=== PATIENT | male | born 1935 | race Caucasian/White ===

== ENCOUNTER 2017-01-18 11:20 | Day surgery (SDC) | payer MEDICARE ==
--- NOTE | 2017-01-02 08:39 | HP ---
DATE OF ADMISSION: 01/18/2017 CHIEF COMPLAINT: Bilateral inguinal hernia. HISTORY OF PRESENT ILLNESS: The patient is an 81-year-old male who comes to the office complaining of a painful bulge in the left groin. He says his urologist told him several years ago he may have a small hernia. Recently, he was getting out of a chair and felt a popping sensation in the left groin and has had an ache at that location since then. The patient normally walks 3 to 5 miles daily and he has been unable to do so because of the discomfort associated with this. He was unaware of a right inguinal hernia. No change in bowel habits. No prior repair. Past medical history is hypertension. Past surgical history is shoulder. MEDICATIONS: 1. Diovan. 2. Hytrin. 3. Prilosec. 4. Aspirin. ALLERGIES: None. PHYSICAL EXAM: GENERAL: Well-developed, well-nourished male in no distress. HEENT is normocephalic. Sclerae is nonicteric. CHEST: No deformities. Abdomen is soft, nontender, nondistended. Small right reducible inguinal hernia, moderate-sized left inguinal hernia. Both testes normal. IMPRESSION: An 81-year-old male with bilateral inguinal hernia. PLAN: Will proceed with operative repair on 01/18. The option of open versus laparoscopic repair was discussed. He and I have chose a da Dl-assisted laparoscopic bilateral inguinal hernia repair with mesh. The risks of bleeding, infection, bladder or bowel injury, chronic pain, recurrence and anesthesia and insufflation associated complications. The patient understands and wishes to proceed.
[2017-01-14 14:42] VITALS: BMI 26.0
[~2017-01-18 11:20] MED LIST: DEXAMETHASONE SOD PHOSPHATE 10 MG/ML 1 ML VIAL IV ONE; HEPARIN SODIUM,PORCINE 5,000 UNIT/ML 1 ML VIAL SQ ONE; LIDOCAINE 1% 20 ML VIAL (10MG/ML) FOR IV START INTRADERMA PRN; ONDANSETRON 4 MG/2 ML VIAL IVP ONE; ceFAZolin 2 GM in SODIUM CHLORIDE 0.9% 100 ML IVPB ONE
[2017-01-18] MEDS: LACTATED RINGERS 1,000 ML IV SCH ×2 (12:31→18:31)
[2017-01-18 12:44] LABS: Basophils % (A) 1 %; CH 36.2; CHCM 34.6; Eosinophils # (A) 0.1 k/uL (0-0.7); Eosinophils % (A) 2 %; HCT 42.5 % (39.0-53.0); HDW 2.24; HGB 14.4 gm/dL (13.0-17.5); Luc # (Auto) 0.16; Luc % (Auto) 3; Lymphocytes # (A) 1.2 k/uL (1.0-4.8); Lymphocytes % (A) 23 %; MCH 35.6 pg (25.0-35.0); MCHC 33.8 g/dL (31.0-37.0); MCV 105.3 fL (80.0-100.0); Macrocytosis Slight; Mean Platelet Volume 7.3; Monocytes # (A) 0.4 k/uL (0-1.0); Monocytes % (A) 8 %; Neutrophils # (A) 3.4 k/uL (1.3-7.7); Neutrophils % (A) 64 %; RBC 4.04 m/uL (4.30-5.90); RDW 12.8 % (11.5-15.5); WBC 5.3 k/uL (3.8-10.6); WBC (Perox) 5.17
[2017-01-18 12:58] LABS: Calcium 9.4 mg/dL (8.4-10.2); Potassium 3.7 mmol/L (3.5-5.1)
[2017-01-18] MEDS ORDERED: PROPOFOL 10 MG/ML 20 ML VIAL IV ONE (12:59)
[2017-01-18] MEDS ORDERED: MIDAZOLAM 2 MG/2 ML VIAL ONE (12:59)
[2017-01-18] MEDS ORDERED: LIDOCAINE 1% INJ 10MG/ML (20 ML MDV) ONE (12:59)
[2017-01-18] MEDS ORDERED: fentaNYL (PF) 50 MCG/ML 2 ML AMP ONE (12:59)
[2017-01-18] MEDS ORDERED: HYDROmorphone (PF) 1 MG/ML ONE (12:59)
[2017-01-18] MEDS ORDERED: NEOSTIGMINE 1 MG/ML 10 ML VIAL ONE (12:59)
[2017-01-18] MEDS ORDERED: SUCCINYLCHOLINE CHLORIDE 100 MG/5 ML SYR IV ONE (12:59)
[2017-01-18] MEDS ORDERED: GLYCOPYRROLATE 0.2 MG/ML 2 ML VIAL ONE (12:59)
[2017-01-18] MEDS ORDERED: ROCURONIUM BROMIDE 10 MG/ML 10 ML VIAL IV ONE (12:59)
[2017-01-18] MEDS ORDERED: BUPIVACAIN-EPI 0.25%-1:200,000 30 ML VIAL SQ ONE ×2 (13:37)
[2017-01-18] MEDS ORDERED: NALOXONE 0.4 MG/ML 1 ML VIAL IV PRN (15:41)
--- NOTE | 2017-01-18 15:48 | P.OP ---
Date of Procedure: 01/18/17 Procedure(s) Performed: PREOPERATIVE DIAGNOSIS: Bilateral inguinal hernia POSTOPERATIVE DIAGNOSIS: Bilateral direct and will hernia with right-sided small femoral hernia, mesenteric lesion PROCEDURE: Laparoscopic repair I lateral inguinal hernia with the da Dl robot assistance, excision mesenteric lesion SURGEON: Sunshine EBL: Minimal ANESTHESIA: General COMPLICATIONS: None OPERATIVE PROCEDURE: Patient was placed in the operating table in the supine position. The patient was then placed in lithotomy. The abdomen was prepped and draped in usual sterile fashion. A small vertical supraumbilical incision was made. The fascia was retracted anteriorly with Leatha forceps. The Veress needle was inserted. The saline drop test was normal. Insufflation took place to 15 mmHg. A 5 mm trocar was then inserted. 2 additional 8 mm trochars were placed in the right upper quadrant and left upper quadrant under visualization. The initial 5 was switched to a 12 mm trocar at that time under direct visualization. The robotic arms were then brought in and docked into place. The fenestrated bipolar was used in the left arm and the laparoscopic chaya was utilized in the right arm. A 30 12 mm scope was used in the up position. The peritoneal cavity was inspected. The patient had a 2.5 cm pedunculated fibrotic mass coming from the antimesenteric portion of the sigmoid colon. This had a very narrow stalk measuring only about 2 mm. This appeared consistent with a torsed fatty appendage sequela. This was later excised by sharply dividing that small mesentery. This was sent to pathology for close examination. Evaluation of both right and left aspects of the pelvis revealed bilateral direct inguinal hernias. Following that careful dissection of the preperitoneal space took place bilaterally. This took place using both electrocautery and sharp dissection and primarily blunt dissection. Visualization of the pubic tubercle and Hector's ligament took place medially. Full dissection took place laterally as well. The right side was first addressed. Again a small moderate direct hernia was seen here. There is also a small femoral hernia that was able to be reduced fully. No evidence of an indirect hernia sac was seen. Left side was addressed. On this side a large direct hernia was identified. No femoral or indirect hernia was seen. Once we had adequate space the 15 x 10 progrip mesh was advanced into the preperitoneal space and flattened out appropriately to cover all potential hernia sites. No sutures were used. The peritoneal defect was then closed bilaterally using a 2- 0 VLok suture. The mesenteric lesion was then removed from the peritoneal cavity using and Endo Catch bag. The pneumoperitoneum was then evacuated. The fascia at the 12 mm site was closed using a 0 Vicryl stitch. The skin of all 3 sites was closed using a 4-0 Monocryl stitch. Steri-Strips and sterile dressings were applied. DISPOSITION: Stable to recovery room
[2017-01-18] MEDS: HYDROmorphone 1 MG/ML 1 ML SYRINGE IVP PRN ×3 (16:01→16:26)
[2017-01-18] MEDS ORDERED: HYDROcodone/APAP 5-325MG 1 EACH TAB PO ONE (17:00)
[2017-01-18] MEDS ORDERED: HYDROmorphone 1 MG/ML 1 ML SYRINGE IVP PRN ×2 (20:37)
[2017-01-19] MEDS: HYDROcodone/APAP 5-325MG 1 EACH TAB PO PRN ×3 (04:58→09:06)
[2017-01-19] MEDS ORDERED: PANTOPRAZOLE 40 MG TABLET PO SCH (07:30)
[2017-01-19 07:33] VITALS: BP 116/73; PULSE 75; RESP 15; TEMP 97.6
[2017-01-19] MEDS ORDERED: VALSARTAN 80 MG TAB PO SCH (09:00)
[2017-01-19] MEDS ORDERED: [UNRECOGNIZED DRUG - OTHER] PO SCH (09:00)
[2017-01-19] MEDS ORDERED: ASPIRIN 325 MG TAB PO SCH (09:00)
[2017-01-19] MEDS ORDERED: HYDROCHLOROTHIAZIDE 12.5 MG CAP PO SCH (09:00)
[2017-01-19] MEDS ORDERED: MULTIVITAMINS, THERA 1 EACH TAB PO SCH (12:00)
--- NOTE | 2017-01-19 12:19 | P.DS ---
Providers Expected date of discharge: 01/19/17 Attending physician: Leland Gonsalez Primary care physician: [facility] Course: Patient was admitted for observation post bilateral hernia repair yesterday. Primary reason for observation was urinary retention. He had a straight catheterization done in the middle of the night. He is now voiding better. His pain is well-controlled. He is anxious to go home. Incisions are clean and dry. Plan outpatient follow-up in 1 week. Plan - Discharge Summary New Discharge Prescriptions: Hydrocodone/Acetaminophen [[place] 5-325] 1 - 2 each PO Q4HR PRN #30 tab PRN Reason: pain Discharge Medication List Aspirin 325 mg PO DAILY 01/14/17 [History] Gluc/Clive-MSM#1/C/Kristopher/Alexey/Bor [Glucosamine-Chondroitin Tablet] 1 each PO BID [History] Multivitamins, Thera [Multivitamin (formulary)] 1 tab PO DAILY 01/14/17 [History ] Omeprazole [PriLOSEC] 20 mg PO AC-BRKFST 01/14/17 [History] Terazosin HCl [Hytrin] 10 mg PO HS 01/14/17 [History] Valsartan/Hydrochlorothiazide [Diovan Hct 80-12.5 mg Tablet] 1 tab PO DAILY [History] Hydrocodone/Acetaminophen [[place] 5-325] 1 - 2 each PO Q4HR PRN #30 tab 01/18/17 [Rx] Follow up Appointment(s)/Referral(s): Leland Gonsalez MD [Medical Doctor] - 01/27/17 2:50 pm Patient Instructions/Handouts: *Surgery [facility] - (Anesthesia) Discharge Instructions Outpatient Surgery, Laparoscopic Herniorrhaphy (DC) Activity/Diet/Wound Care/Special Instructions: no heavy lifting, nothing heavier than a gallon of milk ok to shower in 48hrs Discharge Disposition: HOME SELF-CARE
[2017-01-19] MEDS ORDERED: TERAZOSIN 5 MG CAP PO SCH (21:00)
== END 2017-01-19 12:18 | disposition home or self-care (01) ==
LOC: OR 11:20 → 3SUR 15:29 → OR 01-19 12:18
PROVIDERS: ATTEND Surgery
DX: K40.20 Bilateral inguinal hernia, without obstruction or gangrene, not specified as recurrent (principal); K41.90 Unilateral femoral hernia, without obstruction or gangrene, not specified as recurrent; I10 Essential (primary) hypertension; N40.0 Benign prostatic hyperplasia without lower urinary tract symptoms; K21.9 Gastro-esophageal reflux disease without esophagitis; Z79.899 Other long term (current) drug therapy; Z79.82 Long term (current) use of aspirin
CPT/HCPCS: 93005; 88305; 80048; 85025; 49650; 49659; C1781; J2250; J1644; J1100; J2710; J0690; J2405; J2001; J3010; J1170; J0330; J2704

== ENCOUNTER 2017-06-11 05:05 | Inpatient (IN) | payer MEDICARE ==
--- NOTE | 2017-06-11 05:19 | ED ---
General Adult HPI - General Chief complaint: Neuro Symptoms/Deficit Stated complaint: Neuro Deficits Time Seen by Provider: 06/11/17 05:12 Source: patient, EMS, RN notes reviewed Mode of arrival: EMS Limitations: no limitations - History of Present Illness Initial comments: Patient is a pleasant 81-year-old male presenting to the emergency department with difficulty walking. Patient woke up at 4 AM. Patient was sweaty. Patient sat up and was leaning to the right. Patient was able to walk to the bathroom with difficulty however drifted to the right the entire time. Patient states earlier his right leg felt slightly numb however that has resolved. Patient after coming back from the bathroom did have similar symptoms. No history of similar symptoms previously. No specific area of weakness. No confusion. Patient had minimal discomfort behind his right eye however that has resolved. - Related Data Home Medications Medication Instructions Recorded Confirmed Aspirin 325 mg PO DAILY 01/14/17 01/14/17 Glucosam/Clive-Msm1/C/Kristopher/Bosw 1 each PO BID 01/14/17 01/14/17 [Glucosamine-Chondroitin Tablet] Multivitamins, Thera [Multivitamin 1 tab PO DAILY 01/14/17 01/14/17 (formulary)] Omeprazole [PriLOSEC] 20 mg PO AC-BRKFST 01/14/17 01/14/17 Terazosin HCl [Hytrin] 10 mg PO HS 01/14/17 01/14/17 Valsartan/Hydrochlorothiazide 1 tab PO DAILY 01/14/17 01/14/17 [Diovan Hct 80-12.5 mg Tablet] Previous Rx's Medication Instructions Recorded Hydrocodone/Acetaminophen [[place] 1 - 2 each PO Q4HR PRN #30 tab 01/18/17 5-325] Allergies Allergy/AdvReac Type Severity Reaction Status Date / Time No Known Allergies Allergy Verified 06/11/17 05:06 Review of Systems ROS Statement: Those systems with pertinent positive or pertinent negative responses have been documented in the HPI. ROS Other: All systems not noted in ROS Statement are negative. Constitutional: Denies: fever Eyes: Denies: eye pain ENT: Denies: ear pain Respiratory: Denies: cough Cardiovascular: Denies: chest pain Endocrine: Denies: fatigue Gastrointestinal: Denies: abdominal pain Genitourinary: Denies: dysuria Musculoskeletal: Denies: back pain Skin: Denies: rash Neurological: Reports: abnormal gait Past Medical History Past Medical History: Cancer, GERD/Reflux, Hypertension, Osteoarthritis (OA), Prostate Disorder, Skin Disorder Additional Past Medical History / Comment(s): hx migraines, straining to have bowel movements, skin cancer above ear,nose History of Any Multi-Drug Resistant Organisms: None Reported Past Surgical History: Orthopedic Surgery Additional Past Surgical History / Comment(s): skin cancer removed from scalp, rectal fistula repair, rt shoulder rotator cuff, cataract left eye Past Anesthesia/Blood Transfusion Reactions: Motion Sickness Past Psychological History: No Psychological Hx Reported Smoking Status: Never smoker Past Alcohol Use History: Daily Past Drug Use History: None Reported - Past Family History Mother Family Medical History: Myocardial Infarction ([place]) General Exam Limitations: no limitations General appearance: alert, in no apparent distress Head exam: Present: atraumatic Eye exam: Present: normal appearance, PERRL, EOMI. Absent: nystagmus ENT exam: Present: normal oropharynx Neck exam: Present: normal inspection Respiratory exam: Present: normal lung sounds bilaterally Cardiovascular Exam: Present: regular rate, normal rhythm GI/Abdominal exam: Present: soft. Absent: tenderness Extremities exam: Present: normal inspection Neurological exam: Present: alert, oriented X3, CN II-XII intact. Absent: motor sensory deficit Expanded Patient oriented to: Present: person, place. Absent: time Speech: Present: fluid speech Cranial nerves: EOM's Intact: Normal, Facial Sensation: Normal Sensory exam: Upper Extremity Light Touch: Normal, Lower Extremity Light Touch: Normal Motor strength exam: RUE: 5, LUE: 5, RLE: 5, LLE: 5 Eye Response: (4) open spontaneously Motor Response: (6) obeys commands Verbal Response: (5) oriented Psychiatric exam: Present: normal affect, normal mood Skin exam: Present: normal color Course Vital Signs 06/11/17 06/11/17 06/11/17 05:06 06:38 06:57 Temperature 96.7 F L Pulse Rate 69 79 62 Respiratory 16 16 16 Rate Blood Pressure 159/76 168/78 150/70 O2 Sat by Pulse 92 L 99 99 Oximetry EKG Findings - EKG Comments: EKG Findings:: Sinus rhythm at 60. First degree AV block with a KS of 278. QRS 144. QT 446. QTc 474. Left axis. Right bundle branch block. Left anterior fascicular block. LVH with repolarization change. Medical Decision Making - Medical Decision Making Patient reevaluated and updated. Patient did get up and was able to walk without difficulty. Case was discussed in detail with Dr. Venegas, who will admit his patient. - Lab Data Result diagrams: 06/11/17 05:15 06/11/17 05:15 Lab Results 06/11/17 06/11/17 06/11/17 Range/Units 05:15 05:15 05:15 WBC 5.1 (3.8-10.6) k/uL RBC 3.90 L (4.30-5.90) m/uL Hgb 14.2 (13.0-17.5) gm/dL Hct 40.5 (39.0-53.0) % MCV 103.9 H (80.0-100.0) fL MCH 36.4 H (25.0-35.0) pg MCHC 35.0 (31.0-37.0) g/dL RDW 13.3 (11.5-15.5) % Plt Count 157 (150-450) k/uL Neutrophils % 56 % Lymphocytes % 29 % Monocytes % 9 % Eosinophils % 3 % Basophils % 0 % Neutrophils # 2.9 (1.3-7.7) k/uL Lymphocytes # 1.5 (1.0-4.8) k/uL Monocytes # 0.5 (0-1.0) k/uL Eosinophils # 0.2 (0-0.7) k/uL Basophils # 0.0 (0-0.2) k/uL Macrocytosis Slight PT (9.0-12.0) sec INR (<1.2) APTT (22.0-30.0) sec Sodium 134 L (137-145) mmol/L Potassium 3.7 (3.5-5.1) mmol/L Chloride 102 (98-107) mmol/L Carbon Dioxide 26 (22-30) mmol/L Anion Gap 6 mmol/L BUN 23 H (9-20) mg/dL Creatinine 1.30 H (0.66-1.25) mg/dL Est GFR (MDRD) Af Amer >60 (>60 ml/min/1.73 sqM) Est GFR (MDRD) Non-Af 53 (>60 ml/min/1.73 sqM) Glucose 103 H (74-99) mg/dL Calcium 9.1 (8.4-10.2) mg/dL Total Bilirubin 0.6 (0.2-1.3) mg/dL AST 27 (17-59) U/L ALT 42 (21-72) U/L Alkaline Phosphatase 51 (38-126) U/L Total Creatine Kinase 76 (55-170) U/L CK-MB (CK-2) 1.0 (0.0-2.4) ng/mL CK-MB (CK-2) Rel Index 1.3 Troponin I <0.012 (0.000-0.034) ng/mL Total Protein 6.7 (6.3-8.2) g/dL Albumin 3.9 (3.5-5.0) g/dL 06/11/17 Range/Units 05:15 WBC (3.8-10.6) k/uL RBC (4.30-5.90) m/uL Hgb (13.0-17.5) gm/dL Hct (39.0-53.0) % MCV (80.0-100.0) fL MCH (25.0-35.0) pg MCHC (31.0-37.0) g/dL RDW (11.5-15.5) % Plt Count (150-450) k/uL Neutrophils % % Lymphocytes % % Monocytes % % Eosinophils % % Basophils % % Neutrophils # (1.3-7.7) k/uL Lymphocytes # (1.0-4.8) k/uL Monocytes # (0-1.0) k/uL Eosinophils # (0-0.7) k/uL Basophils # (0-0.2) k/uL Macrocytosis PT 10.6 (9.0-12.0) sec INR 1.1 (<1.2) APTT 22.3 (22.0-30.0) sec Sodium (137-145) mmol/L Potassium (3.5-5.1) mmol/L Chloride (98-107) mmol/L Carbon Dioxide (22-30) mmol/L Anion Gap mmol/L BUN (9-20) mg/dL Creatinine (0.66-1.25) mg/dL Est GFR (MDRD) Af Amer (>60 ml/min/1.73 sqM) Est GFR (MDRD) Non-Af (>60 ml/min/1.73 sqM) Glucose (74-99) mg/dL Calcium (8.4-10.2) mg/dL Total Bilirubin (0.2-1.3) mg/dL AST (17-59) U/L ALT (21-72) U/L Alkaline Phosphatase (38-126) U/L Total Creatine Kinase (55-170) U/L CK-MB (CK-2) (0.0-2.4) ng/mL CK-MB (CK-2) Rel Index Troponin I (0.000-0.034) ng/mL Total Protein (6.3-8.2) g/dL Albumin (3.5-5.0) g/dL - Radiology Data Radiology results: image reviewed (Chest x-ray shows no acute process. Computed tomography scan the brain shows no acute process. Moderate chronic small vessel ischemic changes.) Disposition Clinical Impression: Transient cerebral ischemia Disposition: ADMITTED IP TO THIS HOSP Referrals: Augie Venegas DO [Primary Care Provider] - 1-2 days Decision Time: 06:50
[2017-06-11 05:42] LABS: Basophils % (A) 0 %; CH 36.1; CHCM 34.9; Eosinophils # (A) 0.2 k/uL (0-0.7); Eosinophils % (A) 3 %; HCT 40.5 % (39.0-53.0); HDW 2.18; HGB 14.2 gm/dL (13.0-17.5); Luc # (Auto) 0.16; Luc % (Auto) 3; Lymphocytes # (A) 1.5 k/uL (1.0-4.8); Lymphocytes % (A) 29 %; MCH 36.4 pg (25.0-35.0); MCV 103.9 fL (80.0-100.0); Macrocytosis Slight; Mean Platelet Volume 7.3; Monocytes # (A) 0.5 k/uL (0-1.0); Monocytes % (A) 9 %; Neutrophils # (A) 2.9 k/uL (1.3-7.7); Neutrophils % (A) 56 %; RDW 13.3 % (11.5-15.5); WBC 5.1 k/uL (3.8-10.6); WBC (Perox) 4.95
--- NOTE | 2017-06-11 05:50 | XR ---
EXAM: XR Chest, 2 Views CLINICAL HISTORY: Reason: altered mental status TECHNIQUE: Frontal and lateral views of the chest. COMPARISON: No relevant prior studies available. FINDINGS: Lungs: Unremarkable. No consolidation. Pleural space: Unremarkable. No pneumothorax. Heart: Unremarkable. No cardiomegaly. Mediastinum: Unremarkable. Bones/joints: Levoconvex scoliosis. Osteopenia with bridging marginal osteophytes. IMPRESSION: No acute findings.
[2017-06-11 05:51] LABS: ALT 42 U/L (21-72); AST 27 U/L (17-59); Alkaline Phosphatase 51 U/L (38-126); Anion Gap 6 mmol/L; Blood Urea Nitrogen 23 mg/dL (9-20); Calcium 9.1 mg/dL (8.4-10.2); Carbon Dioxide 26 mmol/L (22-30); Chloride 102 mmol/L (98-107); Glucose 103 mg/dL (74-99); Non-African American GFR(MDRD) 53 (>60 ml/min/1.73 sqM); Potassium 3.7 mmol/L (3.5-5.1); Sodium 134 mmol/L (137-145); Total Bilirubin 0.6 mg/dL (0.2-1.3); Total Protein 6.7 g/dL (6.3-8.2)
[2017-06-11 06:00] LABS: INR 1.1 (<1.2); Partial Thromboplastin Time 22.3 sec (22.0-30.0); Prothrombin Time 10.6 sec (9.0-12.0)
[2017-06-11 06:09] LABS: Creatine Kinase 76 U/L (55-170)
[2017-06-11 06:22] LABS: Troponin I <0.012 ng/mL (0.000-0.034)
--- NOTE | 2017-06-11 06:43 | CT ---
EXAM: CT Head Without Intravenous Contrast CLINICAL HISTORY: Reason: Neuro Deficits TECHNIQUE: Axial computed tomography images of the head/brain without intravenous contrast. CTDI is 60.3 mGy and DLP is 1180.9 mGy-cm. This CT exam was performed using one or more of the following dose reduction techniques: automated exposure control, adjustment of the mA and/or kV according to patient size, and/or use of iterative reconstruction technique. Coronal and sagittal reformatted images were created and reviewed. COMPARISON: No relevant prior studies available. FINDINGS: Brain: Moderate chronic small vessel ischemic change. Mild global volume loss. No hemorrhage. No mass effect or edema. No evolving territorial infarction. Ventricles: Unremarkable. No ventriculomegaly. Bones/joints: Unremarkable. No acute fracture. Soft tissues: Unremarkable. Sinuses: Left maxillary sinus mucous retention cysts. Mastoid air cells: Unremarkable as visualized. No mastoid effusion. Orbits: Left lens replacement. IMPRESSION: Moderate chronic small vessel ischemic change. No acute findings.
[2017-06-11] MEDS ORDERED: ASPIRIN 325 MG TAB PO STA (06:50)
--- NOTE | 2017-06-11 08:26 | US ---
EXAMINATION TYPE: US carotid duplex BILAT DATE OF EXAM: 06/11/2017 COMPARISON: NONE CLINICAL HISTORY: Stenosis. Stenosis, TIA, exam done portable in ER EXAM MEASUREMENTS: RIGHT: Peak Systolic Velocity (PSV) cm/sec ----- Right CCA: 81.3 ----- Right ICA: 140.3 ----- Right ECA: 110.6 ICA/CCA ratio: 1.7 RIGHT: End Diastole cm/sec ----- Right CCA: 18.8 ----- Right ICA: 39.4 ----- Right ECA: 15.7 LEFT: Peak Systolic Velocity (PSV) cm/sec ----- Left CCA: 85.3 ----- Left ICA: 179.9 ----- Left ECA: 132.1 ICA/CCA ratio: 2.1 LEFT: End Diastole cm/sec ----- Left CCA: 13.8 ----- Left ICA: 40.7 ----- Left ECA: 11.6 VERTEBRALS (direction of flow): Right Vertebral: Antegrade Left Vertebral: Antegrade Bilateral intimal thickening, minimal plaque seen bilateral bulb and ICA, elevated velocities: right distal ICA, left distal ICA and left mid ECA, left ICA/CCA ratio of 2.1. Grayscale images show focal moderate peripheral plaque at right carotid bulb extending into right int ernal carotid artery. Increased peak systolic velocity is noted. End-diastolic velocity is borderline . There is more prominent diffuse moderate peripheral plaque at left carotid bulb. Increased velocity in left internal carotid artery is identified with abnormal ratio. IMPRESSION: Moderate plaque bilaterally is present, left is more prominent than right with hemodynam ically significant stenosis felt present, degree of stenosis is estimated 50-69% on the left and appr oaching but under 50% on the right. Further investigation with nonemergent CTA or MRA of the neck is advised to better evaluate and characterize. Criteria for Assigning % of Stenosis / Diameter reduction (Estimation based on the indirect measurements of the internal carotid artery velocities (ICA PSV). 3. 50 to 69% stenosis=ICA PSV of 125 to 230 cm/s: ration 2.0 ? 4.0: ICA EDV 40-100 cm/s.
[2017-06-11] MEDS ORDERED: NON-FORMULARY DRUG (Glucosam/Chon-Msm1/C/Mang/Bosw [Glucosamine-Chondroitin Tablet] 1 TAB) PO SCH (10:15)
[2017-06-11] MEDS ORDERED: VALSARTAN 80 MG TAB PO SCH ×2 (10:30→10:47)
[2017-06-11] MEDS: PANTOPRAZOLE 40 MG TABLET PO SCH (10:45)
[2017-06-11] MEDS: SODIUM CHLORIDE 0.9% 1,000 ML IV SCH ×2 (10:47→18:04)
[2017-06-11] MEDS: HYDROCHLOROTHIAZIDE 12.5 MG CAP PO SCH (10:47)
[2017-06-11] MEDS: MULTIVITAMINS, THERA 1 EACH TAB PO SCH (10:48)
--- NOTE | 2017-06-11 12:44 | P.HPIM ---
History of Present Illness H&P Date: 06/11/17 Chief Complaint: Right side weakness/difficulty walking This is a 81 year old male who presented to the emergency room due to right-sided weakness/difficulty walking. The patient states he got up in the middle of the night around 4 AM and had to use the bathroom. On his way to the bathroom he noticed his right side "didn't want to get going". He states as he was walking his body kept drifting to the right and was not able to walk straight. The patient decided to come to the hospital for evaluation. A CT of the head was completed in the emergency room which showed moderate chronic small vessel ischemic changes but did not display any acute findings. A chest x-ray was completed which was unremarkable. Carotid Doppler was performed which showed 50-69% stenosis of the left carotid artery and less than 50% stenosis of the right carotid artery. An EKG was performed which showed sinus rhythm with first-degree AV block and a right bundle branch block with a heart rate in the 60s. Troponin and CK-MB were within normal limits. Lab work that was completed in the emergency room has been reviewed. The patient's creatinine was slightly elevated at 1.3 upon admission however this is his baseline. The patient's creatinine is usually around 1.4. The patient was seen and examined this morning in rounds with Dr. Venegas. The patient states all of his symptoms have resolved. The patient is alert and oriented 3 and communicating without any difficulty. He denies any chest pain or shortness of breath. He denies any nausea or vomiting. He is tolerating oral fluids without difficulty. Upon examination, there is no neurological deficits noted. However, when Dr. Venegas examine the patient's strength in his lower extremities the patient did complain of leg cramping that quickly resolved. The patient states he mostly drinks coffee during the day, a few glasses of wine in the evening and then usually 12 ounces of water after that. The patient was encouraged to increase his water intake. The patient was admitted under Dr. Venegas to a general medical floor with q2 neuro checks. Consults were placed to Dr. Herrera, Neurology and Dr. Kwan, vascular surgery. Review of Systems GENERAL: Patient denies fever, chills, weight gain, or weight loss. RESPIRATORY: Denies dyspnea, cough, sputum production, or hemoptysis. CARDIOVASCULAR: Denies chest pain, pressure, palpitations, or arrhythmias. GI: Denies abdominal pain, diarrhea, incontinence, heartburn, nausea, constipation, or blood in the stool. : Denies urinary frequency, burning, dysuria, or cloudy urine. Denies blood in the urine. MUSCULOSKELETAL: Positive for bilateral leg cramping. Denies pain or tenderness. Denies swelling or decreased range of motion. Past Medical History Past Medical History: Cancer, GERD/Reflux, Hypertension, Osteoarthritis (OA), Prostate Disorder, Skin Disorder Additional Past Medical History / Comment(s): hx migraines, straining to have bowel movements, skin cancer above ear,nose History of Any Multi-Drug Resistant Organisms: None Reported Past Surgical History: Orthopedic Surgery Additional Past Surgical History / Comment(s): skin cancer removed from scalp, rectal fistula repair, rt shoulder rotator cuff, cataract left eye Past Anesthesia/Blood Transfusion Reactions: Motion Sickness Past Psychological History: No Psychological Hx Reported Smoking Status: Never smoker Past Alcohol Use History: Daily Past Drug Use History: None Reported - Past Family History Mother Family Medical History: Myocardial Infarction ([place]) Medications and Allergies Home Medications Medication Instructions Recorded Confirmed Type Aspirin 325 mg PO 01/14/17 06/11/17 History Glucosam/Clive-Msm1/C/Kristopher/Bosw 1 tab PO DAILY 01/14/17 06/11/17 History [Glucosamine-Chondroitin Tablet] Multivitamins, Thera [Multivitamin 1 tab PO DAILY 01/14/17 06/11/17 History (formulary)] Omeprazole [PriLOSEC] 20 mg PO AC-BRKFST 01/14/17 06/11/17 History Terazosin HCl [Hytrin] 10 mg PO HS 01/14/17 06/11/17 History Valsartan/Hydrochlorothiazide 1 tab PO DAILY 01/14/17 06/11/17 History [Diovan Hct 80-12.5 mg Tablet] Allergies Allergy/AdvReac Type Severity Reaction Status Date / Time No Known Allergies Allergy Verified 06/11/17 07:38 Physical Exam Vitals: Vital Signs Temp Pulse Pulse Resp BP BP Pulse Ox 06/11/17 09:50 66 20 134/63 92 L 06/11/17 08:50 66 18 130/67 92 L 06/11/17 07:50 68 18 150/70 94 L 06/11/17 06:57 62 16 150/70 99 06/11/17 06:50 67 150/70 93 L 06/11/17 06:38 79 16 168/78 99 06/11/17 05:06 96.7 F L 69 16 159/76 92 L Intake and Output 06/10/17 06/11/17 06/11/17 22:59 06:59 14:59 Other: Weight 88.451 kg GENERAL: Alert and oriented. Appears in no acute distress. Pleasant and cooperative. Speech is clear. RESPIRATORY: Lungs clear bilaterally. No use of accessory muscles. Patient maintaining oxygen saturation greater than 92%. CARDIOVASCULAR: S1 and S2 noted. No murmurs auscultated. No JVD noted. EXTREMITIES: No edema noted. Palpable pedal pulses +2. Push/Pulls strong and equally bilaterally. ABDOMEN: No distention noted. Abdomen soft and round. Normal active bowel sounds auscultated 4 quadrants. No pain or tenderness noted upon palpation. Results CBC & Chem 7: 06/11/17 05:15 06/11/17 05:15 Labs: Abnormal Lab Results - Last 24 Hours (Table) 06/11/17 06/11/17 Range/Units 05:15 05:15 RBC 3.90 L (4.30-5.90) m/uL MCV 103.9 H (80.0-100.0) fL MCH 36.4 H (25.0-35.0) pg Sodium 134 L (137-145) mmol/L BUN 23 H (9-20) mg/dL Creatinine 1.30 H (0.66-1.25) mg/dL Glucose 103 H (74-99) mg/dL Assessment and Plan Plan: ASSESSMENT: Transient ischemic attack, present on admission History of GERD History of essential hypertension History of Osteoarthritis Muscle cramping of lower extremities, likely due to dehydration and decreased fluid intake, resolved PLAN: -Admit to general medical floor -Q2 neurological checks -Consult placed to neurology. Await further recommendations and input -Speech consulted per ER physician -Resume home meds -GI prophylaxis: Protonix 40 mg daily -DVT prophylaxis: Heparin 5000 units subcu every 8 hours -Ok for regular diet. Encourage increased fluid intake -Echo ordered: awaiting results -PT/OT consults -Will obtain lower extremity doppler -Continue to monitor labs -Monitor vital signs and address as appropriate -Consult vascular surgery, Dr. Kwan for carotid stenosis per Dr. Venegas The above impression and plan of care have been discussed and directed by signing physician. Hazel Silva, nurse practitioner, acting as scribe for signing physician.
[2017-06-11 13:35] LABS: Cholesterol 168 mg/dL (<200); HDL Cholesterol 65 mg/dL (40-60)
--- NOTE | 2017-06-11 14:46 | US ---
EXAMINATION TYPE: US venous doppler duplex LE BI DATE OF EXAM: 06/11/2017 2:33 PM COMPARISON: NONE CLINICAL HISTORY: r/o dvt. Rt leg weakness per patient SIDE PERFORMED: Bilateral TECHNIQUE: The lower extremity deep venous system is examined utilizing real time linear array sonog pattie with graded compression, doppler sonography and color-flow sonography. VESSELS IMAGED: Common Femoral Vein Deep Femoral Vein Greater Saphenous Vein * Femoral Vein Popliteal Vein Small Saphenous Vein * Proximal Calf Veins (* superficial vessels) Right Leg: Negative for DVT. Right popliteal fossa cyst is imaged =3.3 x 2.8 x 0.5cm. Left Leg: Wall echoes are noted at upper Femoral Vein Valve, but is otherwise negative for DVT. IMPRESSION: No ultrasound evidence for acute DVT in either lower extremity. Small to moderate-sized popliteal cyst in right lower extremity is marked by technologist midway through this exam.
--- NOTE | 2017-06-11 17:31 | P.CNNES ---
History of Present Illness Consult date: 06/11/17 Requesting physician: Augie Venegas Reason for Consult: TIA History of Present Illness: Patient is a pleasant 81-year-old male who is being evaluated by the neurology service on 06/11/2017 per the request of Dr. Venegas for transient ischemic attack. Patient reports going to bed last night as usual and denies any symptoms. Patient states he woke up around 4 AM and noticed he was heavily perspiring. He decided to get up to use the bathroom and noticed his right side was weak. He states he hobbled to the bathroom and was unable to ambulate as usual. Patient states he woke his up in the decided to come to the hospital for further evaluation. Computed tomography scan was done which showed moderate chronic small vessel ischemic change. CT also showed mild global volume loss but no acute findings were noted. Carotid Doppler was done which revealed 50-69% stenosis of the left carotid artery and less than 50% stenosis of the right carotid artery. Vascular surgeries been consulted. Lower extremity venous Dopplers were done which were negative for any acute DVT. An echocardiogram was ordered and results are pending. Labs on admission were sodium 134, potassium 3.7, chloride 102, carbon dioxide 26. BUN is 23, creatinine 1.3. Hemoglobin 14.2, hematocrit 40.5, WBCs 5.1, RBC 3.9. Home medications include aspirin 325 mg daily. At the time of my evaluation, patient 's resting comfortably in bed and appears to be in no acute distress. Review of Systems REVIEW OF SYSTEMS: Otherwise unremarkable and noncontributory. Past Medical History Past Medical History: Cancer, GERD/Reflux, Hypertension, Osteoarthritis (OA), Prostate Disorder, Skin Disorder Additional Past Medical History / Comment(s): hx migraines, straining to have bowel movements, skin cancer above ear,nose ,CONSTIPATION History of Any Multi-Drug Resistant Organisms: None Reported Past Surgical History: Orthopedic Surgery Additional Past Surgical History / Comment(s): skin cancer removed from scalp, rectal fistula repair, rt shoulder rotator cuff, cataract left eye, MARILYN INGUINAL HERNIA REPAIR Past Anesthesia/Blood Transfusion Reactions: Motion Sickness Smoking Status: Never smoker - Past Family History Mother Family Medical History: Myocardial Infarction ([place]) Additional Family Medical History / Comment(s): OF [place] AT AGE 94 Father Additional Family Medical History / Comment(s): ETOH-BINGE DRINKER NOT EXACTLY SURE CAUSE OF HIS AT AGE 78 Medications and Allergies Home Medications Medication Instructions Recorded Confirmed Type Aspirin 325 mg PO HS 01/14/17 06/11/17 History Glucosam/Clive-Msm1/C/Kristopher/Bosw 1 tab PO DAILY 01/14/17 06/11/17 History [Glucosamine-Chondroitin Tablet] Multivitamins, Thera [Multivitamin 1 tab PO DAILY 01/14/17 06/11/17 History (formulary)] Omeprazole [PriLOSEC] 20 mg PO AC-BRKFST 01/14/17 06/11/17 History Terazosin HCl [Hytrin] 10 mg PO HS 01/14/17 06/11/17 History Valsartan/Hydrochlorothiazide 1 tab PO DAILY 01/14/17 06/11/17 History [Diovan Hct 80-12.5 mg Tablet] Allergies Allergy/AdvReac Type Severity Reaction Status Date / Time No Known Allergies Allergy Verified 06/11/17 07:38 Physical Examination - Vital Signs Vital Signs: Vital Signs Temp Pulse Pulse Resp BP BP Pulse Ox 06/11/17 13:50 97.6 F 71 16 162/77 94 L 06/11/17 12:21 97.4 F L 63 18 147/66 94 L 06/11/17 09:50 66 20 134/63 92 L 06/11/17 08:50 66 18 130/67 92 L 06/11/17 07:50 68 18 150/70 94 L 06/11/17 06:57 62 16 150/70 99 06/11/17 06:50 67 150/70 93 L 06/11/17 06:38 79 16 168/78 99 06/11/17 05:06 96.7 F L 69 16 159/76 92 L Intake and Output 06/11/17 06/11/17 06/11/17 06:59 14:59 22:59 Other: # Voids 2 Weight 88.451 kg PHYSICAL EXAM: GENERAL APPEARANCE: Patient is a well-developed, male who appears to be in no acute distress. HEENT: Normocephalic, atraumatic, no facial asymmetry is seen. Neck is supple with no masses felt. CARDIOVASCULAR: Regular rate and rhythm. ABDOMEN: Nontender, nondistended. EXTREMITIES: Show no edema or clubbing. NEUROLOGICAL EXAM: Patient is awake, alert, and oriented 3. Speech and language are normal. No facial asymmetry is seen on cranial nerve testing. Strength is full in all 4 extremities. No sensory deficit to light touch is noted. No tremors or seizure-like activity is seen. Results - Laboratory Findings CBC and BMP: 06/11/17 05:15 06/11/17 05:15 Abnormal Lab Findings: Abnormal Labs 06/11/17 06/11/17 06/11/17 05:15 05:15 05:15 RBC 3.90 L MCV 103.9 H MCH 36.4 H Sodium 134 L BUN 23 H Creatinine 1.30 H Glucose 103 H HDL Cholesterol 65 H Assessment and Plan (1) Transient cerebral ischemia Status: Acute Plan: Recommendations: The patient did have an episode of right-sided weakness which has since resolved. I believe patient had transient ischemic attack. Patient denies any recurrence of symptoms. At this time, there are no neurological deficits noted. Patient was taking aspirin 325 mg daily at home. I will switch his aspirin to Plavix 75 mg by mouth daily. His carotid Doppler results are mentioned above and vascular surgery has been consulted. His lipid panel was normal except for elevated HDL. I will order a serum homocystine level. I will order an EEG. I recommend continuing neuro checks. I will continue to follow with you. Further recommendations to follow. Thank you for allowing me to participate in the care of your patient. Feel free to call with any questions or concerns. I performed an examination of the patient and discussed the management with the RECORDS MANAGEMENT SPECIALIST. I have reviewed the RECORDS MANAGEMENT SPECIALIST notes and agree with the findings and plan of care.
--- NOTE | 2017-06-11 17:58 | ECHOF ---
Referral Reason:Thrombus MEASUREMENTS -------- HEIGHT: 188.0 cm WEIGHT: 88.5 kg BP: 150/70 RVIDd: 3.3 cm (< 3.3) IVSd: 1.0 cm (0.6 - 1.1) LVIDd: 4.5 cm (3.9 - 5.3) LVPWd: 1.1 cm (0.6 - 1.1) IVSs: 1.9 cm LVIDs: 2.6 cm LVPWs: 1.4 cm LA Diam: 3.6 cm (2.7 - 3.8) LAESV Index (A-L): 34.43 ml/m Ao Diam: 3.6 cm (2.0 - 3.7) AV Cusp: 2.4 cm (1.5 - 2.6) MV EXCURSION: 12.690 mm (> 18.000) MV EF SLOPE: 66 mm/s (70 - 150) EPSS: 0.5 cm MV E Adan: 0.98 m/s MV DecT: 261 ms MV A Adan: 1.08 m/s MV E/A Ratio: 0.91 RAP: 5.00 mmHg RVSP: 31.76 mmHg FINDINGS -------- Sinus rhythm. This was a technically good study. The left ventricular size is normal. There is borderline concentric left ventricular hypertrophy. Overall left ventricular systolic function is normal with, an EF between 60 - 65 %. The right ventricle is mildly enlarged. LA is moderately dilated 34-39 ml/m2 The right atrium is normal in size. There is mild aortic valve sclerosis. Trace to mild aortic regurgitation. Mild mitral annular calcification present. There is trace mitral regurgitation. Mild tricuspid regurgitation present. Right ventricular systolic pressure is normal at < 35 mmHg. Trace/mild (physiologic) pulmonic regurgitation. The aortic root size is normal. Normal inferior vena cava with normal inspiratory collapse consistent with estimated right atrial pressure of 5 mmHg. There is no pericardial effusion. CONCLUSIONS -------- 1. Sinus rhythm. 2. Trace to mild aortic regurgitation. 3. Mild mitral annular calcification present. 4. There is trace mitral regurgitation. 5. Mild tricuspid regurgitation present. 6. Right ventricular systolic pressure is normal at < 35 mmHg. 7. Trace/mild (physiologic) pulmonic regurgitation. 8. The aortic root size is normal. 9. Normal inferior vena cava with normal inspiratory collapse consistent with estimated right atrial pressure of 5 mmHg. 10. There is no pericardial effusion. 11. This was a technically good study. 12. The left ventricular size is normal. 13. There is borderline concentric left ventricular hypertrophy. 14. Overall left ventricular systolic function is normal with, an EF between 60 - 65 %. 15. The right ventricle is mildly enlarged. 16. LA is moderately dilated 34-39 ml/m2 17. The right atrium is normal in size. 18. There is mild aortic valve sclerosis. K 9 POLICE OFFICER: Cindy Arana RDCS
[2017-06-11] MEDS: CLOPIDOGREL 75 MG TAB PO SCH (17:59)
[2017-06-11] MEDS: HEPARIN SODIUM,PORCINE 5,000 UNIT/ML 1 ML VIAL SQ SCH (18:05)
[2017-06-11] MEDS ORDERED: TERAZOSIN 5 MG CAP PO SCH (21:00)
[2017-06-12] MEDS: HEPARIN SODIUM,PORCINE 5,000 UNIT/ML 1 ML VIAL SQ SCH ×2 (00:23→07:57)
[2017-06-12] MEDS: SODIUM CHLORIDE 0.9% 1,000 ML IV SCH (05:19)
[2017-06-12 06:29] LABS: Cholesterol 162 mg/dL (<200); HDL Cholesterol 57 mg/dL (40-60)
[2017-06-12] MEDS: PANTOPRAZOLE 40 MG TABLET PO SCH (06:50)
[2017-06-12] MEDS ORDERED: ASPIRIN 325 MG TAB PO SCH (06:51)
[2017-06-12 07:51] VITALS: RESP 18
[2017-06-12] MEDS: HYDROCHLOROTHIAZIDE 12.5 MG CAP PO SCH (07:58)
[2017-06-12] MEDS: CLOPIDOGREL 75 MG TAB PO SCH (07:58)
[2017-06-12 08:59] LABS: Anion Gap 9 mmol/L; Blood Urea Nitrogen 17 mg/dL (9-20); Carbon Dioxide 24 mmol/L (22-30); Chloride 103 mmol/L (98-107); Glucose 102 mg/dL (74-99); Non-African American GFR(MDRD) 57 (>60 ml/min/1.73 sqM); Potassium 3.8 mmol/L (3.5-5.1); Sodium 136 mmol/L (137-145)
[2017-06-12 11:55] VITALS: BP 142/71; PULSE 61; TEMP 96.8
[2017-06-12] MEDS: MULTIVITAMINS, THERA 1 EACH TAB PO SCH (11:56)
--- NOTE | 2017-06-12 12:34 | P.GSCN ---
<Rl Francis - Last Filed: 06/12/17 11:44> History of Present Illness Consult date: 06/11/17 Reason for Consult: Carotid stenosis Requesting physician: Augie Venegas History of present illness: This 81-year-old gentleman who is followed by Dr. Augie Venegas on an outpatient basis. The patient has a past medical history of hypertension, osteoarthritis, skin cancer, gastroesophageal reflux disease, and prostate disorder. The patient presented to the emergency department at [facility] on the EMS on 06/11/2017 after having complaints of waking up around 4 AM with profuse sweating. When he attempted to get up to use the restroom he complained of uncoordinated movement to his right arm and leg. He denies any facial drooping , visual disturbances or pain. He made his way back to his bed and remained to have uncoordinated movements to his right sided extremities. Due to the patient 's symptoms his was concerned and EMS was initiated. The patient reports once he presented to the emergency department his right-sided symptoms were no longer present. Subsequently the patient underwent a computed tomography scan of his brain which showed moderate chronic small vessel ischemic changes with no acute findings. A 12-lead EKG was completed which showed normal sinus rhythm with a first-degree AV block and a right bundle branch block with a heart rate of 68. A 2-D echocardiogram was completed which demonstrated trace to mild aortic regurgitation, trace mitral valve regurgitation, mild tricuspid regurgitation, and an overall normal left ventricular systolic function with an ejection fraction of 60-65%. His carotid Doppler study showed a right ICA systolic velocity of 140.3 with an ICA/CCA ratio 1.7 and a less than 50% stenosis to his right ICA and a left peak systolic velocity of 179.9 with an ICA /CCA ratio of 2.1 demonstrating a 50-69% stenosis to his left ICA. The patient also had a venous duplex completed of his bilateral lower extremities which was negative for DVT. His initial laboratory results were sodium 134, BUN 23, and his creatinine was slightly elevated at 1.30. The patient was subsequently admitted for further workup and evaluation. Dr. Hendrix has been asked to see the patient due to his carotid stenosis. Review of Systems 14 point review of systems was completed and was negative except as mentioned in the HPI. 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 History of Any Multi-Drug Resistant Organisms: None Reported Past Surgical History: Orthopedic Surgery Additional Past Surgical History / Comment(s): skin cancer removed from scalp, rectal fistula repair, right shoulder rotator cuff, cataract left eye, bilateral INGUINAL HERNIA REPAIR Past Anesthesia/Blood Transfusion Reactions: Motion Sickness Past Psychological History: No Psychological Hx Reported Smoking Status: Never smoker Past Alcohol Use History: Daily Additional Past Alcohol Use History / Comment(s): 1-2 glasses of wine. Past Drug Use History: None Reported - Past Family History Mother Family Medical History: Myocardial Infarction ([place]) Additional Family Medical History / Comment(s): OF [place] AT AGE 94 Father Additional Family Medical History / Comment(s): ETOH-BINGE DRINKER NOT EXACTLY SURE CAUSE OF HIS AT AGE 78 Brother(s) Family Medical History: Myocardial Infarction ([place]) Additional Family Medical History / Comment(s): His brother at age 74. He has a history of myocardial infarction and lead poisoning. Medications and Allergies Home Medications Medication Instructions Recorded Confirmed Type Aspirin 325 mg PO HS 01/14/17 06/11/17 History Glucosam/Clive-Msm1/C/Kristopher/Bosw 1 tab PO DAILY 01/14/17 06/11/17 History [Glucosamine-Chondroitin Tablet] Multivitamins, Thera [Multivitamin 1 tab PO DAILY 01/14/17 06/11/17 History (formulary)] Omeprazole [PriLOSEC] 20 mg PO AC-BRKFST 01/14/17 06/11/17 History Terazosin HCl [Hytrin] 10 mg PO HS 01/14/17 06/11/17 History Valsartan/Hydrochlorothiazide 1 tab PO DAILY 01/14/17 06/11/17 History [Diovan Hct 80-12.5 mg Tablet] Atorvastatin Calcium [Lipitor] 20 mg PO DAILY #30 tab 06/12/17 Rx Clopidogrel [Plavix] 75 mg PO DAILY #30 tab 06/12/17 Rx Allergies Allergy/AdvReac Type Severity Reaction Status Date / Time No Known Allergies Allergy Verified 06/11/17 07:38 Surgical - Exam Vital Signs Temp Pulse Resp BP Pulse Ox 96.7 F L 69 16 159/76 92 L 06/11/17 05:06 06/11/17 05:06 06/11/17 05:06 06/11/17 05:06 06/11/17 05:06 - General well developed, well nourished, no distress, no pain - Eyes normal ocular movement - ENT normal pinna, normal nares, normal mucosa, no congestion, decreased hearing - Neck No lymphadenopathy. No thyroidomegaly. no masses, no bruits, trachea midline, no venous distension - Respiratory Lung sounds are essentially clear throughout. Respirations are symmetrical and nonlabored. Current oxygen saturations are 94% on room air. - Cardiovascular Regular rhythm and rate. S1 and S2 present, negative for S3, gallop or murmur. Remote telemetry showing sinus bradycardia heart rate 59. No edema present. - Abdomen Abdomen is soft, nontender and nondistended. Active bowel sounds to all 4 abdominal quadrants. No guarding and no rigidity. - Genitourinary Deferred - Rectum Deferred - Integumentary no rash, no abnormal pigmentation - Neurologic Awake and alert, oriented 3. No facial droop or facial asymmetry. No focal deficits. normal coordination, normal sensation - Musculoskeletal normal gait, normal posture - Psychiatric oriented to time, oriented to person, oriented to place, speech is normal, memory intact Results - Labs 06/11/17 05:15 06/12/17 05:48 Abnormal Lab Results - Last 24 Hours (Table) 06/11/17 06/12/17 Range/Units 05:15 05:48 Sodium 136 L (137-145) mmol/L Glucose 102 H (74-99) mg/dL HDL Cholesterol 65 H (40-60) mg/dL Diabetes panel 06/11/17 06/12/17 06/12/17 Range/Units 05:15 05:48 05:48 Sodium 136 L (137-145) mmol/L Potassium 3.8 (3.5-5.1) mmol/L Chloride 103 (98-107) mmol/L Carbon Dioxide 24 (22-30) mmol/L BUN 17 (9-20) mg/dL Creatinine 1.22 (0.66-1.25) mg/dL Glucose 102 H (74-99) mg/dL Calcium 9.0 (8.4-10.2) mg/dL Triglycerides 69 65 (<150) mg/dL HDL Cholesterol 65 H 57 (40-60) mg/dL Thyroid panel 06/12/17 Range/Units 05:48 TSH 2.510 (0.465-4.680) mIU/L Calcium panel 06/12/17 Range/Units 05:48 Calcium 9.0 (8.4-10.2) mg/dL Pituitary panel 06/12/17 Range/Units 05:48 Sodium 136 L (137-145) mmol/L Potassium 3.8 (3.5-5.1) mmol/L Chloride 103 (98-107) mmol/L Carbon Dioxide 24 (22-30) mmol/L BUN 17 (9-20) mg/dL Creatinine 1.22 (0.66-1.25) mg/dL Glucose 102 H (74-99) mg/dL Calcium 9.0 (8.4-10.2) mg/dL TSH 2.510 (0.465-4.680) mIU/L Adrenal panel 06/12/17 Range/Units 05:48 Sodium 136 L (137-145) mmol/L Potassium 3.8 (3.5-5.1) mmol/L Chloride 103 (98-107) mmol/L Carbon Dioxide 24 (22-30) mmol/L BUN 17 (9-20) mg/dL Creatinine 1.22 (0.66-1.25) mg/dL Glucose 102 H (74-99) mg/dL Calcium 9.0 (8.4-10.2) mg/dL - Imaging Comments: Carotid duplex results reviewed, computed tomography scan of his brain results reviewed, venous duplex study results reviewed. Chest x-ray: report reviewed, image reviewed EKG: image reviewed Assessment and Plan (1) GERD (gastroesophageal reflux disease) Status: Acute (2) Hypertension Status: Acute (3) Osteoarthritis Status: Acute (4) Transient cerebral ischemia Status: Acute Plan: The patient was seen and examined. Chart and diagnostics were reviewed. Case was discussed with Dr. Hendrix and recommendations are to maximize medical therapy at this time. Due to the patient's elevated creatinine we will hold off on doing any contrast studies. Further recommendations as patient progresses and care. Thank you Dr. Venegas for this consult and we look forward to working with you in the care of your patient. Time with Patient: Greater than 30 <Dallas Hendrix - Last Filed: 06/12/17 13:53> History of Present Illness History of present illness: I reviewed the TREE DRILLER notes in detail and concur and full. I have interviewed and examined the patient. Impression: The patient's symptoms are suspicious for a TIA involving the left hemisphere with no residual and of short duration. Duplex suggests a lesion in the left carotid that is not high-grade. Recommendation: I have discussed the options with the patient in detail. In view of his advanced years, mildly debilitated status, mildly compromised renal function, and [id number]-evig-[id number] carotid lesion, we've agreed to follow him clinically on medical therapy. He is being placed on Plavix and a statin. I agree with both of these. I will see him in the office in 2-3 weeks to again discuss the issues and set him up for surveillance. I appreciate the opportunity to participate in the care of this very pleasant gentleman. Surgical - Exam Osteopathic Statement: *. No significant issues noted on an osteopathic structural exam other than those noted in the History and Physical/Consult. Vital Signs Temp Pulse Resp BP Pulse Ox 96.7 F L 69 16 159/76 92 L 06/11/17 05:06 06/11/17 05:06 06/11/17 05:06 06/11/17 05:06 06/11/17 05:06 Results - Labs 06/11/17 05:15 06/12/17 05:48 Abnormal Lab Results - Last 24 Hours (Table) 06/12/17 Range/Units 05:48 Sodium 136 L (137-145) mmol/L Glucose 102 H (74-99) mg/dL Diabetes panel 06/12/17 06/12/17 Range/Units 05:48 05:48 Sodium 136 L (137-145) mmol/L Potassium 3.8 (3.5-5.1) mmol/L Chloride 103 (98-107) mmol/L Carbon Dioxide 24 (22-30) mmol/L BUN 17 (9-20) mg/dL Creatinine 1.22 (0.66-1.25) mg/dL Glucose 102 H (74-99) mg/dL Calcium 9.0 (8.4-10.2) mg/dL Triglycerides 65 (<150) mg/dL HDL Cholesterol 57 (40-60) mg/dL Thyroid panel 06/12/17 Range/Units 05:48 TSH 2.510 (0.465-4.680) mIU/L Calcium panel 06/12/17 Range/Units 05:48 Calcium 9.0 (8.4-10.2) mg/dL Pituitary panel 06/12/17 Range/Units 05:48 Sodium 136 L (137-145) mmol/L Potassium 3.8 (3.5-5.1) mmol/L Chloride 103 (98-107) mmol/L Carbon Dioxide 24 (22-30) mmol/L BUN 17 (9-20) mg/dL Creatinine 1.22 (0.66-1.25) mg/dL Glucose 102 H (74-99) mg/dL Calcium 9.0 (8.4-10.2) mg/dL TSH 2.510 (0.465-4.680) mIU/L Adrenal panel 06/12/17 Range/Units 05:48 Sodium 136 L (137-145) mmol/L Potassium 3.8 (3.5-5.1) mmol/L Chloride 103 (98-107) mmol/L Carbon Dioxide 24 (22-30) mmol/L BUN 17 (9-20) mg/dL Creatinine 1.22 (0.66-1.25) mg/dL Glucose 102 H (74-99) mg/dL Calcium 9.0 (8.4-10.2) mg/dL
--- NOTE | 2017-06-12 15:40 | P.DS ---
Providers Date of admission: 06/12/17 09:53 Attending physician: Augie Venegas Consults: 06/11/17 06:51 Consult Physician Urgent Consulting Provider: Santos Herrera Consult Reason/Comments: tia Do you want consulting provider notified?: Yes 06/11/17 12:42 Consult Physician Routine Consulting Provider: Dallas Hendrix Consult Reason/Comments: carotid stenosis/TIA Do you want consulting provider notified?: Yes Primary care physician: Augie Venegas [facility] Course: This is a 80-year-old gentleman that is seen in coverage for Dr. Venegas. Patient was admitted to the hospital with right-sided weakness however this was resolved. The workup for prevention of stroke was done including a carotid study which showed a left-sided ICA stenosis of 50-69%. Echocardiogram did not reveal any abnormalities there was no signs of atrial fibrillation on telemetry monitoring On the day of discharge patient was able to family without much difficulty denies having any headaches blurry vision nausea vomiting diarrhea. Physical examPhysical exam Gen. 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 Blood pressure control discussed the importance of prevention of the next stroke in follow-up in regards to monitoring his carotid disease was also discussed with the patient patient is discharged home in stable condition Plan - Discharge Summary New Discharge Prescriptions: New Atorvastatin Calcium [Lipitor] 20 mg PO DAILY #30 tab Clopidogrel [Plavix] 75 mg PO DAILY #30 tab Continue Glucosam/Clive-Msm1/C/Kristopher/Bosw [Glucosamine-Chondroitin Tablet] 1 tab PO DAILY Multivitamins, Thera [Multivitamin (formulary)] 1 tab PO DAILY Aspirin 325 mg PO HS Terazosin HCl [Hytrin] 10 mg PO HS Omeprazole [PriLOSEC] 20 mg PO AC-BRKFST Valsartan/Hydrochlorothiazide [Diovan Hct 80-12.5 mg Tablet] 1 tab PO DAILY Discharge Medication List Aspirin 325 mg PO HS 01/14/17 [History] Glucosam/Clive-Msm1/C/Kristopher/Bosw [Glucosamine-Chondroitin Tablet] 1 tab PO DAILY 01/14/17 [History] Multivitamins, Thera [Multivitamin (formulary)] 1 tab PO DAILY 01/14/17 [History ] Omeprazole [PriLOSEC] 20 mg PO AC-BRKFST 01/14/17 [History] Terazosin HCl [Hytrin] 10 mg PO HS 01/14/17 [History] Valsartan/Hydrochlorothiazide [Diovan Hct 80-12.5 mg Tablet] 1 tab PO DAILY [History] Atorvastatin Calcium [Lipitor] 20 mg PO DAILY #30 tab 06/12/17 [Rx] Clopidogrel [Plavix] 75 mg PO DAILY #30 tab 06/12/17 [Rx] Follow up Appointment(s)/Referral(s): Augie Venegas DO [Primary Care Provider] - 1-2 days Santos Herrera MD [STAFF PHYSICIAN] - 2 Weeks Dallas Hendrix DO [Doctor of Osteopathic Medicine] - 2 Weeks Patient Instructions/Handouts: Transient Ischemic Attack (DC) Activity/Diet/Wound Care/Special Instructions: activity as tolerated, diet as tolerated. Please call for appointments on Wednesday. Discharge Disposition: HOME SELF-CARE
== END 2017-06-12 14:40 | disposition home or self-care (01) | DRG 69 ==
LOC: EC 05:05 → 6SEL 06:50 → OBSVTOIN 06-12 09:53
PROVIDERS: ADMIT Family Medicine; ATTEND Family Medicine
DX: G45.9 Transient cerebral ischemic attack, unspecified (principal); H53.47 Heteronymous bilateral field defects; E86.0 Dehydration; I45.10 Unspecified right bundle-branch block; I10 Essential (primary) hypertension; R29.700 NIHSS score 0; M19.90 Unspecified osteoarthritis, unspecified site; M48.06 Spinal stenosis, lumbar region; K21.9 Gastro-esophageal reflux disease without esophagitis; R25.2 Cramp and spasm; N42.9 Disorder of prostate, unspecified; I44.0 Atrioventricular block, first degree; K59.00 Constipation, unspecified; G43.909 Migraine, unspecified, not intractable, without status migrainosus; Z81.1 Family history of alcohol abuse and dependence; Z85.828 Personal history of other malignant neoplasm of skin; Z98.42 Cataract extraction status, left eye; Z87.19 Personal history of other diseases of the digestive system; Z82.49 Family history of ischemic heart disease and other diseases of the circulatory system; Z79.899 Other long term (current) drug therapy; Z79.82 Long term (current) use of aspirin; Z79.02 Long term (current) use of antithrombotics/antiplatelets
CPT/HCPCS: 36415; 70450; 71020; 80048; 80053; 80061; 82550; 82553; 83090; 84443; 84484; 85025; 85610; 85730; 93005; 93306; 93880; 93970; 94760; 99285

== ENCOUNTER → 2018-01-03 | Outpatient (CLI) | payer MEDICARE ==
--- NOTE | 2018-01-03 13:06 | CT ---
EXAMINATION TYPE: CT abdomen pelvis w con DATE OF EXAM: 01/03/2018 COMPARISON: NONE HISTORY: Lower abd pain CT DLP: 1063.6 mGycm Automated exposure control for dose reduction was used. TECHNIQUE: Helical acquisition of images was performed from the lung bases through the pelvis. CONTRAST: Performed with Oral Contrast and with IV Contrast, patient injected with 80 mL of Isovue 300. FINDINGS: LUNG BASES: No significant abnormality is appreciated. Few left infrahilar granulomas are noted. This is associated with an elongated left infrahilar entity within the medial left lung base measuring 1. 9 cm on series 4 image 12, which should be further evaluated with CT thorax. LIVER/GB: There is focal wedge-shaped area of hypoattenuation within segment Linda of the liver near th e fissure for the falciform ligament most commonly related to focal fatty infiltration. PANCREAS: Fatty replacement of the pancreatic head and portions of intensity process are incidentally noted. SPLEEN: No significant abnormality is seen. ADRENALS: No significant abnormality is seen. KIDNEYS: Bilateral renal sinus cysts are seen in addition to a 1 cm right upper pole renal cyst and 8 mm left upper pole renal lesion that is too small to accurately characterize. 3 mm nonobstructing le ft renal calculus is noted. No evidence of hydronephrosis or hydroureter. Urinary bladder is incomple tely distended but overall grossly unremarkable. FREE AIR: No free air is visualized. ADENOPATHY: No greater than 1 cm short axis lymph nodes are seen within the abdomen or pelvis. REPRODUCTIVE ORGANS: Prostate gland is diffusely enlarged measuring 6.0 cm in transverse dimension co ntaining central zone calcifications also impressing upon the posterior urinary bladder. OSSEOUS STRUCTURES: Mild multilevel degenerative changes of the visualized thoracolumbar spine are n oted. BOWEL: Moderate hiatal hernia is present. Large descending duodenal diverticulum is present. Numerou s sigmoid diverticula are present without pericolonic fat stranding. Other scattered colonic divertic sreedhar are seen. Appendix is air-filled and within normal limits of size. OTHER: There is diastases recti and a ventral hernia inferiorly on series 3 image 74 with discontinui ty of the fascia measuring 4.8 cm centrally. Additionally there are fat filled bilateral inguinal her nias with low-lying sigmoid colon. IMPRESSION: 1. BILATERAL FAT FILLED INGUINAL HERNIAS WITH LOW-LYING SIGMOID COLON IN THE LEFT AND INFERIOR VENTRA L HERNIA SUPERIMPOSED UPON DIASTASES RECTI. 2. ELONGATED NODULAR DENSITY OF THE MEDIAL LEFT LOWER LOBE THAT SHOULD BE FURTHER CHARACTERIZED WITH CT THORAX. 3. MODERATE HIATAL HERNIA AND COLONIC DIVERTICULOSIS. 4. BILATERAL RENAL SINUS CYSTS, RIGHT CORTICAL BENIGN CYST AND LEFT SUBCENTIMETER HYPOATTENUATED LESI ON THAT IS TOO SMALL TO ACCURATELY CHARACTERIZE. 5. DIFFUSE PROSTATE GLAND ENLARGEMENT AND HETEROGENEITY.
== END | disposition home or self-care (01) ==
LOC: RADCTMAIN 10:50
PROVIDERS: ATTEND Surgery
DX: K40.20 Bilateral inguinal hernia, without obstruction or gangrene, not specified as recurrent (principal); K43.9 Ventral hernia without obstruction or gangrene; K44.9 Diaphragmatic hernia without obstruction or gangrene; K57.30 Diverticulosis of large intestine without perforation or abscess without bleeding; N40.0 Benign prostatic hyperplasia without lower urinary tract symptoms; N28.1 Cyst of kidney, acquired
CPT/HCPCS: 82565; 84520; 74177; 36415; Q9967

== ENCOUNTER → 2018-01-26 | Outpatient (CLI) | payer MEDICARE ==
--- NOTE | 2018-01-26 16:30 | CT ---
EXAMINATION TYPE: CT chest w con DATE OF EXAM: 01/26/2018 COMPARISON: NONE HISTORY: Nodule found on Prior CT CT DLP: 718 mGycm. Automated Exposure Control for Dose Reduction was Utilized. TECHNIQUE: CT scan of the thorax is performed following with IV Contrast, patient injected with 80 m L of Isovue 300. FINDINGS: LUNGS: An elongated fluid attenuated structure is adherent to the mediastinal border along the descen ding thoracic aorta measuring 14.6 cm in craniocaudal dimension on series 7 image 78 and seen from se marvin 4 and series 3 image 28 inferiorly to image 56. There is mild narrowing of the segmental bronchu s to the left upper lobe with varicose bronchiectasis. This is present on series 3 image 36. A puncta te calcification is identified in the left infrahilar region lung peripherally on series 3 image 46. Additional 5 mm solid pulmonary nodule seen at the left lung base on series 4 image 61. The remainder the lungs are clear. MEDIASTINUM: There are no greater than 1 cm hilar or mediastinal lymph nodes. No pericardial effus ion is seen. OTHER: Focal area of hyperattenuation is seen within the left hepatic lobe on series 3 image 59 that may represent arterial portal shunt or small hemangioma. Small hiatal hernia is redemonstrated. Pancr eatic parenchymal atrophy is noted. Moderate multilevel degenerative changes of thoracic spine are se en with bridging of the anterior vertebral bodies. This raises suspicion for ankylosing spondylitis. IMPRESSION: 1. Elongated fluid attenuated area along the left mediastinal border. Proximal to this there is narro wing of the segmental bronchus to the left upper lobe. This could relate to atelectasis although yahaira gation is uncommon. Neoplasm is considered unlikely due to the elongated appearance but possible and therefore bronchoscopy or PET/CT could be performed. Correlate with any prior history of radiation al though patient indicates no history of radiation on the history paperwork. 2. Focal area of hyperattenuation in the left hepatic lobe is favored to be benign as not seen on the recent CT abdomen pelvis and may represent a very small hemangioma or arterial portal shunt.
== END | disposition home or self-care (01) ==
LOC: RADCTMAIN 11:13
PROVIDERS: ATTEND Family Medicine
DX: J98.09 Other diseases of bronchus, not elsewhere classified (principal); R91.1 Solitary pulmonary nodule
CPT/HCPCS: 82565; 84520; 71260; 36415; Q9967

== ENCOUNTER 2018-08-07 01:16 | Observation (INO) | payer MEDICARE ==
[2018-08-07 02:09] LABS: Basophils % (A) 0 %; Eosinophils # (A) 0.1 k/uL (0-0.7); Eosinophils % (A) 1 %; HCT 43.6 % (39.0-53.0); HGB 14.2 gm/dL (13.0-17.5); Lymphocytes # (A) 0.9 k/uL (1.0-4.8); Lymphocytes % (A) 10 %; MCH 34.4 pg (25.0-35.0); MCHC 32.5 g/dL (31.0-37.0); MCV 105.6 fL (80.0-100.0); Macrocytosis Slight; Mean Platelet Volume 6.8; Monocytes # (A) 0.3 k/uL (0-1.0); Monocytes % (A) 4 %; Neutrophils % (A) 84 %; Platelet Count 149 k/uL (150-450); RBC 4.13 m/uL (4.30-5.90); RDW 12.9 % (11.5-15.5); WBC 8.3 k/uL (3.8-10.6)
[2018-08-07 02:11] LABS: Calcium 9.1 mg/dL (8.4-10.2); Total Bilirubin 0.7 mg/dL (0.2-1.3); Total Protein 7.1 g/dL (6.3-8.2)
--- NOTE | 2018-08-07 02:13 | XR ---
EXAMINATION TYPE: XR chest 1V portable DATE OF EXAM: 08/07/2018 COMPARISON: 06/11/2017 HISTORY: Chest pain TECHNIQUE: Single frontal view of the chest is obtained. FINDINGS: There is some minimal coarsening of the interstitial markings. There is no heart failure. Costophrenic angles are clear. There are chest leads. Lungs are clear of consolidation. IMPRESSION: No active cardiopulmonary disease. No significant change.
[2018-08-07 02:15] LABS: Potassium 4.7 mmol/L (3.5-5.1)
[2018-08-07 03:58] LABS: Appearance,Urine Clear (Clear); Bilirubin,Urine Negative (Negative); Blood,Urine Negative (Negative); Color,Urine Yellow; Glucose,Urine (UA) Negative (Negative); Ketones,Urine Negative (Negative); Leukocyte Esterase,Urine Negative (Negative); Nitrite,Urine Negative (Negative); Protein,Urine Trace (Negative); Specific Gravity,Urine 1.021 (1.001-1.035); Urobilinogen,Urine <2.0 mg/dL (<2.0)
--- NOTE | 2018-08-07 05:08 | CT ---
EXAMINATION TYPE: CT abdomen pelvis wo con DATE OF EXAM: 08/07/2018 COMPARISON: January 03, 2018 HISTORY: lower abd pain CT DLP: 601.3 mGycm Automated exposure control for dose reduction was used. TECHNIQUE: Helical acquisition of images was performed from the lung bases through the pelvis. FINDINGS: There is some near infiltrate and atelectasis at the lung bases. There is no pleural effusion. There is mild to moderate hiatal hernia. Stomach is large. There is no discrete liver mass. Gallbladder jamee ears normal. Bile ducts are not dilated. Spleen appears normal. There is no evidence of a pancreatic mass. The lumbar spine is intact. There is no evidence of compression fracture. Bony pelvis is intact. Ther e are small bilateral inguinal hernias that contain fat. There is no adrenal mass. Kidneys have normal size. There is bilateral multiple parapelvic cysts. The re is left side dilated renal pelvis. The ureters are not dilated. There is a 2 mm calculus in the lower pole right kidney. There are several small calculi in the left kidney. There is a larger 4 mm calculus lower pole left kidney. There is 1 cm cyst upper pole right k idney. There are a few colonic diverticula. There is no sign of diverticulitis. There is retained fecal mate rial in the rectum. The appendix appears normal. There is no sign of free air. There is no evidence o f ascites. IMPRESSION: THERE IS NEW LINEAR INFILTRATE AND ATELECTASIS AT THE LUNG BASES COMPARED TO OLD EXAM. MULTIPLE NONOBSTRUCTING RENAL CALCULI. RENAL PARAPELVIC CYST. LARGE LEFT RENAL PELVIS BUT NO DEFINITE OBSTRUCTION. MILD CONSTIPATION. MILD COLONIC DIVERTICULOSIS.
[2018-08-07] MEDS ORDERED: MAGNESIUM CITRATE 296 ML BOTTLE PO ONE ×2 (05:21→14:31)
[2018-08-07] MEDS ORDERED: ONDANSETRON 4 MG/2 ML VIAL IVP PRN (06:19)
[2018-08-07] MEDS ORDERED: NALOXONE 0.4 MG/ML 1 ML VIAL IV PRN (06:19)
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
[2018-08-07] MEDS: SODIUM CHLORIDE 0.9% 1,000 ML IV SCH (06:57)
[2018-08-07] MEDS: ATORVASTATIN 20 MG TAB PO SCH (09:39)
[2018-08-07] MEDS: CLOPIDOGREL 75 MG TAB PO SCH (09:39)
[2018-08-07] MEDS: PANTOPRAZOLE 40 MG TABLET PO SCH (09:39)
[2018-08-07] MEDS: FAMOTIDINE 20 MG TAB PO SCH ×2 (09:40→22:18)
[2018-08-07] MEDS: VALSARTAN 80 MG TAB PO SCH (09:40)
[2018-08-07] MEDS: HYDROCHLOROTHIAZIDE 12.5 MG CAP PO SCH (09:40)
[2018-08-07] MEDS ORDERED: ACETAMINOPHEN TAB 325 MG TAB PO PRN (11:00)
--- NOTE | 2018-08-07 11:52 | P.HPIM ---
History of Present Illness H&P Date: 08/07/18 Chief Complaint: abdominal pain with nausea and vomiting Mr. Ferguson is a pleasant 83-year-old male with a past medical history of hypertension, GERD, skin cancer status post removal, chronic osteoarthritis coming into the hospital with a chief complaint of abdominal pain nausea and vomiting.Patient states that his abdominal pain was so severe that he woke up from his sleep last night.the pain was cramping in nature and he threw up once at home. Patient was also diaphoretic and was drenched in sweat, so his called EMS and he was brought to the hospital for further evaluation. Patient threw up one more time after coming to the emergency department. Patient denies having any fevers chills or rigors. Patient denies having any chest pain. Patient denies having any cough or difficulty in breathing. No dysuria or hematuria. In the ED patient had a CT of the abdomen and pelvis showing mild constipation and mild colonic diverticulosis. After that patient had a large bowel movement after which his abdominal pain has been relieved.rations vitals and labs within normal limits. This morning patient is lying in bed appears to be in no acute distress. His is at the bedside. Patient mentions that he does not have any abdominal pain. No nausea or vomiting. Patient denies having any chest pain or difficulty in breathing. Review of Systems REVIEW OF SYSTEMS: PSYCH: no history of anxiety or depression NEURO:No c/o weakness of the extremties, No facial droop, No speech abnormalities. VASCULAR: Peripheral nervous system within the normal limits no edema HEMATOLOGIC: No history of easy bleeding and bruising . No recent infections . RESPIRATORY: No cough, No SOB, No chest discomfort. IMMUNE: No infections INTEGUMENT: no rashes OPHTHALMOLOGIC: No blurry vision and no eye discharge : No dysuria or hematuria CARDIAC: No chest pain , shortness of breath , paroxysmal nocturnal dyspnea MUSCULOSKELETAL : No Aches or pains in the joints or muscles. GI: as per HPI Past Medical History Past Medical History: Cancer, GERD/Reflux, Hypertension, Osteoarthritis (OA), Prostate Disorder, Skin Disorder Additional Past Medical History / Comment(s): Constipation-strains to have bowel movements, Skin cancer behind his left ear/nose/neck, Rectal fistula, Hemroids History of Any Multi-Drug Resistant Organisms: None Reported Past Surgical History: Orthopedic Surgery Additional Past Surgical History / Comment(s): Skin cancer removed, Rectal fistula repair, Right shoulder rotator cuff repair, Bilateral cataract, bilateral INGUINAL HERNIA REPAIR Past Anesthesia/Blood Transfusion Reactions: No Reported Reaction Past Psychological History: No Psychological Hx Reported Additional Psychological History / Comment(s): PT IS INDEPENDANT. LIVES WITH HIS AKIRA IN [address] STORY HOME . HAS 3 [address] STEPS AND 12 SATEPS TO 2ND FLOOR. 1 PET CAT. NO HOME CARE SERVICES RECIEVED. NO MEDICAL EQUIPMENT. PT SERVED IN THE [employer]. 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 [employer] Smoking Status: Never smoker Past Alcohol Use History: Daily Additional Past Alcohol Use History / Comment(s): 1-2 glasses of wine or a class of whiskey nightly Past Drug Use History: None Reported - Past Family History Mother Family Medical History: Myocardial Infarction ([place]) Additional Family Medical History / Comment(s): OF [place] AT AGE 94 Father Additional Family Medical History / Comment(s): ETOH-BINGE DRINKER NOT EXACTLY SURE CAUSE OF HIS AT AGE 78 Brother(s) Family Medical History: Myocardial Infarction ([place]) Additional Family Medical History / Comment(s): His brother at age 74. He has a history of myocardial infarction and lead poisoning. Medications and Allergies Home Medications Medication Instructions Recorded Confirmed Type Aspirin 325 mg PO HS 01/14/17 08/07/18 History Glucosam/Clive-Msm1/C/Kristopher/Bosw 1 tab PO DAILY 01/14/17 08/07/18 History [Glucosamine-Chondroitin Tablet] Multivitamins, Thera [Multivitamin 1 tab PO DAILY 01/14/17 08/07/18 History (formulary)] Omeprazole [PriLOSEC] 20 mg PO AC-BRKFST 01/14/17 08/07/18 History Terazosin HCl [Hytrin] 10 mg PO HS 01/14/17 08/07/18 History Valsartan/Hydrochlorothiazide 1 tab PO DAILY 01/14/17 08/07/18 History [Diovan Hct 80-12.5 mg Tablet] Atorvastatin Calcium [Lipitor] 20 mg PO DAILY #30 tab 06/12/17 08/07/18 Rx Clopidogrel [Plavix] 75 mg PO DAILY #30 tab 06/12/17 08/07/18 Rx Allergies Allergy/AdvReac Type Severity Reaction Status Date / Time No Known Allergies Allergy Verified 06/11/17 07:38 Physical Exam Vitals: Vital Signs Temp Pulse Pulse Resp BP BP Pulse Ox 08/07/18 07:45 98.1 F 77 16 118/69 93 L 08/07/18 06:00 75 20 118/62 90 L 08/07/18 05:00 80 18 134/66 95 08/07/18 04:00 79 17 130/62 92 L 08/07/18 03:00 80 22 118/78 93 L 08/07/18 02:00 80 18 146/78 94 L 08/07/18 01:18 EST 97.5 F L 72 20 146/78 94 L Intake and Output 08/06/18 08/07/18 08/07/18 23:59 06:59 14:59 Other: # Voids 1 # Bowel Movements 2 Weight GENERAL EXAM GEN. APPEARANCE: alert, in no apparent distress HEAD EXAM: atraumatic, normocephalic, normal inspection EYE EXAM: no pallor no icterus ENT EXAM: normal exam, mucous membranes moist NECK EXAM: no thyromegaly. No JVD. RESPIRATORY EXAM: bilateral breath sounds are positive. No wheeze or crackles. CARDIOVASCULAR EXAM: S1 and S2 heard. GI/ABDOMINAL EXAM: soft. Nontender. No guarding or rigidity. Bowel sounds are positive. EXTREMITIES EXAM: no edema. NEUROLOGICAL EXAM: alert, oriented X3,no focal neurological deficits. Results CBC & Chem 7: 08/07/18 01:32 EST 08/07/18 01:32 EST Labs: Abnormal Lab Results - Last 24 Hours (Table) 08/07/18 08/07/18 08/07/18 Range/Units 01:32 EST 01:32 EST 03:20 RBC 4.13 L (4.30-5.90) m/uL MCV 105.6 H (80.0-100.0) fL Plt Count 149 L (150-450) k/uL Lymphocytes # 0.9 L (1.0-4.8) k/uL BUN 27 H (9-20) mg/dL Creatinine 1.43 H (0.66-1.25) mg/dL Glucose 100 H (74-99) mg/dL Urine Protein Trace H (Negative) Thrombosis Risk Factor Assmnt - Choose All That Apply Each Risk Factor Represents 3 Points: Age 75 years or older Thrombosis Risk Factor Assessment Total Risk Factor Score: 3 Thrombosis Risk Factor Assessment Level: Moderate Risk Assessment and Plan Assessment: Abdominal pain with vomiting-most likely secondary to constipation Hypertension Chronic osteoarthritis of multiple joints bilaterally History of prostate disorder History of skin cancer status post removal GERD Plan: Patient's abdominal pain and vomiting resolved after he had a bowel movement. So most likely he is symptoms were secondary to constipation that was relieved with a bowel movement. Patient had an episode of diaphoresis at the time of abdominal pain. But patient did not have any chest pain or difficulty in breathing or dizziness at the time when he had this episode. Patient is getting serial troponins. He is completely asymptomatic currently. Surgery Dr. Gonsalez has been consulted as he is well known to him. Further recommendations depending on the progress of the patient. The treatment plan was discussed with the and patient at the bedside in detail.
--- NOTE | 2018-08-07 14:35 | P.GSCN ---
History of Present Illness Consult date: 08/07/18 Reason for Consult: Abdominal pain History of present illness: Patient is known to our service. He underwent bilateral repair of direct inguinal hernias laparoscopically in January of this year. Postoperatively the patient has felt some pressure sensation in his pelvis. A CAT scan had been performed postoperatively which revealed some constipation and possible recurrent hernias. On that previous CAT scan the mesh could not be visualized. Examination however did not reveal any palpable hernias. We suspected this may represent small lipomas of the spermatic cord. Patient states he had been doing somewhat better although was feeling ill when he woke up during his sleep this morning. He felt diaphoretic with vague abdominal discomfort centered more in the lower abdomen. He had episodes of nausea and vomiting. He came into the hospital for further evaluation. CAT scan was again performed which shows constipation. He has had improvement of his symptoms since he had 2 bowel movements this morning. Denies rectal bleeding or melena. He had a recent colonoscopy that was normal. He is tolerating a clear liquid diet currently. White blood cell count is normal. He is hungry for more to eat. No pain at this time. Review of Systems The patient denies any acute changes in vision or hearing, no dysphagia or odynophagia, no chest pain or shortness of breath, no dysuria or hematuria, no headache, no runny nose, no rectal bleeding or melena, no unexplained weight loss Past Medical History Past Medical History: Cancer, GERD/Reflux, Hypertension, Osteoarthritis (OA), Prostate Disorder, Skin Disorder Additional Past Medical History / Comment(s): Constipation-strains to have bowel movements, Skin cancer behind his left ear/nose/neck, Rectal fistula, Hemroids History of Any Multi-Drug Resistant Organisms: None Reported Past Surgical History: Orthopedic Surgery Additional Past Surgical History / Comment(s): Skin cancer removed, Rectal fistula repair, Right shoulder rotator cuff repair, Bilateral cataract, bilateral INGUINAL HERNIA REPAIR Past Anesthesia/Blood Transfusion Reactions: No Reported Reaction Past Psychological History: No Psychological Hx Reported Additional Psychological History / Comment(s): PT IS INDEPENDANT. LIVES WITH HIS AKIRA IN 2 STORY HOME . HAS 3 PORCH STEPS AND 12 SATEPS TO 2ND FLOOR. 1 PET CAT. NO HOME CARE SERVICES RECIEVED. NO MEDICAL EQUIPMENT. PT SERVED IN THE [email or web address]. 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 [employer] Smoking Status: Never smoker Past Alcohol Use History: Daily Additional Past Alcohol Use History / Comment(s): 1-2 glasses of wine or a class of whiskey nightly Past Drug Use History: None Reported - Past Family History Mother Family Medical History: Myocardial Infarction ([place]) Additional Family Medical History / Comment(s): OF [place] AT AGE 94 Father Additional Family Medical History / Comment(s): ETOH-BINGE DRINKER NOT EXACTLY SURE CAUSE OF HIS AT AGE 78 Brother(s) Family Medical History: Myocardial Infarction ([place]) Additional Family Medical History / Comment(s): His brother at age 74. He has a history of myocardial infarction and lead poisoning. Medications and Allergies Home Medications Medication Instructions Recorded Confirmed Type Aspirin 325 mg PO HS 01/14/17 08/07/18 History Glucosam/Clive-Msm1/C/Kristopher/Bosw 1 tab PO DAILY 01/14/17 08/07/18 History [Glucosamine-Chondroitin Tablet] Multivitamins, Thera [Multivitamin 1 tab PO DAILY 01/14/17 08/07/18 History (formulary)] Omeprazole [PriLOSEC] 20 mg PO AC-BRKFST 01/14/17 08/07/18 History Terazosin HCl [Hytrin] 10 mg PO HS 01/14/17 08/07/18 History Valsartan/Hydrochlorothiazide 1 tab PO DAILY 01/14/17 08/07/18 History [Diovan Hct 80-12.5 mg Tablet] Atorvastatin Calcium [Lipitor] 20 mg PO DAILY #30 tab 06/12/17 08/07/18 Rx Clopidogrel [Plavix] 75 mg PO DAILY #30 tab 06/12/17 08/07/18 Rx Allergies Allergy/AdvReac Type Severity Reaction Status Date / Time No Known Allergies Allergy Verified 06/11/17 07:38 Surgical - Exam Vital Signs Temp Pulse Resp BP Pulse Ox 97.5 F L 72 20 146/78 94 L 08/07/18 01:18 EST 08/07/18 01:18 EST 08/07/18 01:18 EST 08/07/18 01:18 EST 08/07/18 01:18 EST Physical exam: General: Well-developed, well-nourished HEENT: Normocephalic, sclerae nonicteric Abdomen: Nontender, nondistended, no palpable hernia Extremities: No edema Neuro: Alert and oriented Results - Labs 08/07/18 01:32 EST 08/07/18 01:32 EST Abnormal Lab Results - Last 24 Hours (Table) 08/07/18 08/07/18 08/07/18 Range/Units 01:32 EST 01:32 EST 03:20 RBC 4.13 L (4.30-5.90) m/uL MCV 105.6 H (80.0-100.0) fL Plt Count 149 L (150-450) k/uL Lymphocytes # 0.9 L (1.0-4.8) k/uL BUN 27 H (9-20) mg/dL Creatinine 1.43 H (0.66-1.25) mg/dL Glucose 100 H (74-99) mg/dL Urine Protein Trace H (Negative) Diabetes panel 08/07/18 Range/Units 01:32 EST Sodium 139 (137-145) mmol/L Potassium 4.7 (3.5-5.1) mmol/L Chloride 106 (98-107) mmol/L Carbon Dioxide 26 (22-30) mmol/L BUN 27 H (9-20) mg/dL Creatinine 1.43 H (0.66-1.25) mg/dL Glucose 100 H (74-99) mg/dL Calcium 9.1 (8.4-10.2) mg/dL AST 39 (17-59) U/L ALT 39 (21-72) U/L Alkaline Phosphatase 41 (38-126) U/L Total Protein 7.1 (6.3-8.2) g/dL Albumin 4.0 (3.5-5.0) g/dL Calcium panel 08/07/18 Range/Units 01:32 EST Calcium 9.1 (8.4-10.2) mg/dL Albumin 4.0 (3.5-5.0) g/dL Pituitary panel 08/07/18 Range/Units 01:32 EST Sodium 139 (137-145) mmol/L Potassium 4.7 (3.5-5.1) mmol/L Chloride 106 (98-107) mmol/L Carbon Dioxide 26 (22-30) mmol/L BUN 27 H (9-20) mg/dL Creatinine 1.43 H (0.66-1.25) mg/dL Glucose 100 H (74-99) mg/dL Calcium 9.1 (8.4-10.2) mg/dL Adrenal panel 08/07/18 Range/Units 01:32 EST Sodium 139 (137-145) mmol/L Potassium 4.7 (3.5-5.1) mmol/L Chloride 106 (98-107) mmol/L Carbon Dioxide 26 (22-30) mmol/L BUN 27 H (9-20) mg/dL Creatinine 1.43 H (0.66-1.25) mg/dL Glucose 100 H (74-99) mg/dL Calcium 9.1 (8.4-10.2) mg/dL Total Bilirubin 0.7 (0.2-1.3) mg/dL AST 39 (17-59) U/L ALT 39 (21-72) U/L Alkaline Phosphatase 41 (38-126) U/L Total Protein 7.1 (6.3-8.2) g/dL Albumin 4.0 (3.5-5.0) g/dL Assessment and Plan (1) Abdominal pain Narrative/Plan: If the patient continues to tolerate his diet and his pain remains absent he could be discharged with outpatient follow-up. Current Visit: Yes Status: Acute Code(s): R10.9 - UNSPECIFIED ABDOMINAL PAIN SNOMED Code(s): 82609067
[2018-08-07] MEDS ORDERED: ASPIRIN 325 MG TAB PO SCH (21:00)
[2018-08-07] MEDS ORDERED: DOXAZOSIN 4 MG TAB PO SCH (21:00)
[2018-08-08] MEDS: SODIUM CHLORIDE 0.9% 1,000 ML IV SCH (06:57)
[2018-08-08 08:38] VITALS: BP 135/72; PULSE 63; RESP 16; TEMP 98.9
[2018-08-08] MEDS: VALSARTAN 80 MG TAB PO SCH (09:03)
[2018-08-08] MEDS: CLOPIDOGREL 75 MG TAB PO SCH (09:03)
[2018-08-08] MEDS: HYDROCHLOROTHIAZIDE 12.5 MG CAP PO SCH (09:03)
[2018-08-08] MEDS: FAMOTIDINE 20 MG TAB PO SCH (09:03)
[2018-08-08] MEDS: ATORVASTATIN 20 MG TAB PO SCH (09:03)
[2018-08-08] MEDS: PANTOPRAZOLE 40 MG TABLET PO SCH (09:03)
--- NOTE | 2018-08-08 10:20 | P.PN ---
<Nya Brewster - Last Filed: 08/08/18 10:15> Subjective Progress Note Date: 08/08/18 83-year-old male sitting up in bed. States has had several bowel movement. Less abdominal pain states it has almost "resolved. Patient's currently taking a diet and tolerating no nausea no vomiting no labs pending the CAT scan abdomen and pelvis showed constipation. His symptoms have improved since admission. Objective - Vital Signs Vital signs: Vital Signs Temp 98.9 F 08/08/18 07:00 Pulse 63 08/08/18 07:00 Resp 16 08/08/18 07:00 BP 135/72 08/08/18 07:00 Pulse Ox 94 L 08/08/18 07:00 Intake & Output 08/07/18 08/08/18 08/08/18 18:59 06:59 18:59 Intake Total 200 Balance 200 Intake: Oral 200 Other: # Voids 3 1 # Bowel Movements 5 0 - Exam Physical exam 83-year-old sitting up drinking coffee appears in no acute distress Lungs adequate air movement bilaterally Heart S1-S2 audible regular Abdomen not distended nontender no nausea no vomiting bowel tones present having bowel movements denying any abdominal pain when questioning Extremities no - Labs CBC & Chem 7: 08/07/18 01:32 EST 08/07/18 01:32 EST Assessment and Plan Assessment: Impression Present on admission abdominal pain with nausea vomiting suspect due to constipation resolved CAT scan abdomen pelvis on admission showed mild colonic diverticulosis Plan From a surgical perspective patient is appropriate to be discharged 4 to the timing of the discharge to the attending No surgical intervention at this time Follow-up in the outpatient setting The above impression and plan of care have been discussed and directed by signing physician. Nya Brewster nurse practitioner acting as scribe for signing physician. <Leland Gonsalez - Last Filed: 08/08/18 11:16> Objective - Vital Signs Vital signs: Vital Signs Temp 98.9 F 08/08/18 07:00 Pulse 63 08/08/18 07:00 Resp 16 08/08/18 07:00 BP 135/72 08/08/18 07:00 Pulse Ox 94 L 08/08/18 07:00 Intake & Output 08/07/18 08/08/18 08/08/18 18:59 06:59 18:59 Intake Total 200 Balance 200 Intake: Oral 200 Other: # Voids 3 1 # Bowel Movements 5 0 - Labs CBC & Chem 7: 08/08/18 09:40 08/08/18 09:40 Labs: Abnormal Lab Results - Last 24 Hours (Table) 08/08/18 08/08/18 Range/Units 09:40 09:40 RBC 3.60 L (4.30-5.90) m/uL Hgb 12.6 L (13.0-17.5) gm/dL Hct 38.1 L (39.0-53.0) % MCV 105.8 H (80.0-100.0) fL MCH 35.1 H (25.0-35.0) pg Plt Count 137 L (150-450) k/uL BUN 22 H (9-20) mg/dL Creatinine 1.26 H (0.66-1.25) mg/dL Glucose 113 H (74-99) mg/dL Assessment and Plan Assessment: As above. Patient tolerating full liquid diet. Good bowel function. Still feels somewhat bloated. We'll start trying to use MiraLAX at home. We'll sign off. Please call if needed. (1) Abdominal pain Current Visit: Yes Status: Acute Code(s): R10.9 - UNSPECIFIED ABDOMINAL PAIN SNOMED Code(s): 93522475
[2018-08-08 10:22] LABS: Basophils % (A) 0 %; Eosinophils # (A) 0.1 k/uL (0-0.7); Eosinophils % (A) 2 %; HCT 38.1 % (39.0-53.0); HGB 12.6 gm/dL (13.0-17.5); Lymphocytes % (A) 18 %; MCH 35.1 pg (25.0-35.0); MCHC 33.1 g/dL (31.0-37.0); MCV 105.8 fL (80.0-100.0); Macrocytosis Moderate; Mean Platelet Volume 6.8; Monocytes # (A) 0.5 k/uL (0-1.0); Monocytes % (A) 8 %; Neutrophils # (A) 4.1 k/uL (1.3-7.7); Neutrophils % (A) 70 %; Platelet Count 137 k/uL (150-450); RDW 13.2 % (11.5-15.5); WBC 5.8 k/uL (3.8-10.6)
--- NOTE | 2018-08-08 10:22 | P.DS ---
Providers Date of admission: 08/07/18 06:20 Expected date of discharge: 08/08/18 Attending physician: Colleen Wilson Consults: 08/07/18 06:20 Consult Physician Routine Consulting Provider: Leland Gonsalez Consult Reason/Comments: abdominal pain Do you want consulting provider notified?: Yes Primary care physician: Augie Venegas [facility] Course: Mr. Ferguson is a pleasant 83-year-old male with a past medical history of hypertension, GERD, skin cancer status post removal, chronic osteoarthritis coming into the hospital with a chief complaint of abdominal pain nausea and vomiting.Patient states that his abdominal pain was so severe that he woke up from his sleep last night.the pain was cramping in nature and he threw up once at home. Patient was also diaphoretic and was drenched in sweat, so his called EMS and he was brought to the hospital for further evaluation. Patient threw up one more time after coming to the emergency department. Patient denies having any fevers chills or rigors. Patient denies having any chest pain. Patient denies having any cough or difficulty in breathing. No dysuria or hematuria. In the ED patient had a CT of the abdomen and pelvis showing mild constipation and mild colonic diverticulosis. After that patient had a large bowel movement after which his abdominal pain has been relieved.rations vitals and labs within normal limits. This morning patient is lying in bed appears to be in no acute distress. His is at the bedside. Patient mentions that he does not have any abdominal pain. No nausea or vomiting. Patient denies having any chest pain or difficulty in breathing. Above per Dr. Snyder 08/08/2018 Patient seen this morning by Dr. Venegas. patient reports resolution of his abdominal pain. He did have a large bowel movement yesterday. He was cleared for discharge from a surgical standpoint per Dr. Gonsalez. He was also cleared for discharge by Dr. Venegas. He is being discharged home on colace and miralax daily. DISCHARGE DIAGNOSIS: Abdominal pain, most likely secondary to constipation, resolved Hypertension Chronic osteoarthritis History of prostate disorder History of skin cancer status post removal GERD Nurse practitioner note has been reviewed by physician. Signing provider agrees with the documented findings, assessment, and plan of care. Plan - Discharge Summary New Discharge Prescriptions: New Docusate [Colace] 100 mg PO BID #60 capsule Polyethylene Glycol 3350 [Miralax] 17 gm PO DAILY #30 packet Continue Glucosam/Clive-Msm1/C/Kristopher/Bosw [Glucosamine-Chondroitin Tablet] 1 tab PO DAILY Multivitamins, Thera [Multivitamin (formulary)] 1 tab PO DAILY Terazosin HCl [Hytrin] 10 mg PO HS Omeprazole [PriLOSEC] 20 mg PO -[facility] Valsartan/Hydrochlorothiazide [Diovan Hct 80-12.5 mg Tablet] 1 tab PO DAILY Atorvastatin Calcium [Lipitor] 20 mg PO DAILY #30 tab Clopidogrel [Plavix] 75 mg PO DAILY #30 tab Finasteride [Proscar] 5 mg PO DAILY Discharge Medication List Glucosam/Clive-Msm1/C/Kristopher/Bosw [Glucosamine-Chondroitin Tablet] 1 tab PO DAILY 01/14/17 [History] Multivitamins, Thera [Multivitamin (formulary)] 1 tab PO DAILY 01/14/17 [History ] Omeprazole [PriLOSEC] 20 mg PO AC-BRKFST 01/14/17 [History] Terazosin HCl [Hytrin] 10 mg PO HS 01/14/17 [History] Valsartan/Hydrochlorothiazide [Diovan Hct 80-12.5 mg Tablet] 1 tab PO DAILY [History] Atorvastatin Calcium [Lipitor] 20 mg PO DAILY #30 tab 06/12/17 [Rx] Clopidogrel [Plavix] 75 mg PO DAILY #30 tab 06/12/17 [Rx] Finasteride [Proscar] 5 mg PO DAILY 08/07/18 [History] Docusate [Colace] 100 mg PO BID #60 capsule 08/08/18 [Rx] Polyethylene Glycol 3350 [Miralax] 17 gm PO DAILY #30 packet 08/08/18 [Rx] Follow up Appointment(s)/Referral(s): Leland Gonsalez MD [Medical Doctor] - 1 Week Augie Venegas DO [Primary Care Provider] - 1 Week Discharge Disposition: HOME SELF-CARE
[2018-08-08 10:45] LABS: Calcium 8.4 mg/dL (8.4-10.2); Potassium 3.9 mmol/L (3.5-5.1)
== END 2018-08-08 14:12 | disposition home or self-care (01) ==
LOC: EC 01:16 → 4MS4W 06:20
PROVIDERS: ADMIT Family Medicine; ATTEND Family Medicine
DX: R10.30 Lower abdominal pain, unspecified (principal); R61 Generalized hyperhidrosis; R11.2 Nausea with vomiting, unspecified; K59.00 Constipation, unspecified; K21.9 Gastro-esophageal reflux disease without esophagitis; I10 Essential (primary) hypertension; K57.30 Diverticulosis of large intestine without perforation or abscess without bleeding; N42.9 Disorder of prostate, unspecified; G43.909 Migraine, unspecified, not intractable, without status migrainosus; M19.90 Unspecified osteoarthritis, unspecified site; Z79.02 Long term (current) use of antithrombotics/antiplatelets; Z79.82 Long term (current) use of aspirin; Z79.899 Other long term (current) drug therapy; Z85.828 Personal history of other malignant neoplasm of skin; Z98.41 Cataract extraction status, right eye; Z98.42 Cataract extraction status, left eye; Z82.49 Family history of ischemic heart disease and other diseases of the circulatory system; Z84.89 Family history of other specified conditions; Z81.1 Family history of alcohol abuse and dependence
CPT/HCPCS: 99285; 36415; 80053; 80048; 82150; 83605; 83690; 84484; 85025 ×2; 81003; 71045; 74176; G0378 ×2

== ENCOUNTER 2019-01-05 01:25 | Observation (INO) | payer MEDICARE ==
[2019-01-05] MEDS ORDERED: SODIUM CHLORIDE 0.9% 1,000 ML IV STA (01:30)
[2019-01-05 02:20] LABS: Basophils % (A) 0 %; Eosinophils # (A) 0.2 k/uL (0-0.7); Eosinophils % (A) 1 %; HCT 43.6 % (39.0-53.0); HGB 14.2 gm/dL (13.0-17.5); Lymphocytes # (A) 0.7 k/uL (1.0-4.8); Lymphocytes % (A) 6 %; MCH 33.3 pg (25.0-35.0); MCHC 32.6 g/dL (31.0-37.0); MCV 102.3 fL (80.0-100.0); Macrocytosis Slight; Mean Platelet Volume 7.8; Monocytes # (A) 0.7 k/uL (0-1.0); Monocytes % (A) 5 %; Neutrophils # (A) 10.7 k/uL (1.3-7.7); Neutrophils % (A) 87 %; Platelet Count 141 k/uL (150-450); RBC 4.27 m/uL (4.30-5.90); RDW 13.2 % (11.5-15.5); WBC 12.2 k/uL (3.8-10.6)
--- NOTE | 2019-01-05 02:29 | ED ---
Nausea/Vomiting/Diarrhea HPI - General Chief complaint: Nausea/Vomiting/Diarrhea Stated complaint: Nausea, vomiting Time Seen by Provider: 01/05/19 01:30 Source: patient, EMS Mode of arrival: EMS Limitations: no limitations - History of Present Illness Initial comments: Michele is an 83-year-old gentleman who presents to the emergency department today for evaluation of multiple episodes of nonbloody nonbilious emesis, persistent nausea and multiple episodes of nonbloody diarrhea. Patient reports he was in his usual state of health throughout the day, he states he shared lunch with his of a turkey sandwich. He then shared dinner which he ate p ork chops, applesauce, squash and 2 cookies for dessert. He reports his ate the same things. Patient reports that shortly after dinner he began to feel very nauseated he's had multiple episodes of nonbloody nonbilious emesis, he reports he has persistent nausea and is now is heaving with nothing left in his stomach to vomit up. He also reports multiple episodes of nonbloody diarrhea. Patient's called EMS because she was concerned about an and he appeared very uncomfortable. Upon EMS arrival they found the patient be hemodynamically stable. IV access was obtained she was given Zofran and IV fluids. Patient reports his nausea is improved significantly with Zofran. She does report that he had bilateral inguinal hernia repair done by laparoscopic robotic last year he reports that since that time he has had chronic pressure-like pain in his lower abdomen and straining with bowel movements and need to use stool softeners. Patient reports he did have normal bowel movements yesterday. No history of bowel obstructions. - Related Data Home Medications Medication Instructions Recorded Confirmed Glucosam/Clive-Msm1/C/Kristopher/Bosw 1 tab PO DAILY 01/14/17 08/07/18 [Glucosamine-Chondroitin Tablet] Multivitamins, Thera [Multivitamin 1 tab PO DAILY 01/14/17 08/07/18 (formulary)] Omeprazole [PriLOSEC] 20 mg PO AC-BRKFST 01/14/17 08/07/18 Terazosin HCl [Hytrin] 10 mg PO HS 01/14/17 08/07/18 Valsartan/Hydrochlorothiazide 1 tab PO DAILY 01/14/17 08/07/18 [Diovan Hct 80-12.5 mg Tablet] Finasteride [Proscar] 5 mg PO DAILY 08/07/18 08/07/18 Previous Rx's Medication Instructions Recorded Atorvastatin Calcium [Lipitor] 20 mg PO DAILY #30 tab 06/12/17 Clopidogrel [Plavix] 75 mg PO DAILY #30 tab 06/12/17 Docusate [Colace] 100 mg PO BID #60 capsule 08/08/18 Polyethylene Glycol 3350 [Miralax] 17 gm PO DAILY #30 packet 08/08/18 Allergies Allergy/AdvReac Type Severity Reaction Status Date / Time No Known Allergies Allergy Verified 08/07/18 14:48 Review of Systems ROS Statement: Those systems with pertinent positive or pertinent negative responses have been documented in the HPI. ROS Other: All systems not noted in ROS Statement are negative. 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 History of Any Multi-Drug Resistant Organisms: None Reported Past Surgical History: Orthopedic Surgery Additional Past Surgical History / Comment(s): skin cancer removed from scalp, r ectal fistula repair, right shoulder rotator cuff, cataract left eye, bilateral INGUINAL HERNIA REPAIR Past Anesthesia/Blood Transfusion Reactions: Motion Sickness Past Psychological History: No Psychological Hx Reported Smoking Status: Never smoker Past Alcohol Use History: Daily Past Drug Use History: None Reported - Past Family History Mother Family Medical History: Myocardial Infarction ([place]) Additional Family Medical History / Comment(s): OF [place] AT AGE 94 Father Additional Family Medical History / Comment(s): ETOH-BINGE DRINKER NOT EXACTLY SURE CAUSE OF HIS AT AGE 78 Brother(s) Family Medical History: Myocardial Infarction ([place]) Additional Family Medical History / Comment(s): His brother at age 74. He has a history of myocardial infarction and lead poisoning. General Exam - General Exam Comments Initial Comments: Physical Exam GENERAL: Patient is well-developed and well-nourished. Patient is nontoxic and well-hydrated and is in no distress. HENT: Normocephalic, Atraumatic. EYES: PERRL, EOMI PULMONARY: Unlabored respirations. No audible rales rhonchi or wheezing was noted. CARDIOVASCULAR: There is a regular rate and rhythm without any murmurs gallops or rubs. ABDOMEN: soft, diffuse tenderness, non-peritoneal SKIN: Skin is clear with no lesions or rashes and otherwise unremarkable. : Deferred NEUROLOGIC: Patient is alert and oriented x3. Moving all extremities spontaneously MUSCULOSKELETAL: Normal extremities with adequate strength and full range of motion. No lower extremity swelling or edema. No calf tenderness. PSYCHIATRIC: Normal psychiatric evaluation. Limitations: no limitations Limitations: no limitations Course Vital Signs 01/05/19 01/05/19 01/05/19 01:38 02:46 05:19 Temperature 94.3 F L 98.7 F Pulse Rate 74 76 89 Respiratory 18 18 18 Rate Blood Pressure 141/67 109/53 115/78 O2 Sat by Pulse 97 97 Oximetry Medical Decision Making - Medical Decision Making She was seen and evaluated history is obtained from the patient at bedside 83-year-old male with frequent abdominal pain worse today, nausea, vomiting and diarrhea. A sign labs and imaging were ordered Labs with no significant abnormalities x-rays no acute findings though computed tomography scan was suggested and therefore ordered Computed tomography scan is suggestive of enteritis [place] given the patient's advanced age I do feel it would be dangerous for him to go home and continue to have frequent diarrhea with the high possibility of developing dehydration at this time patient prefer to stay in the hospital for further management. - Lab Data Result diagrams: 01/05/19 01:50 01/05/19 01:50 Lab Results 01/05/19 01/05/19 01/05/19 Range/Units 01:50 01:50 01:50 WBC 12.2 H (3.8-10.6) k/uL RBC 4.27 L (4.30-5.90) m/uL Hgb 14.2 (13.0-17.5) gm/dL Hct 43.6 (39.0-53.0) % MCV 102.3 H (80.0-100.0) fL MCH 33.3 (25.0-35.0) pg MCHC 32.6 (31.0-37.0) g/dL RDW 13.2 (11.5-15.5) % Plt Count 141 L (150-450) k/uL Neutrophils % 87 % Lymphocytes % 6 % Monocytes % 5 % Eosinophils % 1 % Basophils % 0 % Neutrophils # 10.7 H (1.3-7.7) k/uL Lymphocytes # 0.7 L (1.0-4.8) k/uL Monocytes # 0.7 (0-1.0) k/uL Eosinophils # 0.2 (0-0.7) k/uL Basophils # 0.0 (0-0.2) k/uL Macrocytosis Slight Sodium 137 (137-145) mmol/L Potassium 4.1 (3.5-5.1) mmol/L Chloride 104 (98-107) mmol/L Carbon Dioxide 25 (22-30) mmol/L Anion Gap 8 mmol/L BUN 20 (9-20) mg/dL Creatinine 1.21 (0.66-1.25) mg/dL Est GFR (CKD-EPI)AfAm 63 (>60 ml/min/1.73 sqM) Est GFR (CKD-EPI)NonAf 54 (>60 ml/min/1.73 sqM) Glucose 97 (74-99) mg/dL Plasma Lactic Acid John 1.5 (0.7-2.0) mmol/L Calcium 9.1 (8.4-10.2) mg/dL Total Bilirubin 1.0 (0.2-1.3) mg/dL AST 35 (17-59) U/L ALT 26 (21-72) U/L Alkaline Phosphatase 63 (38-126) U/L Troponin I (0.000-0.034) ng/mL Total Protein 6.6 (6.3-8.2) g/dL Albumin 3.8 (3.5-5.0) g/dL Amylase 53 (30-110) U/L Lipase 102 (23-300) U/L 01/05/19 Range/Units 01:50 WBC (3.8-10.6) k/uL RBC (4.30-5.90) m/uL Hgb (13.0-17.5) gm/dL Hct (39.0-53.0) % MCV (80.0-100.0) fL MCH (25.0-35.0) pg MCHC (31.0-37.0) g/dL RDW (11.5-15.5) % Plt Count (150-450) k/uL Neutrophils % % Lymphocytes % % Monocytes % % Eosinophils % % Basophils % % Neutrophils # (1.3-7.7) k/uL Lymphocytes # (1.0-4.8) k/uL Monocytes # (0-1.0) k/uL Eosinophils # (0-0.7) k/uL Basophils # (0-0.2) k/uL Macrocytosis Sodium (137-145) mmol/L Potassium (3.5-5.1) mmol/L Chloride (98-107) mmol/L Carbon Dioxide (22-30) mmol/L Anion Gap mmol/L BUN (9-20) mg/dL Creatinine (0.66-1.25) mg/dL Est GFR (CKD-EPI)AfAm (>60 ml/min/1.73 sqM) Est GFR (CKD-EPI)NonAf (>60 ml/min/1.73 sqM) Glucose (74-99) mg/dL Plasma Lactic Acid John (0.7-2.0) mmol/L Calcium (8.4-10.2) mg/dL Total Bilirubin (0.2-1.3) mg/dL AST (17-59) U/L ALT (21-72) U/L Alkaline Phosphatase (38-126) U/L Troponin I <0.012 (0.000-0.034) ng/mL Total Protein (6.3-8.2) g/dL Albumin (3.5-5.0) g/dL Amylase (30-110) U/L Lipase (23-300) U/L Disposition Clinical Impression: Enteritis, Diarrhea Disposition: ADMITTED IP TO THIS [facility] Condition: Stable Is patient prescribed a controlled substance at d/c from ED?: No
--- NOTE | 2019-01-05 02:32 | XR ---
EXAM: XR Abdomen, 2 Views CLINICAL HISTORY: Abdominal pain. TECHNIQUE: Frontal upright views of the abdomen/pelvis. Two images were obtained. COMPARISON: No relevant prior studies available. FINDINGS: Intraperitoneal space: No evidence of free intraperitoneal air. Gastrointestinal tract: Nonspecific bowel gas pattern with scattered foci of bowel gas in the mid abdomen. Otherwise paucity of bowel gas. No significant dilation. Bones/joints: Osseous degenerative changes and mild scoliosis of the spine. IMPRESSION: 1. Nonspecific bowel gas pattern with scattered foci of bowel gas in the mid abdomen. Otherwise paucity of bowel gas. If there is clinical concern for acute intra-abdominal process, CT can further assess as clinically warranted. 2. No evidence of free intraperitoneal air.
[2019-01-05 02:34] LABS: Albumin 3.8 g/dL (3.5-5.0); Calcium 9.1 mg/dL (8.4-10.2); Total Protein 6.6 g/dL (6.3-8.2)
[2019-01-05 03:05] LABS: Potassium 4.1 mmol/L (3.5-5.1)
--- NOTE | 2019-01-05 04:21 | CT ---
EXAM: CT Abdomen and Pelvis With Intravenous Contrast CLINICAL HISTORY: Pain. Nausea and vomiting. History of rectal fistula repair and bilateral hernia repair. TECHNIQUE: Axial computed tomography images of the abdomen and pelvis with intravenous contrast. Coronal and sagittal reformatted images were created and reviewed. 80 mL Isovue-370 administered intravenously for this examination. CTDI is 22.5 mGy and DLP is 888.3 mGy-cm. This CT exam was performed using one or more of the following dose reduction techniques: automated exposure control, adjustment of the mA and/or kV according to patient size, and/or use of iterative reconstruction technique. COMPARISON: CT dated 01/03/2018. FINDINGS: Lung bases: Left lower lobe paramediastinal mass, incompletely imaged. Stable left lung base 6 m nodule. Mediastinum: Hiatal hernia. ABDOMEN: Liver: Unremarkable. No mass. Gallbladder and bile ducts: Unremarkable. No radiopaque calculi. No biliary ductal dilation. Pancreas: Unremarkable. No ductal dilation. No mass. No adjacent inflammatory changes. Spleen: Unremarkable. No splenomegaly. Adrenals: Unremarkable. No mass. Kidneys and ureters: Bilateral renal sinus cysts. No significant hydronephrosis or ureteral calculus. Small bilateral renal cysts. Nonobstructive left renal calculi. Stomach and bowel: Fluid in the colon suggestive of diarrheal state. Few colonic diverticula without evidence of acute diverticulitis. No evidence of bowel obstruction. Duodenal diverticulum. PELVIS: Appendix: No evidence of acute appendicitis. Bladder: Unremarkable. No mass or wall thickening. Reproductive: Mild prostatomegaly. ABDOMEN and PELVIS: Intraperitoneal space: Unremarkable. No free air. No ascites or significant fluid collection. Bones/joints: Osseous degenerative changes. No acute fracture. No dislocation. Soft tissues: Postsurgical changes of inguinal hernia repair. Vasculature: Atherosclerotic vascular disease. No abdominal aortic aneurysm. Lymph nodes: Unremarkable. No enlarged lymph nodes. IMPRESSION: 1. Fluid in the colon suggestive of diarrheal state which may be related to nonspecific enteritis/enterocolitis. Correlate clinically. 2. No bowel obstruction, significant bowel wall thickening, free fluid or free air. Colonic diverticula without evidence of acute diverticulitis. No evidence of acute appendicitis. 3. Small hiatal hernia. 4. Incompletely imaged lower lobe paramediastinal mass. Further workup with dedicated chest imaging recommended if not already performed. 5. Stable left lung base 6 mm nodule.
[2019-01-05] MEDS ORDERED: NALOXONE 0.4 MG/ML 1 ML VIAL IV PRN (04:36)
[2019-01-05] MEDS ORDERED: ONDANSETRON 4 MG/2 ML VIAL IVP PRN (04:36)
[2019-01-05] MEDS ORDERED: DICYCLOMINE 10 MG/ML 2 ML AMP IM STA (04:38)
[2019-01-05] MEDS: SODIUM CHLORIDE 0.9% 1,000 ML IV SCH ×2 (04:59→15:57)
[2019-01-05 05:41] LABS: Appearance,Urine Clear (Clear); Bilirubin,Urine Negative (Negative); Blood,Urine Negative (Negative); Color,Urine Yellow; Glucose,Urine (UA) Negative (Negative); Ketones,Urine Negative (Negative); Leukocyte Esterase,Urine Negative (Negative); Nitrite,Urine Negative (Negative); PH, Urine 5.5 (5.0-8.0); Protein,Urine Negative (Negative); Specific Gravity,Urine 1.028 (1.001-1.035); Urobilinogen,Urine <2.0 mg/dL (<2.0)
[2019-01-05 07:49] LABS: Glucose,Whole Blood 103 mg/dL (75-99)
[2019-01-05] MEDS ORDERED: RX INFO: IV CONTRAST WAS GIVEN 1 EACH MISC MISCELLANE PRN (09:54)
[2019-01-05] MEDS: FINASTERIDE 5 MG TAB PO SCH (10:43)
[2019-01-05] MEDS: PANTOPRAZOLE 40 MG TABLET PO SCH (10:43)
[2019-01-05] MEDS: DOCUSATE 100 MG CAP PO SCH ×2 (10:43→22:00)
[2019-01-05] MEDS: ATORVASTATIN 20 MG TAB PO SCH (10:43)
[2019-01-05] MEDS: VALSARTAN 80 MG TAB PO SCH (10:44)
[2019-01-05] MEDS: metroNIDAZOLE-NS PMX 500 MG in SALINE 1 100ML.BAG IVPB SCH ×2 (10:44→15:57)
[2019-01-05] MEDS: HYDROCHLOROTHIAZIDE 12.5 MG CAP PO SCH (10:44)
--- NOTE | 2019-01-05 11:42 | CT ---
EXAMINATION TYPE: CT chest wo con DATE OF EXAM: 01/05/2019 COMPARISON: 01/26/[address] abdomen and pelvis 01/05/2019 HISTORY: 83-year-old male mediastinal mass TECHNIQUE: Contiguous axial scanning of the chest without IV contrast. Coronal and sagittal reconstru ctions performed. CT DLP: 433.7 mGycm Automated exposure control for dose reduction was used. FINDINGS: Heart normal size without pericardial effusion. Vessel calcifications are present. Ectatic ascending aorta at 3.6 cm. Mild atherosclerotic arch calcifications. Conventional arch vessel branching anatomy. 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 Lowe r descending thoracic aorta is ectatic at 2.9 cm. -Approximately 3 pulmonary nodules posterior left midlung measure 4 mm and may be calcified, unchange d from 01/26/2018 suggesting a benign etiology. -Tiny calcified granuloma superior segment left lower lobe, axial image 36. -Tiny calcified granuloma along the right minor fissure. -Stable 6 mm left basilar pulmonary nodule along the hemidiaphragm. Redemonstrated elongated left para-aortic lower lobe masslike density spanning up to 14.2 cm. This pa rtially encases some of the segmental bronchi of the left lower lobe. Inferiorly, the density has increased in size now measuring up to 2.5 cm thick versus 1.5 cm, previou sly. Along the left infrahilar region, and also shows increase in size now measuring 3.2 cm versus 2. 2 cm, previously with increasing calcification as well. Superiorly, the density is relatively similar. However, within the medial basilar left lower lobe, just anterior density, there is an increasing 1.2 cm area of focal density versus 8 mm, previously. Moderate size hiatal hernia redemonstrated. Parapelvic cysts in both kidneys. Improvement in the prev ious liquid stool throughout the colon seen yesterday. 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 IMPRESSION: 1. 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 2. THE DENSITY SHOWS ENLARGEMENT ALONG ITS MID ASPECT (3.2 CM VERSUS 2.2 CM, PREVIOUSLY, ALSO NOW WIT H INCREASING CALCIFICATION) AND INFERIOR ASPECT (2.5 CM VERSUS 1.5 CM, PREVIOUSLY). 3. THERE IS ALSO AN ENLARGING SATELLITE DENSITY JUST ANTERIORLY (1.2 CM VERSUS 8 MM, PREVIOUSLY). GIV EN THE INCREASING SIZE, NEOPLASM NOT EXCLUDED AT THIS TIME. PET CT CAN FURTHER EVALUATE. 4. OTHER SCATTERED PULMONARY NODULES MEASURING UP TO 6 MM ARE UNCHANGED.
[2019-01-05 12:14] LABS: Glucose,Whole Blood 109 mg/dL (75-99)
--- NOTE | 2019-01-05 13:25 | P.GSCN ---
<Hazel Silva - Last Filed: 01/05/19 13:22> History of Present Illness Consult date: 01/05/19 Reason for Consult: abdominal pain Requesting physician: Augie Venegas History of present illness: CHIEF COMPLAINT: abdominal pain HISTORY OF PRESENT ILLNESS: 83-year-old male who presented to the emergency room with a chief complaint of vomiting and diarrhea. Patient reports he was feeling well yesterday until he ate dinner. He states shortly after dinner he began having bilateral lower quadrant abdominal pain. He reports 3-4 episodes of vomiting yesterday evening. He also reports a few episodes of watery diarrhea. He denies hematemesis, hematochezia, or melena. He states he felt diaphoretic yesterday and noticed a lot of burping also. Patient reports he was hospitalized in August 2018 secondary to constipation. He states he has been taking Metamucil since that hospital admission. He reports a lot of flatulence at home and started doing some research. He reports he stopped taking metamucil about a month ago and has been taking Citrucel for the last month and has noticed an improvement in his flatuence. He currently denies abdominal pain. Denies further episodes of nausea, vomiting, or diarrhea. PAST MEDICAL HISTORY: See list. PAST SURGICAL HISTORY: See list. SOCIAL HISTORY: No illicit drug use. REVIEW OF SYSTEMS: CONSTITUTIONAL: Denies fever or chills. HEENT: Denies blurred vision, vision changes, or eye pain. Denies hemoptysis CARDIOVASCULAR: Denies chest pain or pressure. RESPIRATORY: No shortness of breath. GASTROINTESTINAL: Refer to HPI for pertinent findings HEMATOLOGIC: Denies bleeding disorders. GENITOURINARY: Denies any blood in urine. SKIN: Denies pruitis. Denies rash. PHYSICAL EXAM: VITAL SIGNS: Reviewed. GENERAL: Well-developed in no acute distress. HEENT: No sclera icterus. Extraocular movements grossly intact. Moist buccal mucosa. Head is atraumatic, normocephalic. ABDOMEN: Soft. Nondistended. Nontender. Positive bowel sounds. NEUROLOGIC: Alert and oriented. Cranial nerves II through XII grossly intact. IMAGING: CT abdomen and pelvis: fluid in the colon suggestive of diarrheal state which may be related to nonspecific enteritis, enterocolitis. Correlate clinically. No bowel obstruction or significant wall thickening. No free fluid or free air. Colonic diverticula without evidence of acute diverticulitis. No evidence of acute appendicitis. Small hiatal hernia. ASSESSMENT: 1. Abdominal pain, nausea, vomiting, diarrhea x 1 day, suspect due to viral gastroenteritis 2. History of bilateral inguinal hernia repair, January 2017 3. Chronic abdominal pain PLAN: Patient clinically improved today. May start clear liquid diet as patient denies further episodes of abdominal pain, nausea, vomiting, or diarrhea. Repeat labs in AM. Nurse practitioner note has been reviewed by physician. Signing provider agrees with the documented findings, assessment, and plan of care. 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 History of Any Multi-Drug Resistant Organisms: None Reported Past Surgical History: Orthopedic Surgery Additional Past Surgical History / Comment(s): skin cancer removed from scalp, rectal fistula repair, right shoulder rotator cuff, cataract left eye, bilateral INGUINAL HERNIA REPAIR Past Anesthesia/Blood Transfusion Reactions: Motion Sickness Past Psychological History: No Psychological Hx Reported Additional Psychological History / Comment(s): PT IS INDEPENDANT. LIVES WITH HIS AKIRA IN 2 STORY HOME . HAS 3 PORCH STEPS AND 12 SATEPS TO 2ND FLOOR. 1 PET CAT. NO HOME CARE SERVICES RECIEVED. NO MEDICAL EQUIPMENT. PT SERVED IN THE [employer]. 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 [employer] Smoking Status: Never smoker Past Alcohol Use History: Daily Additional Past Alcohol Use History / Comment(s): 1-2 glasses of wine or a class of whiskey nightly Past Drug Use History: None Reported - Past Family History Mother Family Medical History: Myocardial Infarction ([place]) Additional Family Medical History / Comment(s): OF [place] AT AGE 94 Father Additional Family Medical History / Comment(s): ETOH-BINGE DRINKER NOT EXACTLY SURE CAUSE OF HIS AT AGE 78 Brother(s) Family Medical History: Myocardial Infarction ([place]) Additional Family Medical History / Comment(s): His brother at age 74. He has a history of myocardial infarction and lead poisoning. Medications and Allergies Home Medications Medication Instructions Recorded Confirmed Type Multivitamins, Thera [Multivitamin 1 tab PO DAILY 01/14/17 01/05/19 History (formulary)] Omeprazole [PriLOSEC] 20 mg PO AC-BRKFST 01/14/17 01/05/19 History Terazosin HCl [Hytrin] 10 mg PO HS 01/14/17 01/05/19 History Valsartan/Hydrochlorothiazide 1 tab PO DAILY 01/14/17 01/05/19 History [Diovan Hct 80-12.5 mg Tablet] Atorvastatin Calcium [Lipitor] 20 mg PO DAILY #30 tab 06/12/17 01/05/19 Rx Finasteride [Proscar] 5 mg PO DAILY 08/07/18 01/05/19 History Docusate [Colace] 100 mg PO BID #60 capsule 08/08/18 01/05/19 Rx Clopidogrel [Plavix] 75 mg PO HS 01/05/19 01/05/19 History Vit C/E/Zn/Coppr/Lutein/Zeaxan 1 cap PO BID 01/05/19 01/05/19 History [Preservision Areds 2 Softgel] Allergies Allergy/AdvReac Type Severity Reaction Status Date / Time No Known Allergies Allergy Verified 01/05/19 09:05 Surgical - Exam Vital Signs Temp Pulse Resp BP Pulse Ox 94.3 F L 74 18 141/67 97 01/05/19 01:38 01/05/19 01:38 01/05/19 01:38 01/05/19 01:38 01/05/19 01:38 Results - Labs 01/05/19 01:50 01/05/19 01:50 Abnormal Lab Results - Last 24 Hours (Table) 01/05/19 01/05/19 01/05/19 Range/Units 01:50 07:46 12:12 WBC 12.2 H (3.8-10.6) k/uL RBC 4.27 L (4.30-5.90) m/uL MCV 102.3 H (80.0-100.0) fL Plt Count 141 L (150-450) k/uL Neutrophils # 10.7 H (1.3-7.7) k/uL Lymphocytes # 0.7 L (1.0-4.8) k/uL POC Glucose (mg/dL) 103 H 109 H (75-99) mg/dL Diabetes panel 01/05/19 Range/Units 01:50 Sodium 137 (137-145) mmol/L Potassium 4.1 (3.5-5.1) mmol/L Chloride 104 (98-107) mmol/L Carbon Dioxide 25 (22-30) mmol/L BUN 20 (9-20) mg/dL Creatinine 1.21 (0.66-1.25) mg/dL Glucose 97 (74-99) mg/dL Calcium 9.1 (8.4-10.2) mg/dL AST 35 (17-59) U/L ALT 26 (21-72) U/L Alkaline Phosphatase 63 (38-126) U/L Total Protein 6.6 (6.3-8.2) g/dL Albumin 3.8 (3.5-5.0) g/dL Calcium panel 01/05/19 Range/Units 01:50 Calcium 9.1 (8.4-10.2) mg/dL Albumin 3.8 (3.5-5.0) g/dL Pituitary panel 01/05/19 Range/Units 01:50 Sodium 137 (137-145) mmol/L Potassium 4.1 (3.5-5.1) mmol/L Chloride 104 (98-107) mmol/L Carbon Dioxide 25 (22-30) mmol/L BUN 20 (9-20) mg/dL Creatinine 1.21 (0.66-1.25) mg/dL Glucose 97 (74-99) mg/dL Calcium 9.1 (8.4-10.2) mg/dL Adrenal panel 01/05/19 Range/Units 01:50 Sodium 137 (137-145) mmol/L Potassium 4.1 (3.5-5.1) mmol/L Chloride 104 (98-107) mmol/L Carbon Dioxide 25 (22-30) mmol/L BUN 20 (9-20) mg/dL Creatinine 1.21 (0.66-1.25) mg/dL Glucose 97 (74-99) mg/dL Calcium 9.1 (8.4-10.2) mg/dL Total Bilirubin 1.0 (0.2-1.3) mg/dL AST 35 (17-59) U/L ALT 26 (21-72) U/L Alkaline Phosphatase 63 (38-126) U/L Total Protein 6.6 (6.3-8.2) g/dL Albumin 3.8 (3.5-5.0) g/dL <Leland Gonsalez - Last Filed: 01/05/19 13:51> History of Present Illness History of present illness: as above. Patient presented last night with intractable vomiting and upper abdominal pain. His symptoms have resolved. Currently they are working up a left lung abnormality. It appears this was evaluated last January as well. Agree with advancing diet at this time. No surgical intervention planned. Suspect gastroenteritis as the etiology. Surgical - Exam Vital Signs Temp Pulse Resp BP Pulse Ox 94.3 F L 74 18 141/67 97 01/05/19 01:38 01/05/19 01:38 01/05/19 01:38 01/05/19 01:38 01/05/19 01:38 Results - Labs 01/05/19 01:50 01/05/19 01:50 Abnormal Lab Results - Last 24 Hours (Table) 01/05/19 01/05/19 01/05/19 Range/Units 01:50 07:46 12:12 WBC 12.2 H (3.8-10.6) k/uL RBC 4.27 L (4.30-5.90) m/uL MCV 102.3 H (80.0-100.0) fL Plt Count 141 L (150-450) k/uL Neutrophils # 10.7 H (1.3-7.7) k/uL Lymphocytes # 0.7 L (1.0-4.8) k/uL POC Glucose (mg/dL) 103 H 109 H (75-99) mg/dL Diabetes panel 01/05/19 Range/Units 01:50 Sodium 137 (137-145) mmol/L Potassium 4.1 (3.5-5.1) mmol/L Chloride 104 (98-107) mmol/L Carbon Dioxide 25 (22-30) mmol/L BUN 20 (9-20) mg/dL Creatinine 1.21 (0.66-1.25) mg/dL Glucose 97 (74-99) mg/dL Calcium 9.1 (8.4-10.2) mg/dL AST 35 (17-59) U/L ALT 26 (21-72) U/L Alkaline Phosphatase 63 (38-126) U/L Total Protein 6.6 (6.3-8.2) g/dL Albumin 3.8 (3.5-5.0) g/dL Calcium panel 01/05/19 Range/Units 01:50 Calcium 9.1 (8.4-10.2) mg/dL Albumin 3.8 (3.5-5.0) g/dL Pituitary panel 01/05/19 Range/Units 01:50 Sodium 137 (137-145) mmol/L Potassium 4.1 (3.5-5.1) mmol/L Chloride 104 (98-107) mmol/L Carbon Dioxide 25 (22-30) mmol/L BUN 20 (9-20) mg/dL Creatinine 1.21 (0.66-1.25) mg/dL Glucose 97 (74-99) mg/dL Calcium 9.1 (8.4-10.2) mg/dL Adrenal panel 01/05/19 Range/Units 01:50 Sodium 137 (137-145) mmol/L Potassium 4.1 (3.5-5.1) mmol/L Chloride 104 (98-107) mmol/L Carbon Dioxide 25 (22-30) mmol/L BUN 20 (9-20) mg/dL Creatinine 1.21 (0.66-1.25) mg/dL Glucose 97 (74-99) mg/dL Calcium 9.1 (8.4-10.2) mg/dL Total Bilirubin 1.0 (0.2-1.3) mg/dL AST 35 (17-59) U/L ALT 26 (21-72) U/L Alkaline Phosphatase 63 (38-126) U/L Total Protein 6.6 (6.3-8.2) g/dL Albumin 3.8 (3.5-5.0) g/dL
[2019-01-05 17:21] LABS: Glucose,Whole Blood 91 mg/dL (75-99)
[2019-01-05] MEDS ORDERED: DOXAZOSIN 4 MG TAB PO SCH (21:00)
[2019-01-05] MEDS ORDERED: CLOPIDOGREL 75 MG TAB PO SCH (21:00)
[2019-01-05 21:27] LABS: Glucose,Whole Blood 99 mg/dL (75-99)
--- NOTE | 2019-01-05 22:33 | P.HPIM ---
History of Present Illness H&P Date: 01/05/19 83-year-old gentleman who was admitted through the emergency dept today for multiple episodes of emesis, persistent nausea and multiple episodes of diarrhea. Patient reports he was in his usual state of health throughout the day, he states he shared lunch with his of a turkey sandwich. He then shared dinner which he ate pork chops, applesauce, squash and 2 cookies for dessert.he did spend half the day on an adult scavenger mitchell which including lots of walking and exercise.. Patient's called EMS because she was concerned about an and he appeared very uncomfortable and was worried about him having a possible heart attack. He denies any chest pain denies any shortness of breath. Review of Systems GENERAL: Patient denies fever. Denies chills. EYES: Denies blurred vision. Denies vision changes. Denies eye pain. EARS, NOSE, MOUTH, & THROAT: Denies headache. Denies sore throat. Denies ear pain. RESPIRATORY: Denies cough. Denies shortness of breath. Denies sputum production. Denies hemoptysis. CARDIOVASCULAR: Denies chest pain or pressure. Denies palpitations. Denies arrhythmias. GASTROINTESTINAL: admits to lower abdominal pain cramps and diarrhea and multiple bouts of emesis. Denies blood in the stool. GENITOURINARY: Denies urinary frequency. Denies burning. Denies dysuria. Denies cloudy urine. Denies blood in the urine. MUSCULOSKELETAL: Denies myalgias. Denies joint swelling. Denies decreased range of motion beyond patients baseline. INTEGUMENTARY: Denies pruitis. Denies rash. PSYCHIATRIC: Denies suicidal or homicial ideations. ENDOCRINE: Denies weight change. Denies polydipsia. Denies polyuria. HEMATOLOGIC: Denies bleeding disorders. 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 History of Any Multi-Drug Resistant Organisms: None Reported Past Surgical History: Orthopedic Surgery Additional Past Surgical History / Comment(s): skin cancer removed from scalp, rectal fistula repair, right shoulder rotator cuff, cataract left eye, bilateral INGUINAL HERNIA REPAIR Past Anesthesia/Blood Transfusion Reactions: Motion Sickness Past Psychological History: No Psychological Hx Reported Additional Psychological History / Comment(s): PT IS INDEPENDANT. LIVES WITH HIS AKIRA IN 2 STORY HOME . HAS 3 PORCH STEPS AND 12 SATEPS TO 2ND FLOOR. 1 PET CAT. NO HOME CARE SERVICES RECIEVED. NO MEDICAL EQUIPMENT. PT SERVED IN THE [employer]. 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 He has a history of myocardial infarction and lead poisoning. Medications and Allergies Home Medications Medication Instructions Recorded Confirmed Type RX: Multivitamins, Thera 1 tab PO DAILY 01/14/17 01/05/19 History [Multivitamin (formulary)] RX: Omeprazole [PriLOSEC] 20 mg PO AC-BRKFST 01/14/17 01/05/19 History RX: Terazosin HCl [Hytrin] 10 mg PO 01/14/17 01/05/19 History RX: Valsartan/Hydrochlorothiazide 1 tab PO DAILY 01/14/17 01/05/19 History [Diovan Hct 80-12.5 mg Tablet] RX: Atorvastatin Calcium [Lipitor] 20 mg PO DAILY #30 tab 06/12/17 01/05/19 Rx RX: Finasteride [Proscar] 5 mg PO DAILY 08/07/18 01/05/19 History Docusate [Colace] 100 mg PO BID #60 capsule 08/08/18 01/05/19 Rx RX: Clopidogrel [Plavix] 75 mg PO HS 01/05/19 01/05/19 History Vit C/E/Zn/Coppr/Lutein/Zeaxan 1 cap PO BID 01/05/19 01/05/19 History [Preservision Areds 2 Softgel] Allergies Allergy/AdvReac Type Severity Reaction Status Date / Time No Known Allergies Allergy Verified 01/05/19 09:05 Physical Exam Osteopathic Statement: *. No significant issues noted on an osteopathic structural exam other than those noted in the History and Physical/Consult. Vitals: Vital Signs Temp Pulse Pulse Resp BP BP Pulse Ox 01/05/19 21:25 98.2 F 65 18 119/68 96 01/05/19 16:00 18 01/05/19 15:00 97.8 F 74 18 119/64 97 01/05/19 08:00 18 01/05/19 06:27 97.8 F 88 18 122/70 95 01/05/19 05:19 98.7 F 89 18 115/78 01/05/19 02:46 76 18 109/53 97 01/05/19 01:38 94.3 F L 74 18 141/67 97 Intake and Output 01/05/19 01/05/19 01/05/19 06:59 14:59 22:59 Other: # Voids 0 2 1 Weight 85.275 kg GENERAL: This is a -83 year-old male in no apparent distress at the time of examination. Pleasant and cooperative. HEENT: Head is atraumatic, normocephalic. Pupils are equal, round, and reactive to light. Sclerae anicteric. Conjunctivae are clear. Mucus membranes of the mouth are moist. Neck is supple. RESPIRATORY: Clear to auscultation. No wheezes, rales, or rhonchi. No use of accessory muscles. No chest wall tenderness is noted on palpation or with deep breathing. CARDIOVASCULAR: Regular rate and rhythm. S1 and S2 noted. No systolic or d iastolic murmur auscultated. No JVD noted. No S3 or S4 noted. GASTROINTESTINAL: positivedistention noted. Abdomen soft and round. Normal active bowel sounds auscultated x 4 quadrants. some pain or tenderness noted upon palpatio to the lower abdomen. INTEGUMENTARY: No cyanosis. No jaundice. No rashes noted. No cellulitis noted. EXTREMITIES: 2+ peripheral pulses. No evidence of peripheral edema. No calf tenderness noted. NEUROLOGIC: Cranial nerves II-XII intact. PSYCHIATRIC: Awake, alert, and oriented X 3. Appropriate affect. Intact judgement and insight. Results CBC & Chem 7: 01/05/19 01:50 01/05/19 01:50 Labs: Abnormal Lab Results - Last 24 Hours (Table) 01/05/19 01/05/19 01/05/19 Range/Units 01:50 07:46 12:12 WBC 12.2 H (3.8-10.6) k/uL RBC 4.27 L (4.30-5.90) m/uL MCV 102.3 H (80.0-100.0) fL Plt Count 141 L (150-450) k/uL Neutrophils # 10.7 H (1.3-7.7) k/uL Lymphocytes # 0.7 L (1.0-4.8) k/uL POC Glucose (mg/dL) 103 H 109 H (75-99) mg/dL Thrombosis Risk Factor Assmnt - Choose All That Apply Any of the Below Risk Factors Present?: No Other Risk Factors: Yes Each Risk Factor Represents 3 Points: Age 75 years or older Other congenital or acquired thrombophilia - If yes, enter type in comment: No Thrombosis Risk Factor Assessment Total Risk Factor Score: 3 Thrombosis Risk Factor Assessment Level: Moderate Risk Assessment and Plan (1) Diarrhea Current Visit: Yes Status: Acute Code(s): R19.7 - DIARRHEA, UNSPECIFIED SNOMED Code(s): 75764144 (2) Enteritis Current Visit: Yes Status: Acute Code(s): K52.9 - NONINFECTIVE GASTROENTERITIS AND COLITIS, UNSPECIFIED SNOMED Code(s): 58925414 (3) Abdominal pain Current Visit: No Status: Acute Code(s): R10.9 - UNSPECIFIED ABDOMINAL PAIN SNOMED Code(s): 79191933 (4) GERD (gastroesophageal reflux disease) Current Visit: No Status: Acute Code(s): K21.9 - GASTRO-ESOPHAGEAL REFLUX DISEASE WITHOUT ESOPHAGITIS SNOMED Code(s): 113642482 (5) Hypertension Current Visit: No Status: Acute Code(s): I10 - ESSENTIAL (PRIMARY) HYPERTENSION SNOMED Code(s): 82627678 Plan: patient will be admitted to the hospital with a surgical consultation currently in progress. He states hasn't felt right since his abdominal hernia repair the repair was uneventful and has since healed.we'll continue to advance diet only as tolerated and I'll place him on some Flagyl for acute enteritis Time with Patient: Greater than 30
[2019-01-06] MEDS: metroNIDAZOLE-NS PMX 500 MG in SALINE 1 100ML.BAG IVPB SCH ×2 (00:49→09:18)
[2019-01-06] MEDS: SODIUM CHLORIDE 0.9% 1,000 ML IV SCH ×2 (00:50→12:30)
[2019-01-06 07:37] LABS: Glucose,Whole Blood 90 mg/dL (75-99)
[2019-01-06] MEDS: PANTOPRAZOLE 40 MG TABLET PO SCH (09:18)
[2019-01-06] MEDS: ATORVASTATIN 20 MG TAB PO SCH (09:52)
[2019-01-06] MEDS: HYDROCHLOROTHIAZIDE 12.5 MG CAP PO SCH (09:53)
[2019-01-06] MEDS: FINASTERIDE 5 MG TAB PO SCH (09:53)
[2019-01-06] MEDS: DOCUSATE 100 MG CAP PO SCH (09:53)
[2019-01-06] MEDS: VALSARTAN 80 MG TAB PO SCH (09:53)
[2019-01-06 12:05] LABS: Glucose,Whole Blood 92 mg/dL (75-99)
--- NOTE | 2019-01-06 13:14 | P.PN ---
Subjective Progress Note Date: 01/06/19 CHIEF COMPLAINT: abdominal pain HISTORY OF PRESENT ILLNESS: Patient examined at the bedside. Denies abdominal pain. Tolerating regular diet. Denies nausea or vomiting. PHYSICAL EXAM: VITAL SIGNS: Reviewed. GENERAL: Well-developed in no acute distress. HEENT: No sclera icterus. Extraocular movements grossly intact. Moist buccal mucosa. Head is atraumatic, normocephalic. ABDOMEN: Soft. Nondistended. Nontender. Positive bowel sounds. NEUROLOGIC: Alert and oriented. Cranial nerves II through XII grossly intact. ASSESSMENT: 1. Abdominal pain, nausea, vomiting, diarrhea x 1 day, suspect due to viral gastroenteritis 2. History of bilateral inguinal hernia repair, January 2017 3. Chronic abdominal pain PLAN: Patient is stable for discharge from a surgical standpoint. We will sign off. Please reconsult if needed. Nurse practitioner note has been reviewed by physician. Signing provider agrees with the documented findings, assessment, and plan of care. Objective - Vital Signs Vital signs: Vital Signs Temp 98.2 F 01/06/19 05:15 Pulse 69 01/06/19 05:15 Resp 16 01/06/19 05:15 BP 143/75 01/06/19 05:15 Pulse Ox 96 01/06/19 05:15 Intake & Output 01/05/19 01/06/19 01/06/19 18:59 06:59 18:59 Intake Total 800 Balance 800 Intake: Intake, IV Titration 800 Amount Sodium Chloride 0.9% 1, 700 000 ml @ 100 mls/hr IV . Q10H [facility] Rx#:[id number] metroNIDAZOLE-NS PMX 500 100 mg In Saline 1 100ml.bag @ 100 mls/hr IVPB Q8HR [facility] Rx#:[id number] Other: # Voids 2 1 - Labs CBC & Chem 7: 01/05/19 01:50 01/05/19 01:50
[2019-01-06 13:38] VITALS: BP 139/72; PULSE 62; RESP 18; TEMP 97.9
--- NOTE | 2019-01-06 14:39 | P.CNPUL ---
History of Present Illness Consult date: 01/06/19 Requesting physician: Augie Venegas Reason for consult: lung mass Chief complaint: Lung mass History of present illness: This 83-year-old white male patient of Dr. Venegas with past medical history of hypertension, GERD/reflux, osteoarthritis, chronic constipation, history of rectal fistula, lifetime nonsmoker, and daily EtOH use who presented to the emergency department on 01/05/2019 with complaints of nausea and vomiting, multiple episodes of nonbloody and nonbilious emesis and nonbloody diarrhea. Patient was in his usual state of health, feeling well, and his symptoms started after dinner. CT of the abdomen and pelvis showed fluid in the colon, related to nonspecific enteritis/enterocolitis, no bowel obstruction no significant bowel wall thickening no free fluid or free air, small hiatal hernia. There was an incidental note of a lower lobe paramediastinal mass, stable left lung base [address] chest showed elongated left para-aortic lower lobe masslike density spanning 14.2 cm craniocaudal partially encasing some of the segmental bronchi of the left lower lobe. This was compared to previous CT of the chest from 01/26/2018, and there was enlargement noted in the mid aspect of the left para-aortic density as well as increasing calcification, there is also an enlarging satellite density anteriorly 1.2 cm versus 8mm. Given the increasing size neoplasm could not be excluded at this time. Patient denied any pulmonary symptoms, no shortness of breath, no cough, no chest pain, no hemoptysis, no weight loss, no night sweats, no fever or chills. 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 We're consulted in regards to the left para-aortic density suspicious for lung malignancy Review of Systems All systems: negative Constitutional: Denies chills, Denies fever Eyes: denies blurred vision, denies pain Ears, nose, mouth and throat: Denies headache, Denies sore throat Cardiovascular: Denies chest pain, Denies shortness of breath Respiratory: Denies cough Gastrointestinal: Reports abdominal pain, Reports diarrhea, Reports indigestion, Reports nausea, Reports vomiting Musculoskeletal: Denies myalgias Integumentary: Denies pruritus, Denies rash Neurological: Denies numbness, Denies weakness Psychiatric: Denies anxiety, Denies depression Endocrine: Denies fatigue, Denies weight change Past Medical History Past Medical History: Cancer, GERD/Reflux, Hypertension, Osteoarthritis (OA), Prostate Disorder, Skin Disorder Additional Past Medical History / Comment(s): hx migraines, straining to have bowel movements, 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 History of Any Multi-Drug Resistant Organisms: None Reported Past Surgical History: Orthopedic Surgery Additional Past Surgical History / Comment(s): skin cancer removed from scalp, rectal fistula repair, right shoulder rotator cuff, cataract left eye, bilateral INGUINAL HERNIA REPAIR Past Anesthesia/Blood Transfusion Reactions: Motion Sickness Past Psychological History: No Psychological Hx Reported Additional Psychological History / Comment(s): PT IS INDEPENDANT. LIVES WITH HIS AKIRA IN 2 STORY HOME . HAS 3 PORCH STEPS AND 12 SATEPS TO 2ND FLOOR. 1 PET CAT. NO HOME CARE SERVICES RECIEVED. NO MEDICAL EQUIPMENT. PT SERVED IN THE [employer]. 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 AND [employer] Smoking Status: Never smoker Past Alcohol Use History: Daily Additional Past Alcohol Use History / Comment(s): 1-2 glasses of wine or a class of whiskey nightly Past Drug Use History: None Reported - Past Family History Mother Family Medical History: Myocardial Infarction ([place]) Additional Family Medical History / Comment(s): OF [place] AT AGE 94 Father Additional Family Medical History / Comment(s): ETOH-BINGE DRINKER NOT EXACTLY SURE CAUSE OF HIS AT AGE 78 Brother(s) Family Medical History: Myocardial Infarction ([place]) Additional Family Medical History / Comment(s): His brother at age 74. He has a history of myocardial infarction and lead poisoning. Medications and Allergies Home Medications Medication Instructions Recorded Confirmed Type Multivitamins, Thera [Multivitamin 1 tab PO DAILY 01/14/17 01/05/19 History (formulary)] Omeprazole [PriLOSEC] 20 mg PO AC-BRKFST 01/14/17 01/05/19 History Terazosin HCl [Hytrin] 10 mg PO HS 01/14/17 01/05/19 History Valsartan/Hydrochlorothiazide 1 tab PO DAILY 01/14/17 01/05/19 History [Diovan Hct 80-12.5 mg Tablet] Atorvastatin Calcium [Lipitor] 20 mg PO DAILY #30 tab 06/12/17 01/05/19 Rx Finasteride [Proscar] 5 mg PO DAILY 08/07/18 01/05/19 History Docusate [Colace] 100 mg PO BID #60 capsule 08/08/18 01/05/19 Rx Clopidogrel [Plavix] 75 mg PO HS 01/05/19 01/05/19 History Vit C/E/Zn/Coppr/Lutein/Zeaxan 1 cap PO BID 01/05/19 01/05/19 History [Preservision Areds 2 Softgel] Allergies Allergy/AdvReac Type Severity Reaction Status Date / Time No Known Allergies Allergy Verified 01/05/19 09:05 Physical Exam Vitals: Vital Signs Temp Pulse Resp BP Pulse Ox 01/06/19 05:15 98.2 F 69 16 143/75 96 01/05/19 21:25 98.2 F 65 18 119/68 96 01/05/19 16:00 18 01/05/19 15:00 97.8 F 74 18 119/64 97 Intake and Output 01/05/19 01/06/19 01/06/19 22:59 06:59 14:59 Intake Total 800 Balance 800 Intake: Intake, IV Titration 800 Amount Sodium Chloride 0.9% 1, 700 000 ml @ 100 mls/hr IV . Q10H [facility] Rx#:[id number] metroNIDAZOLE-NS PMX 500 100 mg In Saline 1 100ml.bag @ 100 mls/hr IVPB Q8HR [facility] Rx#:[id number] Other: # Voids 1 GENERAL EXAM: Alert, pleasant, 83-year-old white male comfortable in no apparent distress. HEAD: Normocephalic/atraumatic. EYES: Normal reaction of pupils, equal size. Conjunctiva pink, sclera white. NOSE: Clear with pink turbinates. THROAT: No erythema or exudates. NECK: No masses, no JVD, no thyroid enlargement, no adenopathy. CHEST: No chest wall deformity. Symmetrical expansion. LUNGS: Equal air entry with no crackles, wheeze, rhonchi or dullness. CVS: Regular rate and rhythm, normal S1 and S2, no gallops, no murmurs, no rubs ABDOMEN: Soft, nontender. No hepatosplenomegaly, normal bowel sounds, no guarding or rigidity. EXTREMITIES: No clubbing, no edema, no cyanosis, 2+ pulses and upper and lower extremities. MUSCULOSKELETAL: Muscle strength and tone normal. SPINE: No scoliosis or deformity SKIN: No rashes CENTRAL NERVOUS SYSTEM: Alert and oriented -3. No focal deficits, tone is normal in all 4 extremities. PSYCHIATRIC: Alert and oriented -3. Appropriate affect. Intact judgment and insight. Results - Laboratory Findings CBC and BMP: 01/05/19 01:50 01/05/19 01:50 Abnormal lab findings: Abnormal Labs 01/05/19 01/05/19 01/05/19 01:50 07:46 12:12 WBC 12.2 H RBC 4.27 L MCV 102.3 H Plt Count 141 L Neutrophils # 10.7 H Lymphocytes # 0.7 L POC Glucose (mg/dL) 103 H 109 H - Diagnostic Findings CT scan - chest: report reviewed, image reviewed Additional studies: Results of the abdomen/pelvis CT, abdominal x-ray results reviewed Assessment and Plan Plan: Assessment: #1. Enlarging elongated left para-aortic lower lobe masslike density, increased in size and increased calcification from a year ago, compared to previous CT chest on 01/26/2018, rule out underlying lung cancer #2. Nausea, vomiting and diarrhea, likely related to a case of viral eddie roenteritis #3. Chronic abdominal pain, history of previous hernia repair #4. Lifetime nonsmoker #5. Chronic constipation, history of rectal fistula #6. Hypertension #7. Migraine headaches Plan: CT of the chest has been reviewed with Dr. Weaver, compared to previous CT chest from a year ago. We will obtain outpatient PET scan, once the patient recovers from his current illness. His breathing is stable at this time. No pulmonary complaints, Denies dyspnea, denies any cough or congestion, denies any hemoptysis, denies any weight loss. From pulmonary perspective patient is stable for discharge home today, will follow up in the outpatient setting with Dr. Weaver, please set up an appointment in 7-10 days. I performed a history & physical examination of the patient and discussed their management with my nurse practitioner, Nery Dominguez. I reviewed the nurse practitioner's note and agree with the documented findings and plan of care. Lung sounds are clear. The findings and the impression was discussed with the patient. I attest to the documentation by the nurse practitioner. Time with Patient: Greater than 30
== END 2019-01-06 16:15 | disposition home or self-care (01) ==
LOC: EC 01:25 → 4MS4W 04:36
PROVIDERS: ADMIT Family Medicine; ATTEND Family Medicine
DX: K52.9 Noninfective gastroenteritis and colitis, unspecified (principal); K21.9 Gastro-esophageal reflux disease without esophagitis; R91.8 Other nonspecific abnormal finding of lung field; G89.29 Other chronic pain; K59.09 Other constipation; I10 Essential (primary) hypertension; N42.9 Disorder of prostate, unspecified; M19.90 Unspecified osteoarthritis, unspecified site; L98.9 Disorder of the skin and subcutaneous tissue, unspecified; G43.909 Migraine, unspecified, not intractable, without status migrainosus; K57.30 Diverticulosis of large intestine without perforation or abscess without bleeding; R61 Generalized hyperhidrosis; R14.3 Flatulence; Z79.02 Long term (current) use of antithrombotics/antiplatelets; Z79.899 Other long term (current) drug therapy; Z85.828 Personal history of other malignant neoplasm of skin; Z87.19 Personal history of other diseases of the digestive system; Z98.42 Cataract extraction status, left eye; Z82.49 Family history of ischemic heart disease and other diseases of the circulatory system; Z81.1 Family history of alcohol abuse and dependence; Z83.1 Family history of other infectious and parasitic diseases
CPT/HCPCS: 96361 ×2; 96365; 96366 ×2; 96372; 96375; 99285; 36415; 80053; 82150; 83605; 83690; 84484; 85025; 81003; 74018; 71250; 74177; G0378 ×2; S0138 ×2; J0500; J2405; Q9967

== ENCOUNTER → 2019-01-21 | Outpatient (CLI) | payer MEDICARE ==
--- NOTE | 2019-01-23 15:36 | PE ---
Nuclear medicine PET/CT HISTORY: Mediastinal mass, solitary pulmonary nodule, initial Patient received 14.3 mCi F-18 FDG intravenously in delayed scanning was performed from the skull bas e to the mid thighs. Localization and attenuation correction CT scan was also. Correlation to prior chest CT dated 01/05/2019, 01/26/2018. Neck and chest: The soft tissue abnormality that courses along the posterior lateral margin of the ao rta is distended to the left chest is again noted and is partially calcified. There is mild hypermeta bolic uptake, SUV 2.8 at maximum more cephalad margin. There is no mediastinal, axillary, or hilar ad enopathy. There are some dependent atelectatic changes present. Calcified left pulmonary nodules are stable. Abdomen pelvis: No suspicious hypermetabolic uptake. No evident liver mass or retroperitoneal adenopa thy. No adrenal lesion. There is a hiatal hernia containing portion of the stomach. No ascites or ret roperitoneal adenopathy. Uptake associated with the colon may be physiologic. Probable parapelvic cys ts within the kidneys. There is a sizable duodenal diverticulum present. Prostate is enlarged and yusuf ws associated calcifications. No evident pelvic adenopathy. Osseous structures show no abnormal uptake. Degenerative disc disease and facet arthropathy noted in the lower lumbar spine. IMPRESSION: There is mild hypermetabolic uptake associated with the soft tissue lesion adjacent to th e aorta. Additional findings above.
== END | disposition home or self-care (01) ==
LOC: RADPETMAIN 10:25
PROVIDERS: ATTEND Internal Medicine Critical Care Medicine
DX: R91.8 Other nonspecific abnormal finding of lung field (principal); K44.9 Diaphragmatic hernia without obstruction or gangrene; K57.10 Diverticulosis of small intestine without perforation or abscess without bleeding; N40.0 Benign prostatic hyperplasia without lower urinary tract symptoms; M51.36 Other intervertebral disc degeneration, lumbar region; M46.96 Unspecified inflammatory spondylopathy, lumbar region
CPT/HCPCS: 78815; A9552

== ENCOUNTER 2019-10-22 22:15 | Emergency (ER) | payer MEDICARE ==
--- NOTE | 2019-10-22 22:29 | ED ---
Weakness HPI - General Stated complaint: NVD Time Seen by Provider: 10/22/19 22:25 Source: RN notes reviewed, old records reviewed Limitations: no limitations - History of Present Illness Initial comments: This is an 84-year-old male here for evaluation of one episode of not feeling well. Weakness. Abdominal pain positive nausea and episode of vomiting and [facility] having a bowel movement. Patient was very chilled and diaphoretic at that time but no chest pain or shortness with no abdominal pain. History of chronic abdominal pain does urinate without difficulty has history of prostate disease. No other surgical history patient denies any other significant medical history. MD Complaint: generalized weakness (Positive nausea vomiting diarrhea one episode) Location: generalized (Now resolved) Severity: moderate Severity scale (1-10): 6 Quality: numbness (Generalized) Consistency: constant, now resolved Improves with: none Worsens with: none Context: history of similar Associated Symptoms: fever/chills, loss of appetite, nausea/vomiting - Related Data Home Medications Medication Instructions Recorded Confirmed Multivitamins, Thera [Multivitamin 1 tab PO DAILY 01/14/17 01/05/19 (formulary)] Omeprazole [PriLOSEC] 20 mg PO AC-BRKFST 01/14/17 01/05/19 Terazosin HCl [Hytrin] 10 mg PO HS 01/14/17 01/05/19 Valsartan/Hydrochlorothiazide 1 tab PO DAILY 01/14/17 01/05/19 [Diovan Hct 80-12.5 mg Tablet] Finasteride [Proscar] 5 mg PO DAILY 08/07/18 01/05/19 Clopidogrel [Plavix] 75 mg PO HS 01/05/19 01/05/19 Vit C/E/Zn/Coppr/Lutein/Zeaxan 1 cap PO BID 01/05/19 01/05/19 [Preservision Areds 2 Softgel] Previous Rx's Medication Instructions Recorded Atorvastatin Calcium [Lipitor] 20 mg PO DAILY #30 tab 06/12/17 Docusate [Colace] 100 mg PO BID #60 capsule 08/08/18 Allergies Allergy/AdvReac Type Severity Reaction Status Date / Time No Known Allergies Allergy Verified 01/05/19 09:05 Review of Systems ROS Statement: Those systems with pertinent positive or pertinent negative responses have been documented in the HPI. ROS Other: All systems not noted in ROS Statement are negative. 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 History of Any Multi-Drug Resistant Organisms: None Reported Past Surgical History: Orthopedic Surgery Additional Past Surgical History / Comment(s): skin cancer removed from scalp, rectal fistula repair, right shoulder rotator cuff, cataract left eye, bilateral INGUINAL HERNIA REPAIR Past Anesthesia/Blood Transfusion Reactions: Motion Sickness Past Psychological History: No Psychological Hx Reported Additional Psychological History / Comment(s): PT IS INDEPENDANT. LIVES WITH HIS AKIRA IN 2 STORY HOME . HAS 3 PORCH STEPS AND 12 SATEPS TO 2ND FLOOR. 1 PET CAT. NO HOME CARE SERVICES RECIEVED. NO MEDICAL EQUIPMENT. PT SERVED IN THE [employer]. 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 He has a history of myocardial infarction and lead poisoning. General Exam General appearance: alert, in no apparent distress Head exam: Present: atraumatic, normocephalic, normal inspection Eye exam: Present: normal appearance, PERRL, EOMI. Absent: scleral icterus, conjunctival injection, periorbital swelling ENT exam: Present: normal exam, mucous membranes moist Neck exam: Present: normal inspection. Absent: tenderness, meningismus, lymphadenopathy Respiratory exam: Present: normal lung sounds bilaterally. Absent: respiratory distress, wheezes, rales, rhonchi, stridor Cardiovascular Exam: Present: regular rate, normal rhythm, normal heart sounds. Absent: systolic murmur, diastolic murmur, rubs, gallop, clicks GI/Abdominal exam: Present: soft, normal bowel sounds. Absent: distended, tenderness, guarding, rebound, rigid Extremities exam: Present: normal inspection, full ROM, normal capillary refill. Absent: tenderness, pedal edema, joint swelling, calf tenderness Back exam: Present: normal inspection Neurological exam: Present: alert, oriented X3, CN II-XII intact Psychiatric exam: Present: normal affect, normal mood Skin exam: Present: warm, dry, intact, normal color. Absent: rash Course Vital Signs 10/22/19 22:29 Temperature 97.5 F L Pulse Rate 60 Respiratory 16 Rate Blood Pressure 126/63 O2 Sat by Pulse 93 L Oximetry - Reevaluation(s) Reevaluation #1: 10/22/19 23:47 Medical records reviewed Reevaluation #2: 10/22/19 23:47 No active nausea vomiting or diarrhea. No abdominal pain no chest pain or shortness of breath Reevaluation #3: 10/23/19 00:59 Patient is without significant complaint here in the ER symptoms Medical Decision Making - Medical Decision Making 4 male here with sudden onset of episodic nausea vomiting and bowel movement. Patient was will diaphoretic during the event to Chris oCnn happened no injuries are noted. Patient has no headache chest pain shortness breath or abdominal pain. Patient feels good for for discharge home, are resolved, labwork EKG CT is negative. - Lab Data Result diagrams: 10/22/19 22:40 10/22/19 22:40 Lab Results 10/22/19 10/22/19 10/22/19 Range/Units 22:40 22:40 22:40 WBC 6.0 (3.8-10.6) k/uL RBC 4.33 (4.30-5.90) m/uL Hgb 14.6 (13.0-17.5) gm/dL Hct 45.3 (39.0-53.0) % MCV 104.7 H (80.0-100.0) fL MCH 33.8 (25.0-35.0) pg MCHC 32.3 (31.0-37.0) g/dL RDW 12.9 (11.5-15.5) % Plt Count 120 L (150-450) k/uL Neutrophils % 82 % Lymphocytes % 11 % Monocytes % 4 % Eosinophils % 1 % Basophils % 1 % Neutrophils # 4.9 (1.3-7.7) k/uL Lymphocytes # 0.7 L (1.0-4.8) k/uL Monocytes # 0.3 (0-1.0) k/uL Eosinophils # 0.1 (0-0.7) k/uL Basophils # 0.0 (0-0.2) k/uL Macrocytosis Slight PT (9.0-12.0) sec INR (<1.2) APTT (22.0-30.0) sec Sodium 142 (137-145) mmol/L Potassium 3.7 (3.5-5.1) mmol/L Chloride 108 H (98-107) mmol/L Carbon Dioxide 26 (22-30) mmol/L Anion Gap 8 mmol/L BUN 30 H (9-20) mg/dL Creatinine 1.66 H (0.66-1.25) mg/dL Est GFR (CKD-EPI)AfAm 43 (>60 ml/min/1.73 sqM) Est GFR (CKD-EPI)NonAf 37 (>60 ml/min/1.73 sqM) Glucose 105 H (74-99) mg/dL Plasma Lactic Acid John 1.5 (0.7-2.0) mmol/L Calcium 9.3 (8.4-10.2) mg/dL Phosphorus 3.6 (2.5-4.5) mg/dL Magnesium 1.9 (1.6-2.3) mg/dL Total Bilirubin 0.6 (0.2-1.3) mg/dL AST 24 (17-59) U/L ALT 16 (4-49) U/L Alkaline Phosphatase 68 (38-126) U/L Creatine Kinase 74 (55-170) U/L Troponin I (0.000-0.034) ng/mL NT-Pro-B Natriuret Pep pg/mL Total Protein 7.1 (6.3-8.2) g/dL Albumin 4.1 (3.5-5.0) g/dL Urine Color Urine Appearance (Clear) Urine pH (5.0-8.0) Ur Specific [place] (1.001-1.035) Urine Protein (Negative) Urine Glucose (UA) (Negative) Urine Ketones (Negative) Urine Blood (Negative) Urine Nitrite (Negative) Urine Bilirubin (Negative) Urine Urobilinogen (<2.0) mg/dL Ur Leukocyte Esterase (Negative) Urine RBC (0-5) /hpf Urine WBC (0-5) /hpf Ur Squamous Epith Cells (0-4) /hpf Hyaline Casts (0-2) /lpf Urine Mucus (None) /hpf 10/22/19 10/22/19 10/22/19 Range/Units 22:40 22:40 22:40 WBC (3.8-10.6) k/uL RBC (4.30-5.90) m/uL Hgb (13.0-17.5) gm/dL Hct (39.0-53.0) % MCV (80.0-100.0) fL MCH (25.0-35.0) pg MCHC (31.0-37.0) g/dL RDW (11.5-15.5) % Plt Count (150-450) k/uL Neutrophils % % Lymphocytes % % Monocytes % % Eosinophils % % Basophils % % Neutrophils # (1.3-7.7) k/uL Lymphocytes # (1.0-4.8) k/uL Monocytes # (0-1.0) k/uL Eosinophils # (0-0.7) k/uL Basophils # (0-0.2) k/uL Macrocytosis PT 10.4 (9.0-12.0) sec INR 1.0 (<1.2) APTT 21.8 L (22.0-30.0) sec Sodium (137-145) mmol/L Potassium (3.5-5.1) mmol/L Chloride (98-107) mmol/L Carbon Dioxide (22-30) mmol/L Anion Gap mmol/L BUN (9-20) mg/dL Creatinine (0.66-1.25) mg/dL Est GFR (CKD-EPI)AfAm (>60 ml/min/1.73 sqM) Est GFR (CKD-EPI)NonAf (>60 ml/min/1.73 sqM) Glucose (74-99) mg/dL Plasma Lactic Acid John (0.7-2.0) mmol/L Calcium (8.4-10.2) mg/dL Phosphorus (2.5-4.5) mg/dL Magnesium (1.6-2.3) mg/dL Total Bilirubin (0.2-1.3) mg/dL AST (17-59) U/L ALT (4-49) U/L Alkaline Phosphatase (38-126) U/L Creatine Kinase (55-170) U/L Troponin I <0.012 (0.000-0.034) ng/mL NT-Pro-B Natriuret Pep 173 pg/mL Total Protein (6.3-8.2) g/dL Albumin (3.5-5.0) g/dL Urine Color Urine Appearance (Clear) Urine pH (5.0-8.0) Ur Specific [place] (1.001-1.035) Urine Protein (Negative) Urine Glucose (UA) (Negative) Urine Ketones (Negative) Urine Blood (Negative) Urine Nitrite (Negative) Urine Bilirubin (Negative) Urine Urobilinogen (<2.0) mg/dL Ur Leukocyte Esterase (Negative) Urine RBC (0-5) /hpf Urine WBC (0-5) /hpf Ur Squamous Epith Cells (0-4) /hpf Hyaline Casts (0-2) /lpf Urine Mucus (None) /hpf 10/22/19 Range/Units 23:33 WBC (3.8-10.6) k/uL RBC (4.30-5.90) m/uL Hgb (13.0-17.5) gm/dL Hct (39.0-53.0) % MCV (80.0-100.0) fL MCH (25.0-35.0) pg MCHC (31.0-37.0) g/dL RDW (11.5-15.5) % Plt Count (150-450) k/uL Neutrophils % % Lymphocytes % % Monocytes % % Eosinophils % % Basophils % % Neutrophils # (1.3-7.7) k/uL Lymphocytes # (1.0-4.8) k/uL Monocytes # (0-1.0) k/uL Eosinophils # (0-0.7) k/uL Basophils # (0-0.2) k/uL Macrocytosis PT (9.0-12.0) sec INR (<1.2) APTT (22.0-30.0) sec Sodium (137-145) mmol/L Potassium (3.5-5.1) mmol/L Chloride (98-107) mmol/L Carbon Dioxide (22-30) mmol/L Anion Gap mmol/L BUN (9-20) mg/dL Creatinine (0.66-1.25) mg/dL Est GFR (CKD-EPI)AfAm (>60 ml/min/1.73 sqM) Est GFR (CKD-EPI)NonAf (>60 ml/min/1.73 sqM) Glucose (74-99) mg/dL Plasma Lactic Acid John (0.7-2.0) mmol/L Calcium (8.4-10.2) mg/dL Phosphorus (2.5-4.5) mg/dL Magnesium (1.6-2.3) mg/dL Total Bilirubin (0.2-1.3) mg/dL AST (17-59) U/L ALT (4-49) U/L Alkaline Phosphatase (38-126) U/L Creatine Kinase (55-170) U/L Troponin I (0.000-0.034) ng/mL NT-Pro-B Natriuret Pep pg/mL Total Protein (6.3-8.2) g/dL Albumin (3.5-5.0) g/dL Urine Color Yellow Urine Appearance Clear (Clear) Urine pH 5.0 (5.0-8.0) Ur Specific [place] 1.025 (1.001-1.035) Urine Protein 1+ H (Negative) Urine Glucose (UA) Negative (Negative) Urine Ketones Trace H (Negative) Urine Blood Negative (Negative) Urine Nitrite Negative (Negative) Urine Bilirubin Negative (Negative) Urine Urobilinogen 3.0 (<2.0) mg/dL Ur Leukocyte Esterase Trace H (Negative) Urine RBC 1 (0-5) /hpf Urine WBC 1 (0-5) /hpf Ur Squamous Epith Cells 1 (0-4) /hpf Hyaline Casts 27 H (0-2) /lpf Urine Mucus Occasional H (None) /hpf - EKG Data -: EKG Interpreted by Me (EKG shows sinus rhythm of 65, [place] 270, QRS 146, QTc 476) - Radiology Data Radiology results: report reviewed (CT pelvis negative for acute disease), image reviewed Disposition Clinical Impression: Abdominal pain, Diarrhea, Nausea & vomiting Disposition: HOME SELF-CARE Condition: Good Instructions (If sedation given, give patient instructions): Abdominal Pain (ED) Is patient prescribed a controlled substance at d/c from ED?: No Referrals: Augie Venegas DO [Primary Care Provider] - 1-2 days
[2019-10-22 22:32] VITALS: RESP 16
[2019-10-22] MEDS ORDERED: ONDANSETRON 4 MG/2 ML VIAL IVP STA (22:41)
[2019-10-22] MEDS ORDERED: SODIUM CHLORIDE 0.9% 1,000 ML IV STA ×2 (22:41)
[2019-10-22 22:55] LABS: Basophils % (A) 1 %; Eosinophils # (A) 0.1 k/uL (0-0.7); Eosinophils % (A) 1 %; HCT 45.3 % (39.0-53.0); HGB 14.6 gm/dL (13.0-17.5); Lymphocytes # (A) 0.7 k/uL (1.0-4.8); Lymphocytes % (A) 11 %; MCH 33.8 pg (25.0-35.0); MCHC 32.3 g/dL (31.0-37.0); MCV 104.7 fL (80.0-100.0); Macrocytosis Slight; Mean Platelet Volume 7.8; Monocytes # (A) 0.3 k/uL (0-1.0); Monocytes % (A) 4 %; Neutrophils # (A) 4.9 k/uL (1.3-7.7); Neutrophils % (A) 82 %; Platelet Count 120 k/uL (150-450); RBC 4.33 m/uL (4.30-5.90); RDW 12.9 % (11.5-15.5)
[2019-10-22 23:06] LABS: Albumin 4.1 g/dL (3.5-5.0); Calcium 9.3 mg/dL (8.4-10.2); Magnesium 1.9 mg/dL (1.6-2.3); Phosphorus 3.6 mg/dL (2.5-4.5); Potassium 3.7 mmol/L (3.5-5.1); Total Bilirubin 0.6 mg/dL (0.2-1.3); Total Protein 7.1 g/dL (6.3-8.2)
[2019-10-22 23:23] LABS: Prothrombin Time 10.4 sec (9.0-12.0)
[2019-10-22 23:27] LABS: Partial Thromboplastin Time 21.8 sec (22.0-30.0)
[2019-10-22 23:45] LABS: Appearance,Urine Clear (Clear); Bilirubin,Urine Negative (Negative); Blood,Urine Negative (Negative); Color,Urine Yellow; Glucose,Urine (UA) Negative (Negative); Hyaline Casts,Urine 27 /lpf (0-2); Ketones,Urine Trace (Negative); Leukocyte Esterase,Urine Trace (Negative); Mucus,Urine Occasional /hpf; Nitrite,Urine Negative (Negative); Protein,Urine 1+ (Negative); RBC,Urine 1 /hpf (0-5); Specific Gravity,Urine 1.025 (1.001-1.035); Squamous Epithelial Cell,Urine 1 /hpf (0-4); WBC,Urine 1 /hpf (0-5)
--- NOTE | 2019-10-23 00:54 | CT ---
EXAMINATION TYPE: CT abdomen pelvis w con DATE OF EXAM: 10/22/2019 COMPARISON: 01/05/2019 HISTORY: N/V/D CT DLP: 1047.70 mGycm Automated exposure control for dose reduction was used. CONTRAST: Performed with IV Contrast, patient injected with 80 mL of Isovue 300. Multiple axial sections were obtained from the diaphragm to the floor the pelvis with intravenous con trast. There is 4 cm irregular mass in the left lower lobe in the medial basal segment adjacent to the desce nding thoracic aorta. There is no pleural effusion. Heart size is normal. There is hiatal hernia. Liver shows no focal defect. Gallbladder appears normal. Spleen is intact. There is no evidence of pa ncreatic mass. There is no adrenal mass. There are apparent multiple bilateral renal parapelvic cysts. I see no defi nite hydronephrosis. There is 4 mm calculus anterior left kidney. There is no retroperitoneal adenopa thy. Abdominal aorta is atheromatous. There is prostatic calcification. Bladder is almost empty. Ther e is no inguinal hernia. Ureters are not dilated. There is no ascites or free air. There is no mesent dorota edema. There is no sign of a bowel obstruction. Appendix is not definitely seen. There is no sig n of thickened appendix. Lumbar vertebra have normal alignment. There is degenerative disc space narrowing and spur formation. There is no compression fracture. Posterior elements are intact. Bony pelvis is intact. I see no foc al bone destruction. IMPRESSION: Left lower lobe masslike density is increased in size compared to CT scan of 01/21/2019 and suggestive of tumor. This is not completely evaluated on this abdomen CT scan. Hiatal hernia. No acute abnormality within the abdomen pelvis. Bilateral renal parapelvic cysts. Nonobstructing left renal calculus.
[2019-10-23 01:12] VITALS: BP 122/64; PULSE 81; TEMP 98.7
== END 2019-10-23 01:15 | disposition home or self-care (01) ==
LOC: EC 22:15 → SUPCPDRO 22:15 → EC 10-23 01:15
DX: R11.2 Nausea with vomiting, unspecified (principal); R19.7 Diarrhea, unspecified; R10.9 Unspecified abdominal pain; R50.9 Fever, unspecified; R63.0 Anorexia; K21.9 Gastro-esophageal reflux disease without esophagitis; I10 Essential (primary) hypertension; N42.9 Disorder of prostate, unspecified; Z85.828 Personal history of other malignant neoplasm of skin; Z79.02 Long term (current) use of antithrombotics/antiplatelets; Z79.899 Other long term (current) drug therapy
CPT/HCPCS: 36415; 93005; 83880; 80053; 82550; 83605; 83735; 84100; 84484; 85025; 85610; 85730; 81001; 74177; 99285; 96374; 96361 ×2; J2405; Q9967

== ENCOUNTER → 2020-01-23 | Outpatient (CLI) | payer MEDICARE ==
--- NOTE | 2020-01-23 11:38 | XR ---
EXAMINATION TYPE: XR lumbar spine 2 or 3V DATE OF EXAM: 01/23/2020 COMPARISON: None HISTORY: Back strain TECHNIQUE: Three-view lumbar spine FINDINGS: There 5 lumbar-type tubal bodies. Pedicles are intact. There is loss of disc height to the mid and lower lumbar spine greatest at L3-4 L4-5. Some superior endplate compression deformity of L2 may be present. This may be a change from the 10/22/2019 CT abdomen pelvis study. Minimal superior end plate compression deformity of L3 may be present. IMPRESSION: 1. There may be some mild superior endplate compression without loss of vertebral body height at L2, and interval change from 10/22/2019. 2. Chronic degenerative disc changes through the lumbar spine
== END | disposition home or self-care (01) ==
LOC: LABWHC1 11:10
PROVIDERS: ATTEND Family Medicine
DX: M51.36 Other intervertebral disc degeneration, lumbar region (principal); N39.0 Urinary tract infection, site not specified
CPT/HCPCS: 72100; 87086

== ENCOUNTER 2020-02-07 11:09 | Emergency (ER) | payer MEDICARE ==
[2020-02-07 11:18] VITALS: RESP 18; TEMP 97.5
--- NOTE | 2020-02-07 11:33 | ED ---
Abdominal Pain HPI - General Chief Complaint: Abdominal Pain Stated Complaint: constipation Time Seen by Provider: 02/07/20 11:21 Source: patient, RN notes reviewed Mode of arrival: ambulatory Limitations: no limitations - History of Present Illness Initial Comments: This is an 84-year-old male presents emergency Department chief complaint of constipation. Patient states he has not had a bowel movement since last Wednesday. Patiently states that he is recently started on tramadol was PCP for lumbar fracture. He denies any difficulty urinating no bladder retention or tenderness. Patient states that he is passing gas at this time. He did try some oral laxatives and 2 enemas in which he states he only had small amount of liquid output. Patient denies fever, chills. He states he does feel bloated has some mild abdominal pain but states he always has pain, bloating cramping which she believes she has IBS. He has had hernia repair and colonoscopy by Dr. Osullivan in the past. Patient denies any chest or shortness breath patient offers no other symptoms at this time. - Related Data Home Medications Medication Instructions Recorded Confirmed Multivitamins, Thera [Multivitamin 1 tab PO DAILY 01/14/17 01/05/19 (formulary)] Omeprazole [PriLOSEC] 20 mg PO AC-BRKFST 01/14/17 01/05/19 Terazosin HCl [Hytrin] 10 mg PO HS 01/14/17 01/05/19 Valsartan/Hydrochlorothiazide 1 tab PO DAILY 01/14/17 01/05/19 [Diovan Hct 80-12.5 mg Tablet] Finasteride [Proscar] 5 mg PO DAILY 08/07/18 01/05/19 Clopidogrel [Plavix] 75 mg PO HS 01/05/19 01/05/19 Vit C/E/Zn/Coppr/Lutein/Zeaxan 1 cap PO BID 01/05/19 01/05/19 [Preservision Areds 2 Softgel] Previous Rx's Medication Instructions Recorded Atorvastatin Calcium [Lipitor] 20 mg PO DAILY #30 tab 06/12/17 Docusate [Colace] 100 mg PO BID #60 capsule 08/08/18 Bisac/NaCl/Nahco3/KCl/Peg 3350 1 kit PO DIRECTED #1 kit 02/07/20 [Peg-Prep Kit] Allergies Allergy/AdvReac Type Severity Reaction Status Date / Time No Known Allergies Allergy Verified 02/07/20 11:18 Review of Systems ROS Statement: Those systems with pertinent positive or pertinent negative responses have been documented in the HPI. ROS Other: All systems not noted in ROS Statement are negative. Past Medical History Past Medical History: Cancer, GERD/Reflux, Hypertension, Osteoarthritis (OA), Pr ostate Disorder, Skin Disorder Additional Past Medical History / Comment(s): hx skin cancer behind his left ear,nose, history of rectal fistula. History of Any Multi-Drug Resistant Organisms: None Reported Past Surgical History: Hernia Repair, Orthopedic Surgery Additional Past Surgical History / Comment(s): skin cancer removed from scalp, rectal fistula repair, right shoulder rotator cuff, cataract left eye, bilateral INGUINAL HERNIA REPAIR Past Anesthesia/Blood Transfusion Reactions: Motion Sickness Past Psychological History: No Psychological Hx Reported Smoking Status: Never smoker Past Alcohol Use History: None Reported Past Drug Use History: None Reported - Past Family History Mother Family Medical History: Myocardial Infarction ([place]) Additional Family Medical History / Comment(s): OF [place] AT AGE 94 Father Additional Family Medical History / Comment(s): ETOH-BINGE DRINKER NOT EXACTLY SURE CAUSE OF HIS AT AGE 78 Brother(s) Family Medical History: Myocardial Infarction ([place]) Additional Family Medical History / Comment(s): His brother at age 74. He has a history of myocardial infarction and lead poisoning. General Exam Limitations: no limitations General appearance: alert, in no apparent distress Head exam: Present: atraumatic, normocephalic, normal inspection ENT exam: Present: normal exam, mucous membranes moist Neck exam: Present: normal inspection. Absent: tenderness, meningismus, lymphadenopathy Respiratory exam: Present: normal lung sounds bilaterally. Absent: respiratory distress, wheezes, rales, rhonchi, stridor Cardiovascular Exam: Present: regular rate, normal rhythm, normal heart sounds. Absent: systolic murmur, diastolic murmur, rubs, gallop, clicks GI/Abdominal exam: Present: soft, tenderness (Mild left sided), normal bowel sounds. Absent: distended, guarding, rebound, rigid Back exam: Absent: CVA tenderness (R), CVA tenderness (L) Neurological exam: Present: alert, oriented X3 Skin exam: Present: warm, dry, intact, normal color. Absent: rash Course Vital Signs 02/07/20 11:11 Temperature 97.5 F L Pulse Rate 65 Respiratory 18 Rate Blood Pressure 149/79 O2 Sat by Pulse 98 Oximetry Medical Decision Making - Medical Decision Making 84-year-old male presented for constipation after starting tramadol. Patient did have a small amount of stool output here. X-ray does not show any evidence of obstruction. Patient be discharged with laxatives. Patient will be discharged in stable condition. Disposition Clinical Impression: Constipation Disposition: HOME SELF-CARE Condition: Stable Instructions (If sedation given, give patient instructions): Constipation (ED) Additional Instructions: Please return to the Emergency Department if symptoms worsen or any other concerns. Prescriptions: Bisac/NaCl/Nahco3/KCl/Peg 3350 [Peg-Prep Kit] 1 kit PO DIRECTED #1 kit Is patient prescribed a controlled substance at d/c from ED?: No Referrals: Augie Venegas DO [Primary Care Provider] - 1-2 days Time of Disposition: 13:38
[2020-02-07] MEDS ORDERED: MAGNESIUM HYDROXIDE 2,400 MG/10 ML CUP PO STA (11:45)
--- NOTE | 2020-02-07 11:45 | XR ---
EXAMINATION TYPE: XR KUB DATE OF EXAM: 02/07/2020 11:42 AM CLINICAL HISTORY: Constipation. TECHNIQUE: Two Upright KUB images of the abdomen are obtained. COMPARISON: CT abdomen and pelvis October 22, 2019. Most recent x-ray January 05, 2019 FINDINGS: Scattered gas is seen in non-distended small bowel loops. Gas and fecal material is seen in non-distended colon. Amount of fecal material somewhat prominent throughout the colon. Redemonstrati on of medial left basilar mass that is fairly patent negative. Underlying dextroconvex scoliosis and multilevel spurring in the lumbar spine redemonstrated. Osseous structures demineralized. No pneumope ritoneum. IMPRESSION: Overall nonobstructive bowel gas pattern. [id number] diffuse colonic fecal stasis.
[2020-02-07 14:01] VITALS: BP 134/73; PULSE 70
== END 2020-02-07 13:58 | disposition home or self-care (01) ==
LOC: EC 11:09
DX: K59.00 Constipation, unspecified (principal); K21.9 Gastro-esophageal reflux disease without esophagitis; I10 Essential (primary) hypertension; Z79.02 Long term (current) use of antithrombotics/antiplatelets; Z79.899 Other long term (current) drug therapy; Z85.828 Personal history of other malignant neoplasm of skin
CPT/HCPCS: 74018; 99284

== ENCOUNTER 2020-02-09 10:21 | Inpatient (IN) | payer MEDICARE ==
[2020-02-09] MEDS ORDERED: HYDROmorphone 0.5 MG/0.5 ML SYRINGE IVP STA (10:38)
--- NOTE | 2020-02-09 10:42 | ED ---
General Adult HPI - General Stated complaint: back pain Time Seen by Provider: 02/09/20 10:21 Source: patient, RN notes reviewed, old records reviewed - History of Present Illness Initial comments: This is an 84-year-old male who comes in complaining of back and abdominal pain. Patient states been ongoing for 3 weeks. Patient states his lower back started hurting after he had cut some wood and break the lawn about 3 weeks ago. Patient states movement definitely makes it worse. Patient states over the last 3 weeks the pain is definitely getting worse and is now much worse today than it was a week ago. Patient denies numbness or weakness. Patient is able to move his legs without problem. Patient denies any recent fever chills he denies any injury. Patient states she also has had abdominal pain he believes it was related to constipation but now that abdominal pain is worse and more diffuse. Patient states she was in the emergency department 2 days ago and got enemas with no results. Patient states she also drank GoLYTELY and did not have any positive results with that as well. Patient states he only took one narcotic pill and hasn't taken any since. Patient denies any vomiting or diarrhea. Patient denies any dysuria hematuria urinary frequency. - Related Data Home Medications Medication Instructions Recorded Confirmed Multivitamins, Thera [Multivitamin 1 tab PO DAILY 01/14/17 01/05/19 (formulary)] Omeprazole [PriLOSEC] 20 mg PO AC-BRKFST 01/14/17 01/05/19 Terazosin HCl [Hytrin] 10 mg PO HS 01/14/17 01/05/19 Valsartan/Hydrochlorothiazide 1 tab PO DAILY 01/14/17 01/05/19 [Diovan Hct 80-12.5 mg Tablet] Finasteride [Proscar] 5 mg PO DAILY 08/07/18 01/05/19 Clopidogrel [Plavix] 75 mg PO HS 01/05/19 01/05/19 Vit C/E/Zn/Coppr/Lutein/Zeaxan 1 cap PO BID 01/05/19 01/05/19 [Preservision Areds 2 Softgel] Previous Rx's Medication Instructions Recorded Atorvastatin Calcium [Lipitor] 20 mg PO DAILY #30 tab 06/12/17 Docusate [Colace] 100 mg PO BID #60 capsule 08/08/18 Bisac/NaCl/Nahco3/KCl/Peg 3350 1 kit PO DIRECTED #1 kit 02/07/20 [Peg-Prep Kit] Allergies Allergy/AdvReac Type Severity Reaction Status Date / Time No Known Allergies Allergy Verified 02/09/20 10:49 Review of Systems ROS Statement: Those systems with pertinent positive or pertinent negative responses have been documented in the HPI. ROS Other: All systems not noted in ROS Statement are negative. 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 History of Any Multi-Drug Resistant Organisms: None Reported Past Surgical History: Hernia Repair, Orthopedic Surgery Additional Past Surgical History / Comment(s): skin cancer removed from scalp, rectal fistula repair, right shoulder rotator cuff, cataract left eye, bilateral INGUINAL HERNIA REPAIR Past Anesthesia/Blood Transfusion Reactions: Motion Sickness Past Psychological History: No Psychological Hx Reported Smoking Status: Never smoker Past Alcohol Use History: None Reported Past Drug Use History: None Reported - Past Family History Mother Family Medical History: Myocardial Infarction ([place]) Additional Family Medical History / Comment(s): OF [place] AT AGE 94 Father Additional Family Medical History / Comment(s): ETOH-BINGE DRINKER NOT EXACTLY SURE CAUSE OF HIS AT AGE 78 Brother(s) Family Medical History: Myocardial Infarction ([place]) Additional Family Medical History / Comment(s): His brother at age 74. He has a history of myocardial infarction and lead poisoning. General Exam - General Exam Comments Initial Comments: GENERAL: Patient is well-developed and well-nourished. Patient is nontoxic and well- hydrated and is in mild distress. Patient was diaphoretic upon arrival ENT: Neck is soft and supple. No significant lymphadenopathy is noted. Oropharynx is clear. Moist mucous membranes. Neck has full range of motion without e liciting any pain. EYES: The sclera were anicteric and conjunctiva were pink and moist. Extraocular movements were intact and pupils were equal round and reactive to light. Eyelids were unremarkable. PULMONARY: Unlabored respirations. Good breath sounds bilaterally. No audible rales rhonchi or wheezing was noted. CARDIOVASCULAR: There is a regular rate and rhythm without any murmurs gallops or rubs. ABDOMEN: Abdomen is tender in the suprapubic and lower quadrant area SKIN: Skin is clear with no lesions or rashes and otherwise unremarkable. NEUROLOGIC: Patient is alert and oriented x3. Cranial nerves II through XII are grossly intact. Motor and sensory are also intact. Normal speech, volume and content. Symmetrical smile. MUSCULOSKELETAL: Normal extremities with adequate strength and full range of motion. Patient's straight leg test is negative bilaterally. Patient has no palpable area of pain in the back. LYMPHATICS: No significant lymphadenopathy is noted PSYCHIATRIC: Normal psychiatric evaluation. Course Vital Signs 02/09/20 02/09/20 02/09/20 10:30 11:27 13:50 Temperature 96.9 F L Pulse Rate 67 60 62 Respiratory 20 16 18 Rate Blood Pressure 157/81 144/71 152/83 O2 Sat by Pulse 98 97 100 Oximetry Medical Decision Making - Medical Decision Making Computed tomography scan shows the periaortic mass that has been demonstrated before. There is also a new mass in the mesentery near the curvature of the stomach. There is also some small satellite lesions in the abdomen that could be metastatic disease. Patient also has a small amount of ascites. Spoke with Dr. Venegas she wanted to admit the patient admitted the patient wrote admitting orders I consulted Dr. Pedraza and oncology - Lab Data Result diagrams: 02/09/20 11:12 02/09/20 11:12 Lab Results 02/09/20 02/09/20 02/09/20 Range/Units 11:12 11:12 11:12 WBC 6.1 (3.8-10.6) k/uL RBC 3.75 L (4.30-5.90) m/uL Hgb 13.0 (13.0-17.5) gm/dL Hct 38.6 L (39.0-53.0) % MCV 103.1 H (80.0-100.0) fL MCH 34.6 (25.0-35.0) pg MCHC 33.6 (31.0-37.0) g/dL RDW 12.7 (11.5-15.5) % Plt Count 158 (150-450) k/uL Neutrophils % 76 % Lymphocytes % 13 % Monocytes % 7 % Eosinophils % 1 % Basophils % 0 % Neutrophils # 4.7 (1.3-7.7) k/uL Lymphocytes # 0.8 L (1.0-4.8) k/uL Monocytes # 0.4 (0-1.0) k/uL Eosinophils # 0.1 (0-0.7) k/uL Basophils # 0.0 (0-0.2) k/uL Macrocytosis Slight Sodium 133 L (137-145) mmol/L Potassium 3.8 (3.5-5.1) mmol/L Chloride 97 L (98-107) mmol/L Carbon Dioxide 27 (22-30) mmol/L Anion Gap 9 mmol/L BUN 21 H (9-20) mg/dL Creatinine 1.18 (0.66-1.25) mg/dL Est GFR (CKD-EPI)AfAm 64 (>60 ml/min/1.73 sqM) Est GFR (CKD-EPI)NonAf 56 (>60 ml/min/1.73 sqM) Glucose 100 H (74-99) mg/dL Plasma Lactic Acid John (0.7-2.0) mmol/L Calcium 9.1 (8.4-10.2) mg/dL Total Bilirubin 0.8 (0.2-1.3) mg/dL AST 27 (17-59) U/L ALT 18 (4-49) U/L Alkaline Phosphatase 78 (38-126) U/L Total Protein 6.9 (6.3-8.2) g/dL Albumin 4.0 (3.5-5.0) g/dL Amylase 48 (30-110) U/L Lipase 100 (23-300) U/L Urine Color Yellow Urine Appearance Clear (Clear) Urine pH 8.0 (5.0-8.0) Ur Specific [place] 1.014 (1.001-1.035) Urine Protein Negative (Negative) Urine Glucose (UA) Negative (Negative) Urine Ketones Negative (Negative) Urine Blood Negative (Negative) Urine Nitrite Negative (Negative) Urine Bilirubin Negative (Negative) Urine Urobilinogen <2.0 (<2.0) mg/dL Ur Leukocyte Esterase Negative (Negative) 02/09/20 Range/Units 11:12 WBC (3.8-10.6) k/uL RBC (4.30-5.90) m/uL Hgb (13.0-17.5) gm/dL Hct (39.0-53.0) % MCV (80.0-100.0) fL MCH (25.0-35.0) pg MCHC (31.0-37.0) g/dL RDW (11.5-15.5) % Plt Count (150-450) k/uL Neutrophils % % Lymphocytes % % Monocytes % % Eosinophils % % Basophils % % Neutrophils # (1.3-7.7) k/uL Lymphocytes # (1.0-4.8) k/uL Monocytes # (0-1.0) k/uL Eosinophils # (0-0.7) k/uL Basophils # (0-0.2) k/uL Macrocytosis Sodium (137-145) mmol/L Potassium (3.5-5.1) mmol/L Chloride (98-107) mmol/L Carbon Dioxide (22-30) mmol/L Anion Gap mmol/L BUN (9-20) mg/dL Creatinine (0.66-1.25) mg/dL Est GFR (CKD-EPI)AfAm (>60 ml/min/1.73 sqM) Est GFR (CKD-EPI)NonAf (>60 ml/min/1.73 sqM) Glucose (74-99) mg/dL Plasma Lactic Acid John 1.3 (0.7-2.0) mmol/L Calcium (8.4-10.2) mg/dL Total Bilirubin (0.2-1.3) mg/dL AST (17-59) U/L ALT (4-49) U/L Alkaline Phosphatase (38-126) U/L Total Protein (6.3-8.2) g/dL Albumin (3.5-5.0) g/dL Amylase (30-110) U/L Lipase (23-300) U/L Urine Color Urine Appearance (Clear) Urine pH (5.0-8.0) Ur Specific [place] (1.001-1.035) Urine Protein (Negative) Urine Glucose (UA) (Negative) Urine Ketones (Negative) Urine Blood (Negative) Urine Nitrite (Negative) Urine Bilirubin (Negative) Urine Urobilinogen (<2.0) mg/dL Ur Leukocyte Esterase (Negative) Disposition Clinical Impression: Abdominal mass Disposition: ADMITTED IP TO THIS HOSP Referrals: Augie Venegas DO [Primary Care Provider] - 1-2 days Time of Disposition: 14:13
[2020-02-09 11:34] LABS: Appearance,Urine Clear (Clear); Bilirubin,Urine Negative (Negative); Blood,Urine Negative (Negative); Color,Urine Yellow; Glucose,Urine (UA) Negative (Negative); Ketones,Urine Negative (Negative); Leukocyte Esterase,Urine Negative (Negative); Nitrite,Urine Negative (Negative); Protein,Urine Negative (Negative); Specific Gravity,Urine 1.014 (1.001-1.035); Urobilinogen,Urine <2.0 mg/dL (<2.0)
[2020-02-09 11:35] LABS: Basophils % (A) 0 %; Eosinophils # (A) 0.1 k/uL (0-0.7); Eosinophils % (A) 1 %; HCT 38.6 % (39.0-53.0); Lymphocytes # (A) 0.8 k/uL (1.0-4.8); Lymphocytes % (A) 13 %; MCH 34.6 pg (25.0-35.0); MCHC 33.6 g/dL (31.0-37.0); MCV 103.1 fL (80.0-100.0); Macrocytosis Slight; Mean Platelet Volume 7.5; Monocytes # (A) 0.4 k/uL (0-1.0); Monocytes % (A) 7 %; Neutrophils # (A) 4.7 k/uL (1.3-7.7); Neutrophils % (A) 76 %; Platelet Count 158 k/uL (150-450); RBC 3.75 m/uL (4.30-5.90); RDW 12.7 % (11.5-15.5); WBC 6.1 k/uL (3.8-10.6)
[2020-02-09 11:48] LABS: Calcium 9.1 mg/dL (8.4-10.2); Potassium 3.8 mmol/L (3.5-5.1); Total Bilirubin 0.8 mg/dL (0.2-1.3); Total Protein 6.9 g/dL (6.3-8.2)
--- NOTE | 2020-02-09 13:45 | CT ---
EXAMINATION TYPE: CT abdomen pelvis w con DATE OF EXAM: 02/09/2020 COMPARISON: 10/22/2019 and PET/CT dated 01/21/2019 HISTORY: constipation, loss of appetite, low back pain CT DLP: 1004.1 mGycm Automated exposure control for dose reduction was used. TECHNIQUE: Helical acquisition of images was performed from the lung bases through the pelvis. CONTRAST: Performed without Oral Contrast and with IV Contrast, patient injected with 100 mL of Isovue 300. FINDINGS: LUNG BASES: Partially visualized known periaortic left lower lobe mass containing internal dystrophic calcifications measuring at least 5.6 cm in anterior posterior dimension. On the CT of 01/05/2019 this measured 14.2 cm in craniocaudal dimension. Full craniocaudal extent is not seen on today's exam. Pl eural thickening along the lingula is also partially visualized multifocally. Trace left pleural effu suzanne is seen. LIVER/GB: Hepatic parenchyma is diffusely hypoattenuated in comparison to that of the spleen, most co mmonly seen in hepatic steatosis. This finding limits evaluation for hepatic masses. Geographic area of hypoattenuation near the fissure for the falciform ligament most commonly relates to more focal fa tty infiltration. No radiopaque calculi seen in the gallbladder. PANCREAS: No significant abnormality is seen. SPLEEN: No significant abnormality is seen. ADRENALS: No significant abnormality is seen. KIDNEYS: Nonobstructing 4 mm left lower pole renal calculus is seen. There is a similar appearance of a bilateral renal pelvises sees in comparison to the prior with delayed images demonstrating numerou s bilateral renal sinus cysts and an upper pole right cortical renal cyst measuring 1.3 cm. Too small to accurately characterize cortical left renal lesions are hypoattenuated. FREE AIR: No free air is visualized. ADENOPATHY: Soft tissue densities in the abdomen are presumed to represent peritoneal implants. Othe r than these lesions described above there are no greater than 1 cm short axis lymph nodes seen in th e abdomen or pelvis. OSSEOUS STRUCTURES: There is a dextroscoliosis of the visualized thoracolumbar spine. Moderate degen erative change of the hips. Severe degenerative disc disease of the spine. BOWEL: Moderate hiatal hernia. Ascending duodenal diverticulum is noted. No dilated large or small b owel. Moderate degree colonic fecal stasis. Evaluation of the bowel is limited by lack of oral contra st. Appendix is low-lying in the right lower quadrant laterally. No evidence of acute appendicitis. OTHER: There is a new soft tissue density in the mesentery anterior left lateral to the greater curva ture the stomach on image 18 measuring 2.3 x 2.4 cm. Caudal to this there are multiple smaller mesent dorota implants seen on image 24, 26, 27, and 31. In the lower abdomen other scattered subcentimeter pe ritoneal implants are also seen. Small amount of free fluid in the pelvis is new. There is severe atherosclerosis of the abdominal aorta and its branches with ostial stenosis of the s uperior mesenteric artery and to a lesser degree of the renal arteries as well as the inferior mesent dorota artery. Prostate gland is enlarged and heterogenous containing central zone calcifications. IMPRESSION: 1. REDEMONSTRATION OF A PARTIALLY VISUALIZED KNOWN PERIAORTIC MASS WITH INTERNAL CALCIFICATIONS SE EN ON THE PRIOR PET/CT AND CHEST CTS. AGAIN BRONCHOSCOPY IS RECOMMENDED IF NOT RECENTLY PERFORMED TO EVALUATE FOR NEOPLASM. MESOTHELIOMA A CONSIDERATION. TRACE LEFT PLEURAL EFFUSION IS NEW. 2. NEW MESENTERIC MASS MEASURING 2.3 X 2.4 CM ANTERIOR LEFT LATERAL TO THE URETER CURVATURE THE STOMA CH. METASTATIC IMPLANT IS OF PRIMARY CONSIDERATION WITH SMALLER PERITONEAL IMPLANTS ALSO SEEN. 3. MODERATE HIATAL HERNIA. 4. SMALL VOLUME DEPENDENT ASCITES IN THE PELVIS THAT IS NEW FROM THE PRIOR. 5. EXTENSIVE MULTILEVEL DEGENERATIVE DISC DISEASE AND A PATIENT WITH LOW BACK PAIN.
[2020-02-09] MEDS ORDERED: SODIUM CHLORIDE 0.9% 1,000 ML IV ONE (14:13)
[2020-02-09] MEDS: HYDROmorphone 0.5 MG/0.5 ML SYRINGE IVP PRN ×2 (14:57→21:58)
[2020-02-09] MEDS ORDERED: ACETAMINOPHEN TAB 325 MG TAB PO PRN (17:54)
[2020-02-09] MEDS ORDERED: ONDANSETRON 4 MG/2 ML VIAL IVP PRN (17:55)
[2020-02-09] MEDS: DOXAZOSIN 4 MG TAB PO SCH (21:51)
[2020-02-09] MEDS: DOCUSATE 100 MG CAP PO SCH (21:51)
[2020-02-10 06:39] LABS: Basophils % (A) 0 %; Eosinophils # (A) 0.1 k/uL (0-0.7); Eosinophils % (A) 2 %; HCT 38.5 % (39.0-53.0); HGB 12.7 gm/dL (13.0-17.5); Lymphocytes % (A) 18 %; MCHC 32.8 g/dL (31.0-37.0); MCV 103.6 fL (80.0-100.0); Macrocytosis Slight; Mean Platelet Volume 7.3; Monocytes # (A) 0.5 k/uL (0-1.0); Monocytes % (A) 8 %; Neutrophils # (A) 4.2 k/uL (1.3-7.7); Neutrophils % (A) 71 %; Platelet Count 150 k/uL (150-450); RBC 3.72 m/uL (4.30-5.90); RDW 12.9 % (11.5-15.5); WBC 5.9 k/uL (3.8-10.6)
[2020-02-10 06:49] LABS: Albumin 3.3 g/dL (3.5-5.0); Calcium 8.4 mg/dL (8.4-10.2); Potassium 4.2 mmol/L (3.5-5.1); Total Bilirubin 0.6 mg/dL (0.2-1.3); Total Protein 6.1 g/dL (6.3-8.2)
[2020-02-10] MEDS: VALSARTAN 160 MG TAB PO SCH (08:18)
[2020-02-10] MEDS: MULTIVITAMINS, THERA 1 EACH TAB PO SCH (08:18)
[2020-02-10] MEDS: DOCUSATE 100 MG CAP PO SCH ×2 (08:18→20:24)
[2020-02-10] MEDS: PANTOPRAZOLE 40 MG TABLET PO SCH (08:18)
[2020-02-10] MEDS: HYDROCHLOROTHIAZIDE 12.5 MG CAP PO SCH (08:18)
--- NOTE | 2020-02-10 08:49 | P.HPIM ---
History of Present Illness on [facility] Hospitalist covering Dr. Venegas over the weekend This is a pleasant 84 years old male with past medical history of GERD, hyper tension, osteoarthritis, benign prostatic hypertrophy, she is a patient of Dr. Venegas. who presents with back pain, patient is in the lower back nonradiating is been going on for more than a week, nonspecific however was getting gradually more severe on admission was 9-10/10, increase with movement that sometimes patient cannot get out of bed. Also patient was complaining of from chronic lower abdominal pain or discomfort for 3 years since he had hernia surgery. He has ongoing nausea but no vomiting, he can eat and drink well but he has low appetite. He didn't have bowel movement for a week and he follow-up with his PCP who prescribed him laxative, and GoLYTELY last one is day about 2-3 days ago followed by bowel movement over 2 days. However yesterday his back to get more severe and he decided to call 911 on come to emergency room. Today he feels back pain is better with Dilaudid. He denies weakness or numbness in the lower extremity. No urine or bowel contents. No history of trauma or falls Vitals are stable. Labs are unremarkable including CBC, BMP, liver enzymes, lipase, urinalysis. 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 Review of Systems CONSTITUTIONAL: No fever, no malaise, no fatigue. HEENT: No recent visual problems or hearing problems. Denied any sore throat. CARDIOVASCULAR: No orthopnea, PND, no palpitations, no syncope. PULMONARY: No shortness of breath, no cough, no hemoptysis. GASTROINTESTINAL: No diarrhea, no nausea, no vomiting, no abdominal pain. Normoactive bowel sounds. NEUROLOGICAL: No headaches, no weakness, no numbness. HEMATOLOGICAL: Denies any bleeding or petechiae. GENITOURINARY: Denies any burning micturition, frequency, or urgency. MUSCULOSKELETAL/RHEUMATOLOGICAL: Denies any joint pain, swelling. ENDOCRINE: Denies any polyuria or polydipsia. 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 History of Any Multi-Drug Resistant Organisms: None Reported Past Surgical History: Hernia Repair, Orthopedic Surgery Additional Past Surgical History / Comment(s): skin cancer removed from scalp, rectal fistula repair, right shoulder rotator cuff, cataract left eye, bilateral INGUINAL HERNIA REPAIR Past Anesthesia/Blood Transfusion Reactions: Motion Sickness Past Psychological History: No Psychological Hx Reported Additional Psychological History / Comment(s): PT IS INDEPENDANT. LIVES WITH HIS AKIRA IN 2 STORY HOME . HAS 3 PORCH STEPS AND 12 SATEPS TO 2ND FLOOR. 1 PET CAT. NO HOME CARE SERVICES RECIEVED. NO MEDICAL EQUIPMENT. PT SERVED IN THE [employer]. 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 [employer] Smoking Status: Never smoker Past Alcohol Use History: None Reported Additional Past Alcohol Use History / Comment(s): 1-2 glasses of wine or a class of whiskey nightly Past Drug Use History: None Reported - Past Family History Mother Family Medical History: Myocardial Infarction ([place]) Additional Family Medical History / Comment(s): OF [place] AT AGE 94 Father Additional Family Medical History / Comment(s): ETOH-BINGE DRINKER NOT EXACTLY SURE CAUSE OF HIS AT AGE 78 Brother(s) Family Medical History: Myocardial Infarction ([place]) Additional Family Medical History / Comment(s): His brother at age 74. He has a history of myocardial infarction and lead poisoning. Medications and Allergies Home Medications Medication Instructions Recorded Confirmed Type Multivitamins, Thera [Multivitamin 1 tab PO DAILY 01/14/17 02/09/20 History (formulary)] Omeprazole [PriLOSEC] 20 mg PO AC-BRKFST 01/14/17 02/09/20 History Terazosin HCl [Hytrin] 10 mg PO HS 01/14/17 02/09/20 History Atorvastatin Calcium [Lipitor] 20 mg PO DAILY #30 tab 06/12/17 02/09/20 Rx Finasteride [Proscar] 5 mg PO DAILY 08/07/18 02/09/20 History Docusate [Colace] 100 mg PO BID #60 capsule 08/08/18 02/09/20 Rx Clopidogrel [Plavix] 75 mg PO HS 01/05/19 02/09/20 History Vit C/E/Zn/Coppr/Lutein/Zeaxan 1 cap PO BID 01/05/19 02/09/20 History [Preservision Areds 2 Softgel] Ibuprofen [Motrin] 600 mg PO TID PRN 02/09/20 02/09/20 History Valsartan/Hydrochlorothiazide 1 tab PO DAILY 02/09/20 02/09/20 History [Valsartan-Hctz 160-12.5 mg Tab] Allergies Allergy/AdvReac Type Severity Reaction Status Date / Time No Known Allergies Allergy Verified 02/09/20 14:30 Physical Exam Vitals: Vital Signs Temp Pulse Pulse Resp BP BP Pulse Ox 02/10/20 05:21 97.5 F L 61 16 144/65 97 02/09/20 21:31 97.7 F 64 16 132/71 97 02/09/20 16:46 98.7 F 66 17 160/74 96 02/09/20 14:58 65 18 161/79 97 02/09/20 13:50 62 18 152/83 100 02/09/20 11:27 60 16 144/71 97 02/09/20 10:30 96.9 F L 67 20 157/81 98 Intake and Output 02/09/20 02/10/20 02/10/20 22:59 06:59 14:59 Intake Total 150 Balance 150 Intake: IV 150 Sodium Chloride 0.9% 1, 150 000 ml @ 75 mls/hr IV . [id number] Rx#:[id number] Other: # Voids 2 Weight 88 kg GENERAL: The patient is alert and oriented x3, not in any acute distress. Well developed, well nourished. HEENT: Pupils are round and equally reacting to light. EOMI. No scleral icterus. No conjunctival pallor. Normocephalic, atraumatic. No pharyngeal erythema. No thyromegaly. CARDIOVASCULAR: S1 and S2 present. No murmurs, rubs, or gallops. PULMONARY: Chest is clear to auscultation, no wheezing or crackles. ABDOMEN: Soft, nontender, nondistended, normoactive bowel sounds. No palpable organomegaly. MUSCULOSKELETAL: No joint swelling or deformity. EXTREMITIES: No cyanosis, clubbing, or pedal edema. NEUROLOGICAL: Gross neurological examination did not reveal any focal deficits. SKIN: No rashes. No petechiae Results CBC & Chem 7: 02/10/20 06:12 02/10/20 06:12 Labs: Abnormal Lab Results - Last 24 Hours (Table) 02/09/20 02/09/20 02/10/20 Range/Units 11:12 11:12 06:12 RBC 3.75 L 3.72 L (4.30-5.90) m/uL Hgb 12.7 L (13.0-17.5) gm/dL Hct 38.6 L 38.5 L (39.0-53.0) % MCV 103.1 H 103.6 H (80.0-100.0) fL Lymphocytes # 0.8 L (1.0-4.8) k/uL Sodium 133 L (137-145) mmol/L Chloride 97 L (98-107) mmol/L BUN 21 H (9-20) mg/dL Glucose 100 H (74-99) mg/dL Total Protein (6.3-8.2) g/dL Albumin (3.5-5.0) g/dL 02/10/20 Range/Units 06:12 RBC (4.30-5.90) m/uL Hgb (13.0-17.5) gm/dL Hct (39.0-53.0) % MCV (80.0-100.0) fL Lymphocytes # (1.0-4.8) k/uL Sodium 134 L (137-145) mmol/L Chloride (98-107) mmol/L BUN (9-20) mg/dL Glucose (74-99) mg/dL Total Protein 6.1 L (6.3-8.2) g/dL Albumin 3.3 L (3.5-5.0) g/dL Thrombosis Risk Factor Assmnt - Choose All That Apply Any of the Below Risk Factors Present?: No Other Risk Factors: Yes Each Risk Factor Represents 2 Points: Malignancy Each Risk Factor Represents 3 Points: Age 75 years or older Thrombosis Risk Factor Assessment Total Risk Factor Score: 5 Thrombosis Risk Factor Assessment Level: High Risk Assessment and Plan Assessment: Acute lower back pain, could be musculoskeletal. 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 Patient management. Follow-up pulmonary and oncology services.continue with gentle hydration Labs and medication were reviewed.. Continue same treatment. Continue with symptomatic treatment. Resume home medication. Monitor lytes and vitals. DVT and GI prophylaxis. Further recommendations of the clinical course of the patient DVT prophylaxis: Subcutaneous heparin GI Prophylaxis: Pepcid PT/OT: Pending Prognosis is guarded
[2020-02-10] MEDS ORDERED: VALSARTAN PO SCH (09:00)
[2020-02-10] MEDS ORDERED: HYDROCHLOROTHIAZIDE PO SCH (09:00)
[2020-02-10] MEDS ORDERED: [UNRECOGNIZED DRUG - OTHER] PO SCH (09:00)
[2020-02-10] MEDS ORDERED: FINASTERIDE 5 MG TAB PO SCH (09:00)
[2020-02-10] MEDS ORDERED: ATORVASTATIN 20 MG TAB PO SCH (09:00)
[2020-02-10] MEDS: HEPARIN SODIUM,PORCINE 5,000 UNIT/ML 1 ML VIAL SQ SCH ×2 (09:09→20:25)
[2020-02-10] MEDS: FAMOTIDINE 20 MG/2 ML VIAL IV SCH ×2 (09:09→20:25)
[2020-02-10] MEDS: SODIUM CHLORIDE 0.9% 1,000 ML IV SCH (10:42)
[2020-02-10] MEDS ORDERED: RX INFO: IV CONTRAST WAS GIVEN 1 EACH MISC MISCELLANE PRN (10:47)
--- NOTE | 2020-02-10 11:53 | P.CONS ---
History of Present Illness - Reason for Consult Consult date: 02/10/20 Periaortic mass Requesting physician: Augie Venegas - Chief Complaint Abdominal and back pain - History of Present Illness Mr. Ferguson is a very pleasant 84-year-old male who presented to the ED for back and abdominal pain which have beenon going for 3 weeks, work up with CT AP revealed a new mesenteric mass. He was admitted for further work up and management. He states he's been having ongoing lower abdominal pressure since a hernia repair surgery 3 years ago. This remains and is overall unchanged. He also has been fighting constipation for the past few days, working with his PCP regarding this. He did have a CT chest in early 01/2020 which revealed a para-aortic mass. He was seen by pulmonary at that time and a PET scan in late January was obtained for further workup which revealed some uptake in the para-aortic lesion however did not show this new mesenteric mass. He has not had a biopsy yet. He then began having slowly worsening back pain which she initially attributed to muscle aches due to yard work and possibly constipation when Motrin did not help his pain. Since the pain became unbearable he had EMS bring him through emergency where CT of the abdomen and pelvis revealed a new mesenteric mass, 2.5cm, not seen on prior CT chest or PET scan. Denies any nausea, vomiting, shortness of breath, chest pain, fevers, night sweats, or urinary symptoms. He has had about 15 pound weight loss over the past year with decreased appetite. He is a never smoker, no alcohol or drug use. He does have a remote history of social alcohol use however has not had any drinks for the past 1-2 years at least. No known family history of malignancy. He does follow with urology and has an enlarged prostate however no history of prostate cancer. Review of Systems All systems: negative Constitutional: Reports as per HPI Past Medical History Past Medical History: Cancer, GERD/Reflux, Hypertension, Osteoarthritis (OA), Prostate Disorder, Skin Disorder Additional Past Medical History / Comment(s): hx skin cancer behind his left ear,nose, history of rectal fistula. History of Any Multi-Drug Resistant Organisms: None Reported Past Surgical History: Hernia Repair, Orthopedic Surgery Additional Past Surgical History / Comment(s): skin cancer removed from scalp, rectal fistula repair, right shoulder rotator cuff, cataract left eye, bilateral INGUINAL HERNIA REPAIR Past Anesthesia/Blood Transfusion Reactions: Motion Sickness Past Psychological History: No Psychological Hx Reported Additional Psychological History / Comment(s): PT IS INDEPENDANT. LIVES WITH HIS AKIRA IN 2 STORY HOME . HAS 3 PORCH STEPS AND 12 SATEPS TO 2ND FLOOR. 1 PET CAT. NO HOME CARE SERVICES RECIEVED. NO MEDICAL EQUIPMENT. PT SERVED IN THE [employer]. WORKED A [employer] AND [employer] Smoking Status: Never smoker Past Alcohol Use History: None Reported Additional Past Alcohol Use History / Comment(s): 1-2 glasses of wine or a class of whiskey nightly Past Drug Use History: None Reported - Past Family History Mother Family Medical History: Myocardial Infarction ([place]) Additional Family Medical History / Comment(s): OF [place] AT AGE 94 Father Additional Family Medical History / Comment(s): ETOH-BINGE DRINKER NOT EXACTLY SURE CAUSE OF HIS AT AGE 78 Brother(s) Family Medical History: Myocardial Infarction ([place]) Additional Family Medical History / Comment(s): His brother at age 74. He has a history of myocardial infarction and lead poisoning. Medications and Allergies Home Medications Medication Instructions Recorded Confirmed Type Multivitamins, Thera [Multivitamin 1 tab PO DAILY 01/14/17 02/09/20 History (formulary)] Omeprazole [PriLOSEC] 20 mg PO AC-BRKFST 01/14/17 02/09/20 History Terazosin HCl [Hytrin] 10 mg PO HS 01/14/17 02/09/20 History Atorvastatin Calcium [Lipitor] 20 mg PO DAILY #30 tab 06/12/17 02/09/20 Rx Finasteride [Proscar] 5 mg PO DAILY 08/07/18 02/09/20 History Docusate [Colace] 100 mg PO BID #60 capsule 08/08/18 02/09/20 Rx Clopidogrel [Plavix] 75 mg PO HS 01/05/19 02/09/20 History Vit C/E/Zn/Coppr/Lutein/Zeaxan 1 cap PO BID 01/05/19 02/09/20 History [Preservision Areds 2 Softgel] Ibuprofen [Motrin] 600 mg PO TID PRN 02/09/20 02/09/20 History Valsartan/Hydrochlorothiazide 1 tab PO DAILY 02/09/20 02/09/20 History [Valsartan-Hctz 160-12.5 mg Tab] Allergies Allergy/AdvReac Type Severity Reaction Status Date / Time No Known Allergies Allergy Verified 02/09/20 14:30 Physical Exam Vitals: Vital Signs Temp Pulse Pulse Resp BP BP Pulse Ox 02/10/20 05:21 97.5 F L 61 16 144/65 97 02/09/20 21:31 97.7 F 64 16 132/71 97 02/09/20 16:46 98.7 F 66 17 160/74 96 02/09/20 14:58 65 18 161/79 97 02/09/20 13:50 62 18 152/83 100 02/09/20 11:27 60 16 144/71 97 02/09/20 10:30 96.9 F L 67 20 157/81 98 Intake and Output 02/09/20 02/10/20 02/10/20 22:59 06:59 14:59 Intake Total 150 Balance 150 Intake: IV 150 Sodium Chloride 0.9% 1, 150 000 ml @ 75 mls/hr IV . [id number] Rx#:[id number] Other: # Voids 2 Weight 88 kg Constitutional: No acute distress. HEENT: No scleral icterus or conjunctival pallor. Mucosa moist. Neck: Neck supple. Lungs: No respiratory distress. Heart: Regular rate. No LE edema. Abdomen: Soft, nontender, nondistended. MSK: 4/4 strength in all 4 extremities. Neuro: Alert and oriented x 3. Skin: No jaundice or rash. Psych: Appropriate affect Results CBC & Chem 7: 02/10/20 06:12 02/10/20 06:12 Labs: Abnormal Lab Results - Last 24 Hours (Table) 02/09/20 02/09/20 02/10/20 Range/Units 11:12 11:12 06:12 RBC 3.75 L 3.72 L (4.30-5.90) m/uL Hgb 12.7 L (13.0-17.5) gm/dL Hct 38.6 L 38.5 L (39.0-53.0) % MCV 103.1 H 103.6 H (80.0-100.0) fL Lymphocytes # 0.8 L (1.0-4.8) k/uL Sodium 133 L (137-145) mmol/L Chloride 97 L (98-107) mmol/L BUN 21 H (9-20) mg/dL Glucose 100 H (74-99) mg/dL Total Protein (6.3-8.2) g/dL Albumin (3.5-5.0) g/dL 02/10/20 Range/Units 06:12 RBC (4.30-5.90) m/uL Hgb (13.0-17.5) gm/dL Hct (39.0-53.0) % MCV (80.0-100.0) fL Lymphocytes # (1.0-4.8) k/uL Sodium 134 L (137-145) mmol/L Chloride (98-107) mmol/L BUN (9-20) mg/dL Glucose (74-99) mg/dL Total Protein 6.1 L (6.3-8.2) g/dL Albumin 3.3 L (3.5-5.0) g/dL Assessment and Plan Assessment: 1. Mesenteric mass 2. Paraaortic mass 3. Back pain and abdominal pain Plan: Mr. Ferguson is a very pleasant 84 yo male who is here for abdominal and back pain, found to have an old para-aortic mass on imaging as well as a new 2.5cm mesenteric mass. Agree with repeat CT of the chest to reassess the para-aortic mass seen in 01/2020, with pulm evaluation and PET on 01/22/20 which showed moderate uptake in para-aortic mass however it did not show the new mesenteric mass seen on current CT AP. He will need tissue biopsy of this to determine etiology, preferrably of the mesenteric mass. CBC normal however MCV 103. Will check B12 and folate and supplement if needed. We'll also check LDH and SPEP. Discussed with pt and he is agreeable to the plan.
[2020-02-10 12:08] LABS: Reticulocyte % 1.3 % (0.5-2.0)
--- NOTE | 2020-02-10 12:39 | CT ---
EXAMINATION TYPE: CT chest w con DATE OF EXAM: 02/10/2020 COMPARISON: Previous study dated 01/05/2019 HISTORY: history of mass CT DLP: 432.5 mGycm Automated exposure control for dose reduction was used. CONTRAST: CT scan of the chest is performed with IV Contrast, patient injected with 100 mL of Isovue 300. FINDINGS: The patient's left lower lobe pulmonary mass is increased in size from 2.5 cm to 6.2 x 3.5 cm. There has now developed other lesions throughout both lungs with a 10 mm lesion in the posterior basal segment of the right lower lobe, best seen on image 50. There are multiple lesions in the left lung. There is an 18 mm lesion in the inferior aspect of the left lingula. There is a 1.8 cm lesion i n the superior segment of the left lower lobe there is now a 5.7 x 4.8 cm partially calcified infrahi lar mass on the left which is encompassing the lower lobe pulmonary veins There is a prominent hiatal hernia. There is no significant axillary or mediastinal adenopathy. The root of the aorta is mildly prominent measuring 3.8 cm. The proximal arch is aneurysmal measuring 3.1 cm. The distal arch is also aneurysmal measuring 34 cm. The remainder the aorta is normal in mariah iber. There is no pericardial or pleural fluid identified. Within the abdomen, there is colonic interposition on the right. There are parapelvic cysts involving both kidneys. There are nonobstructing bilateral renal calculi. IMPRESSION: 1. ENLARGING LEFT LOWER LOBE PULMONARY MASS WITH BOTH IPSILATERAL AND CONTRALATERAL METASTASES TREATE D SOME OF WHICH ARE CALCIFIED. 2. HIATAL HERNIA. 3. 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 4. NONOBSTRUCTING BILATERAL RENAL CALCULI.
[2020-02-10] MEDS: HYDROcodone/APAP 5-325MG 1 EACH TAB PO PRN (13:20)
--- NOTE | 2020-02-10 13:53 | CONS ---
CONSULTATION PULMONARY/CRITICAL CARE CONSULTATION: DATE OF SERVICE: 02/10/2020 This is an 84-year-old gentleman who typically sees Dr. Augie Venegas. I saw the patient back in consultation on January 06, 2019. I saw him for a lung mass. At that time, the patient was found to have an elongated enlarging left para-aortic mass-like density. It apparently increased in size, had some calcification. We went ahead and ordered a PET scan which did show some increased uptake and the patient was to follow up with me in the outpatient setting. He apparently never did. Anyway, I am asked to consult as it relates to this mass currently. On this most recent admission though, dated February 09, 2020, he came in complaining of abdominal pain and back pain. It apparently had been going on for 3 weeks. He apparently had cut some wood and did some other things around the house and since that time he has been complaining of the back and abdominal discomfort. He denies any pulmonary complaints including shortness of breath, cough, wheezing, chest tightness, or phlegm production. He denies any hemoptysis. He denied any recent fever or chills. There was no specific injury per se. Anyway, I had to remind him about the last time I saw him back in January of 2019. He had sort of forgotten. Anyway, currently, the patient is not having any pulmonary issues. I am going to get a dedicated CT scan of the chest. He likely will need a biopsy at some time in the near future. I did tell him that we would see him in the outpatient setting and we will wait until the doctors figured out what was going on with his belly. MEDICATIONS: Reviewed. He is on multivitamins, Prilosec, Hytrin, Diovan/HCT, Proscar, Plavix, eye vitamins, Lipitor, Colace, and some [id number] medications. ALLERGIES: Denied. MEDICAL HISTORY: Reviewed. He has a history of viral gastroenteritis, chronic abdominal pain, previous hernia repair, lifetime nonsmoker, chronic constipation and rectal fistula, hypertension, migraine cephalgia, BPH, and skin cancer. SURGICAL HISTORY: Includes hernia repair, skin cancer surgery, rectal fistula repair, right rotator cuff surgery, surgery on the cataract in the left eye, and some other minor procedures. SOCIAL HISTORY: Significant in that he is a lifelong nonsmoker. Denies any alcohol or drug use. FAMILY HISTORY: Positive for mother with myocardial infarction, father with alcohol abuse, a brother with CA who apparently also had lead poisoning. The lesion in his left chest, as compared to a prior CT scan done October 22, 2019 and a PET scan done January 21, 2019. It shows left lower lobe mass containing calcifications measuring 5.6 cm in anterior-posterior dimension. REVIEW OF SYSTEMS: CONSTITUTIONAL: Negative. NEUROLOGIC: Negative. HEENT: Negative. CARDIOVASCULAR: Negative. PULMONARY: Negative. GI: Abdominal pain and back pain. : Negative. RHEUMATOLOGIC: Negative. IMMUNOLOGIC: Negative. ENDOCRINOLOGIC: Negative. DERMATOLOGIC: Negative. PHYSICAL EXAMINATION: Current vital signs are reviewed. Temperature is 97.5 heart rate 61, respiratory rate 16, blood pressure 144/65, mean 91, room air saturation 97%. Appears in no acute distress. No evidence of any respiratory difficulty or distress. HEENT: Examination is grossly unremarkable. NECK: Supple. Full range of motion. No adenopathy or thyromegaly. Neck veins are flat. CARDIOVASCULAR: Examination reveals regular rhythm rate. Heart rate low 60s. S1, S2 normal. There is no murmur. LUNGS: Clear. Breath sounds equal. ABDOMEN: Soft. Bowel sounds are heard. There are no masses or tenderness on palpation. EXTREMITIES are intact. No cyanosis, clubbing, or edema. SKIN: Without rash. NEUROLOGIC: Examination is brief but nonfocal. LABS: Reviewed. White count 5.9, hemoglobin 12.7, hematocrit 38.5, platelet count is 150,000. Sodium 134, potassium 4.2, chloride 103, CO2 is 26, anion gap is 5. BUN and creatinine were normal. His amylase and lipase were normal. Liver function test was normal. UA was negative. COVID-19 testing was negative. His abdominal and pelvic CT showed a new mesenteric mass measuring 2.3 x 2.4 cm adjacent to the stomach. It also showed a moderate hiatal hernia, small volume dependent ascites in the pelvis, and extensive multilevel degenerative disk disease. CT scan and x-ray have been reviewed. Please see above. Medications are reviewed. ASSESSMENT: 1. Lung mass of unclear etiology. Radiologist concerned about mesothelioma. Lesion has been present since early 2018. The patient apparently has not followed up and will likely need a biopsy. 2. Abdominal pain with evidence of a mesenteric mass on CT scan. 3. History of lifelong nontobacco use. 4. History of chronic constipation. 5. History of rectal fistula. 6. History of hypertension. 7. History of migraine cephalgia. 8. History of gastroesophageal reflux disease. 9. Skin cancer. 10.Benign prostatic hypertrophy. PLAN: I have ordered a dedicated CT scan of the chest. Additional recommendations and suggestions are forthcoming. The patient may benefit from another PET scan. We will await the CT scan and make a decision about eventual biopsy. We will also have to determine whether or not the lesion in the stomach should be dealt with first. His primary issues relate to abdominal and back pain at the current time. Certainly a concern for malignancy here. MMODL / IJN: [id number] /
[2020-02-10 16:32] LABS: Protein, Total 6.4 g/dL (6.2-8.2)
[2020-02-10] MEDS: FINASTERIDE 5 MG TAB PO SCH (17:03)
[2020-02-10] MEDS: ATORVASTATIN 20 MG TAB PO SCH (17:03)
[2020-02-10 17:28] LABS: Folate, Serum 13.7 ng/mL
[2020-02-10] MEDS: DOXAZOSIN 4 MG TAB PO SCH (20:25)
[2020-02-10] MEDS ORDERED: SENNOSIDES 8.6 MG TAB PO PRN (21:17)
[2020-02-11] MEDS: SODIUM CHLORIDE 0.9% 1,000 ML IV SCH ×2 (02:01→20:17)
[2020-02-11] MEDS: HYDROcodone/APAP 5-325MG 1 EACH TAB PO PRN ×2 (08:32→20:17)
[2020-02-11] MEDS: HYDROCHLOROTHIAZIDE 12.5 MG CAP PO SCH (08:33)
[2020-02-11] MEDS: PANTOPRAZOLE 40 MG TABLET PO SCH (08:33)
[2020-02-11] MEDS: MULTIVITAMINS, THERA 1 EACH TAB PO SCH (08:33)
[2020-02-11] MEDS: DOCUSATE 100 MG CAP PO SCH ×2 (08:33→20:16)
[2020-02-11] MEDS: VALSARTAN 160 MG TAB PO SCH (08:34)
[2020-02-11] MEDS: HEPARIN SODIUM,PORCINE 5,000 UNIT/ML 1 ML VIAL SQ SCH ×2 (08:35→20:16)
[2020-02-11] MEDS: FAMOTIDINE 20 MG/2 ML VIAL IV SCH ×2 (08:35→20:16)
--- NOTE | 2020-02-11 09:47 | P.PN ---
Subjective on [facility] Hospitalist covering Dr. Venegas over the weekend This is a pleasant 84 years old male with past medical history of GERD, hypertension, osteoarthritis, benign prostatic hypertrophy, she is a patient of Dr. Venegas. who presents with back pain, patient is in the lower back nonradiating is been going on for more than a week, nonspecific however was getting gradually more severe on admission was 9-10/10, increase with movement that sometimes patient cannot get out of bed. Also patient was complaining of from chronic lower abdominal pain or discomfort for 3 years since he had hernia surgery. He has ongoing nausea but no vomiting, he can eat and drink well but he has low appetite. He didn't have bowel movement for a week and he follow-up with his PCP who prescribed him laxative, and GoLYTELY last one is day about 2-3 days ago followed by bowel movement over 2 days. However yesterday his back to get more severe and he decided to call 911 on come to emergency room. Today he feels back pain is better with Dilaudid. He denies weakness or numbness in the lower extremity. No urine or bowel contents. No history of trauma or falls Vitals are stable. Labs are unremarkable including CBC, BMP, liver enzymes, lipase, urinalysis. 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 02/11/2020 Vision feels generally weak, however no specific weakness in legs and arms. He still complaining of from his back pain about 6/10 in severity, and he has ongoing chronic abdominal pain with constipation, he had no bowel movement and passing gases only, his abdominal pain could also be related to his mesenteric masses. CT of the chest from yesterday showing left lower lobe pulmonary mass increased in size to 5.7 x 4.8 cm with multiple smaller lesions on the right lower and left lower lungs, patient informed with these findings. patient may need biopsy. Hemodynamically stable. Labs are stable Review of systems CONSTITUTIONAL: No fever, no malaise, no fatigue. HEENT: No recent visual problems or hearing problems. Denied any sore throat. CARDIOVASCULAR: No orthopnea, PND, no palpitations, no syncope. GASTROINTESTINAL: No diarrhea, no nausea, no vomiting, no abdominal pain. Normoactive bowel sounds. NEUROLOGICAL: No headaches, no weakness, no numbness. HEMATOLOGICAL: Denies any bleeding or petechiae. GENITOURINARY: Denies any burning micturition, frequency, or urgency. ENDOCRINE: Denies any polyuria or polydipsia. Active Medications Generic Name Dose Route Start Last Admin Trade Name Freq PRN Reason Stop Dose Admin Acetaminophen 650 mg 02/09/20 17:54 Tylenol Tab PO Q6HR PRN Fever and/ or Pain Hydrocodone Bitart/Acetaminophen 1 each 02/10/20 08:49 02/11/20 08:32 [place] 5-325 PO 1 each Q6HR PRN Administration Pain Atorvastatin Calcium 20 mg 02/10/20 18:00 02/10/20 17:03 Lipitor PO 20 mg DAILY@1800 [facility] Administration Docusate Sodium 100 mg 02/09/20 21:00 02/11/20 08:33 Colace PO 100 mg BID [facility] Administration Doxazosin Mesylate 8 mg 02/09/20 21:00 02/10/20 20:25 Cardura PO 8 mg HS [facility]DIA Administration Famotidine 20 mg 02/10/20 09:00 02/11/20 08:35 Pepcid IV 20 mg Q12HR [facility] Administration Finasteride 5 mg 02/10/20 18:00 02/10/20 17:03 Proscar PO 5 mg DAILY@1800 [facility] Administration Heparin Sodium (Porcine) 5,000 unit 02/10/20 09:00 02/11/20 08:35 Heparin SQ 5,000 unit Q12HR [facility] Administration Hydrochlorothiazide 12.5 mg 02/10/20 09:00 02/11/20 08:33 Hydrodiuril PO 12.5 mg DAILY [facility] Administration Hydromorphone HCl 0.5 mg 02/09/20 14:15 02/09/20 21:58 Dilaudid IVP 0.5 mg Q4HR PRN Administration Pain Sodium Chloride 1,000 mls @ 50 mls/hr 02/10/20 09:45 02/11/20 02:01 Saline 0.9% IV 50 mls/hr .Q20H [facility] Administration Miscellaneous Information 1 each 02/10/20 10:47 Rx Info: Iv Contrast Was Given MISCELLANE 02/12/20 10:47 DAILY PRN Per Protocol Multivitamins 1 each 02/10/20 09:00 02/11/20 08:33 Theragran PO 1 each DAILY [facility] Administration Ondansetron HCl 4 mg 02/09/20 17:55 Zofran IVP Q6HR PRN Nausea And Vomiting Pantoprazole Sodium 40 mg 02/10/20 07:30 02/11/20 08:33 Protonix PO 40 mg AC-[id number] [facility] Administration Senna 17.4 mg 02/10/20 21:17 Senokot PO HS PRN Constipation Valsartan 160 mg 02/10/20 09:00 02/11/20 08:34 Diovan PO 160 mg DAILY [facility] Administration Objective - Vital Signs Vital signs: Vital Signs Temp 97.7 F 02/11/20 04:59 Pulse 67 02/11/20 08:00 Resp 16 02/11/20 08:00 BP 125/69 02/11/20 04:59 Pulse Ox 95 02/11/20 04:59 Intake & Output 02/10/20 02/11/20 02/11/20 18:59 06:59 18:59 Intake Total 425 1780 Balance 425 1780 Intake: IV 425 Sodium Chloride 0.9% 1, 425 000 ml @ 75 mls/hr IV . [id number] ONE Rx#:[id number] Intake, IV Titration 600 Amount Sodium Chloride 0.9% 1, 600 000 ml @ 50 mls/hr IV . Q20H [facility] Rx#:[id number] Oral 1180 Other: Voiding Method Toilet Toilet # Voids 3 3 - Exam GENERAL: The patient is alert and oriented x3, not in any acute distress. Well developed, well nourished. HEENT: Pupils are round and equally reacting to light. EOMI. No scleral icterus. No conjunctival pallor. Normocephalic, atraumatic. No pharyngeal erythema. No thyromegaly. CARDIOVASCULAR: S1 and S2 present. No murmurs, rubs, or gallops. PULMONARY: Chest is clear to auscultation, no wheezing or crackles. ABDOMEN: Soft, nontender, nondistended, normoactive bowel sounds. No palpable organomegaly. MUSCULOSKELETAL: No joint swelling or deformity. EXTREMITIES: No cyanosis, clubbing, or pedal edema. NEUROLOGICAL: Gross neurological examination did not reveal any focal deficits. SKIN: No rashes. No petechiae - Labs CBC & Chem 7: 02/10/20 06:12 02/10/20 06:12 Assessment and Plan Assessment: Acute lower back pain, could be musculoskeletal. 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 Patient management. Follow-up pulmonary and oncology services.continue with gentle hydration . Patient may need biopsy of his lung masses. Labs and medication were reviewed.. Continue same treatment. Continue with symptomatic treatment. Resume home medication. Monitor lytes and vitals. DVT and GI prophylaxis. Further recommendations of the clinical course of the patient DVT prophylaxis: Subcutaneous heparin GI Prophylaxis: Pepcid PT/OT: Pending Prognosis is guarded
--- NOTE | 2020-02-11 11:20 | P.PN ---
Subjective Progress Note Date: 02/11/20 Principal diagnosis: Abdominal discomfort secondary to mesenteric mass, lung mass Patient is seen today in 02/11/2020 in follow-up on the oncology unit. He is currently resting comfortably in bed. Awake and alert in no acute distress. Maintaining good O2 saturations in the 90s on room air. His abdominal discomfort is slightly improved. Computed tomography scan of the chest revealed enlarging left lower lobe pulmonary mass with both the lateral and contralateral metastasis. Hiatal hernia. Thoracic aortic aneurysm with a max transverse diameter 3.8 cm. Nonobstructing bilateral renal calculi. Objective - Vital Signs Vital signs: Vital Signs Temp 97.7 F 02/11/20 04:59 Pulse 67 02/11/20 08:00 Resp 16 02/11/20 08:00 BP 125/69 02/11/20 04:59 Pulse Ox 95 02/11/20 04:59 Intake & Output 02/10/20 02/11/20 02/11/20 18:59 06:59 18:59 Intake Total 425 1780 Balance 425 1780 Intake: IV 425 Sodium Chloride 0.9% 1, 425 000 ml @ 75 mls/hr IV . [id number] [facility] Rx#:[id number] Intake, IV Titration 600 Amount Sodium Chloride 0.9% 1, 600 000 ml @ 50 mls/hr IV . Q20H [facility] Rx#:[id number] Oral 1180 Other: Voiding Method Toilet Toilet # Voids 3 3 - Exam GENERAL EXAM: Alert, active, pleasant 84-year-old gentleman, on room air, comfortable in no apparent distress. HEAD: Normocephalic. EYES: Normal reaction of pupils, equal size. NOSE: Clear with pink turbinates. THROAT: No erythema or exudates. NECK: No masses, no JVD. CHEST: No chest wall deformity. LUNGS: Equal air entry with no crackles, wheeze, rhonchi or dullness. CVS: S1 and S2 normal with no audible murmur, regular rhythm. ABDOMEN: No hepatosplenomegaly, normal bowel sounds, no guarding or rigidity. SPINE: No scoliosis or deformity SKIN: No rashes CENTRAL NERVOUS SYSTEM: No focal deficits, tone is normal in all 4 extremities. EXTREMITIES: There is no peripheral edema. No clubbing, no cyanosis. Peripheral pulses are intact. - Labs CBC & Chem 7: 02/10/20 06:12 02/10/20 06:12 Assessment and Plan Assessment: Abdominal discomfort secondary to mesenteric mass measuring 2.3 x 2.4 cm on the anterior left lateral to the ureter curvature of the stomach Increasing left lower lobe pulmonary mass measuring 2.5 x 6.2 x 3.5 cm. Multiple other lesions the left lung. 10 mm lesion in the posterior basal segm ent of the right lower lobe Lifelong nonsmoker Chronic constipation History of rectal fistula Hypertension History of migraines History of GERD History of skin cancer Benign prostatic hypertrophy Plan: The patient was seen and evaluated by Dr. Weaver CAT scan of the chest reviewed Results of the increasing lung mass were reviewed with the patient He was seen by Dr. Weaver on 02/01/2019 and recommended a biopsy at that time which the patient declined He is now currently willing to undergo biopsy Consult interventional radiology for possible FNA of the left lung mass We'll continue to follow make further recommendations based on his clinical status I, the cosigning physician, performed a history & physical examination of the patient. Lungs sounds are clear. Maintaining good O2 saturations in the 90s on room air. I discussed the assessment and plan of care with my nurse practitioner, Zeynep Guillermo. I attest to the above note as dictated by her.
[2020-02-11] MEDS: FLUoxetine HCL 10 MG CAP PO SCH (13:26)
[2020-02-11] MEDS: FINASTERIDE 5 MG TAB PO SCH (17:30)
[2020-02-11] MEDS: ATORVASTATIN 20 MG TAB PO SCH (17:30)
[2020-02-11] MEDS: DOXAZOSIN 4 MG TAB PO SCH (20:16)
[2020-02-12] MEDS: MULTIVITAMINS, THERA 1 EACH TAB PO SCH (09:06)
[2020-02-12] MEDS: PANTOPRAZOLE 40 MG TABLET PO SCH (09:06)
[2020-02-12] MEDS: FAMOTIDINE 20 MG/2 ML VIAL IV SCH ×2 (09:06→20:20)
[2020-02-12] MEDS: HYDROCHLOROTHIAZIDE 12.5 MG CAP PO SCH (09:06)
[2020-02-12] MEDS: FLUoxetine HCL 10 MG CAP PO SCH (09:06)
[2020-02-12] MEDS: DOCUSATE 100 MG CAP PO SCH ×2 (09:06→20:19)
[2020-02-12] MEDS: VALSARTAN 160 MG TAB PO SCH (09:07)
[2020-02-12] MEDS: HYDROcodone/APAP 5-325MG 1 EACH TAB PO PRN ×2 (09:10→20:20)
[2020-02-12 09:34] LABS: Free Kappa Lt Chain Qnt, Serum 2.67 mg/dL (0.33-1.94)
[2020-02-12 09:49] LABS: Prothrombin Time 10.8 sec (9.0-12.0)
--- NOTE | 2020-02-12 11:19 | P.PN ---
Subjective Progress Note Date: 02/12/20 Principal diagnosis: Abdominal discomfort secondary to mesenteric mass, lung mass Patient is seen today in 02/11/2020 in follow-up on the oncology unit. He is currently resting comfortably in bed. Awake and alert in no acute distress. Maintaining good O2 saturations in the 90s on room air. His abdominal discomfort is slightly improved. Computed tomography scan of the chest revealed enlarging left lower lobe pulmonary mass with both the lateral and contralateral metastasis. Hiatal hernia. Thoracic aortic aneurysm with a max transverse diameter 3.8 cm. Nonobstructing bilateral renal calculi. The patient is seen today 02/12/2020 in follow-up on the oncology unit. He is currently awake and alert in no acute distress. He's been up ambulating in his room. He has no shortness of breath, cough or congestion. Continues to maintain good O2 saturations in the 90s on room air. He's had some ongoing lower abdominal discomfort and back pain. No worsening at this time. INR 1.0. Objective - Vital Signs Vital signs: Vital Signs Temp 97.5 F L 02/12/20 05:00 Pulse 77 02/12/20 05:00 Resp 16 02/12/20 05:00 BP 159/73 02/12/20 05:00 Pulse Ox 94 L 02/12/20 05:00 Intake & Output 02/11/20 02/12/20 02/12/20 18:59 06:59 18:59 Intake Total 400 1480 Balance 400 1480 Intake: Intake, IV Titration 400 600 Amount Sodium Chloride 0.9% 1, 400 600 000 ml @ 50 mls/hr IV . Q20H [facility] Rx#:[id number] Oral 880 Other: Voiding Method Toilet Toilet Toilet # Voids 3 3 - Exam GENERAL EXAM: Alert, active, pleasant 84-year-old gentleman, on room air, comfortable in no apparent distress. HEAD: Normocephalic. EYES: Normal reaction of pupils, equal size. NOSE: Clear with pink turbinates. THROAT: No erythema or exudates. NECK: No masses, no JVD. CHEST: No chest wall deformity. LUNGS: Equal air entry with no crackles, wheeze, rhonchi or dullness. CVS: S1 and S2 normal with no audible murmur, regular rhythm. ABDOMEN: No hepatosplenomegaly, normal bowel sounds, no guarding or rigidity. SPINE: No scoliosis or deformity SKIN: No rashes CENTRAL NERVOUS SYSTEM: No focal deficits, tone is normal in all 4 extremities. EXTREMITIES: There is no peripheral edema. No clubbing, no cyanosis. Perip heral pulses are intact. - Labs CBC & Chem 7: 02/10/20 06:12 02/10/20 06:12 Labs: Abnormal Lab Results - Last 24 Hours (Table) 02/10/20 Range/Units 06:12 Free [place] LC, Quant 2.67 H (0.33-1.94) mg/dL Assessment and Plan Assessment: Abdominal discomfort secondary to mesenteric mass measuring 2.3 x 2.4 cm on the anterior left lateral to the ureter curvature of the stomach Increasing left lower lobe pulmonary mass measuring 2.5 x 6.2 x 3.5 cm. Multiple other lesions the left lung. 10 mm lesion in the posterior basal segment of the right lower lobe Lifelong nonsmoker Chronic constipation History of rectal fistula Hypertension History of migraines History of GERD History of skin cancer Benign prostatic hypertrophy Plan: The patient was seen and evaluated by Dr. Mireles CAT scan of the chest reviewed, his CAT scan of the abdomen reviewed He did have discussion with interventional radiology The plan would be for bronchoscopy with biopsies versus CT-guided FNA He did speak with the patient and his in this regard He has been off his Plavix for 4 days now If agreeable, we'll plan for bronchoscopy with biopsies in the a.m. We'll continue to follow make further recommendations based on his clinical status I, the cosigning physician, performed a history & physical examination of the patient. Lungs sounds are clear. Maintaining good O2 saturations in the 90s on room air. I discussed the assessment and plan of care with my nurse practitioner, Zeynep Guillermo. I attest to the above note as dictated by her.
[2020-02-12] MEDS: HEPARIN SODIUM,PORCINE 5,000 UNIT/ML 1 ML VIAL SQ SCH ×2 (11:45→20:14)
--- NOTE | 2020-02-12 13:05 | P.PN ---
Subjective Progress Note Date: 02/12/20 Principal diagnosis: LLL mass, periaortic, mesentery implants In f/u today abd/back discomfort is stable/improved since admit with medication intervention. No BM. Denies fevers, hemoptysis. Objective - Vital Signs Vital signs: Vital Signs Temp 98.4 F 02/12/20 11:52 Pulse 60 02/12/20 11:52 Resp 17 02/12/20 11:52 BP 151/72 02/12/20 11:52 Pulse Ox 94 L 02/12/20 11:52 Intake & Output 02/11/20 02/12/20 02/12/20 18:59 06:59 18:59 Intake Total 400 1480 Balance 400 1480 Intake: Intake, IV Titration 400 600 Amount Sodium Chloride 0.9% 1, 400 600 000 ml @ 50 mls/hr IV . Q20H [facility] Rx#:[id number] Oral 880 Other: Voiding Method Toilet Toilet Toilet # Voids 3 3 - Constitutional General appearance: Present: average body habitus, cooperative, no acute distress - EENT Eyes: Present: anicteric sclerae, EOMI ENT: Present: hearing grossly normal, normal oropharynx - Respiratory Respiratory: bilateral: CTA - Cardiovascular Heart sounds: normal: S1, S2 - Peripheral edema leg Peripheral Edema: bilateral: None - Gastrointestinal General gastrointestinal: Present: soft - Neurologic Neurologic: Present: CNII-XII intact - Musculoskeletal Musculoskeletal: Present: strength equal bilaterally - Psychiatric Psychiatric: Present: A&O x's 3, appropriate affect, intact judgment & insight - Labs CBC & Chem 7: 02/10/20 06:12 02/10/20 06:12 Labs: Abnormal Lab Results - Last 24 Hours (Table) 02/10/20 Range/Units 06:12 Free [place] LC, Quant 2.67 H (0.33-1.94) mg/dL - Imaging and Cardiology CT scan - abdomen: report reviewed CT scan - chest: report reviewed (LLL mass) CT scan - pelvis: report reviewed Assessment and Plan (1) Back pain Current Visit: Yes Status: Acute Priority: High Code(s): M54.9 - DORSALGIA, UNSPECIFIED SNOMED Code(s): 308517465 (2) Abdominal pain Current Visit: Yes Status: Acute Priority: High Code(s): R10.9 - UNSPECIFIED ABDOMINAL PAIN SNOMED Code(s): 98368803 (3) Lung mass Current Visit: Yes Status: Acute Priority: High Code(s): R91.8 - OTHER NONSPECIFIC ABNORMAL FINDING OF LUNG FIELD SNOMED Code(s): 267228513 (4) Abdominal mass Current Visit: Yes Status: Acute Priority: High Code(s): R19.00 - INTRA- ABD AND PELVIC SWELLING, MASS AND LUMP, UNSP SITE SNOMED Code(s): 353160667 (5) Constipation Narrative/Plan: colace and senna currently, close monitoring of BM Current Visit: Yes Status: Acute Priority: High Code(s): K59.00 - CONSTIPATION, UNSPECIFIED SNOMED Code(s): 31000611 Plan: Pain: Back and abdominal pain are patient's presenting symptoms. Currently pain is managed with medications. Would recommend getting pt off of IV pain meds [place] to eval effectiveness of oral pain meds so they can be adjusted prior to DC. Case was discussed with Pulmonary. Was present when Pulmonary discussed br onchoscopy as an option for biopsy. Patient and are agreeable to bronchoscopy and biopsy of left lower lobe mass. There is discussion about the procedure being performed as soon as tomorrow. Constipation: No bowel movement since admission. Suspect could be related to abnormalities in the mesentery interfering with peristalsis. This is going to be exacerbated with narcotics. Medications are ordered, may have to increase or add additional meds. Spoke with patient's over the phone. She had questions about type of malignancy, stage of disease. I explained to her that without biopsy we do not know primary malignancy. Explained that stage could not be discussed until we know the primary. We reviewed the potential that what is in the lung may not the same as what is in the abdomen, as it is very unusual for a lung malignancy to spread to the mesentery. Did discuss the potential for possibly needing an additional biopsy of one of the mesenteric masses, or, it was noted that there was a small amount of ascites that wasn't present before, if reasonable, this co uld be removed for diagnostic purposes. They verbalized understanding the current plan for lung biposy and the possibility of a need for further biopsy. Pending results of lung biopsy before proceeding forward with any additional biopsies. They are in agreement with this plan of care. All their questions were answered to the best of my ability.
[2020-02-12 13:31] LABS: Albumin 3.67 g/dL (3.80-4.90); Gamma Globulin 1.02 g/dL (0.70-1.50)
--- NOTE | 2020-02-12 16:04 | P.PN ---
Subjective Progress Note Date: 02/12/20 This is a pleasant 84 years old male with past medical history of GERD, hypertension, osteoarthritis, benign prostatic hypertrophy, she is a patient of Dr. Venegas. who presents with back pain, patient is in the lower back nonradiating is been going on for more than a week, nonspecific however was getting gradually more severe on admission was 9-10/10, increase with movement that sometimes patient cannot get out of bed. Also patient was complaining of from chronic lower abdominal pain or discomfort for 3 years since he had hernia surgery. He has ongoing nausea but no vomiting, he can eat and drink well but he has low appetite. He didn't have bowel movement for a week and he follow-up with his PCP who prescribed him laxative, and GoLYTELY last one is day about 2-3 days ago followed by bowel movement over 2 days. However yesterday his back to get more severe and he decided to call 911 on come to emergency room. Today he feels back pain is better with Dilaudid. He denies weakness or numbness in the lower extremity. No urine or bowel contents. No history of trauma or falls Vitals are stable. Labs are unremarkable including CBC, BMP, liver enzymes, lipase, urinalysis. 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 02/11/2020 Vision feels generally weak, however no specific weakness in legs and arms. He still complaining of from his back pain about 6/10 in severity, and he has ongoing chronic abdominal pain with constipation, he had no bowel movement and passing gases only, his abdominal pain could also be related to his mesenteric masses. CT of the chest from yesterday showing left lower lobe pulmonary mass increased in size to 5.7 x 4.8 cm with multiple smaller lesions on the right lower and left lower lungs, patient informed with these findings. patient may need biopsy. Hemodynamically stable. Labs are stable 02/12/2020 complaining of bilateral lower quadrants abdominal pain, reports feels like "gas". Eyes cough, denies shortness of breath. -O2 sats in the 90s on room air. Reports positive bowel movement yesterday loose and watery. Plavi x remains on hold. INR 1. Discussed diagnostic biopsy. Evaluated by pulmonary and patient is scheduled for diagnostic bronchoscopy with biopsy tomorrow. Objective - Vital Signs Vital signs: Vital Signs Temp 98.4 F 02/12/20 11:52 Pulse 60 02/12/20 11:52 Resp 17 02/12/20 11:52 BP 151/72 02/12/20 11:52 Pulse Ox 94 L 02/12/20 11:52 Intake & Output 02/11/20 02/12/20 02/12/20 18:59 06:59 18:59 Intake Total 400 1480 Balance 400 1480 Intake: Intake, IV Titration 400 600 Amount Sodium Chloride 0.9% 1, 400 600 000 ml @ 50 mls/hr IV . Q20H [facility] Rx#:[id number] Oral 880 Other: Voiding Method Toilet Toilet Toilet # Voids 3 3 - Exam GENERAL: The patient is alert and oriented x3, not in any acute distress. HEENT: Pupils are round and equally reacting to light. EOMI. No scleral icterus. No conjunctival pallor. Normocephalic, atraumatic. No pharyngeal erythema. No thyromegaly. CARDIOVASCULAR: S1 and S2 present. No murmurs, rubs, or gallops. PULMONARY: Chest is clear to auscultation, no wheezing or crackles. ABDOMEN: Soft, nontender, nondistended, normoactive bowel sounds. No palpable organomegaly. MUSCULOSKELETAL: No joint swelling or deformity. EXTREMITIES: No cyanosis, clubbing, or pedal edema. NEUROLOGICAL: Gross neurological examination did not reveal any focal deficits. SKIN: No rashes. No petechiae - Labs CBC & Chem 7: 02/10/20 06:12 02/10/20 06:12 Labs: Abnormal Lab Results - Last 24 Hours (Table) 02/10/20 Range/Units 06:12 Albumin (PEP) 3.67 L (3.80-4.90) g/dL Free [place] LC, Quant 2.67 H (0.33-1.94) mg/dL Assessment and Plan Assessment: Acute lower back pain, could be musculoskeletal. With CAT scan of the abdomen and pelvis showing severe degenerative disease of the spine, possibly related to mesenteric mass left lower lobe lung mass, seen before on previous CAT scan and ET scan, enlarging in size 2.5 x 6.2 x 3.5 with multiple other lesions in the left lung. 10 mm lesion posterior basal right lower lobe new mesenteric mass 2.3 x 2.4 cm along the stomach curvature, with other mesenteric implants hepatic steatosis moderate hiatal hernia previous history of hernia surgery about 3 years ago associated with chronic lower abdominal pain and discomfort for 3 years Hypertension Osteoarthritis Hyperlipidemia GERD Benign prostatic hypertrophy History of skin cancer Thoracic aortic aneurysm with maximal transverse diameter 3.8 cm Plan: Continue on current medication regime ,monitoring and symptomatic treatment. Scheduled for diagnostic bronchoscopy with biopsies in the a.m. follow closely with both pulmonary and oncology. Prognosis guarded given multiple complex medical issues. The impression and plan of care has been dictated as directed. : I performed a history and examination of this patient, discussed the same with the dictator. I agree with the dictator's note ,documented as a scribe. Any additional findings or plans will be noted.
[2020-02-12] MEDS: SODIUM CHLORIDE 0.9% 1,000 ML IV SCH (16:16)
[2020-02-12] MEDS: FINASTERIDE 5 MG TAB PO SCH (17:51)
[2020-02-12] MEDS: ATORVASTATIN 20 MG TAB PO SCH (17:51)
[2020-02-12] MEDS: DOXAZOSIN 4 MG TAB PO SCH (20:20)
[2020-02-13 06:28] LABS: Basophils % (A) 0 %; Eosinophils # (A) 0.2 k/uL (0-0.7); Eosinophils % (A) 3 %; HCT 38.2 % (39.0-53.0); HGB 12.7 gm/dL (13.0-17.5); Lymphocytes # (A) 0.9 k/uL (1.0-4.8); Lymphocytes % (A) 17 %; MCH 34.4 pg (25.0-35.0); MCHC 33.2 g/dL (31.0-37.0); MCV 103.5 fL (80.0-100.0); Macrocytosis Slight; Mean Platelet Volume 7.2; Monocytes # (A) 0.4 k/uL (0-1.0); Monocytes % (A) 7 %; Neutrophils # (A) 3.9 k/uL (1.3-7.7); Neutrophils % (A) 71 %; Platelet Count 143 k/uL (150-450); RBC 3.69 m/uL (4.30-5.90); WBC 5.6 k/uL (3.8-10.6)
[2020-02-13 06:36] LABS: Albumin 3.2 g/dL (3.5-5.0); Calcium 8.4 mg/dL (8.4-10.2); Potassium 3.9 mmol/L (3.5-5.1); Total Bilirubin 0.5 mg/dL (0.2-1.3)
[2020-02-13 06:39] LABS: Prothrombin Time 10.5 sec (9.0-12.0)
[2020-02-13] MEDS: MULTIVITAMINS, THERA 1 EACH TAB PO SCH (07:40)
[2020-02-13] MEDS: HEPARIN SODIUM,PORCINE 5,000 UNIT/ML 1 ML VIAL SQ SCH ×2 (07:41→20:28)
[2020-02-13] MEDS: FAMOTIDINE 20 MG/2 ML VIAL IV SCH ×2 (07:41→20:28)
[2020-02-13] MEDS: PANTOPRAZOLE 40 MG TABLET PO SCH (07:45)
[2020-02-13] MEDS ORDERED: IV FLUID CONTINUATION 200 ML IV ONE (08:58)
[2020-02-13] MEDS ORDERED: LIDOCAINE 1% (10MG/ML) FOR IV START INTRADERMA ONE (09:21)
[2020-02-13] MEDS ORDERED: LACTATED RINGERS 1,000 ML IV ONE (09:25)
[2020-02-13] MEDS ORDERED: MIDAZOLAM 2 MG/2 ML VIAL IV ONE (09:25)
[2020-02-13] MEDS ORDERED: NEOSTIGMINE 1 MG/ML 10 ML VIAL ONE (09:42)
[2020-02-13] MEDS ORDERED: fentaNYL (PF) 50 MCG/ML 2 ML AMP ONE (09:42)
[2020-02-13] MEDS ORDERED: SUCCINYLCHOLINE CHLORIDE 100 MG/5 ML SYR IV ONE (09:42)
[2020-02-13] MEDS ORDERED: LIDOCAINE 1% INJ 10MG/ML (20 ML MDV) ONE (09:42)
[2020-02-13] MEDS ORDERED: GLYCOPYRROLATE 0.2 MG/ML 2 ML VIAL ONE (09:42)
[2020-02-13] MEDS ORDERED: ROCURONIUM BROMIDE 10 MG/ML 5 ML VIAL IV ONE (09:42)
[2020-02-13] MEDS ORDERED: PROPOFOL 10 MG/ML 20 ML VIAL IV ONE (09:42)
--- NOTE | 2020-02-13 09:44 | CT ---
EXAMINATION TYPE: CT Chest wo con Veran Protocol DATE OF EXAM: 02/13/2020 COMPARISON: 02/10/2020 HISTORY: presurgical Veran procedure, mass CT DLP: 633 mGycm, Automated exposure control for dose reduction was used. CONTRAST: Performed injected with 0 mL of Isovue 300. TECHNIQUE: Axial images were obtained at 5 mm thick sections. Reconstructed images are reviewed on [employer] computer in the coronal plane. FINDINGS: Portion of the thyroid visualized is normal. There is a moderate size hiatal hernia present . There is some minimal right apical scarring. Series 6 image 14. Scattered small mediastinal lymph nodes are present. Small left pleural effusion is present. Right lower lobe mass which may have some calcification on this examination appears to measure 6.2 x 5.5 cm an additional pleural-based density in the posterior left midlung at the level of the elisa m easures 1.9 cm, essentially stable from a 1.8 cm previous measurement. No enlarged mediastinal or hilar adenopathy is evident. The ascending aorta diameter at the level o f the main pulmonary artery is 3.5 cm. The main pulmonary artery diameter at the bifurcation is 2.6 cm. Coronary artery calcifications present. Limited CT sections are obtained through the upper abdomen. Abdomen is essentially unremarkable. IMPRESSIONS: 1. Medial left lower lobe mass with additional pleural-based density suspicious for neoplasm. 2. Small left pleural effusion. 3. CT for localization
--- NOTE | 2020-02-13 11:33 | XR ---
EXAMINATION TYPE: XR chest 1V portable DATE OF EXAM: 02/13/2020 CLINICAL HISTORY: Abnormal CT, left-sided mass. History of bronchoscopy and sampling. TECHNIQUE: Single AP portable upright view of the chest is obtained. COMPARISON: Chest CT from [address] January 21, 2019 FINDINGS: Background chronic parenchymal fibrotic change greatest in the left lung base redemonstrat ed without visualized pneumothorax after bronchoscopy and sampling. No suspicious new focal airspace opacity, pleural effusion, or pneumothorax seen bilaterally. Cardiac silhouette size stable and withi n normal limits with atherosclerotic thoracic aorta. Underlying scoliotic curvature again seen. IMPRESSION: No pneumothorax after bronchoscopy and left-sided sampling.
[2020-02-13] MEDS: VALSARTAN 160 MG TAB PO SCH (11:40)
[2020-02-13] MEDS: FLUoxetine HCL 10 MG CAP PO SCH (11:40)
[2020-02-13] MEDS: DOCUSATE 100 MG CAP PO SCH ×2 (11:40→20:28)
[2020-02-13] MEDS: HYDROCHLOROTHIAZIDE 12.5 MG CAP PO SCH (11:40)
[2020-02-13] MEDS ORDERED: MAGNESIUM HYDROXIDE 2,400 MG/10 ML CUP PO STA (12:39)
[2020-02-13] MEDS ORDERED: BENZOCAINE/MENTHOL LOZENG 1 EACH LOZENGE MUCOUS MEM PRN (12:40)
[2020-02-13] MEDS: HYDROcodone/APAP 5-325MG 1 EACH TAB PO PRN (13:03)
--- NOTE | 2020-02-13 13:38 | P.PN ---
Subjective Progress Note Date: 02/13/20 Principal diagnosis: Abdominal discomfort secondary to mesenteric mass, lung mass Patient is seen today in 02/11/2020 in follow-up on the oncology unit. He is currently resting comfortably in bed. Awake and alert in no acute distress. Maintaining good O2 saturations in the 90s on room air. His abdominal discomfort is slightly improved. Computed tomography scan of the chest revealed enlarging left lower lobe pulmonary mass with both the lateral and contralateral metastasis. Hiatal hernia. Thoracic aortic aneurysm with a max transverse diameter 3.8 cm. Nonobstructing bilateral renal calculi. The patient is seen today 02/12/2020 in follow-up on the oncology unit. He is currently awake and alert in no acute distress. He's been up ambulating in his room. He has no shortness of breath, cough or congestion. Continues to maintain good O2 saturations in the 90s on room air. He's had some ongoing lower abdominal discomfort and back pain. No worsening at this time. INR 1.0. The patient is seen today 02/13/2020 in follow-up. He did undergo bronchoscopy with biopsies of the left lower lobe today by Dr. Mireles. Pathology pending. He tolerated procedure well. He is seen back up in his room on the oncology unit. Awake and alert in no acute distress. Continues to maintain good O2 saturations in the 90s on room air. White count 5.6. Hemoglobin 12.7. INR 1.0. Sodium 131. Potassium 3.9. Creatinine 0.99. Objective - Vital Signs Vital signs: Vital Signs Temp 97.5 F L 02/13/20 11:32 Pulse 60 02/13/20 12:50 Resp 16 02/13/20 11:32 BP 156/78 02/13/20 12:50 Pulse Ox 93 L 02/13/20 12:50 Intake & Output 02/12/20 02/13/20 02/13/20 18:59 06:59 18:59 Intake Total 1190 620 Balance 1190 620 Intake: IV 620 Intake, IV Titration 600 Amount Sodium Chloride 0.9% 1, 600 000 ml @ 50 mls/hr IV . Q20H [facility] Rx#:[id number] Oral 590 Other: Voiding Method Toilet Toilet Toilet # Voids 4 6 - Exam GENERAL EXAM: Alert, active, pleasant 84-year-old gentleman, on room air, comfortable in no apparent distress. HEAD: Normocephalic. EYES: Normal reaction of pupils, equal size. NOSE: Clear with pink turbinates. THROAT: No erythema or exudates. NECK: No masses, no JVD. CHEST: No chest wall deformity. LUNGS: Equal air entry with no crackles, wheeze, rhonchi or dullness. CVS: S1 and S2 normal with no audible murmur, regular rhythm. ABDOMEN: No hepatosplenomegaly, normal bowel sounds, no guarding or rigidity. SPINE: No scoliosis or deformity SKIN: No rashes CENTRAL NERVOUS SYSTEM: No focal deficits, tone is normal in all 4 extremities. EXTREMITIES: There is no peripheral edema. No clubbing, no cyanosis. Peripheral pulses are intact. - Labs CBC & Chem 7: 02/13/20 06:11 02/13/20 06:11 Labs: Abnormal Lab Results - Last 24 Hours (Table) 02/13/20 02/13/20 Range/Units 06:11 06:11 RBC 3.69 L (4.30-5.90) m/uL Hgb 12.7 L (13.0-17.5) gm/dL Hct 38.2 L (39.0-53.0) % MCV 103.5 H (80.0-100.0) fL Plt Count 143 L (150-450) k/uL Lymphocytes # 0.9 L (1.0-4.8) k/uL Sodium 131 L (137-145) mmol/L Total Protein 6.0 L (6.3-8.2) g/dL Albumin 3.2 L (3.5-5.0) g/dL Assessment and Plan Assessment: Abdominal discomfort secondary to mesenteric mass measuring 2.3 x 2.4 cm on the anterior left lateral to the ureter curvature of the stomach Increasing left lower lobe pulmonary mass measuring 2.5 x 6.2 x 3.5 cm. Multiple other lesions the left lung. 10 mm lesion in the posterior basal segment of the right lower lobe. Status post bronchoscopy with biopsies of the left lower lobe mass on 02/12. Pathology pending Lifelong nonsmoker Chronic constipation History of rectal fistula Hypertension History of migraines History of GERD History of skin cancer Benign prostatic hypertrophy Plan: The patient was seen and evaluated by Dr. Mireles Bronchoscopy with biopsies of the left lower lobe performed today Pathology pending He is cleared for discharge from the pulmonary standpoint and could resume his Plavix Follow-up in the office in 1-2 weeks' time I, the cosigning physician, performed a history & physical examination of the patient. Lungs sounds are clear. Maintaining good O2 saturations in the 90s on room air. I discussed the assessment and plan of care with my nurse practitioner, Zeynep Guillermo. I attest to the above note as dictated by her.
--- NOTE | 2020-02-13 14:44 | P.PN ---
Subjective Progress Note Date: 02/13/20 This is a pleasant 84 years old male with past medical history of GERD, hypertension, osteoarthritis, benign prostatic hypertrophy, she is a patient of Dr. Venegas. who presents with back pain, patient is in the lower back nonradiating is been going on for more than a week, nonspecific however was getting gradually more severe on admission was 9-10/10, increase with movement that sometimes patient cannot get out of bed. Also patient was complaining of from chronic lower abdominal pain or discomfort for 3 years since he had hernia surgery. He has ongoing nausea but no vomiting, he can eat and drink well but he has low appetite. He didn't have bowel movement for a week and he follow-up with his PCP who prescribed him laxative, and GoLYTELY last one is day about 2-3 days ago followed by bowel movement over 2 days. However yesterday his back to get more severe and he decided to call 911 on come to emergency room. Today he feels back pain is better with Dilaudid. He denies weakness or numbness in the lower extremity. No urine or bowel contents. No history of trauma or falls Vitals are stable. Labs are unremarkable including CBC, BMP, liver enzymes, lipase, urinalysis. 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 02/11/2020 Vision feels generally weak, however no specific weakness in legs and arms. He still complaining of from his back pain about 6/10 in severity, and he has ongoing chronic abdominal pain with constipation, he had no bowel movement and passing gases only, his abdominal pain could also be related to his mesenteric masses. CT of the chest from yesterday showing left lower lobe pulmonary mass increased in size to 5.7 x 4.8 cm with multiple smaller lesions on the right lower and left lower lungs, patient informed with these findings. patient may need biopsy. Hemodynamically stable. Labs are stable 02/12/2020 complaining of bilateral lower quadrants abdominal pain, reports feels like "gas". Eyes cough, denies shortness of breath. -O2 sats in the 90s on room air. Reports positive bowel movement yesterday loose and watery. Plavi x remains on hold. INR 1. Discussed diagnostic biopsy. Evaluated by pulmonary and patient is scheduled for diagnostic bronchoscopy with biopsy tomorrow. 02/13/2020 NPO, scheduled for chest CT, diagnostic bronchoscopy with biopsies. Anxious, reports abdominal cramping, no bowel movement, minimal flatus. INR 1. Hemoglobin 12.7, platelets 143. Sodium 131. Renal function improving, BUN 15, creatinine 0.99 Afebrile, normal WBC. Denies chest pain, palpitations. Objective - Vital Signs Vital signs: Vital Signs Temp 97.9 F 02/13/20 08:59 Pulse 69 02/13/20 09:32 Resp 16 02/13/20 09:32 BP 159/74 02/13/20 09:32 Pulse Ox 96 02/13/20 09:32 Intake & Output 02/12/20 02/13/20 02/13/20 18:59 06:59 18:59 Intake Total 1190 100 Balance 1190 100 Intake: IV 100 Intake, IV Titration 600 Amount Sodium Chloride 0.9% 1, 600 000 ml @ 50 mls/hr IV . Q20H [facility] Rx#:[id number] Oral 590 Other: Voiding Method Toilet Toilet Toilet # Voids 4 6 - Exam GENERAL: Sitting up in bed, alert and oriented x3, not in any acute distress, anxious. HEENT: Pupils are round and equally reacting to light. EOMI. No scleral icterus. No conjunctival pallor. Normocephalic, atraumatic. No pharyngeal erythema. No thyromegaly. CARDIOVASCULAR: S1 and S2 present. No murmurs, rubs, or gallops. PULMONARY: Chest is clear to auscultation, no wheezing or crackles. ABDOMEN: Soft, nontender, nondistended, normoactive bowel sounds. EXTREMITIES: No cyanosis, clubbing, or pedal edema. NEUROLOGICAL: Gross neurological examination did not reveal any focal deficits. SKIN: No rashes. - Labs CBC & Chem 7: 02/13/20 06:11 02/13/20 06:11 Labs: Abnormal Lab Results - Last 24 Hours (Table) 02/10/20 02/13/20 02/13/20 Range/Units 06:12 06:11 06:11 RBC 3.69 L (4.30-5.90) m/uL Hgb 12.7 L (13.0-17.5) gm/dL Hct 38.2 L (39.0-53.0) % MCV 103.5 H (80.0-100.0) fL Plt Count 143 L (150-450) k/uL Lymphocytes # 0.9 L (1.0-4.8) k/uL Sodium 131 L (137-145) mmol/L Total Protein 6.0 L (6.3-8.2) g/dL Albumin 3.2 L (3.5-5.0) g/dL Albumin (PEP) 3.67 L (3.80-4.90) g/dL Assessment and Plan Assessment: Acute lower back pain, could be musculoskeletal. CT scan of the abdomen and pelvis showing severe degenerative disease of the spine, possibly related to mesenteric mass left lower lobe lung mass, seen before on previous CT scan and ET scan, enlar ging in size 2.5 x 6.2 x 3.5 with multiple other lesions in the left lung. 10 mm lesion posterior basal right lower lobe new mesenteric mass 2.3 x 2.4 cm along the stomach curvature, with other mesen teric implants. hepatic steatosis moderate hiatal hernia previous history of hernia surgery about 3 years ago associated with chronic lower abdominal pain and discomfort for 3 years Hypertension Osteoarthritis Hyperlipidemia GERD Benign prostatic hypertrophy History of skin cancer Thoracic aortic aneurysm with maximal transverse diameter 3.8 cm Plan: Continue on current medication regime ,monitoring and symptomatic treatment. CT, diagnostic bronchoscopy with biopsies pending. Prognosis guarded given multiple complex medical issues. The impression and plan of care has been dictated as directed. : I performed a history and examination of this patient, discussed the same with the dictator. I agree with the dictator's note ,documented as a scribe. Any additional findings or plans will be noted.
--- NOTE | 2020-02-13 14:47 | P.PCN ---
Date of Procedure: 02/13/20 Preoperative Diagnosis: Left infrahilar mass Postoperative Diagnosis: Left infrahilar mass, rule out bronchogenic carcinoma of the lung Procedure(s) Performed: Navigational bronchoscopy, transbronchial biopsies of the left lower lobe mass, transbronchial brushing of the left lower lobe mass, bronchioloalveolar lavage of the left lower lobe. Anesthesia: GETA Surgeon: Rhonda Mireles Estimated Blood Loss (ml): 0 Pathology: other Condition: stable Disposition: floor Operative Findings: This procedure was done under navigational guidance. The [employer] system was used to complete the procedure. This was done while the patient being intubated on a mechanical ventilator. The intubation process was done by [employer] TECHNOLOGIST and the patient was intubated in the endoscopy suite and placed on a mechanical ventilator and the procedure was done while the patient was fully oxygenated and ventilated. Note that preoperatively, the patient underwent placement of the appropriate VPADS on his chest and underwent a CAT scan of the chest using the Veran protocol. Images were uploaded into our system and the left infrahilar mass was identified and the appropriate target lesion was marked and following that all this information was uploaded into the Navigation tower. After being intubated, the flexible bronchoscope was introduced through the oral tracheal tube and the tip of the ET tube was seen around 2 cm above the elisa. An airway inspection was done. The distal trachea was within normal limits. The elisa was sharp in the midline. Examination of the right-sided fluid the right mainstem bronchus, right upper lobe bronchus, right middle lobe bronchus and right lower lobe bronchus along with his various segments and subsegments. All of these were patent and within normal limits. Examination of the left side included the left mainstem bronchus that was widely patent and open. Left upper lobe bronchus including the lingular segment, apical posterior and anterior segments were also patent and within normal limits. Examination of the left side included the left lower lobe and the left lower lobe bronchus was patent and within normal limits. This appears similar the left lower lobe bronchus was extrinsically narrowed and there was also some narrowing in the posterior segment of the left lower lobe. The rest of the segments were patent and within normal limits. The appropriate calibration was done using to reference points and these were the main elisa and the secondary elisa between the left upper and left lower lobe. Using navigational guidance, the bronchoscope was advanced into the posterior and spirits segment of the left lower lobe and several transplant biopsies were obtained under navigational guidance. I also performed a transbronchial brushing of the left infrahilar mass. At the completion of the procedure, a BAL of the left lower lobe superior segment was done with a total of 80cc of fluid was infused and 20 cc was suctioned back. The procedure was completed without complication. The bronchoscope was removed and the patient was extubated and following that the chest x-ray was done that showed no evidence of any pneumothorax. The patient was transferred recovery in stable condition and following that he was transferred back to his room. We'll continue to follow.
[2020-02-13] MEDS: SALT AND SODA MOUTHWASH 1,000 ML PO SCH ×5 (15:52→23:25)
--- NOTE | 2020-02-13 16:23 | P.PN ---
Subjective Progress Note Date: 02/13/20 Principal diagnosis: LLL mass, periaortic, mesentery implants In f/u today is having a very bad morning, his back hurts after scan, not had a BM for 4 days, mouth is very dry, throat is mildly sore post procedure, very cold. No fever, MELANIE, he is having mid to moderate abd cramping, no other c/o. He wanted to talk about possible cancer diagnosis Objective - Vital Signs Vital signs: Vital Signs Temp 97.5 F L 02/13/20 11:32 Pulse 65 02/13/20 12:05 Resp 16 02/13/20 11:32 BP 137/72 02/13/20 12:05 Pulse Ox 95 02/13/20 12:05 Intake & Output 02/12/20 02/13/20 02/13/20 18:59 06:59 18:59 Intake Total 1190 620 Balance 1190 620 Intake: IV 620 Intake, IV Titration 600 Amount Sodium Chloride 0.9% 1, 600 000 ml @ 50 mls/hr IV . Q20H [facility] Rx#:[id number] Oral 590 Other: Voiding Method Toilet Toilet Toilet # Voids 4 6 - Constitutional General appearance: Present: average body habitus, cooperative, mild distress - EENT EENT Comment(s): dry mucus membranes Eyes: Present: anicteric sclerae, EOMI ENT: Present: hearing grossly normal - Respiratory Respiratory: bilateral: CTA, diminished - Cardiovascular Heart sounds: normal: S1, S2 - Peripheral edema leg Peripheral Edema: bilateral: None - Gastrointestinal General gastrointestinal: Present: decreased bowel sounds - Neurologic Neurologic: Present: CNII-XII intact - Musculoskeletal Musculoskeletal: Present: generalized weakness, strength equal bilaterally - Psychiatric Psychiatric: Present: A&O x's 3, appropriate affect, intact judgment & insight - Labs CBC & Chem 7: 02/13/20 06:11 02/13/20 06:11 Labs: Abnormal Lab Results - Last 24 Hours (Table) 02/10/20 02/13/20 02/13/20 Range/Units 06:12 06:11 06:11 RBC 3.69 L (4.30-5.90) m/uL Hgb 12.7 L (13.0-17.5) gm/dL Hct 38.2 L (39.0-53.0) % MCV 103.5 H (80.0-100.0) fL Plt Count 143 L (150-450) k/uL Lymphocytes # 0.9 L (1.0-4.8) k/uL Sodium 131 L (137-145) mmol/L Total Protein 6.0 L (6.3-8.2) g/dL Albumin 3.2 L (3.5-5.0) g/dL Albumin (PEP) 3.67 L (3.80-4.90) g/dL - Imaging and Cardiology Chest x-ray: report reviewed CT scan - chest: report reviewed Assessment and Plan (1) Back pain Narrative/Plan: Worse after laying for scan, gave RN ok to give 1 time norco if pt is not able to position himself and get comfortable Current Visit: Yes Status: Acute Priority: High Code(s): M54.9 - DORSALGIA, UNSPECIFIED SNOMED Code(s): 976926237 (2) Abdominal pain Narrative/Plan: Pt c/o constipation, MOM and prune juice requested. Current Visit: Yes Status: Acute Priority: High Code(s): R10.9 - UNSPECIFIED ABDOMINAL PAIN SNOMED Code(s): 14225462 (3) Lung mass Narrative/Plan: S/P biopsy today, path pending Current Visit: Yes Status: Acute Priority: High Code(s): R91.8 - OTHER NONSPECIFIC ABNORMAL FINDING OF LUNG FIELD SNOMED Code(s): 243969772 (4) Abdominal mass Narrative/Plan: Based on path from lung, pt is aware that there could be a need for a biopsy from the abd. Waiting for now Current Visit: Yes Status: Acute Priority: High Code(s): R19.00 - INTRA- ABD AND PELVIC SWELLING, MASS AND LUMP, UNSP SITE SNOMED Code(s): 303982633 (5) Constipation Narrative/Plan: colace and senna currently, MOM and prune juice as pt is getting more uncomfortable. Abd xray. Current Visit: Yes Status: Acute Priority: High Code(s): K59.00 - CONSTIPATION, UNSPECIFIED SNOMED Code(s): 89623308
[2020-02-13] MEDS: ATORVASTATIN 20 MG TAB PO SCH (17:47)
[2020-02-13] MEDS: FINASTERIDE 5 MG TAB PO SCH (17:47)
[2020-02-13] MEDS: SODIUM CHLORIDE 0.9% 1,000 ML IV SCH (17:49)
[2020-02-13] MEDS: DOXAZOSIN 4 MG TAB PO SCH (20:28)
[2020-02-14] MEDS: SALT AND SODA MOUTHWASH 1,000 ML PO SCH ×4 (04:21→23:41)
--- NOTE | 2020-02-14 07:39 | XR ---
EXAMINATION TYPE: XR abdomen complete w decub DATE OF EXAM: 02/14/2020 HISTORY: Pain. Technique: 4 views of the abdomen are submitted. Comparison: 02/07/2020 Findings: There is no convincing evidence of pneumoperitoneum. The Bowel gas pattern is nonspecific and nonobstructive. No sizable air-fluid levels are seen. Moderate fecal stasis noted. No mass effects are noted. No renal calcifications are identified. IMPRESSION: 1. Nonspecific nonobstructive bowel gas pattern .Moderate fecal stasis noted.
[2020-02-14] MEDS ORDERED: MAGNESIUM HYDROXIDE 2,400 MG/10 ML CUP PO PRN (08:21)
[2020-02-14] MEDS: PANTOPRAZOLE 40 MG TABLET PO SCH (08:34)
[2020-02-14] MEDS: FLUoxetine HCL 10 MG CAP PO SCH (08:35)
[2020-02-14] MEDS: DOCUSATE 100 MG CAP PO SCH ×2 (08:35→20:46)
[2020-02-14] MEDS: MULTIVITAMINS, THERA 1 EACH TAB PO SCH (08:35)
[2020-02-14] MEDS: HYDROCHLOROTHIAZIDE 12.5 MG CAP PO SCH (08:35)
[2020-02-14] MEDS: FAMOTIDINE 20 MG/2 ML VIAL IV SCH ×2 (08:35→20:46)
[2020-02-14] MEDS: HEPARIN SODIUM,PORCINE 5,000 UNIT/ML 1 ML VIAL SQ SCH ×2 (08:35→20:46)
[2020-02-14] MEDS: VALSARTAN 160 MG TAB PO SCH (08:35)
--- NOTE | 2020-02-14 10:38 | P.PN ---
Subjective Progress Note Date: 02/14/20 This is a pleasant 84 years old male with past medical history of GERD, hypertension, osteoarthritis, benign prostatic hypertrophy, she is a patient of Dr. Venegas. who presents with back pain, patient is in the lower back nonradiating is been going on for more than a week, nonspecific however was getting gradually more severe on admission was 9-10/10, increase with movement that sometimes patient cannot get out of bed. Also patient was complaining of from chronic lower abdominal pain or discomfort for 3 years since he had hernia surgery. He has ongoing nausea but no vomiting, he can eat and drink well but he has low appetite. He didn't have bowel movement for a week and he follow-up with his PCP who prescribed him laxative, and GoLYTELY last one is day about 2-3 days ago followed by bowel movement over 2 days. However yesterday his back to get more severe and he decided to call 911 on come to emergency room. Today he feels back pain is better with Dilaudid. He denies weakness or numbness in the lower extremity. No urine or bowel contents. No history of trauma or falls Vitals are stable. Labs are unremarkable including CBC, BMP, liver enzymes, lipase, urinalysis. 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 02/11/2020 Vision feels generally weak, however no specific weakness in legs and arms. He still complaining of from his back pain about 6/10 in severity, and he has ongoing chronic abdominal pain with constipation, he had no bowel movement and passing gases only, his abdominal pain could also be related to his mesenteric masses. CT of the chest from yesterday showing left lower lobe pulmonary mass increased in size to 5.7 x 4.8 cm with multiple smaller lesions on the right lower and left lower lungs, patient informed with these findings. patient may need biopsy. Hemodynamically stable. Labs are stable 02/12/2020 complaining of bilateral lower quadrants abdominal pain, reports feels like "gas". Eyes cough, denies shortness of breath. -O2 sats in the 90s on room air. Reports positive bowel movement yesterday loose and watery. Plavi x remains on hold. INR 1. Discussed diagnostic biopsy. Evaluated by pulmonary and patient is scheduled for diagnostic bronchoscopy with biopsy tomorrow. 02/13/2020 NPO, scheduled for chest CT, diagnostic bronchoscopy with biopsies. Anxious, reports abdominal cramping, no bowel movement, minimal flatus. INR 1. Hemoglobin 12.7, platelets 143. Sodium 131. Renal function improving, BUN 15, creatinine 0.99 Afebrile, normal WBC. Denies chest pain, palpitations. 02/14/2020 CT reported medial left lower lobe mass with additional pleural-based density suspicious for neoplasm.completed diagnostic bronchoscopy with biopsies of the left lower lobe yesterday. Tolerated procedure well. Chest x-ray postprocedure confirmed no pneumothorax. Cytology/pathology pending. Postprocedure developed urinary retention requiring straight cath 1. Spontaneous voiding without difficulty this morning. Atenolol x-ray reporting nonspecific nonobstructive bowel gas pattern with moderate fecal stasis. Complains of abdominal pain, distended, passing flatus, no bowel movement. No nausea or vomiting. VSS,Maintaining O2 sats in the 90s on room air. Afebrile. Labs pending. Objective - Vital Signs Vital signs: Vital Signs Temp 97.8 F 02/14/20 05:00 Pulse 60 02/14/20 05:00 Resp 18 02/14/20 05:00 BP 152/72 02/14/20 05:00 Pulse Ox 96 02/14/20 05:00 Intake & Output 02/13/20 02/14/20 02/14/20 18:59 06:59 18:59 Intake Total 1020 550 Output Total 1000 Balance 1020 -450 Intake: IV 620 Intake, IV Titration 400 Amount Sodium Chloride 0.9% 1, 400 000 ml @ 50 mls/hr IV . Q20H [facility] Rx#:[id number] Oral 550 Output: Urine 1000 Straight 600 Other: Voiding Method Toilet Toilet Urinal # Voids 0 - Exam GENERAL: Sitting up in bed, alert and oriented x3, not in any acute distress HEENT: Pupils are round and equally reacting to light. EOMI. No scleral icterus. No conjunctival pallor. Normocephalic, atraumatic. No pharyngeal erythema. No thyromegaly. CARDIOVASCULAR: S1 and S2 present. No murmurs. PULMONARY: Chest is clear to auscultation, no rhonchi, no wheezing or crackles. ABDOMEN: Soft, minimal diffuse tenderness ,distended, normoactive bowel sounds. EXTREMITIES: No cyanosis, clubbing, or pedal edema. NEUROLOGICAL: Gross neurological examination did not reveal any focal deficits. SKIN: No rashes. - Labs CBC & Chem 7: 02/13/20 06:11 02/13/20 06:11 Assessment and Plan Assessment: Acute lower back pain, could be musculoskeletal. CT scan of the abdomen and pelvis showing severe degenerative disease of the spine, possibly related to mesenteric mass Left lower lobe lung mass, seen before on previous CT scan and ET scan, enlarging in size 2.5 x 6.2 x 3.5 with multiple other lesions in the left lung. 10 mm lesion posterior basal right lower lobe new mesenteric mass 2.3 x 2.4 cm along the stomach curvature, with other mesenteric implants. Status post bronchoscopy with biopsies of left lower lobe mass, cytology/pathology pending Constipation, possibly secondary to mesenteric mass hepatic steatosis moderate hiatal hernia previous history of hernia surgery about 3 years ago associated with chronic lower abdominal pain and discomfort for 3 years Hypertension Osteoarthritis Hyperlipidemia GERD Benign prostatic hypertrophy History of skin cancer Thoracic aortic aneurysm with maximal transverse diameter 3.8 cm Plan: Continue on current medication regime ,monitoring and symptomatic treatment. Pleural cytology/pathology pending. Patient currently on milk of mag nesia, Senokot, Colace. If no bowel movement by later this afternoon will order citrate of magnesium. 2. Labs pending. Prognosis guarded given multiple complex medical issues. The impression and plan of care has been dictated as directed. : I performed a history and examination of this patient, discussed the same with the dictator. I agree with the dictator's note ,documented as a scribe. Any additional findings or plans will be noted.
[2020-02-14 10:51] LABS: HGB 12.3 gm/dL (13.0-17.5); MCH 35.4 pg (25.0-35.0); MCHC 34.3 g/dL (31.0-37.0); MCV 103.2 fL (80.0-100.0); Macrocytosis Slight; Mean Platelet Volume 7.7; Platelet Count 152 k/uL (150-450); RBC 3.48 m/uL (4.30-5.90); RDW 13.2 % (11.5-15.5)
[2020-02-14 10:54] LABS: Calcium 8.4 mg/dL (8.4-10.2); Potassium 3.9 mmol/L (3.5-5.1)
[2020-02-14] MEDS: SODIUM CHLORIDE 0.9% 1,000 ML IV SCH (11:05)
--- NOTE | 2020-02-14 14:19 | P.PN ---
Subjective Progress Note Date: 02/14/20 Principal diagnosis: Abdominal pain, sigmoid to mesenteric mass, lung mass Patient is seen today in 02/11/2020 in follow-up on the oncology unit. He is currently resting comfortably in bed. Awake and alert in no acute distress. Maintaining good O2 saturations in the 90s on room air. His abdominal discomfort is slightly improved. Computed tomography scan of the chest revealed enlarging left lower lobe pulmonary mass with both the lateral and contralateral metastasis. Hiatal hernia. Thoracic aortic aneurysm with a max transverse diameter 3.8 cm. Nonobstructing bilateral renal calculi. The patient is seen today 02/12/2020 in follow-up on the oncology unit. He is currently awake and alert in no acute distress. He's been up ambulating in his room. He has no shortness of breath, cough or congestion. Continues to maintain good O2 saturations in the 90s on room air. He's had some ongoing lower abdominal discomfort and back pain. No worsening at this time. INR 1.0. The patient is seen today 02/13/2020 in follow-up. He did undergo bronchoscopy with biopsies of the left lower lobe today by Dr. Mireles. Pathology pending. He tolerated procedure well. He is seen back up in his room on the oncology unit. Awake and alert in no acute distress. Continues to maintain good O2 saturations in the 90s on room air. White count 5.6. Hemoglobin 12.7. INR 1 .0. Sodium 131. Potassium 3.9. Creatinine 0.99. On 02/14/2020 patient seen in follow-up on medical oncology floor, he is resting in bed, denies any pulmonary complaints, no shortness of breath, no coughing or wheezing, he is on room air, with pulse ox of 95%, afebrile, he underwent bronchoscopy with electromagnetic navigation and biopsy of the left lower lobe pulmonary mass, pathology results are pending. Is complaining of abdominal distention, and constipation, he was given some laxatives and was able to have some bowel movements. No fever or chills, still awaiting pathology report. Objective - Vital Signs Vital signs: Vital Signs Temp 97.5 F L 02/14/20 13:45 Pulse 63 02/14/20 13:45 Resp 16 02/14/20 13:45 BP 148/71 02/14/20 13:45 Pulse Ox 95 02/14/20 13:45 Intake & Output 02/13/20 02/14/20 02/14/20 18:59 06:59 18:59 Intake Total 1020 550 Output Total 1000 Balance 1020 -450 Intake: IV 620 Intake, IV Titration 400 Amount Sodium Chloride 0.9% 1, 400 000 ml @ 50 mls/hr IV . Q20H [facility] Rx#:[id number] Oral 550 Output: Urine 1000 Straight 600 Other: Voiding Method Toilet Toilet Urinal # Voids 0 # Bowel Movements 1 - Exam GENERAL EXAM: Alert, very pleasant 84-year-old white male, on room air, with a pulse ox of 95% comfortable in no apparent distress. HEAD: Normocephalic/atraumatic. EYES: Normal reaction of pupils, equal size. Conjunctiva pink, sclera white. NOSE: Clear with pink turbinates. THROAT: No erythema or exudates. NECK: No masses, no JVD, no thyroid enlargement, no adenopathy. CHEST: No chest wall deformity. Symmetrical expansion. LUNGS: Equal air entry with no crackles, wheeze, rhonchi or dullness. CVS: Regular rate and rhythm, normal S1 and S2, no gallops, no murmurs, no rubs ABDOMEN: Soft, slightly distended nontender. No hepatosplenomegaly, normal bowel sounds, no guarding or rigidity. EXTREMITIES: No clubbing, no edema, no cyanosis, 2+ pulses and upper and lower extremities. MUSCULOSKELETAL: Muscle strength and tone normal. SPINE: No scoliosis or deformity SKIN: No rashes CENTRAL NERVOUS SYSTEM: Alert and oriented -3. No focal deficits, tone is normal in all 4 extremities. PSYCHIATRIC: Alert and oriented -3. Appropriate affect. Intact judgment and insight. - Labs CBC & Chem 7: 02/14/20 08:46 02/14/20 08:46 Labs: Abnormal Lab Results - Last 24 Hours (Table) 02/14/20 02/14/20 Range/Units 08:46 08:46 RBC 3.48 L (4.30-5.90) m/uL Hgb 12.3 L (13.0-17.5) gm/dL Hct 36.0 L (39.0-53.0) % MCV 103.2 H (80.0-100.0) fL MCH 35.4 H (25.0-35.0) pg Sodium 130 L (137-145) mmol/L Glucose 110 H (74-99) mg/dL Assessment and Plan Plan: Assessment: Abdominal discomfort secondary to mesenteric mass measuring 2.3 x 2.4 cm on the anterior left lateral to the ureter curvature of the stomach Increasing left lower lobe pulmonary mass measuring 2.5 x 6.2 x 3.5 cm. Multiple other lesions the left lung. 10 mm lesion in the posterior basal segment of the right lower lobe. Status post bronchoscopy with biopsies of the left lower lobe mass on 0. Pathology pending Lifelong nonsmoker Chronic constipation History of rectal fistula Hypertension History of migraines History of GERD History of skin cancer Benign prostatic hypertrophy Plan: Left lower lobe pulmonary mass biopsy results are still pending, from pulmonary perspective patient has no specific complaints, he is on room air, vital signs are stable, a pulmonary perspective he could be considered for discharge home once cleared by the primary service. He will need outpatient follow-up in the office in one or 2 weeks time I performed a history & physical examination of the patient and discussed their management with my nurse practitioner, Nery Dominguez. I reviewed the nurse practitioner's note and agree with the documented findings and plan of care. Lung sounds are positive for clear breath sounds. The findings and the impression was discussed with the patient. I attest to the documentation by the nurse practitioner. Time with Patient: Less than 30
--- NOTE | 2020-02-14 14:44 | P.PN ---
Subjective Progress Note Date: 02/14/20 Principal diagnosis: LLL mass, periaortic, mesentery implants In f/u today patient finally had a bowel movement. It did not help has abdominal discomfort is much as he thought, patient's back pain is persistent, worse when he has procedures that he has to lay for. He was supposed to see Dr. Olivares at of the month. He denies any fevers, difficulty breathing, appetite is very poor, denies nausea, chest pain, abdominal distention or lower extremity swelling. Patient has generalized weakness but is still ambulating Objective - Vital Signs Vital signs: Vital Signs Temp 97.5 F L 02/14/20 13:45 Pulse 63 02/14/20 13:45 Resp 16 02/14/20 13:45 BP 148/71 02/14/20 13:45 Pulse Ox 95 02/14/20 13:45 Intake & Output 02/13/20 02/14/20 02/14/20 18:59 06:59 18:59 Intake Total 1020 550 400 Output Total 1000 Balance 1020 -450 400 Intake: IV 620 Intake, IV Titration 400 400 Amount Sodium Chloride 0.9% 1, 400 400 000 ml @ 50 mls/hr IV . Q20H [facility] Rx#:[id number] Oral 550 Output: Urine 1000 Straight 600 Other: Voiding Method Toilet Toilet Urinal # Voids 0 # Bowel Movements 1 - Constitutional General appearance: Present: average body habitus, cooperative, mild distress - EENT Eyes: Present: anicteric sclerae, EOMI ENT: Present: hearing grossly normal - Respiratory Respiratory: bilateral: CTA - Cardiovascular Heart sounds: normal: S1, S2 - Peripheral edema leg Peripheral Edema: bilateral: None - Gastrointestinal General gastrointestinal: Present: soft - Neurologic Neurologic: Present: CNII-XII intact - Musculoskeletal Musculoskeletal: Present: generalized weakness, strength equal bilaterally - Psychiatric Psychiatric: Present: A&O x's 3, appropriate affect, intact judgment & insight - Labs CBC & Chem 7: 02/14/20 08:46 02/14/20 08:46 Labs: Abnormal Lab Results - Last 24 Hours (Table) 02/14/20 02/14/20 Range/Units 08:46 08:46 RBC 3.48 L (4.30-5.90) m/uL Hgb 12.3 L (13.0-17.5) gm/dL Hct 36.0 L (39.0-53.0) % MCV 103.2 H (80.0-100.0) fL MCH 35.4 H (25.0-35.0) pg Sodium 130 L (137-145) mmol/L Glucose 110 H (74-99) mg/dL Assessment and Plan (1) Back pain Narrative/Plan: Patient was supposed to see Orthopedic spine soon. This is the patient's biggest complaint and is impacting his quality of life and mobility significantly. It does not appear to have anything to do with the lung mass or the peritoneal implants. Dr. Olivares will be consulted for his evaluation and recommendations. Current Visit: Yes Status: Acute Priority: High Code(s): M54.9 - DORSALGIA, UNSPECIFIED SNOMED Code(s): 718442891 (2) Abdominal pain Narrative/Plan: Pt c/o constipation, patient has had a bowel movement today. Encouraged him to continue multiple modalities for prevention of constipation. Current Visit: Yes Status: Acute Priority: High Code(s): R10.9 - UNSPECIFIED ABDOMINAL PAIN SNOMED Code(s): 79892672 (3) Lung mass Narrative/Plan: S/P biopsy today, path pending Current Visit: Yes Status: Acute Priority: High Code(s): R91.8 - OTHER NONSPECIFIC ABNORMAL FINDING OF LUNG FIELD SNOMED Code(s): 546061541 (4) Abdominal mass Narrative/Plan: Based on path from lung, pt is aware that there could be a need for a biopsy from the abd. Waiting for now Current Visit: Yes Status: Acute Priority: High Code(s): R19.00 - INTRA- ABD AND PELVIC SWELLING, MASS AND LUMP, UNSP SITE SNOMED Code(s): 847302760 (5) Constipation Narrative/Plan: Abd xray reported as moderate fecal stasis. Patient did have a BM today. Close monitoring of output. Continue multiple medications for constipation. Current Visit: Yes Status: Acute Priority: High Code(s): K59.00 - CONSTIPATION, UNSPECIFIED SNOMED Code(s): 35542674
[2020-02-14 15:17] VITALS: BMI 24.9
--- NOTE | 2020-02-14 16:42 | P.CNOR ---
History of Present Illness - [facility] Consult date: 02/14/20 Requesting physician: Natalie Tom Consult reason: low back pain (Intractable low back pain) History of present illness: Patient is a very pleasant 84-year-old male who is seen in the bedside for consultation regards to intractable back pain. He states his pain is been ongoing over the last month without specific injury. He denies any lower extremity weakness or radiculopathy bilaterally. He states his back pain is significantly exacerbated with sneezing. He states he is able to move and get out of the bed but does cause some discomfort to his back. He states his pain is centered along the midline of the lower lumbar spine. He has not had any imaging specifically for his lumbar spine. He has had CT imaging of the abdomen and pelvis which does show some visualization of his spine. Patient originally presented to the emergency department for further evaluation of back pain and abdominal pain. He is currently being seen in examined by multiple other medical providers including oncology, medicine, and pulmonology. Patient is known to have a left lower lobe mass, periaortic mass, and mesenteric mass. He is currently undergoing further diagnostic evaluation. Patient states he had bilateral inguinal hernia repair approximately 3 years ago performed and feels he never significantly recovered from that surgery and feels he is been gradually worsening since that time. Patient states he was scheduled for further evaluation the office on 03/01/2020 but due to back pain and abdominal pain he presented to the emergency department for further evaluation. He is voiding without difficulty. Patient was having difficulty having a bowel movement but has been able to have small bowel movement after being provided medicine to aid in facilitation of bowel movement. 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 History of Any Multi-Drug Resistant Organisms: None Reported Past Surgical History: Hernia Repair, Orthopedic Surgery Additional Past Surgical History / Comment(s): skin cancer removed from scalp, rectal fistula repair, right shoulder rotator cuff, cataract left eye, bilateral INGUINAL HERNIA REPAIR Past Anesthesia/Blood Transfusion Reactions: Motion Sickness Past Psychological History: No Psychological Hx Reported Additional Psychological History / Comment(s): PT IS INDEPENDANT. LIVES WITH HIS AKIRA IN 2 STORY HOME . HAS 3 PORCH STEPS AND 12 SATEPS TO 2ND FLOOR. 1 PET CAT. NO HOME CARE SERVICES RECIEVED. NO MEDICAL EQUIPMENT. PT SERVED IN THE [employer]. WORKED A [employer] Smoking Status: Never smoker Past Alcohol Use History: None Reported Additional Past Alcohol Use History / Comment(s): 1-2 glasses of wine or a class of whiskey nightly Past Drug Use History: None Reported - Past Family History Mother Family Medical History: Myocardial Infarction ([place]) Additional Family Medical History / Comment(s): OF [place] AT AGE 94 Father Additional Family Medical History / Comment(s): ETOH-BINGE DRINKER NOT EXACTLY SURE CAUSE OF HIS AT AGE 78 Brother(s) Family Medical History: Myocardial Infarction ([place]) Additional Family Medical History / Comment(s): His brother at age 74. He has a history of myocardial infarction and lead poisoning. Medications and Allergies Home Medications Medication Instructions Recorded Confirmed Type Multivitamins, Thera [Multivitamin 1 tab PO DAILY 01/14/17 02/09/20 History (formulary)] Omeprazole [PriLOSEC] 20 mg PO AC-BRKFST 01/14/17 02/09/20 History Terazosin HCl [Hytrin] 10 mg PO HS 01/14/17 02/09/20 History Atorvastatin Calcium [Lipitor] 20 mg PO DAILY #30 tab 06/12/17 02/09/20 Rx Finasteride [Proscar] 5 mg PO DAILY 08/07/18 02/09/20 History Docusate [Colace] 100 mg PO BID #60 capsule 08/08/18 02/09/20 Rx Clopidogrel [Plavix] 75 mg PO HS 01/05/19 02/09/20 History Vit C/E/Zn/Coppr/Lutein/Zeaxan 1 cap PO BID 01/05/19 02/09/20 History [Preservision Areds 2 Softgel] Ibuprofen [Motrin] 600 mg PO TID PRN 02/09/20 02/09/20 History Valsartan/Hydrochlorothiazide 1 tab PO DAILY 02/09/20 02/09/20 History [Valsartan-Hctz 160-12.5 mg Tab] Allergies Allergy/AdvReac Type Severity Reaction Status Date / Time No Known Allergies Allergy Verified 02/09/20 14:30 Physical Examination Physical exam: Patient is awake, alert, and oriented 3 Vital signs stable Good chest excursion with deep inspiration and expiration Examination of thoracic and lumbar spine reveals skin is intact with no abrasions, lacerations, or bruises; no erythema, purulence or signs of infection Mild pain with palpation along the midline of the lumbosacral junction, lower lumbar spine, and right sacroiliac joint Dorsiflexion, plantarflexion, and extensor hallucis longus positive sustained bilaterally Lower extremity strength 5/5 bilaterally No lower extremity hyperreflexia bilaterally Straight leg test negative bilateral lower extremities Negative Lasegue's test bilaterally No signs or symptoms of DVT; no calf pain No pain with internal and external rotation of the hips bilaterally Neurovascularly intact Results Pertinent studies: CT of the abdomen and pelvis taken on 02/09/2020 reviewed for orthopedic purposes: L3-4 revealed degenerative disc disease with sclerosis of the endplate and left lateral osteophytic spurring; L4-5 lateral listhesis and degenerative disc disease; evidence of what appears to be ankylosing spondylosis of the lower thoracic spine; there may be evidence of a small superior endplate compression fracture deformity at L3; CT report also states there is evidence of partially visualized known para-aortic mass with internal calcifications, new mesenteric mass measuring 2.3 cm x 2.4 cm anterior left lateral to the ureter curvature of the stomach; moderate hiatal hernia; small volume dependent ascites in the pelvis that is new compared to prior - Labs Labs: Abnormal Lab Results - Last 24 Hours (Table) 02/14/20 02/14/20 Range/Units 08:46 08:46 RBC 3.48 L (4.30-5.90) m/uL Hgb 12.3 L (13.0-17.5) gm/dL Hct 36.0 L (39.0-53.0) % MCV 103.2 H (80.0-100.0) fL MCH 35.4 H (25.0-35.0) pg Sodium 130 L (137-145) mmol/L Glucose 110 H (74-99) mg/dL H & H 02/09/20 02/10/20 02/13/20 Range/Units 11:12 06:12 06:11 Hgb 13.0 12.7 L 12.7 L (13.0-17.5) gm/dL Hct 38.6 L 38.5 L 38.2 L (39.0-53.0) % 02/14/20 Range/Units 08:46 Hgb 12.3 L (13.0-17.5) gm/dL Hct 36.0 L (39.0-53.0) % Coagulation 02/12/20 02/13/20 Range/Units 09:19 06:11 INR 1.0 1.0 (<1.2) Result Diagrams: 02/14/20 08:46 02/14/20 08:46 Assessment and Plan Assessment: Assessment: Intractable low back pain L4-5 lateral listhesis L3-4 and L4-5 degenerative disc disease Thoracic ankylosing spondylosis Possible small superior endplate compression fracture deformity at L3 Degenerative scoliosis Lung mass suspicious for neoplasm Mesenteric mass Abdominal pain Hypertension Hiatal hernia History of bilateral hernia repair Abdominal pain Constipation (1) Intractable low back pain Current Visit: Yes Status: Acute Code(s): M54.5 - LOW BACK PAIN SNOMED Code(s): 59575368369459214 (2) Lumbar degenerative disc disease Current Visit: Yes Status: Acute Code(s): M51.36 - OTHER INTERVERTEBRAL DISC DEGENERATION, LUMBAR REGION SNOMED Code(s): 94132888 (3) Degenerative scoliosis Current Visit: Yes Status: Acute Code(s): M41.50 - OTHER SECONDARY SCOLIOSIS, SITE UNSPECIFIED SNOMED Code(s): 426356073 (4) Spondylolisthesis, lumbar region Current Visit: Yes Status: Acute Code(s): M43.16 - SPONDYLOLISTHESIS, LUMBAR REGION SNOMED Code(s): 784836413599081 (5) Ankylosing spondylitis Current Visit: Yes Status: Acute Code(s): M45.9 - ANKYLOSING SPONDYLITIS OF UNSPECIFIED SITES IN SPINE SNOMED Code(s): 7869125 (6) Abdominal mass Current Visit: Yes Status: Acute Priority: High Code(s): R19.00 - INTRA- ABD AND PELVIC SWELLING, MASS AND LUMP, UNSP SITE SNOMED Code(s): 824457287 (7) Abdominal pain Current Visit: Yes Status: Acute Priority: High Code(s): R10.9 - UNSPECIFIED ABDOMINAL PAIN SNOMED Code(s): 13395277 (8) Constipation Current Visit: Yes Status: Acute Priority: High Code(s): K59.00 - CONSTIPATION, UNSPECIFIED SNOMED Code(s): 81954896 (9) Lung mass Current Visit: Yes Status: Acute Priority: High Code(s): R91.8 - OTHER NONSPECIFIC ABNORMAL FINDING OF LUNG FIELD SNOMED Code(s): 947111276 (10) Hypertension Current Visit: No Status: Acute Code(s): I10 - ESSENTIAL (PRIMARY) HYPERTENSION SNOMED Code(s): 28905319 Plan: Plan: 1. After physical examination the patient, reviewing of CT of the abdomen and pelvis, further discussion with the patient, and further discussion with Dr. Mahesh Olivares, we will currently plan to obtain an MRI of the lumbar spine with and without contrast for further evaluation. Patient has been sparing sitting ongoing intractable low back pain. Reviewing of the CT of the abdomen and pelvis shows significant degenerative changes and his lumbar spine. He also has evidence of a lung mass suspicious for neoplasm along with mesenteric mass. At this time, we feel an MRI lumbar spine provide us with more information in regards to the degenerative changes at his lumbar spine as well as to rule out metastatic disease. Following the MRI completion and interpretation of this MRI, we will review this MRI and plan to follow up with the patient to further discuss his MRI and possible plan of care. Patient feels this is a good plan. He denies having a pacemaker. 2. Patient will continue to be seen and examined by multiple other medical providers including oncology, medicine, and pulmonology for his other signi ficant medical diagnoses including lung mass with suspicion for neoplasm, mesenteric mass, and abdominal pain. Time with Patient: Greater than 30 (Including obtaining history, physical examination, reviewing of imaging, and dictation.)
[2020-02-14] MEDS ORDERED: MAGNESIUM CITRATE 296 ML BOTTLE PO ONE (17:00)
[2020-02-14] MEDS: FINASTERIDE 5 MG TAB PO SCH (17:06)
[2020-02-14] MEDS: ATORVASTATIN 20 MG TAB PO SCH (17:06)
[2020-02-14] MEDS: DOXAZOSIN 4 MG TAB PO SCH (20:46)
[2020-02-15] MEDS: SALT AND SODA MOUTHWASH 1,000 ML PO SCH ×4 (05:48→21:06)
[2020-02-15 06:54] LABS: Basophils % (A) 0 %; Eosinophils # (A) 0.1 k/uL (0-0.7); Eosinophils % (A) 3 %; HCT 37.3 % (39.0-53.0); HGB 11.8 gm/dL (13.0-17.5); Lymphocytes # (A) 0.9 k/uL (1.0-4.8); Lymphocytes % (A) 16 %; MCH 32.8 pg (25.0-35.0); MCHC 31.6 g/dL (31.0-37.0); MCV 103.8 fL (80.0-100.0); Macrocytosis Slight; Mean Platelet Volume 7.5; Monocytes # (A) 0.4 k/uL (0-1.0); Monocytes % (A) 8 %; Neutrophils # (A) 3.7 k/uL (1.3-7.7); Neutrophils % (A) 71 %; Platelet Count 134 k/uL (150-450); RBC 3.59 m/uL (4.30-5.90); RDW 12.8 % (11.5-15.5); WBC 5.2 k/uL (3.8-10.6)
[2020-02-15 07:06] LABS: Calcium 8.2 mg/dL (8.4-10.2); Potassium 3.9 mmol/L (3.5-5.1)
[2020-02-15] MEDS: MULTIVITAMINS, THERA 1 EACH TAB PO SCH (09:09)
[2020-02-15] MEDS: HYDROCHLOROTHIAZIDE 12.5 MG CAP PO SCH (09:09)
[2020-02-15] MEDS: HEPARIN SODIUM,PORCINE 5,000 UNIT/ML 1 ML VIAL SQ SCH ×2 (09:09→21:06)
[2020-02-15] MEDS: FAMOTIDINE 20 MG/2 ML VIAL IV SCH ×2 (09:09→21:05)
[2020-02-15] MEDS: PANTOPRAZOLE 40 MG TABLET PO SCH (09:09)
[2020-02-15] MEDS: DOCUSATE 100 MG CAP PO SCH ×2 (09:09→21:03)
[2020-02-15] MEDS: VALSARTAN 160 MG TAB PO SCH (09:10)
[2020-02-15] MEDS: FLUoxetine HCL 10 MG CAP PO SCH (09:10)
[2020-02-15] MEDS: HYDROcodone/APAP 5-325MG 1 EACH TAB PO PRN (09:49)
--- NOTE | 2020-02-15 11:47 | P.PN ---
Progress Note - Text Progress Note Date: 02/15/20 Attempted to see patient today. I reviewed the computed tomography scan and imaging that has been done thus farFor his lumbar spine. I reviewed the consultation and discussed case and imaging with our physician supply assistant from yesterday and I am in agreement with the consultation. Patient is down in MRI Currently today for further imaging of his lumbar spine which we ordered yesterday, And I was not able to see him directly. We will follow the results closely and have further conditions to follow. He will continue his medical management.
[2020-02-15] MEDS: HYDROmorphone 0.5 MG/0.5 ML SYRINGE IVP PRN (12:19)
--- NOTE | 2020-02-15 13:10 | MR ---
EXAMINATION TYPE: MR lumbar spine wo/w con DATE OF EXAM: 02/15/2020 COMPARISON: NONE HISTORY: Intractable low back pain, R/O metastatic disease. History of newly diagnosed cancer. TECHNIQUE: Multiplanar, multisequence images of the lumbar spine is performed without and with IV contrast, util izing 9 mL intravenous Gadavist FINDINGS: There is dextroconvex scoliosis centered at L3 level. Sagittal images of the lumbar spine s how vertebral body heights to appear satisfactory in the lumbar spine. Mild height loss T12 level wit h abnormal diminished T1 and increased T2 signal diffusely through the vertebra showing some heteroge neous postcontrast enhancement consistent with diffuse metastatic disease involvement. Scattered Schm orl nodes. Multilevel disc desiccation with moderate to advanced disc space narrowing L3-L4 through t he L5-S1 levels. . Moderate multilevel spurring. The conus medullaris is normal in position and sign al ending mid L1 level. Heterogeneous Modic endplate changes greatest mid to lower lumbar spine. Axial images at T12-L1 level show mild to moderate facet degenerative changes bilaterally. Axial images at L1-L2 level show mild to moderate broad disc bulge and mild facet degenerative change s bilaterally. Mild effacement anterior thecal sac. Axial images at L2-L3 level show moderate facet degenerative changes and ligamentum flavum hypertroph y with [id number] broad disc bulge having left paracentral disc protrusion component. There is effacement of the anterior thecal sac. There is mild left greater than right bilateral neural foramin al narrowing. Axial images at the L3-L4 level show moderate to advanced facet degenerative changes and ligamentum f lavum hypertrophy and posterior spur disc complex with some effacement of the anterior and posterior lateral thecal sac. There is moderate to severe bilateral neural foraminal narrowing. Axial images at L4-L5 level show moderate to advanced facet degenerative change of the ligament flavu m hypertrophy with moderate broad disc bulge. There is effacement of the posterior lateral thecal sac . There is mild to moderate left and moderate to severe right-sided neural foraminal narrowing. Axial images at L5-S1 level show mild/moderate facet degenerative changes bilaterally with central di sc protrusion with spinal canal is preserved. Asymmetric moderate to severe right-sided neural forami nal narrowing due to foraminal disc herniation noted. T2 hyperintense lesions in both kidneys favor parapelvic and lobulated simple cyst, correlate clinica lly. At T12 level there is bony extrusion into the anterior spinal canal axial image 33 for reference. 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 Scoliotic curvature multilevel degenerative changes as detailed above
--- NOTE | 2020-02-15 13:28 | P.PN ---
Subjective Progress Note Date: 02/15/20 Principal diagnosis: Abdominal pain, sigmoid to mesenteric mass, lung mass Patient is seen today in 02/11/2020 in follow-up on the oncology unit. He is currently resting comfortably in bed. Awake and alert in no acute distress. Maintaining good O2 saturations in the 90s on room air. His abdominal discomfort is slightly improved. Computed tomography scan of the chest revealed enlarging left lower lobe pulmonary mass with both the lateral and contralateral metastasis. Hiatal hernia. Thoracic aortic aneurysm with a max transverse diameter 3.8 cm. Nonobstructing bilateral renal calculi. The patient is seen today 02/12/2020 in follow-up on the oncology unit. He is currently awake and alert in no acute distress. He's been up ambulating in his room. He has no shortness of breath, cough or congestion. Continues to maintain good O2 saturations in the 90s on room air. He's had some ongoing lower abdominal discomfort and back pain. No worsening at this time. INR 1.0. The patient is seen today 02/13/2020 in follow-up. He did undergo bronchoscopy with biopsies of the left lower lobe today by Dr. Mireles. Pathology pending. He tolerated procedure well. He is seen back up in his room on the oncology unit. Awake and alert in no acute distress. Continues to maintain good O2 saturations in the 90s on room air. White count 5.6. Hemoglobin 12.7. INR 1 .0. Sodium 131. Potassium 3.9. Creatinine 0.99. On 02/14/2020 patient seen in follow-up on medical oncology floor, he is resting in bed, denies any pulmonary complaints, no shortness of breath, no coughing or wheezing, he is on room air, with pulse ox of 95%, afebrile, he underwent bronchoscopy with electromagnetic navigation and biopsy of the left lower lobe pulmonary mass, pathology results are pending. Is complaining of abdominal distention, and constipation, he was given some laxatives and was able to have some bowel movements. No fever or chills, still awaiting pathology report. On 02/15/2020 still awaiting results of the left lower lobe pulmonary mass biopsy. Vital signs are stable, room air pulse ox is 95%, hemodynamically stable, afebrile, respirations are nonlabored. Patient is having signs of back pain, being evaluated by orthopedic surgery, is currently down for a lumbar spine MRI today. Objective - Vital Signs Vital signs: Vital Signs Temp 98.0 F 02/15/20 05:00 Pulse 63 02/15/20 08:00 Resp 18 02/15/20 08:00 BP 155/81 02/15/20 05:00 Pulse Ox 95 02/15/20 05:00 Intake & Output 02/14/20 02/15/20 02/15/20 18:59 06:59 18:59 Intake Total 400 550 Output Total 200 Balance 200 550 Weight 88 kg Intake: Intake, IV Titration 400 Amount Sodium Chloride 0.9% 1, 400 000 ml @ 50 mls/hr IV . Q20H [facility] Rx#:[id number] Oral 550 Output: Urine 200 Other: Voiding Method Urinal Urinal Urinal # Voids 2 # Bowel Movements 1 1 - Exam GENERAL EXAM: Alert, very pleasant 84-year-old white male, on room air, with a pulse ox of 95% comfortable in no apparent distress. HEAD: Normocephalic/atraumatic. EYES: Normal reaction of pupils, equal size. Conjunctiva pink, sclera white. NOSE: Clear with pink turbinates. THROAT: No erythema or exudates. NECK: No masses, no JVD, no thyroid enlargement, no adenopathy. CHEST: No chest wall deformity. Symmetrical expansion. LUNGS: Equal air entry with no crackles, wheeze, rhonchi or dullness. CVS: Regular rate and rhythm, normal S1 and S2, no gallops, no murmurs, no rubs ABDOMEN: Soft, slightly distended nontender. No hepatosplenomegaly, normal bowel sounds, no guarding or rigidity. EXTREMITIES: No clubbing, no edema, no cyanosis, 2+ pulses and upper and lower extremities. MUSCULOSKELETAL: Muscle strength and tone normal. SPINE: No scoliosis or deformity SKIN: No rashes CENTRAL NERVOUS SYSTEM: Alert and oriented -3. No focal deficits, tone is normal in all 4 extremities. PSYCHIATRIC: Alert and oriented -3. Appropriate affect. Intact judgment and insight. - Labs CBC & Chem 7: 02/15/20 05:28 02/15/20 05:28 Labs: Abnormal Lab Results - Last 24 Hours (Table) 02/15/20 02/15/20 Range/Units 05:28 05:28 RBC 3.59 L (4.30-5.90) m/uL Hgb 11.8 L (13.0-17.5) gm/dL Hct 37.3 L (39.0-53.0) % MCV 103.8 H (80.0-100.0) fL Plt Count 134 L (150-450) k/uL Lymphocytes # 0.9 L (1.0-4.8) k/uL Sodium 130 L (137-145) mmol/L Calcium 8.2 L (8.4-10.2) mg/dL Assessment and Plan Plan: Assessment: 1. 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 2. Abdominal discomfort secondary to mesenteric mass measuring 2.3 x 2.4 cm on the anterior left lateral to the ureter curvature of the stomach 3. Increasing left lower lobe pulmonary mass measuring 2.5 x 6.2 x 3.5 cm. Multiple other lesions the left lung. 10 mm lesion in the posterior basal segment of the right lower lobe. Status post bronchoscopy with biopsies of the left lower lobe mass on 09/2020. Pathology showed left lower lobe mucinous adenocarcinoma 4. Lifelong nonsmoker 5. Chronic constipation 6. History of rectal fistula 7. Hypertension 8. History of migraines 9. History of GERD 10. History of skin cancer 11. Benign prostatic hypertrophy 12. Severe back pain, related to metastatic osseous lesion to the T12 vertebra with retropulsion effacing anterior spinal canal Plan: Results of the left lower lung biopsy and the results of the lumbar spine MRI were noted, medical oncology is following, will await their further recommendations. I performed a history & physical examination of the patient and discussed their management with my nurse practitioner, Nery Dominguez. I reviewed the nurse practitioner's note and agree with the documented findings and plan of care. Lung sounds are positive for clear breath sounds. The findings and the impression was discussed with the patient. I attest to the documentation by the nurse practitioner. Time with Patient: Less than 30
--- NOTE | 2020-02-15 13:59 | P.PN ---
Subjective Progress Note Date: 02/15/20 Principal diagnosis: LLL mass, periaortic, mesentery implants In f/u today patient has had several small BMs, abd discomfort is ok. Has some suprapubic discomfort post MRI, noted urinary frequency. He is happy that he was able to be evaluated by Srikanth wo address his back pain. He denies any fever, difficulty breathing, nausea, chest pain, abdominal distention or lower extr emity swelling. If he had an on/off switch he would turn himself off. Objective - Vital Signs Vital signs: Vital Signs Temp 98.0 F 02/15/20 05:00 Pulse 63 02/15/20 08:00 Resp 18 02/15/20 08:00 BP 155/81 02/15/20 05:00 Pulse Ox 95 02/15/20 05:00 Intake & Output 02/14/20 02/15/20 02/15/20 18:59 06:59 18:59 Intake Total 400 550 Output Total 200 Balance 200 550 Weight 88 kg Intake: Intake, IV Titration 400 Amount Sodium Chloride 0.9% 1, 400 000 ml @ 50 mls/hr IV . Q20H [facility] Rx#:[id number] Oral 550 Output: Urine 200 Other: Voiding Method Urinal Urinal Urinal # Voids 2 # Bowel Movements 1 1 - Constitutional General appearance: Present: average body habitus, cooperative, no acute distress - EENT Eyes: Present: abnormal pupil, EOMI ENT: Present: hearing grossly normal - Respiratory Respiratory: bilateral: CTA - Cardiovascular Heart sounds: normal: S1, S2 - Peripheral edema leg Peripheral Edema: bilateral: None - Gastrointestinal General gastrointestinal: Present: tenderness Localized gastrointestinal: tender: suprabubic - Neurologic Neurologic: Present: CNII-XII intact - Psychiatric Psychiatric: Present: A&O x's 3, appropriate affect, intact judgment & insight - Labs CBC & Chem 7: 02/15/20 05:28 02/15/20 05:28 Labs: Abnormal Lab Results - Last 24 Hours (Table) 02/15/20 02/15/20 Range/Units 05:28 05:28 RBC 3.59 L (4.30-5.90) m/uL Hgb 11.8 L (13.0-17.5) gm/dL Hct 37.3 L (39.0-53.0) % MCV 103.8 H (80.0-100.0) fL Plt Count 134 L (150-450) k/uL Lymphocytes # 0.9 L (1.0-4.8) k/uL Sodium 130 L (137-145) mmol/L Calcium 8.2 L (8.4-10.2) mg/dL Assessment and Plan (1) Back pain Narrative/Plan: Appreciate Orthopedic spine seeing pt. This is the patient's biggest complaint and is impacting his quality of life and mobility significantly. Pending work up results and recommendations. Current Visit: Yes Status: Acute Priority: High Code(s): M54.9 - DORSALGIA, UNSPECIFIED SNOMED Code(s): 642111482 (2) Abdominal pain Narrative/Plan: Constipation is slow to resolve, there seems to be less c/o abd pain from pt. Encouraged him to continue multiple modalities for prevention of constipation. Current Visit: Yes Status: Acute Priority: High Code(s): R10.9 - UNSPECIFIED ABDOMINAL PAIN SNOMED Code(s): 09308337 (3) Lung mass Narrative/Plan: S/P biopsy, path pending Current Visit: Yes Status: Acute Priority: High Code(s): R91.8 - OTHER NONSPECIFIC ABNORMAL FINDING OF LUNG FIELD SNOMED Code(s): 864161512 (4) Abdominal mass Narrative/Plan: Based on path from lung, pt is aware that there could be a need for a biopsy from the abd. Waiting for now Current Visit: Yes Status: Acute Priority: High Code(s): R19.00 - INTRA- ABD AND PELVIC SWELLING, MASS AND LUMP, UNSP SITE SNOMED Code(s): 710963417 (5) Constipation Narrative/Plan: Several small, formed BM today per pt. Close monitoring of output. Continue multiple medications for constipation. Current Visit: Yes Status: Acute Priority: High Code(s): K59.00 - C ONSTIPATION, UNSPECIFIED SNOMED Code(s): 18293004
[2020-02-15 14:53] LABS: Appearance,Urine Cloudy (Clear); Bacteria,Urine Rare /hpf; Bilirubin,Urine Negative (Negative); Blood,Urine Negative (Negative); Color,Urine Yellow; Glucose,Urine (UA) Negative (Negative); Ketones,Urine 1+ (Negative); Leukocyte Esterase,Urine Moderate (Negative); Mucus,Urine Rare /hpf; Nitrite,Urine Negative (Negative); PH, Urine 6.5 (5.0-8.0); Protein,Urine Negative (Negative); RBC,Urine 2 /hpf (0-5); Specific Gravity,Urine 1.019 (1.001-1.035); Urobilinogen,Urine <2.0 mg/dL (<2.0); WBC,Urine 12 /hpf (0-5)
--- NOTE | 2020-02-15 15:51 | P.PN ---
Subjective Progress Note Date: 02/15/20 This is a pleasant 84 years old male with past medical history of GERD, hypertension, osteoarthritis, benign prostatic hypertrophy, she is a patient of Dr. Venegas. who presents with back pain, patient is in the lower back nonradiating is been going on for more than a week, nonspecific however was getting gradually more severe on admission was 9-10/10, increase with movement that sometimes patient cannot get out of bed. Also patient was complaining of from chronic lower abdominal pain or discomfort for 3 years since he had hernia surgery. He has ongoing nausea but no vomiting, he can eat and drink well but he has low appetite. He didn't have bowel movement for a week and he follow-up with his PCP who prescribed him laxative, and GoLYTELY last one is day about 2-3 days ago followed by bowel movement over 2 days. However yesterday his back to get more severe and he decided to call 911 on come to emergency room. Today he feels back pain is better with Dilaudid. He denies weakness or numbness in the lower extremity. No urine or bowel contents. No history of trauma or falls Vitals are stable. Labs are unremarkable including CBC, BMP, liver enzymes, lipase, urinalysis. 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 02/11/2020 Vision feels generally weak, however no specific weakness in legs and arms. He still complaining of from his back pain about 6/10 in severity, and he has ongoing chronic abdominal pain with constipation, he had no bowel movement and passing gases only, his abdominal pain could also be related to his mesenteric masses. CT of the chest from yesterday showing left lower lobe pulmonary mass increased in size to 5.7 x 4.8 cm with multiple smaller lesions on the right lower and left lower lungs, patient informed with these findings. patient may need biopsy. Hemodynamically stable. Labs are stable 02/12/2020 complaining of bilateral lower quadrants abdominal pain, reports feels like "gas". Eyes cough, denies shortness of breath. -O2 sats in the 90s on room air. Reports positive bowel movement yesterday loose and watery. Plavi x remains on hold. INR 1. Discussed diagnostic biopsy. Evaluated by pulmonary and patient is scheduled for diagnostic bronchoscopy with biopsy tomorrow. 02/13/2020 NPO, scheduled for chest CT, diagnostic bronchoscopy with biopsies. Anxious, reports abdominal cramping, no bowel movement, minimal flatus. INR 1. Hemoglobin 12.7, platelets 143. Sodium 131. Renal function improving, BUN 15, creatinine 0.99 Afebrile, normal WBC. Denies chest pain, palpitations. 02/14/2020 CT reported medial left lower lobe mass with additional pleural-based density suspicious for neoplasm.completed diagnostic bronchoscopy with biopsies of the left lower lobe yesterday. Tolerated procedure well. Chest x-ray postprocedure confirmed no pneumothorax. Cytology/pathology pending. Postprocedure developed urinary retention requiring straight cath 1. Spontaneous voiding without difficulty this morning. Atenolol x-ray reporting nonspecific nonobstructive bowel gas pattern with moderate fecal stasis. Complains of abdominal pain, distended, passing flatus, no bowel movement. No nausea or vomiting. VSS,Maintaining O2 sats in the 90s on room air. Afebrile. Labs pending. 02/15/2020 Pleural pathology of lavage reporting scattered reactive bronchial lining cells and inflammatory cells, nondiagnostic of malignancy; brush tip reporting rare atypical epithelial cells consistent with mucinous adenocarcinoma .lumbar spine MRI completed. Positive bowel movements, abdominal pain better, back pain persists. Orthopedic surgery consulted with the evaluation pending. Denies chest pain, palpitations or increasing shortness of breath. Maintaining O2 sats in the 90s on room air. Diet intake 25-50%. Depressed. Objective - Vital Signs Vital signs: Vital Signs Temp 98.0 F 02/15/20 05:00 Pulse 63 02/15/20 08:00 Resp 18 02/15/20 08:00 BP 155/81 02/15/20 05:00 Pulse Ox 95 02/15/20 05:00 Intake & Output 02/14/20 02/15/20 02/15/20 18:59 06:59 18:59 Intake Total 400 550 Output Total 200 Balance 200 550 Weight 88 kg Intake: Intake, IV Titration 400 Amount Sodium Chloride 0.9% 1, 400 000 ml @ 50 mls/hr IV . Q20H [facility] Rx#:[id number] Oral 550 Output: Urine 200 Other: Voiding Method Urinal Urinal Urinal # Voids 2 # Bowel Movements 1 1 - Exam GENERAL: Sitting up at side of bed, alert and oriented x3, no acute distress, depressed HEENT: Pupils are round and equally reacting to light. EOMI. No scleral icterus. No conjunctival pallor. Normocephalic, atraumatic. No pharyngeal erythema. No thyromegaly. CARDIOVASCULAR: S1 and S2 present. No murmurs. PULMONARY: Chest is clear to auscultation, no rhonchi, no wheezing or crackles. ABDOMEN: Soft, minimal diffuse tenderness ,distended, normoactive bowel sounds. EXTREMITIES: No cyanosis, clubbing, or pedal edema. NEUROLOGICAL: Gross neurological examination did not reveal any focal deficits. SKIN: No rashes. 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 -Left lower lobe lung mass, seen before on previous CT scan and ET scan, enlarging in size 2.5 x 6.2 x 3.5 with multiple other lesions in the left lung. 10 mm lesion posterior basal right lower lobe -new mesenteric mass 2.3 x 2.4 cm along the stomach curvature, with other mesenteric implants. -Status post bronchoscopy with biopsies of left lower lobe mass, Pleural pathology of lavage reporting scattered reactive bronchial lining cells and inflammatory cells, nondiagnostic of malignancy; brush tip reporting rare atypical epithelial cells consistent with mucinous adenocarcinoma. Constipation, possibly secondary to mesenteric mass hepatic steatosis moderate hiatal hernia previous history of hernia surgery about 3 years ago associated with chronic lower abdominal pain and discomfort for 3 years Hypertension Osteoarthritis Hyperlipidemia GERD Benign prostatic hypertrophy History of skin cancer Thoracic aortic aneurysm with maximal transverse diameter 3.8 cm Plan: Continue on current medication regime ,monitoring and symptomatic treatment. Orthopedic recommendations pending. Further oncology recommendations pending. Discharge planning in progress. Prognosis guarded given multiple complex medical issues. The impression and plan of care has been dictated as directed. : I performed a history and examination of this patient, discussed the same with the dictator. I agree with the dictator's note ,documented as a scribe. Any additional findings or plans will be noted.
[2020-02-15] MEDS: SODIUM CHLORIDE 0.9% 1,000 ML IV SCH (16:39)
[2020-02-15] MEDS: FINASTERIDE 5 MG TAB PO SCH (17:54)
[2020-02-15] MEDS: ATORVASTATIN 20 MG TAB PO SCH (17:54)
[2020-02-15] MEDS: DOXAZOSIN 4 MG TAB PO SCH (21:06)
[2020-02-16] MEDS: SALT AND SODA MOUTHWASH 1,000 ML PO SCH ×5 (01:23→21:28)
[2020-02-16 08:52] LABS: Basophils % (A) 0 %; Eosinophils # (A) 0.1 k/uL (0-0.7); Eosinophils % (A) 2 %; HCT 36.9 % (39.0-53.0); HGB 11.6 gm/dL (13.0-17.5); Lymphocytes # (A) 0.8 k/uL (1.0-4.8); Lymphocytes % (A) 13 %; MCH 32.7 pg (25.0-35.0); MCHC 31.4 g/dL (31.0-37.0); MCV 103.9 fL (80.0-100.0); Macrocytosis Slight; Mean Platelet Volume 7.3; Monocytes # (A) 0.4 k/uL (0-1.0); Monocytes % (A) 6 %; Neutrophils # (A) 4.7 k/uL (1.3-7.7); Neutrophils % (A) 78 %; Platelet Count 140 k/uL (150-450); RBC 3.55 m/uL (4.30-5.90); WBC 6.1 k/uL (3.8-10.6)
[2020-02-16 08:58] LABS: Calcium 8.2 mg/dL (8.4-10.2); Potassium 3.9 mmol/L (3.5-5.1)
[2020-02-16] MEDS: MULTIVITAMINS, THERA 1 EACH TAB PO SCH (09:19)
[2020-02-16] MEDS: HYDROCHLOROTHIAZIDE 12.5 MG CAP PO SCH (09:19)
[2020-02-16] MEDS: PANTOPRAZOLE 40 MG TABLET PO SCH ×2 (09:19→16:51)
[2020-02-16] MEDS: DOCUSATE 100 MG CAP PO SCH ×2 (09:19→21:27)
[2020-02-16] MEDS: VALSARTAN 160 MG TAB PO SCH (09:19)
[2020-02-16] MEDS: SODIUM CHLORIDE 0.9% 1,000 ML IV SCH ×2 (09:20→21:38)
[2020-02-16] MEDS: FLUoxetine HCL 10 MG CAP PO SCH (09:20)
[2020-02-16] MEDS: FAMOTIDINE 20 MG/2 ML VIAL IV SCH ×2 (09:20→21:27)
[2020-02-16] MEDS: HEPARIN SODIUM,PORCINE 5,000 UNIT/ML 1 ML VIAL SQ SCH ×2 (09:20→21:27)
--- NOTE | 2020-02-16 11:04 | P.PN ---
Subjective Progress Note Date: 02/16/20 Principal diagnosis: Abdominal discomfort secondary to mesenteric mass, lung mass Patient is seen today in 02/11/2020 in follow-up on the oncology unit. He is currently resting comfortably in bed. Awake and alert in no acute distress. Maintaining good O2 saturations in the 90s on room air. His abdominal discomfort is slightly improved. Computed tomography scan of the chest revealed enlarging left lower lobe pulmonary mass with both the lateral and contralateral metastasis. Hiatal hernia. Thoracic aortic aneurysm with a max transverse diameter 3.8 cm. Nonobstructing bilateral renal calculi. The patient is seen today 02/12/2020 in follow-up on the oncology unit. He is currently awake and alert in no acute distress. He's been up ambulating in his room. He has no shortness of breath, cough or congestion. Continues to maintain good O2 saturations in the 90s on room air. He's had some ongoing lower abdominal discomfort and back pain. No worsening at this time. INR 1.0. The patient is seen today 02/13/2020 in follow-up. He did undergo bronchoscopy with biopsies of the left lower lobe today by Dr. Mireles. Pathology pending. He tolerated procedure well. He is seen back up in his room on the oncology unit. Awake and alert in no acute distress. Continues to maintain good O2 saturations in the 90s on room air. White count 5.6. Hemoglobin 12.7. INR 1.0. Sodium 131. Potassium 3.9. Creatinine 0.99. On 02/14/2020 patient seen in follow-up on medical oncology floor, he is resting in bed, denies any pulmonary complaints, no shortness of breath, no coughing or wheezing, he is on room air, with pulse ox of 95%, afebrile, he underwent [facility] hoscopy with electromagnetic navigation and biopsy of the left lower lobe pulmonary mass, pathology results are pending. Is complaining of abdominal distention, and constipation, he was given some laxatives and was able to have some bowel movements. No fever or chills, still awaiting pathology report. On 02/15/2020 still awaiting results of the left lower lobe pulmonary mass biopsy. Vital signs are stable, room air pulse ox is 95%, hemodynamically stable, afebrile, respirations are nonlabored. Patient is having signs of back pain, being evaluated by orthopedic surgery, is currently down for a lumbar spine MRI today. The patient is seen today 02/16/2020 in follow-up on the oncology unit. He is currently resting comfortably in bed. Awake and alert in no acute distress. He continues to maintain good O2 saturations in the 90s on room air. He's afebrile. Hemodynamically stable. Still having ongoing issues with low back pain. 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 Objective - Vital Signs Vital signs: Vital Signs Temp 98.3 F 02/16/20 05:00 Pulse 61 02/16/20 05:00 Resp 12 02/16/20 05:00 BP 151/69 02/16/20 05:00 Pulse Ox 94 L 02/16/20 05:00 Intake & Output 02/15/20 02/16/20 02/16/20 18:59 06:59 18:59 Intake Total 240 575 Output Total 1200 450 Balance -960 125 Weight 88 kg Intake: Intake, IV Titration 575 Amount Sodium Chloride 0.9% 1, 575 000 ml @ 50 mls/hr IV . Q20H [facility] Rx#:[id number] Oral 240 Output: Urine 1200 450 Other: Voiding Method Urinal Urinal # Voids 2 # Bowel Movements 2 - Exam GENERAL EXAM: Alert, active, pleasant 84-year-old gentleman, on room air, comfortable in no apparent distress. HEAD: Normocephalic. EYES: Normal reaction of pupils, equal size. NOSE: Clear with pink turbinates. THROAT: No erythema or exudates. NECK: No masses, no JVD. CHEST: No chest wall deformity. LUNGS: Equal air entry with no crackles, wheeze, rhonchi or dullness. CVS: S1 and S2 normal with no audible murmur, regular rhythm. ABDOMEN: No hepatosplenomegaly, normal bowel sounds, no guarding or rigidity. SPINE: No scoliosis or deformity SKIN: No rashes CENTRAL NERVOUS SYSTEM: No focal deficits, tone is normal in all 4 extremities. EXTREMITIES: There is no peripheral edema. No clubbing, no cyanosis. Peripheral pulses are intact. - Labs CBC & Chem 7: 02/16/20 08:30 02/16/20 08:30 Labs: Abnormal Lab Results - Last 24 Hours (Table) 02/15/20 02/16/20 02/16/20 Range/Units 14:40 08:30 08:30 RBC 3.55 L (4.30-5.90) m/uL Hgb 11.6 L (13.0-17.5) gm/dL Hct 36.9 L (39.0-53.0) % MCV 103.9 H (80.0-100.0) fL Plt Count 140 L (150-450) k/uL Lymphocytes # 0.8 L (1.0-4.8) k/uL Sodium 131 L (137-145) mmol/L Calcium 8.2 L (8.4-10.2) mg/dL Urine Ketones 1+ H (Negative) Ur Leukocyte Esterase Moderate H (Negative) Urine WBC 12 H (0-5) /hpf Urine Bacteria Rare H (None) /hpf Urine Mucus Rare H (None) /hpf Microbiology - Last 24 Hours (Table) 02/15/20 14:40 Urine Culture - Preliminary Urine,Voided Assessment and Plan Assessment: Abdominal discomfort secondary to mesenteric mass measuring 2.3 x 2.4 cm on the anterior left lateral to the ureter curvature of the stomach Increasing left lower lobe pulmonary mass measuring 2.5 x 6.2 x 3.5 cm. Multiple other lesions the left lung. 10 mm lesion in the posterior basal segment of the right lower lobe. Status post bronchoscopy with biopsies of the left lower lobe mass on 02/13/2020. 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 Lifelong nonsmoker Chronic constipation History of rectal fistula Hypertension History of migraines History of GERD History of skin cancer Benign prostatic hypertrophy Plan: The patient was seen and evaluated by Dr. Mireles The patient was informed of his metastatic cancer of unclear primary Possible lung versus stomach or pancreas Ongoing back pain with metastatic lesions to T12, we'll consult radiation oncology Medical oncology is on the case We'll continue to follow I, the cosigning physician, performed a history & physical examination of the patient. Lungs sounds are clear. Maintaining good O2 saturations in the 90s on room air. I discussed the assessment and plan of care with my nurse practitioner, Zeynep Guillermo. I attest to the above note as dictated by her.
--- NOTE | 2020-02-16 12:10 | P.PN ---
Subjective Progress Note Date: 02/16/20 This is a pleasant 84 years old male with past medical history of GERD, hypertension, osteoarthritis, benign prostatic hypertrophy, she is a patient of Dr. Venegas. who presents with back pain, patient is in the lower back nonradiating is been going on for more than a week, nonspecific however was getting gradually more severe on admission was 9-10/10, increase with movement that sometimes patient cannot get out of bed. Also patient was complaining of from chronic lower abdominal pain or discomfort for 3 years since he had hernia surgery. He has ongoing nausea but no vomiting, he can eat and drink well but he has low appetite. He didn't have bowel movement for a week and he follow-up with his PCP who prescribed him laxative, and GoLYTELY last one is day about 2-3 days ago followed by bowel movement over 2 days. However yesterday his back to get more severe and he decided to call 911 on come to emergency room. Today he feels back pain is better with Dilaudid. He denies weakness or numbness in the lower extremity. No urine or bowel contents. No history of trauma or falls Vitals are stable. Labs are unremarkable including CBC, BMP, liver enzymes, lipase, urinalysis. 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 02/11/2020 Vision feels generally weak, however no specific weakness in legs and arms. He still complaining of from his back pain about 6/10 in severity, and he has ongoing chronic abdominal pain with constipation, he had no bowel movement and passing gases only, his abdominal pain could also be related to his mesenteric masses. CT of the chest from yesterday showing left lower lobe pulmonary mass increased in size to 5.7 x 4.8 cm with multiple smaller lesions on the right lower and left lower lungs, patient informed with these findings. patient may need biopsy. Hemodynamically stable. Labs are stable 02/12/2020 complaining of bilateral lower quadrants abdominal pain, reports feels like "gas". Eyes cough, denies shortness of breath. -O2 sats in the 90s on room air. Reports positive bowel movement yesterday loose and watery. Plavi x remains on hold. INR 1. Discussed diagnostic biopsy. Evaluated by pulmonary and patient is scheduled for diagnostic bronchoscopy with biopsy tomorrow. 02/13/2020 NPO, scheduled for chest CT, diagnostic bronchoscopy with biopsies. Anxious, reports abdominal cramping, no bowel movement, minimal flatus. INR 1. Hemoglobin 12.7, platelets 143. Sodium 131. Renal function improving, BUN 15, creatinine 0.99 Afebrile, normal WBC. Denies chest pain, palpitations. 02/14/2020 CT reported medial left lower lobe mass with additional pleural-based density suspicious for neoplasm.completed diagnostic bronchoscopy with biopsies of the left lower lobe yesterday. Tolerated procedure well. Chest x-ray postprocedure confirmed no pneumothorax. Cytology/pathology pending. Postprocedure developed urinary retention requiring straight cath 1. Spontaneous voiding without difficulty this morning. Atenolol x-ray reporting nonspecific nonobstructive bowel gas pattern with moderate fecal stasis. Complains of abdominal pain, distended, passing flatus, no bowel movement. No nausea or vomiting. VSS,Maintaining O2 sats in the 90s on room air. Afebrile. Labs pending. 02/15/2020 Pleural pathology of lavage reporting scattered reactive bronchial lining cells and inflammatory cells, nondiagnostic of malignancy; brush tip reporting rare atypical epithelial cells consistent with mucinous adenocarcinoma .lumbar spine MRI completed. Positive bowel movements, abdominal pain better, back pain persists. Orthopedic surgery consulted with the evaluation pending. Denies chest pain, palpitations or increasing shortness of breath. Maintaining O2 sats in the 90s on room air. Diet intake 25-50%. Depressed. 02/16/2020 Dr. Venegas at bedside, discussed findings ; pleural cytology-brush tip reporting rare atypical epithelial cells consistent with mucinous adenocarcinoma . MRI of the spine reported diffuse osseous metastatic lesion to T12 vertebrae with some posterior retropulsion effacing anterior spinal canal . Primary unclear. Continues to have a abdominal and lower back pain. Maintaining O2 sats in the 90s on room air. Objective - Vital Signs Vital signs: Vital Signs Temp 98.3 F 02/16/20 05:00 Pulse 61 02/16/20 05:00 Resp 12 02/16/20 05:00 BP 151/69 02/16/20 05:00 Pulse Ox 94 L 05/15/20 05:00 Intake & Output 02/15/20 02/16/20 02/16/20 18:59 06:59 18:59 Intake Total 240 575 Output Total 1200 450 Balance -960 125 Weight 88 kg Intake: Intake, IV Titration 575 Amount Sodium Chloride 0.9% 1, 575 000 ml @ 50 mls/hr IV . Q20H [facility] Rx#:[id number] Oral 240 Output: Urine 1200 450 Other: Voiding Method Urinal Urinal # Voids 2 # Bowel Movements 2 - Exam GENERAL: Sitting up at side of bed, alert and oriented x3, no acute distress HEENT: Pupils are round and equally reacting to light. EOMI. No scleral icterus. No conjunctival pallor. Normocephalic, atraumatic. No pharyngeal erythema. No thyromegaly. CARDIOVASCULAR: S1 and S2 present. No murmurs. PULMONARY: Chest is clear to auscultation, no rhonchi, no wheezing or crackles. ABDOMEN: Soft, minimal diffuse tenderness ,distended, normoactive bowel sounds. EXTREMITIES: No cyanosis, clubbing, or pedal edema. NEUROLOGICAL: Gross neurological examination did not reveal any focal deficits. SKIN: No rashes. - Labs CBC & Chem 7: 02/16/20 08:30 02/16/20 08:30 Labs: Abnormal Lab Results - Last 24 Hours (Table) 02/15/20 02/16/20 02/16/20 Range/Units 14:40 08:30 08:30 RBC 3.55 L (4.30-5.90) m/uL Hgb 11.6 L (13.0-17.5) gm/dL Hct 36.9 L (39.0-53.0) % MCV 103.9 H (80.0-100.0) fL Plt Count 140 L (150-450) k/uL Lymphocytes # 0.8 L (1.0-4.8) k/uL Sodium 131 L (137-145) mmol/L Calcium 8.2 L (8.4-10.2) mg/dL Urine Ketones 1+ H (Negative) Ur Leukocyte Esterase Moderate H (Negative) Urine WBC 12 H (0-5) /hpf Urine Bacteria Rare H (None) /hpf Urine Mucus Rare H (None) /hpf Microbiology - Last 24 Hours (Table) 02/15/20 14:40 Urine Culture - Preliminary Urine,Voided Assessment and Plan Assessment: Acute lower back and abdominal pain secondary to Metastatic mucinous adenocarcinoma,mesenteric mass,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 -Left lower lobe lung mass, seen before on previous CT scan and ET scan, enlarging in size 2.5 x 6.2 x 3.5 with multiple other lesions in the left lung. 10 mm lesion posterior basal right lower lobe -new mesenteric mass 2.3 x 2.4 cm along the stomach curvature, with other mesenteric implants. -Status post bronchoscopy with biopsies of left lower lobe mass, Pleural pathology of lavage reporting scattered reactive bronchial lining cells and inflammatory cells, nondiagnostic of malignancy; brush tip reporting rare atypical epithelial cells consistent with mucinous adenocarcinoma. Constipation, possibly secondary to mesenteric mass hepatic steatosis moderate hiatal hernia previous history of hernia surgery about 3 years ago associated with chronic lower abdominal pain and discomfort for 3 years Hypertension Osteoarthritis Hyperlipidemia GERD Benign prostatic hypertrophy History of skin cancer Thoracic aortic aneurysm with maximal transverse diameter 3.8 cm Plan: Continue on current medication regime ,monitoring and symptomatic treatment. Orthopedic recommendations pending. Further oncology recommendations/options pending. Radiation oncology consult in place. Social work consult initiated, expressing concerns with being able to assist him at home. Prognosis guarded given multiple complex medical issues. The impression and plan of care has been dictated as directed. : I performed a history and examination of this patient, discussed the same with the dictator. I agree with the dictator's note ,documented as a scribe. Any additional findings or plans will be noted.
[2020-02-16 15:35] LABS: Carcinoembryonic Antigen 1.5 ng/mL (0.0-4.9)
--- NOTE | 2020-02-16 15:54 | P.CONS ---
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 He presents secondary to lower back pain and findings of multiple bony metastasis, with a largely replaced lesion at T12. The patient's oncologic history began approximately 1 year ago, when he was found to have a mass in the left lung. A PET/CT was performed, and the patient was unfortunately lost to follow-up. He reports over the past 5 weeks he had progressive difficulty with low back pain. He notes at first this was minimally bothersome, and he thought he bothered his back when raking leaves. However this progressed, to the point where the pain was severe enough that he required hospital admission. He was admitted on February 08 reporting persistent low back pain, as well as abdominal discomfort and constipation. A CT scan of the abdomen and pelvis performed on February 08 showed partial visualization of the left lower lung lesion, a new mesenteric nodule measuring 2.3 cm as well as a couple smaller nodules noted in the peritoneum. The patient had a CT scan of the chest on February 09, which showed that the left lower lung lesion had increased in size, with increasing left hilar adenopathy as well as new bilateral pulmonary nodules. The patient was set up for navigational bronchoscopy on February 12. No endobronchial disease was noted, however there was extrinsic compression of the left lower lung bronchus. Biopsy showed a mucinous adenocarcinoma, which was TTF-1 negative. Lung primary was considered within differential, as well as possibly upper GI. Due to the patient's persistent pain, an MRI of the lumbar spine was performed on February 14 showing multiple small bony metastasis, however th e lesion at T12 was diffusely involved with some extension into the spinal canal without cord compression. At the time of our visit, the patient notes that he is uncomfortable. According to nursing, he has not been taking much pain medication, and he reports that his back pain can be up to 7-8 out of 10. He is continued to struggle with constipation, but he reports that this is been an ongoing problem for the past few years. He notes that it is not abnormal for him to have to push quite hard to pass a bowel movement. The patient reports that he was given magnesium citrate 2 days ago, and had quite a bit of runny stool yesterday. However, today the patient feels very gassy with abdominal discomfort. Review of Systems Constitutional: Denies chills, Denies fever Eyes: denies blurred vision Ears, nose, mouth and throat: Denies headache Cardiovascular: Denies chest pain Respiratory: Denies cough, Denies dyspnea Gastrointestinal: Reports change in bowel habits, Reports constipation, Denies BRBPR, Denies hematochezia Genitourinary: Denies dysuria Musculoskeletal: Denies frequent falls, Denies muscle weakness Neurological: Denies aphasia, Denies ataxia, Denies confusion Psychiatric: Reports depression Past Medical History Past Medical History: Cancer, GERD/Reflux, Hypertension, Osteoarthritis (OA), Prostate Disorder, Skin Disorder Additional Past Medical History / Comment(s): hx skin cancer behind his left ear,nose, history of rectal fistula. History of Any Multi-Drug Resistant Organisms: None Reported Past Surgical History: Hernia Repair, Orthopedic Surgery Additional Past Surgical History / Comment(s): skin cancer removed from scalp, rectal fistula repair, right shoulder rotator cuff, cataract left eye, bilateral INGUINAL HERNIA REPAIR Past Anesthesia/Blood Transfusion Reactions: Motion Sickness Past Psychological History: No Psychological Hx Reported Additional Psychological History / Comment(s): PT IS INDEPENDANT. LIVES WITH HIS AKIRA IN [address]ORY HOME . HAS 3 PORCH STEPS AND 12 SATEPS TO 2ND FLOOR. 1 PET CAT. NO HOME CARE SERVICES RECIEVED. NO MEDICAL EQUIPMENT. PT SERVED IN THE [employer]. 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 [email or web address] Past Alcohol Use History: None Reported Additional Past Alcohol Use History / Comment(s): 1-2 glasses of wine or a class of whiskey nightly Past Drug Use History: None Reported - Past Family History Mother Family Medical History: Myocardial Infarction ([place]) Additional Family Medical History / Comment(s): OF [place] AT AGE 94 Father Additional Family Medical History / Comment(s): ETOH-BINGE DRINKER NOT EXACTLY SURE CAUSE OF HIS AT AGE 78 Brother(s) Family Medical History: Myocardial Infarction ([place]) Additional Family Medical History / Comment(s): His brother at age 74. He has a history of myocardial infarction and lead poisoning. Medications and Allergies Home Medications Medication Instructions Recorded Confirmed Type Multivitamins, Thera [Multivitamin 1 tab PO DAILY 01/14/17 02/09/20 History (formulary)] Omeprazole [PriLOSEC] 20 mg PO AC-BRKFST 01/14/17 02/09/20 History Terazosin HCl [Hytrin] 10 mg PO HS 01/14/17 02/09/20 History Atorvastatin Calcium [Lipitor] 20 mg PO DAILY #30 tab 06/12/17 02/09/20 Rx Finasteride [Proscar] 5 mg PO DAILY 08/07/18 02/09/20 History Docusate [Colace] 100 mg PO BID #60 capsule 08/08/18 02/09/20 Rx Clopidogrel [Plavix] 75 mg PO HS 01/05/19 02/09/20 History Vit C/E/Zn/Coppr/Lutein/Zeaxan 1 cap PO BID 01/05/19 02/09/20 History [Preservision Areds 2 Softgel] Ibuprofen [Motrin] 600 mg PO TID PRN 02/09/20 02/09/20 History Valsartan/Hydrochlorothiazide 1 tab PO DAILY 02/09/20 02/09/20 History [Valsartan-Hctz 160-12.5 mg Tab] Allergies Allergy/AdvReac Type Severity Reaction Status Date / Time No Known Allergies Allergy Verified 02/09/20 14:30 Physical Exam Vitals: Vital Signs Temp Pulse Pulse Pulse Resp BP Pulse Ox 02/16/20 15:12 57 L 63 67 18 02/16/20 12:40 97.6 F 67 18 150/72 95 02/16/20 08:00 57 L 63 67 18 02/16/20 05:00 98.3 F 61 12 151/69 94 L 02/15/20 20:43 98.2 F 60 16 127/70 93 L Intake and Output 02/16/20 02/16/20 02/16/20 06:59 14:59 22:59 Intake Total 400 240 Output Total 450 600 600 Balance -50 -360 -600 Intake: Intake, IV Titration 400 Amount Sodium Chloride 0.9% 1, 400 000 ml @ 50 mls/hr IV . Q20H [facility] Rx#:[id number] Oral 240 Output: Urine 450 600 600 Other: Voiding Method Urinal Urinal Urinal # Voids 2 Weight 88 kg - Constitutional General appearance: mild distress - EENT Eyes: EOMI, PERRLA - Neck Neck: no lymphadenopathy - Respiratory Respiratory: bilateral: CTA - Cardiovascular Rhythm: regular - Gastrointestinal General gastrointestinal: hyperactive bowel sounds, no organomegaly, no tenderness - Integumentary Integumentary: no calor, no cellulitis - Neurologic Neurologic: CNII-XII intact - Musculoskeletal Musculoskeletal: strength equal bilaterally - Psychiatric Psychiatric: A&O x's 3, appropriate affect, intact judgment & insight Results CBC & Chem 7: 02/16/20 08:30 02/16/20 08:30 Labs: Abnormal Lab Results - Last 24 Hours (Table) 02/16/20 02/16/20 Range/Units 08:30 08:30 RBC 3.55 L (4.30-5.90) m/uL Hgb 11.6 L (13.0-17.5) gm/dL Hct 36.9 L (39.0-53.0) % MCV 103.9 H (80.0-100.0) fL Plt Count 140 L (150-450) k/uL Lymphocytes # 0.8 L (1.0-4.8) k/uL Sodium 131 L (137-145) mmol/L Calcium 8.2 L (8.4-10.2) mg/dL Microbiology - Last 24 Hours (Table) 02/15/20 14:40 Urine Culture - Preliminary Urine,Voided CT scan - abdomen: report reviewed, image reviewed CT scan - chest: report reviewed, image reviewed CT scan - pelvis: report reviewed, image reviewed Assessment and Plan Assessment: The patient is an 84-year-old male with a history of a 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 He presents secondary to lower back pain and findings of multiple bony metastasis, with a largely replaced lesion at T12. Plan: 1. T12 metastases: The patient does not have symptoms of cord compression or radiculopathy. This lesion is likely contributing to his pain however. I discussed that this is likely metastatic from his lung cancer. I explained that a palliative course of radiotherapy may provide him some benefit, but that it often takes 1-2 weeks before the full palliative affect is observed. I discussed with the patient that we did not need to start this urgently, and that we should work on optimizing pain control during his hospital stay. I will continue to follow along with this patient. Depending on his wishes, we could sternally start his radiation as early as Wednesday. 2. Metastatic mucinous adenocarcinoma: This appears likely to be a primary lung cancer, however upper GI origin was not completely ruled out. The patient has not yet discussed in detail with medical oncology the recommended treatment for this pathology. It is likely that they will want to send for genetic sequencing on the tumor to assess benefit of different therapies. The patient admits that he has been feeling depressed since this diagnosis, and he is uncertain if he will pursue active therapy. We will await further discussion with oncology. 3. Constipation: Uncertain etiology, has some chronic aspects according to the patient. Time with Patient: Greater than 30
[2020-02-16 16:04] LABS: Cancer Antigen 19-9 9.3 U/mL (0.0-34.9)
--- NOTE | 2020-02-16 16:22 | P.CNOR ---
History of Present Illness - HPI Consult date: 02/16/20 Consult reason: low back pain History of present illness: The patient is a pleasant 84-year-old male who has been in the hospital in regards to his abdominal pain and back pain. He says the pain has been going on over the past several weeks and worsening. It extends around his flanks and towards his abdomen bilaterally. He is not having any pain in his lower extremities. He is not having a reported weakness in his lower extremity is. He says is not hurting him when he coughs or sneezes. The pain is mainly in his upper part of his lumbar spine and extends down across his low back and towards his abdomen. He has been getting treatment in regards to mesenteric mass. He has been getting further workup in regards to his abdominal pain as well. He denies any nausea or vomiting. Review of Systems She denies weakness in his lower extremities. Denies any pain or numbness t ingling his lower extremity. He has pain is described per his HPI. He denies any nausea or vomiting. He does not have any new injury. 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 History of Any Multi-Drug Resistant Organisms: None Reported Past Surgical History: Hernia Repair, Orthopedic Surgery Additional Past Surgical History / Comment(s): skin cancer removed from scalp, rectal fistula repair, right shoulder rotator cuff, cataract left eye, bilateral INGUINAL HERNIA REPAIR Past Anesthesia/Blood Transfusion Reactions: Motion Sickness Past Psychological History: No Psychological Hx Reported Additional Psychological History / Comment(s): PT IS INDEPENDANT. LIVES WITH HIS AKIRA IN [address] . HAS 3 PORCH STEPS AND 12 SATEPS TO 2ND FLOOR. 1 PET CAT. NO HOME CARE SERVICES RECIEVED. NO MEDICAL EQUIPMENT. PT SERVED IN THE [employer]. 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 [employer] Past Alcohol Use History: None Reported Additional Past Alcohol Use History / Comment(s): 1-2 glasses of wine or a class of whiskey nightly Past Drug Use History: None Reported - Past Family History Mother Family Medical History: Myocardial Infarction ([place]) Additional Family Medical History / Comment(s): OF [place] AT AGE 94 Father Additional Family Medical History / Comment(s): ETOH-BINGE DRINKER NOT EXACTLY SURE CAUSE OF HIS AT AGE 78 Brother(s) Family Medical History: Myocardial Infarction ([place]) Additional Family Medical History / Comment(s): His brother at age 74. He has a history of myocardial infarction and lead poisoning. Medications and Allergies Home Medications Medication Instructions Recorded Confirmed Type Multivitamins, Thera [Multivitamin 1 tab PO DAILY 01/14/17 02/09/20 History (formulary)] Omeprazole [PriLOSEC] 20 mg PO AC-BRKFST 01/14/17 02/09/20 History Terazosin HCl [Hytrin] 10 mg PO HS 01/14/17 02/09/20 History Atorvastatin Calcium [Lipitor] 20 mg PO DAILY #30 tab 06/12/17 02/09/20 Rx Finasteride [Proscar] 5 mg PO DAILY 08/07/18 02/09/20 History Docusate [Colace] 100 mg PO BID #60 capsule 08/08/18 02/09/20 Rx Clopidogrel [Plavix] 75 mg PO HS 01/05/19 02/09/20 History Vit C/E/Zn/Coppr/Lutein/Zeaxan 1 cap PO BID 01/05/19 02/09/20 History [Preservision Areds 2 Softgel] Ibuprofen [Motrin] 600 mg PO TID PRN 02/09/20 02/09/20 History Valsartan/Hydrochlorothiazide 1 tab PO DAILY 02/09/20 02/09/20 History [Valsartan-Hctz 160-12.5 mg Tab] Allergies Allergy/AdvReac Type Severity Reaction Status Date / Time No Known Allergies Allergy Verified 02/09/20 14:30 Physical Examination Osteopathic Statement: *. No significant issues noted on an osteopathic structural exam other than those noted in the History and Physical/Consult. - L Spine: dermatomal strength & reflexes bilateral Strength: hip flexion: 5/5 (At his back there are no open wounds lacerations or abrasions. Skin is clear. His abdomen soft. His lower extremities he is able to lift his legs up off the bed independently and 5 out of 5 muscle strength with hip flexion and knee extension. He is out of 5 strength for/plantar flexion and EHL. There is no pain with internal/external rotation of his hips. There is no clonus. There is no hyperreflexia.) Results - Labs Labs: Abnormal Lab Results - Last 24 Hours (Table) 02/16/20 02/16/20 Range/Units 08:30 08:30 RBC 3.55 L (4.30-5.90) m/uL Hgb 11.6 L (13.0-17.5) gm/dL Hct 36.9 L (39.0-53.0) % MCV 103.9 H (80.0-100.0) fL Plt Count 140 L (150-450) k/uL Lymphocytes # 0.8 L (1.0-4.8) k/uL Sodium 131 L (137-145) mmol/L Calcium 8.2 L (8.4-10.2) mg/dL Microbiology - Last 24 Hours (Table) 02/15/20 14:40 Urine Culture - Preliminary Urine,Voided H & H 02/09/20 02/10/20 02/13/20 Range/Units 11:12 06:12 06:11 Hgb 13.0 12.7 L 12.7 L (13.0-17.5) gm/dL Hct 38.6 L 38.5 L 38.2 L (39.0-53.0) % 02/14/20 02/15/20 02/16/20 Range/Units 08:46 05:28 08:30 Hgb 12.3 L 11.8 L 11.6 L (13.0-17.5) gm/dL Hct 36.0 L 37.3 L 36.9 L (39.0-53.0) % Coagulation 02/12/20 02/13/20 Range/Units 09:19 06:11 INR 1.0 1.0 (<1.2) Result Diagrams: 02/16/20 08:30 02/16/20 08:30 - Diagnostic results Lumbar MRI with/without contrast: report reviewed, image reviewed (Imaging of his lumbar spine is reviewed. There is evidence of bony changes at T12 presumed metastatic. There is significant disc degeneration L2-3 L3 4 and L4 5. 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 His degenerative disc disease with some evidence of stenosis but this does not seem to be his primary issue at this point. I do not have plans for addressing the degenerative foraminal stenosis at his lumbar spine at this point. The patient is having pain in his thoracic lumbar junction extending to his abdomen. There is some effacement of the thecal sac at that level but no evidence of cauda equina syndrome or significant stenosis. I do not think that he has significant neurologic deficit. T12 vertebral body has evidence of metastatic lesion and is being worked up and dressed with interventional radiation oncology. I think this is appropriate. He is given a continue his workup with hematology oncology as well. I do not have a role for decompression at this point. If there is need for vertebral body biopsy we can be and assistance for this if necessary. I think it is okay for the patient to mobilize as he is comfortable. I do not see an obvious fracture plan of putting him in a brace at this point. He could use a brace for comfort if he wishes. He should continue his medical and oncology management as well as radiation oncology as planned. I discussed this with radiation oncologist and they're planning further imaging as well and I think that is appropriate.
[2020-02-16] MEDS: ATORVASTATIN 20 MG TAB PO SCH (16:51)
[2020-02-16] MEDS: DEXAMETHASONE 4 MG TAB PO SCH ×3 (16:51→21:27)
[2020-02-16] MEDS: FINASTERIDE 5 MG TAB PO SCH (16:52)
--- NOTE | 2020-02-16 17:47 | P.PN ---
Subjective Progress Note Date: 02/16/20 Principal diagnosis: Metastatic Mucinous adenocarcinoma Cancer Complaints of pain and debility. Objective - Vital Signs Vital signs: Vital Signs Temp 97.6 F 02/16/20 12:40 Pulse 67 02/16/20 12:40 Resp 18 02/16/20 12:40 BP 150/72 02/16/20 12:40 Pulse Ox 95 02/16/20 12:40 Intake & Output 02/15/20 02/16/20 02/16/20 18:59 06:59 18:59 Intake Total 240 575 240 Output Total 1200 450 600 Balance -960 125 -360 Weight 88 kg Intake: Intake, IV Titration 575 Amount Sodium Chloride 0.9% 1, 575 000 ml @ 50 mls/hr IV . Q20H [facility] Rx#:[id number] Oral 240 240 Output: Urine 1200 450 600 Other: Voiding Method Urinal Urinal Urinal # Voids 2 # Bowel Movements 2 - Exam - Constitutional General appearance: Present: average body habitus, cooperative, no acute distress - EENT Eyes: Present: abnormal pupil, EOMI ENT: Present: hearing grossly normal - Respiratory Respiratory: bilateral: CTA - Cardiovascular Heart sounds: normal: S1, S2 - Peripheral edema leg Peripheral Edema: bilateral: None - Gastrointestinal General gastrointestinal: Present: tenderness Localized gastrointestinal: tender: suprabubic - Neurologic Neurologic: Present: CNII-XII intact - Psychiatric Psychiatric: Present: A&O x's 3, appropriate affect, intact judgment & insight - Labs CBC & Chem 7: 02/16/20 08:30 02/16/20 08:30 Labs: Abnormal Lab Results - Last 24 Hours (Table) 02/15/20 02/16/20 02/16/20 Range/Units 14:40 08:30 08:30 RBC 3.55 L (4.30-5.90) m/uL Hgb 11.6 L (13.0-17.5) gm/dL Hct 36.9 L (39.0-53.0) % MCV 103.9 H (80.0-100.0) fL Plt Count 140 L (150-450) k/uL Lymphocytes # 0.8 L (1.0-4.8) k/uL Sodium 131 L (137-145) mmol/L Calcium 8.2 L (8.4-10.2) mg/dL Urine Ketones 1+ H (Negative) Ur Leukocyte Esterase Moderate H (Negative) Urine WBC 12 H (0-5) /hpf Urine Bacteria Rare H (None) /hpf Urine Mucus Rare H (None) /hpf Microbiology - Last 24 Hours (Table) 02/15/20 14:40 Urine Culture - Preliminary Urine,Voided Assessment and Plan Plan: Assessment and Plan: Back pain with metastatic osseous to T12 vertebrae - Orthopedic spine seeing pt. - This is the patient's biggest complaint and is impacting his quality of life and mobility significantly. - MRI of the lumbar Spine was reviewed and revealed diffuse osseous metastatic disease to T12 vertebrae with post retropulsion effacing spinal cord.Pending work up results and recommendations. - Addition of Dexamethasone may provide palliative pain relief in a picture of metastatic cancer. - Consult for radiation oncology regarding palliative radiation to thoracic spine. Abdominal pain with known Periaortic mass and New Mesenteric Mass - Mesenteric Mass measures 2.3x2.4 anterior lateral to ureter with implants of metastatic disease considered. - Continue to provide supportive symptomatic care Lung mass - S/P biopsy - Positive path for Rare atypical mucinous adenocarcinoma, primary is not definite if GI versus Lung. Further molecular tests to assist in identification of primary site - Based on path from lung, pt is aware that there could be a need for a biopsy from the abd. Physician Attest: I have completed the full history and physical and agree with above dictation dictated as a scribe
[2020-02-16] MEDS: HYDROcodone/APAP 5-325MG 1 EACH TAB PO PRN (21:26)
[2020-02-16] MEDS: DOXAZOSIN 4 MG TAB PO SCH (21:27)
[2020-02-17] MEDS: SALT AND SODA MOUTHWASH 1,000 ML PO SCH ×6 (01:23→23:32)
[2020-02-17] MEDS: SODIUM CHLORIDE 0.9% 1,000 ML IV SCH ×3 (08:55→20:47)
[2020-02-17] MEDS: VALSARTAN 160 MG TAB PO SCH (08:57)
[2020-02-17] MEDS: HYDROCHLOROTHIAZIDE 12.5 MG CAP PO SCH (08:57)
[2020-02-17] MEDS: FLUoxetine HCL 10 MG CAP PO SCH (08:57)
[2020-02-17] MEDS: DEXAMETHASONE 4 MG TAB PO SCH ×4 (08:58→21:10)
[2020-02-17] MEDS: FAMOTIDINE 20 MG/2 ML VIAL IV SCH (08:58)
[2020-02-17] MEDS: PANTOPRAZOLE 40 MG TABLET PO SCH ×2 (08:58→17:13)
[2020-02-17] MEDS: MULTIVITAMINS, THERA 1 EACH TAB PO SCH (08:58)
[2020-02-17] MEDS: DOCUSATE 100 MG CAP PO SCH ×2 (08:59→20:47)
[2020-02-17] MEDS: HEPARIN SODIUM,PORCINE 5,000 UNIT/ML 1 ML VIAL SQ SCH ×2 (08:59→20:47)
--- NOTE | 2020-02-17 09:23 | P.PN ---
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 Venegas over the weekend This is a pleasant 84 years old male with past medical history of GERD, hypertension, osteoarthritis, benign prostatic hypertrophy, she is a patient of Dr. Venegas. who presents with back pain, patient is in the lower back nonradiating is been going on for more than a week, nonspecific however was getting gradually more severe on admission was 9-10/10, increase with movement that sometimes patient cannot get out of bed. Also patient was complaining of from chronic lower abdominal pain or discomfort for 3 years since he had hernia surgery. He has ongoing nausea but no vomiting, he can eat and drink well but he has low appetite. He didn't have bowel movement for a week and he follow-up with his PCP who prescribed him laxative, and GoLYTELY last one is day about 2-3 days ago followed by bowel movement over 2 days. However yesterday his back to get more severe and he decided to call 911 on come to emergency room. Today he feels back pain is better with Dilaudid. He denies weakness or numbness in the lower extremity. No urine or bowel contents. 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 Orthopedic consult was obtained and the recommended conservative management. 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 Vitals are stable. Labs are unremarkable including CBC, BMP, liver enzymes, lipase, urinalysis. 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 02/17/2020 Vision feels generally weak, however no specific weakness in legs and arms. He still complaining of from his back pain which seems to bother him, patient was found standing at bedside. She had been his herrera. He is fully awake and oriented. Vital signs stable. WBCs 6.1K, hemoglobin 11.6, platelets 140, sodium 131, rest of BMP is unremarkable physical currently on dexamethasone, also on Hines and Dilaudid and normal saline at 50 mL per hour Objective - Vital Signs Vital signs: Vital Signs Temp 98.1 F 02/17/20 06:33 Pulse 63 02/17/20 06:33 Resp 20 02/17/20 06:33 BP 153/70 02/17/20 06:33 Pulse Ox 94 L 02/17/20 06:33 Intake & Output 02/16/20 02/17/20 02/17/20 18:59 06:59 18:59 Intake Total 240 575 Output Total 1200 425 Balance -960 150 Weight 88 kg Intake: Intake, IV Titration 575 Amount Sodium Chloride 0.9% 1, 575 000 ml @ 50 mls/hr IV . Q20H [facility] Rx#:[id number] Oral 240 Output: Urine 1200 425 Other: Voiding Method Urinal Urinal # Voids 2 - Exam GENERAL: The patient is alert and oriented x3, not in any acute distress. Well developed, well nourished. HEENT: Pupils are round and equally reacting to light. EOMI. No scleral icterus. No conjunctival pallor. Normocephalic, atraumatic. No pharyngeal erythema. No thyromegaly. CARDIOVASCULAR: S1 and S2 present. No murmurs, rubs, or gallops. PULMONARY: Chest is clear to auscultation, no wheezing or crackles. ABDOMEN: Soft, nontender, nondistended, normoactive bowel sounds. No palpable organomegaly. MUSCULOSKELETAL: No joint swelling or deformity. EXTREMITIES: No cyanosis, clubbing, or pedal edema. NEUROLOGICAL: Gross neurological examination did not reveal any focal deficits. SKIN: No rashes. 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 Possible metastatic lesion hepatic steatosis moderate hiatal hernia previous history of hernia surgery about 3 years ago associated with chronic lower a bdominal pain and discomfort for 3 years Hypertension Osteoarthritis Hyperlipidemia GERD Benign prostatic hypertrophy Plan: this is a pleasant 84 years old male who presents with a lung mass and possible mesenteric metastasis and back pain. Patient management. Follow-up pulmonary and oncology services.Continue with dexamethasone, radiation oncology evaluated the patient. Radiation oncology also evaluated the patient continue with gentle hydration . Labs and medication were reviewed.. Continue same treatment. Continue with symptomatic treatment. Resume home medication. Monitor lytes and vitals. DVT and GI prophylaxis. Further recommendations of the clinical course of the patient DVT prophylaxis: Subcutaneous heparin GI Prophylaxis: Pepcid PT/OT: Home Prognosis is guarded
--- NOTE | 2020-02-17 10:21 | P.PN ---
Subjective Progress Note Date: 02/17/20 Principal diagnosis: Abdominal discomfort secondary to mesenteric mass, lung mass Patient is seen today in 02/11/2020 in follow-up on the oncology unit. He is currently resting comfortably in bed. Awake and alert in no acute distress. Maintaining good O2 saturations in the 90s on room air. His abdominal discomfort is slightly improved. Computed tomography scan of the chest revealed enlarging left lower lobe pulmonary mass with both the lateral and contralateral metastasis. Hiatal hernia. Thoracic aortic aneurysm with a max transverse diameter 3.8 cm. Nonobstructing bilateral renal calculi. The patient is seen today 02/12/2020 in follow-up on the oncology unit. He is currently awake and alert in no acute distress. He's been up ambulating in his room. He has no shortness of breath, cough or congestion. Continues to maintain good O2 saturations in the 90s on room air. He's had some ongoing lower abdominal discomfort and back pain. No worsening at this time. INR 1.0. The patient is seen today 02/13/2020 in follow-up. He did undergo bronchoscopy with biopsies of the left lower lobe today by Dr. Mireles. Pathology pending. He tolerated procedure well. He is seen back up in his room on the oncology unit. Awake and alert in no acute distress. Continues to maintain good O2 saturations in the 90s on room air. White count 5.6. Hemoglobin 12.7. INR 1.0. Sodium 131. Potassium 3.9. Creatinine 0.99. On 02/14/2020 patient seen in follow-up on medical oncology floor, he is resting in bed, denies any pulmonary complaints, no shortness of breath, no coughing or wheezing, he is on room air, with pulse ox of 95%, afebrile, he underwent [facility] hoscopy with electromagnetic navigation and biopsy of the left lower lobe pulmonary mass, pathology results are pending. Is complaining of abdominal distention, and constipation, he was given some laxatives and was able to have some bowel movements. No fever or chills, still awaiting pathology report. On 02/15/2020 still awaiting results of the left lower lobe pulmonary mass biopsy. Vital signs are stable, room air pulse ox is 95%, hemodynamically stable, afebrile, respirations are nonlabored. Patient is having signs of back pain, being evaluated by orthopedic surgery, is currently down for a lumbar spine MRI today. The patient is seen today 02/16/2020 in follow-up on the oncology unit. He is currently resting comfortably in bed. Awake and alert in no acute distress. He continues to maintain good O2 saturations in the 90s on room air. He's afebrile. Hemodynamically stable. Still having ongoing issues with low back pain. 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 The patient is seen today 02/17/2020 in follow-up on the oncology unit. He is awake and alert in no acute distress. Resting comfortably in bed. No shortness of breath, cough or congestion. Maintaining good O2 saturations in the 90s on room air. His pain is currently fairly well controlled. Urine culture is posi tive for group D enterococcus. White count 6.1. Hemoglobin 11.6. Platelets 140. Sodium 131. Potassium 3.9. Bicarb 28. Creatinine 1.03. He's been afebrile. Hemodynamically stable. Objective - Vital Signs Vital signs: Vital Signs Temp 98.1 F 02/17/20 06:33 Pulse 63 02/17/20 06:33 Resp 20 02/17/20 06:33 BP 153/70 02/17/20 06:33 Pulse Ox 94 L 02/17/20 06:33 Intake & Output 02/16/20 02/17/20 02/17/20 18:59 06:59 18:59 Intake Total 240 575 Output Total 1200 425 Balance -960 150 Weight 88 kg Intake: Intake, IV Titration 575 Amount Sodium Chloride 0.9% 1, 575 000 ml @ 50 mls/hr IV . Q20H [facility] Rx#:[id number] Oral 240 Output: Urine 1200 425 Other: Voiding Method Urinal Urinal # Voids 2 - Exam GENERAL EXAM: Alert, active, pleasant 84-year-old gentleman, on room air, comfortable in no apparent distress. HEAD: Normocephalic. EYES: Normal reaction of pupils, equal size. NOSE: Clear with pink turbinates. THROAT: No erythema or exudates. NECK: No masses, no JVD. CHEST: No chest wall deformity. LUNGS: Equal air entry with no crackles, wheeze, rhonchi or dullness. CVS: S1 and S2 normal with no audible murmur, regular rhythm. ABDOMEN: No hepatosplenomegaly, normal bowel sounds, no guarding or rigidity. SPINE: No scoliosis or deformity SKIN: No rashes CENTRAL NERVOUS SYSTEM: No focal deficits, tone is normal in all 4 extremities. EXTREMITIES: There is no peripheral edema. No clubbing, no cyanosis. Peripheral pulses are intact. - Labs CBC & Chem 7: 02/16/20 08:30 02/16/20 08:30 Labs: Microbiology - Last 24 Hours (Table) 02/15/20 14:40 Urine Culture - Preliminary Urine,Voided Group D Enterococcus Assessment and Plan Assessment: Abdominal discomfort secondary to mesenteric mass measuring 2.3 x 2.4 cm on the anterior left lateral to the ureter curvature of the stomach Increasing left lower lobe pulmonary mass measuring 2.5 x 6.2 x 3.5 cm. Multiple other lesions the left lung. 10 mm lesion in the posterior basal segment of the right lower lobe. Status post bronchoscopy with biopsies of the left lower lobe mass on 02/13/2020. 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 Urinary tract infection secondary to group D enterococcus Lifelong nonsmoker Chronic constipation History of rectal fistula Hypertension History of migraines History of GERD History of skin cancer Benign prostatic hypertrophy Plan: The patient was seen and evaluated by Dr. Chi Bearden for the UTI Radiation oncology on the case Medical oncology is on the case Patient is considering home with hospice I, the cosigning physician, performed a history & physical examination of the patient. Lungs sounds are clear. Maintaining good O2 saturations in the 90s on room air. I discussed the assessment and plan of care with my nurse practitioner, Zeynep Guillermo. I attest to the above note as dictated by her.
[2020-02-17] MEDS ORDERED: AMOXIC-POT CLAV 875-125MG 1 EACH TAB PO SCH (10:30)
[2020-02-17 11:54] LABS: Basophils % (A) 0 %; Eosinophils % (A) 0 %; HCT 36.5 % (39.0-53.0); HGB 11.8 gm/dL (13.0-17.5); Lymphocytes # (A) 0.6 k/uL (1.0-4.8); Lymphocytes % (A) 10 %; MCH 33.7 pg (25.0-35.0); MCHC 32.3 g/dL (31.0-37.0); MCV 104.3 fL (80.0-100.0); Macrocytosis Slight; Mean Platelet Volume 7.8; Monocytes # (A) 0.6 k/uL (0-1.0); Monocytes % (A) 9 %; Neutrophils # (A) 4.9 k/uL (1.3-7.7); Neutrophils % (A) 80 %; Platelet Count 146 k/uL (150-450); RDW 13.1 % (11.5-15.5); WBC 6.2 k/uL (3.8-10.6)
[2020-02-17 12:11] LABS: Calcium 8.4 mg/dL (8.4-10.2); Total Bilirubin 0.2 mg/dL (0.2-1.3); Total Protein 5.6 g/dL (6.3-8.2)
--- NOTE | 2020-02-17 16:06 | P.PN ---
Subjective Progress Note Date: 02/17/20 Principal diagnosis: Metastatic Mucinous adenocarcinoma Cancer Urine culture Positive group D enterococcus today. Discussed with primary team who will begin antibiotics. No acute complaints today, back pain continued, mild improvement on dexamethasone Still awaitingbone scan and MRI brain Objective - Vital Signs Vital signs: Vital Signs Temp 98.0 F 02/17/20 13:35 Pulse 75 02/17/20 13:35 Resp 18 02/17/20 13:35 BP 137/66 02/17/20 13:35 Pulse Ox 95 02/17/20 13:35 Intake & Output 02/16/20 02/17/20 02/17/20 18:59 06:59 18:59 Intake Total 240 575 400 Output Total 1200 425 50 Balance -960 150 350 Weight 88 kg Intake: Intake, IV Titration 575 400 Amount Sodium Chloride 0.9% 1, 575 400 000 ml @ 50 mls/hr IV . Q20H [facility] Rx#:[id number] Oral 240 Output: Urine 1200 425 50 Other: Voiding Method Urinal Urinal Urinal # Voids 2 1 - Exam - Constitutional General appearance: Present: average body habitus, cooperative, no acute distress - EENT Eyes: Present: abnormal pupil, EOMI ENT: Present: hearing grossly normal - Respiratory Respiratory: bilateral: CTA - Cardiovascular Heart sounds: normal: S1, S2 - Peripheral edema leg Peripheral Edema: bilateral: None - Gastrointestinal General gastrointestinal: Present: tenderness Localized gastrointestinal: tender: suprabubic - Neurologic Neurologic: Present: CNII-XII intact - Psychiatric Psychiatric: Present: A&O x's 3, appropriate affect, intact judgment & insight - Labs CBC & Chem 7: 02/17/20 11:36 02/17/20 11:36 Labs: Abnormal Lab Results - Last 24 Hours (Table) 02/17/20 02/17/20 Range/Units 11:36 11:36 RBC 3.50 L (4.30-5.90) m/uL Hgb 11.8 L (13.0-17.5) gm/dL Hct 36.5 L (39.0-53.0) % MCV 104.3 H (80.0-100.0) fL Plt Count 146 L (150-450) k/uL Lymphocytes # 0.6 L (1.0-4.8) k/uL Sodium 130 L (137-145) mmol/L Chloride 97 L (98-107) mmol/L Glucose 109 H (74-99) mg/dL Total Protein 5.6 L (6.3-8.2) g/dL Albumin 3.0 L (3.5-5.0) g/dL Microbiology - Last 24 Hours (Table) 02/15/20 14:40 Urine Culture - Preliminary Urine,Voided Group D Enterococcus Assessment and Plan Plan: Assessment and Plan: Back pain with metastatic osseous to T12 vertebrae - Orthopedic spine seeing pt. - This is the patient's biggest complaint and is impacting his quality of life and mobility significantly. - MRI of the lumbar Spine was reviewed and revealed diffuse osseous metastatic disease to T12 vertebrae with post retropulsion effacing spinal cord.Pending work up results and recommendations. - Addition of Dexamethasone may provide palliative pain relief in a picture of metastatic cancer. - Consult for radiation oncology regarding palliative radiation to thoracic spine. Abdominal pain with known Periaortic mass and New Mesenteric Mass - Mesenteric Mass measures 2.3x2.4 anterior lateral to ureter with implants of metastatic disease considered. - Continue to provide supportive symptomatic care Lung mass - S/P biopsy - Positive path for Rare atypical mucinous adenocarcinoma, primary is not definite if GI versus Lung. Further molecular tests to assist in identification of primary site - Based on path from lung, pt is aware that there could be a need for a biopsy from the abd. Entorococcus UTI: - Antibiotics per Primary team - Discussed with Dr. Stokes PLan: - Await complete staging with MRI and Bone Scan - Treatment of UTI - Path for NGS for primary origin
[2020-02-17] MEDS ORDERED: AMPICILLIN-SULBACTAM 3 GM in SODIUM CHLORIDE 0.9% 100 ML IVPB SCH (16:15)
[2020-02-17] MEDS: ATORVASTATIN 20 MG TAB PO SCH (17:13)
[2020-02-17] MEDS: FINASTERIDE 5 MG TAB PO SCH (17:13)
[2020-02-17] MEDS: DOXAZOSIN 4 MG TAB PO SCH (20:47)
[2020-02-18] MEDS: SALT AND SODA MOUTHWASH 1,000 ML PO SCH ×5 (05:27→23:12)
[2020-02-18 06:23] LABS: Basophils % (A) 0 %; Eosinophils % (A) 0 %; HCT 36.3 % (39.0-53.0); HGB 11.6 gm/dL (13.0-17.5); Lymphocytes # (A) 0.5 k/uL (1.0-4.8); Lymphocytes % (A) 9 %; MCH 32.9 pg (25.0-35.0); MCHC 31.9 g/dL (31.0-37.0); MCV 103.2 fL (80.0-100.0); Macrocytosis Slight; Mean Platelet Volume 7.6; Monocytes # (A) 0.5 k/uL (0-1.0); Monocytes % (A) 8 %; Neutrophils # (A) 5.2 k/uL (1.3-7.7); Neutrophils % (A) 82 %; Platelet Count 151 k/uL (150-450); RBC 3.51 m/uL (4.30-5.90); RDW 13.3 % (11.5-15.5); WBC 6.4 k/uL (3.8-10.6)
[2020-02-18] MEDS: HYDROcodone/APAP 5-325MG 1 EACH TAB PO PRN (09:09)
[2020-02-18] MEDS: MULTIVITAMINS, THERA 1 EACH TAB PO SCH (09:10)
[2020-02-18] MEDS: FLUoxetine HCL 10 MG CAP PO SCH (09:10)
[2020-02-18] MEDS: PANTOPRAZOLE 40 MG TABLET PO SCH ×2 (09:10→16:30)
[2020-02-18] MEDS: DEXAMETHASONE 4 MG TAB PO SCH ×4 (09:10→20:55)
[2020-02-18] MEDS: AMOXIC-POT CLAV 875-125MG 1 EACH TAB PO SCH ×2 (09:10→20:58)
[2020-02-18] MEDS: DOCUSATE 100 MG CAP PO SCH ×2 (09:10→20:54)
[2020-02-18] MEDS: HYDROCHLOROTHIAZIDE 12.5 MG CAP PO SCH (09:10)
[2020-02-18] MEDS: HEPARIN SODIUM,PORCINE 5,000 UNIT/ML 1 ML VIAL SQ SCH ×2 (09:10→20:55)
[2020-02-18] MEDS: VALSARTAN 160 MG TAB PO SCH (09:11)
--- NOTE | 2020-02-18 09:20 | P.PN ---
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 Venegas over the weekend This is a pleasant 84 years old male with past medical history of GERD, hypertension, osteoarthritis, benign prostatic hypertrophy, she is a patient of Dr. Venegas. who presents with back pain, patient is in the lower back nonradiating is been going on for more than a week, nonspecific however was getting gradually more severe on admission was 9-10/10, increase with movement that sometimes patient cannot get out of bed. Also patient was complaining of from chronic lower abdominal pain or discomfort for 3 years since he had hernia surgery. He has ongoing nausea but no vomiting, he can eat and drink well but he has low appetite. He didn't have bowel movement for a week and he follow-up with his PCP who prescribed him laxative, and GoLYTELY last one is day about 2-3 days ago followed by bowel movement over 2 days. However yesterday his back to get more severe and he decided to call 911 on come to emergency room. Today he feels back pain is better with Dilaudid. He denies weakness or numbness in the lower extremity. No urine or bowel contents. 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 Orthopedic consult was obtained and the recommended conservative management. 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 Vitals are stable. Labs are unremarkable including CBC, BMP, liver enzymes, lipase, urinalysis. 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 02/17/2020 Vision feels generally weak, however no specific weakness in legs and arms. He still complaining of from his back pain which seems to bother him, patient was found standing at bedside. She had been his herrera. He is fully awake and oriented. Vital signs stable. WBCs 6.1K, hemoglobin 11.6, platelets 140, sodium 131, rest of BMP is unremarkable physical currently on dexamethasone, also on Merino and Dilaudid and normal saline at 50 mL per hour 02/18/2020 Patient is alert and awake, lying in bed not in distress however he was bothered by his abdominal pain last night, he has to long to the bathroom only with a total amount of stool coming out, most likely the patient has this abdominal cramps every 3 days on average since admission, and I think is related to his mesenteric masses, patient is already on Merino 5 mg however the the bedside nurse last night did not give him any pain pills although he was asking for it, I discussed the case with the bedside nurse this morning and we are going to increase his Merino to 7.5 mg every 6 hours and change it every 4 hours if needed home patient's once his dose increased to 7.5 mg I explained to the patient that workup for tumor staging is recommended for him including MRI and whole-body bone scan, however patient does not want to go through all these and he wants to go for hospice, I explained to the patient the concept of hospice and end-of-life care, he agrees to talk to hospice team so consult was placed Discussed with the bedside nurse Dr. Venegas team will resume the care of the patient tomorrow Objective - Vital Signs Vital signs: Vital Signs Temp 97.8 F 02/18/20 04:52 Pulse 79 02/18/20 04:52 Resp 16 02/18/20 04:52 BP 165/72 02/18/20 04:52 Pulse Ox 95 02/18/20 04:52 Intake & Output 02/17/20 02/18/20 02/18/20 18:59 06:59 18:59 Intake Total 400 1490 Output Total 50 1300 Balance 350 190 Intake: Intake, IV Titration 400 600 Amount Sodium Chloride 0.9% 1, 400 600 000 ml @ 50 mls/hr IV . Q20H [facility] Rx#:[id number] Oral 890 Output: Urine 50 1300 Other: Voiding Method Urinal Urinal # Voids 1 1 1 # Bowel Movements 1 - Exam GENERAL: The patient is alert and oriented x3, not in any acute distress. Well developed, well nourished. HEENT: Pupils are round and equally reacting to light. EOMI. No scleral icterus. No conjunctival pallor. Normocephalic, atraumatic. No pharyngeal erythema. No thyromegaly. CARDIOVASCULAR: S1 and S2 present. No murmurs, rubs, or gallops. PULMONARY: Chest is clear to auscultation, no wheezing or crackles. ABDOMEN: Soft, nontender, nondistended, normoactive bowel sounds. No palpable organomegaly. MUSCULOSKELETAL: No joint swelling or deformity. EXTREMITIES: No cyanosis, clubbing, or pedal edema. NEUROLOGICAL: Gross neurological examination did not reveal any focal deficits. SKIN: No rashes. No petechiae - Labs CBC & Chem 7: 02/18/20 05:31 02/17/20 11:36 Labs: Abnormal Lab Results - Last 24 Hours (Table) 02/17/20 02/17/20 02/18/20 Range/Units 11:36 11:36 05:31 RBC 3.50 L 3.51 L (4.30-5.90) m/uL Hgb 11.8 L 11.6 L (13.0-17.5) gm/dL Hct 36.5 L 36.3 L (39.0-53.0) % MCV 104.3 H 103.2 H (80.0-100.0) fL Plt Count 146 L (150-450) k/uL Lymphocytes # 0.6 L 0.5 L (1.0-4.8) k/uL Sodium 130 L (137-145) mmol/L Chloride 97 L (98-107) mmol/L Glucose 109 H (74-99) mg/dL Total Protein 5.6 L (6.3-8.2) g/dL Albumin 3.0 L (3.5-5.0) g/dL Microbiology - Last 24 Hours (Table) 02/15/20 14:40 Urine Culture - Final Urine,Voided Enterococcus faecalis Assessment and Plan Assessment: left lower lobe lung mass, status post bronchoscopy and biopsy showing mucinous adenocarcinoma (primary source could be GI, versus lung from oncology team) new mesenteric mass 2.3 x 2.4 cm along the stomach curvature, with other mesenteric implants. Possible metastatic lesion Acute lower back pain, could be musculoskeletal, and metastatic disease of T12 hepatic steatosis moderate hiatal hernia previous history of hernia surgery about 3 years ago associated with chronic lower abdominal pain and discomfort for 3 years Hypertension Osteoarthritis Hyperlipidemia GERD Benign prostatic hypertrophy Plan: this is a pleasant 84 years old male who presents with a lung mass and possible mesenteric metastasis and back pain. Patient management. Follow-up pulmonary and oncology services.however patient's wants to talk to hospice team were consulted Labs and medication were reviewed.. Continue same treatment. Continue with symptomatic treatment. Resume home medication. Monitor lytes and vitals. DVT and GI prophylaxis. Further recommendations of the clinical course of the patient DVT prophylaxis: Subcutaneous heparin GI Prophylaxis: Pepcid PT/OT: Home Prognosis is guarded
[2020-02-18] MEDS: SODIUM CHLORIDE 0.9% 1,000 ML IV SCH (11:45)
--- NOTE | 2020-02-18 12:43 | P.PN ---
Subjective Progress Note Date: 02/18/20 On today's evaluation, the patient is still having back pain and the patient is being considered for radiation therapy for palliative purposes. 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 He is also having ongoing abdominal pain. Negative bowel movement and the patient was given laxative by the medical group. MRI of the spine showed diffuse metastatic involvement of the T12 vertebra with some posterior retropulsion effacing the anterior spinal canal. The patient is awake. The patient is following commands and answering questions. He is taking Mosca for pain control and the dose was increased up to 7.5 mg every every 4 hours to cover the pain. The patient was educated about hospice and end-of-life care and he seems to be agreeable and he is going to have a discussion with the hospice team. Objective - Vital Signs Vital signs: Vital Signs Temp 98.0 F 02/18/20 11:20 Pulse 61 02/18/20 11:20 Resp 16 02/18/20 11:20 BP 135/61 02/18/20 11:20 Pulse Ox 97 02/18/20 11:20 Intake & Output 02/17/20 02/18/20 02/18/20 18:59 06:59 18:59 Intake Total 400 1490 Output Total 50 1300 Balance 350 190 Intake: Intake, IV Titration 400 600 Amount Sodium Chloride 0.9% 1, 400 600 000 ml @ 50 mls/hr IV . Q20H [facility] Rx#:[id number] Oral 890 Output: Urine 50 1300 Other: Voiding Method Urinal Urinal Urinal # Voids 1 1 1 # Bowel Movements 1 - Exam GENERAL EXAM: Alert, active, pleasant 84-year-old gentleman, on room air, comfortable in no apparent distress. HEAD: Normocephalic. EYES: Normal reaction of pupils, equal size. NOSE: Clear with pink turbinates. THROAT: No erythema or exudates. NECK: No masses, no JVD. CHEST: No chest wall deformity. LUNGS: Equal air entry with no crackles, wheeze, rhonchi or dullness. CVS: S1 and S2 normal with no audible murmur, regular rhythm. ABDOMEN: No hepatosplenomegaly, normal bowel sounds, no guarding or rigidity. SPINE: No scoliosis or deformity SKIN: No rashes CENTRAL NERVOUS SYSTEM: No focal deficits, tone is normal in all 4 extremities. EXTREMITIES: There is no peripheral edema. No clubbing, no cyanosis. Peripheral pulses are intact. - Labs CBC & Chem 7: 02/18/20 05:31 02/17/20 11:36 Labs: Abnormal Lab Results - Last 24 Hours (Table) 02/18/20 Range/Units 05:31 RBC 3.51 L (4.30-5.90) m/uL Hgb 11.6 L (13.0-17.5) gm/dL Hct 36.3 L (39.0-53.0) % MCV 103.2 H (80.0-100.0) fL Lymphocytes # 0.5 L (1.0-4.8) k/uL Microbiology - Last 24 Hours (Table) 02/15/20 14:40 Urine Culture - Final Urine,Voided Enterococcus faecalis Assessment and Plan Plan: 1 metastatic adenocarcinoma of the lung versus an alternative primary of a GI source which has been metastatic to his lungs. Other sources such as pancreas and stomach be to be considered.. Biopsy of the left lower lobe was done and the patient was found to have a malignancy and diagnoses been confirmed and his disease metastatic at this point in time. 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 4 Urinary tract infection secondary to group D enterococcus 5 Lifelong nonsmoker 6 Chronic constipation 7 History of rectal fistula 8 Hypertension 9 History of migraines 10 History of GERD 11 History of skin cancer 12 Benign prostatic hypertrophy Plan Consider radiation therapy for palliative reasons to the spine to control pain Continue Decadron Mosca dose is been adjusted and increased Treated enterococcus in the urine, currently on Augmentin Hospice care is being considered and the patient will be evaluated by hospice upon his request. poor prognosis based on the above
[2020-02-18] MEDS: HYDROcodone/APAP 7.5-325MG 1 EACH TAB PO PRN (16:26)
[2020-02-18] MEDS: ATORVASTATIN 20 MG TAB PO SCH (16:27)
[2020-02-18] MEDS: FINASTERIDE 5 MG TAB PO SCH (16:27)
[2020-02-18] MEDS: DOXAZOSIN 4 MG TAB PO SCH (20:55)
[2020-02-19] MEDS: HYDROcodone/APAP 7.5-325MG 1 EACH TAB PO PRN ×2 (02:11→08:01)
[2020-02-19] MEDS: SALT AND SODA MOUTHWASH 1,000 ML PO SCH ×3 (04:54→13:10)
[2020-02-19] MEDS: DEXAMETHASONE 4 MG TAB PO SCH ×2 (07:51→13:10)
[2020-02-19] MEDS: DOXAZOSIN 4 MG TAB PO SCH (07:52)
[2020-02-19] MEDS: MULTIVITAMINS, THERA 1 EACH TAB PO SCH (07:52)
[2020-02-19] MEDS: DOCUSATE 100 MG CAP PO SCH (07:52)
[2020-02-19] MEDS: PANTOPRAZOLE 40 MG TABLET PO SCH (07:52)
[2020-02-19] MEDS: HEPARIN SODIUM,PORCINE 5,000 UNIT/ML 1 ML VIAL SQ SCH (07:52)
[2020-02-19] MEDS: FLUoxetine HCL 10 MG CAP PO SCH (07:52)
[2020-02-19] MEDS: VALSARTAN 160 MG TAB PO SCH (07:52)
[2020-02-19] MEDS: HYDROCHLOROTHIAZIDE 12.5 MG CAP PO SCH (07:52)
[2020-02-19] MEDS: SODIUM CHLORIDE 0.9% 1,000 ML IV SCH (07:53)
[2020-02-19] MEDS: AMOXIC-POT CLAV 875-125MG 1 EACH TAB PO SCH (08:01)
[2020-02-19 12:35] VITALS: BP 135/63; PULSE 55; RESP 19; TEMP 98.1
--- NOTE | 2020-02-19 13:41 | P.DS ---
Providers Date of admission: 02/09/20 14:13 Expected date of discharge: 02/19/20 Attending physician: Augie Venegas Consults: 02/09/20 14:13 Consult Physician Urgent Consulting Provider: Sylvester Weaver Consult Reason/Comments: Periaortic mass Do you want consulting provider notified?: Yes Consult Physician Urgent Consulting Provider: Ketan Leggett Consult Reason/Comments: Mesenteric mass Do you want consulting provider notified?: Yes 02/14/20 15:40 Consult Physician Routine Consulting Provider: Soraida Olivares Consult Reason/Comments: back pain-does not appear r/t masses Do you want consulting provider notified?: Yes, Notify in am 02/16/20 10:38 Consult Physician Routine Consulting Provider: Hollis Rivera Consult Reason/Comments: back pain, metastasis Do you want consulting provider notified?: Yes Primary care physician: Augie Venegas [facility] Course: Final Diagnoses: Acute lower back and abdominal pain secondary to Metastatic mucinous adenocarcinoma,mesenteric mass,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 -Left lower lobe lung mass, seen before on previous CT scan and ET scan, enla rging in size 2.5 x 6.2 x 3.5 with multiple other lesions in the left lung. 10 mm lesion posterior basal right lower lobe -new mesenteric mass 2.3 x 2.4 cm along the stomach curvature, with other mes enteric implants. -Status post bronchoscopy with biopsies of left lower lobe mass, Pleural pathology of lavage reporting scattered reactive bronchial lining cells and inflammatory cells, nondiagnostic of malignancy; brush tip reporting rare atypical epithelial cells consistent with mucinous adenocarcinoma. Constipation, possibly secondary to mesenteric mass hepatic steatosis moderate hiatal hernia previous history of hernia surgery about 3 years ago associated with chronic lower abdominal pain and discomfort for 3 years Hypertension Osteoarthritis Hyperlipidemia GERD Benign prostatic hypertrophy History of skin cancer Thoracic aortic aneurysm with maximal transverse diameter 3.8 cm Hospital Course:This is a pleasant 84 years old male with past medical history of GERD, hypertension, osteoarthritis, benign prostatic hypertrophy, she is a patient of Dr. Venegas. who presents with back pain, patient is in the lower back nonradiating is been going on for more than a week, nonspecific however was getting gradually more severe on admission was 9-10/10, increase with movement that sometimes patient cannot get out of bed. Also patient was complaining of from chronic lower abdominal pain or discomfort for 3 years since he had hernia surgery. He has ongoing nausea but no vomiting, he can eat and drink well but he has low appetite. He didn't have bowel movement for a week and he follow-up with his PCP who prescribed him laxative, and GoLYTELY last one is day about 2-3 days ago followed by bowel movement over 2 days. However yesterday his back to get more severe and he decided to call 911 on come to emergency room. Today he feels back pain is better with Dilaudid. He denies weakness or numbness in the lower extremity. No urine or bowel contents. No history of trauma or falls Vitals are stable. Labs are unremarkable including CBC, BMP, liver enzymes, lipase, urinalysis. 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 02/11/2020 Vision feels generally weak, however no specific weakness in legs and arms. He still complaining of from his back pain about 6/10 in severity, and he has ongoing chronic abdominal pain with constipation, he had no bowel movement and passing gases only, his abdominal pain could also be related to his mesenteric masses. CT of the chest from yesterday showing left lower lobe pulmonary mass increased in size to 5.7 x 4.8 cm with multiple smaller lesions on the right lower and left lower lungs, patient informed with these findings. patient may need biopsy. Hemodynamically stable. Labs are stable 02/12/2020 complaining of bilateral lower quadrants abdominal pain, reports feels like "gas". Eyes cough, denies shortness of breath. -O2 sats in the 90s on room air. Reports positive bowel movement yesterday loose and watery. Plavix remains on hold. INR 1. Discussed diagnostic biopsy. Evaluated by pulmonary and patient is scheduled for diagnostic bronchoscopy with biopsy tomorrow. 02/13/2020 NPO, scheduled for chest CT, diagnostic bronchoscopy with biopsies. Anxious, reports abdominal cramping, no bowel movement, minimal flatus. INR 1. Hemoglobin 12.7, platelets 143. Sodium 131. Renal function improving, BUN 15, creatinine 0.99 Afebrile, normal WBC. Denies chest pain, palpitations. 02/14/2020 CT reported medial left lower lobe mass with additional pleural-based density suspicious for neoplasm.completed diagnostic bronchoscopy with biopsies of the left lower lobe yesterday. Tolerated procedure well. Chest x-ray postprocedure confirmed no pneumothorax. Cytology/pathology pending. Postprocedure developed urinary retention requiring straight cath 1. Spontaneous voiding without difficulty this morning. Atenolol x-ray reporting nonspecific nonobstructive bowel gas pattern with moderate fecal stasis. Complains of abdominal pain, distended, passing flatus, no bowel movement. No nausea or vomiting. VSS,Maintaining O2 sats in the 90s on room air. Afebrile. Labs pending. 02/15/2020 Pleural pathology of lavage reporting scattered reactive bronchial lining cells and inflammatory cells, nondiagnostic of malignancy; brush tip reporting rare atypical epithelial cells consistent with mucinous adenocarcinoma .lumbar spine MRI completed. Positive bowel movements, abdominal pain better, back pain persists. Orthopedic surgery consulted with the evaluation pending. Denies chest pain, palpitations or increasing shortness of breath. Maintaining O2 sats in the 90s on room air. Diet intake 25-50%. Depressed. 02/16/2020 Dr. Venegas at bedside, discussed findings ; pleural cytology-brush tip reporting rare atypical epithelial cells consistent with mucinous adenocarcinoma . MRI of the spine reported diffuse osseous metastatic lesion to T12 vertebrae with some posterior retropulsion effacing anterior spinal canal . Primary unclear. Continues to have a abdominal and lower back pain. Maintaining O2 sats in the 90s on room air. Maintained on Decadron .Patient declining bone scan, declined any further testing. Discussed palliative radiation therapy. Patient reports discussed his decision already with his family over the weekend. Requesting to be discharged today to the hospice house. Dr. Venegas spoke with . Patient will be discharged to hospice house in a stable condition with guarded prognosis. The impression and plan of care has been dictated as directed. : I performed a history and examination of this patient, discussed the same with the dictator. I agree with the dictator's note ,documented as a scribe. Any additional findings or plans will be noted. Patient Condition at Discharge: Stable Plan - Discharge Summary New Discharge Prescriptions: New Amoxic-Pot Clav 875-125Mg [Augmentin 875-125] 1 each PO Q12HR #14 tab Benzocaine/Menthol Lozeng [Cepacol lozenge] 1 each MUCOUS MEM Q4HR PRN lozenge PRN Reason: Sore Throat Dexamethasone [Hexadrol] 4 mg PO QID tab Hydrochlorothiazide [Hydrodiuril] 12.5 mg PO DAILY #30 cap Magnesium Hydroxide [Milk of Magnesia Concentrate] 2,400 mg PO ONCE PRN ml PRN Reason: Constipation HYDROcodone/APAP 7.5-325MG [[place] 7.5-325] 1 each PO Q6H PRN #12 tab PRN Reason: Pain Pantoprazole [Protonix] 40 mg PO AC-BID #60 tablet.dr FLUoxetine HCL [PROzac] 10 mg PO DAILY cap Sennosides [Senokot] 17.4 mg PO HS PRN tab PRN Reason: Constipation Acetaminophen Tab [Tylenol] 650 mg PO Q6HR PRN tab PRN Reason: Fever And/ Or Pain Continue Multivitamins, Thera [Multivitamin (formulary)] 1 tab PO DAILY Terazosin HCl [Hytrin] 10 mg PO HS Atorvastatin Calcium [Lipitor] 20 mg PO DAILY #30 tab Finasteride [Proscar] 5 mg PO DAILY Docusate [Colace] 100 mg PO BID #60 capsule Clopidogrel [Plavix] 75 mg PO HS Vit C/E/Zn/Coppr/Lutein/Zeaxan [Preservision Areds 2 Softgel] 1 cap PO BID Valsartan/Hydrochlorothiazide [Valsartan-Hctz 160-12.5 mg Tab] 1 tab PO DAILY Discontinued Omeprazole [PriLOSEC] 20 mg PO AC-BRKFST Ibuprofen [Motrin] 600 mg PO TID PRN PRN Reason: Pain Discharge Medication List Multivitamins, Thera [Multivitamin (formulary)] 1 tab PO DAILY 01/14/17 [Hi story] Terazosin HCl [Hytrin] 10 mg PO HS 01/14/17 [History] Atorvastatin Calcium [Lipitor] 20 mg PO DAILY #30 tab 06/12/17 [Rx] Finasteride [Proscar] 5 mg PO DAILY 08/07/18 [History] Docusate [Colace] 100 mg PO BID #60 capsule 08/08/18 [Rx] Clopidogrel [Plavix] 75 mg PO HS 01/05/19 [History] Vit C/E/Zn/Coppr/Lutein/Zeaxan [Preservision Areds 2 Softgel] 1 cap PO BID 01/05/19 [History] Valsartan/Hydrochlorothiazide [Valsartan-Hctz 160-12.5 mg Tab] 1 tab PO DAILY 02/09/20 [History] Acetaminophen Tab [Tylenol] 650 mg PO Q6HR PRN tab 02/19/20 [Rx] Amoxic-Pot Clav 875-125Mg [Augmentin 875-125] 1 each PO Q12HR #14 tab 02/19/20 [Rx] Benzocaine/Menthol Lozeng [Cepacol lozenge] 1 each MUCOUS MEM Q4HR PRN lozenge 02/19/20 [Rx] Dexamethasone [Hexadrol] 4 mg PO QID tab 02/19/20 [Rx] FLUoxetine HCL [PROzac] 10 mg PO DAILY cap 02/19/20 [Rx] HYDROcodone/APAP 7.5-325MG [[place] 7.5-325] 1 each PO Q6H PRN #12 tab 02/19/20 [Rx] Hydrochlorothiazide [Hydrodiuril] 12.5 mg PO DAILY #30 cap 02/19/20 [Rx] Magnesium Hydroxide [Milk of Magnesia Concentrate] 2,400 mg PO ONCE PRN ml 02/19/20 [Rx] Pantoprazole [Protonix] 40 mg PO AC-BID #60 tablet. 02/19/20 [Rx] Sennosides [Senokot] 17.4 mg PO HS PRN tab 02/19/20 [Rx] Follow up Appointment(s)/Referral(s): Augie Venegas DO [Primary Care Provider] - As Needed Activity/Diet/Wound Care/Special Instructions: [facility]
--- NOTE | 2020-02-19 14:57 | P.PN ---
Subjective Progress Note Date: 02/19/20 Principal diagnosis: Metastatic Mucinous adenocarcinoma Cancer Patient has decided against further diagnostics to know what the primary site of location is. He is also hesitant to move forward with palliative radiation, re- educated on this could greatly help his cancer related pain. Radiation oncology was coming to talk to him again before his final decision to leave with hospice today. He complains of pain and constipation, therefore he has been hesitant to ask for norco. Objective - Vital Signs Vital signs: Vital Signs Temp 98.1 F 02/19/20 12:34 Pulse 55 L 02/19/20 12:34 Resp 19 02/19/20 12:34 BP 135/63 02/19/20 12:34 Pulse Ox 96 02/19/20 12:34 Intake & Output 02/18/20 02/19/20 02/19/20 18:59 06:59 18:59 Intake Total 300 400 Output Total 400 900 Balance 300 -400 -500 Intake: Intake, IV Titration 400 Amount Sodium Chloride 0.9% 1, 400 000 ml @ 50 mls/hr IV . Q20H [facility] Rx#:[id number] Oral 300 Output: Urine 400 900 Other: Voiding Method Urinal Urinal Urinal # Voids 2 2 # Bowel Movements 1 0 - Exam - Constitutional General appearance: Present: average body habitus, cooperative, no acute distress - EENT Eyes: Present: abnormal pupil, EOMI ENT: Present: hearing grossly normal - Respiratory Respiratory: bilateral: CTA - Cardiovascular Heart sounds: normal: S1, S2 - Peripheral edema leg Peripheral Edema: bilateral: None - Gastrointestinal General gastrointestinal: Present: tenderness Localized gastrointestinal: tender: suprabubic - Neurologic Neurologic: Present: CNII-XII intact - Psychiatric Psychiatric: Present: A&O x's 3, appropriate affect, intact judgment & insight - Labs CBC & Chem 7: 02/18/20 05:31 02/17/20 11:36 Assessment and Plan Plan: Assessment and Plan: Back pain with metastatic osseous to T12 vertebrae - Orthopedic spine seeing pt. - This is the patient's biggest complaint and is impacting his quality of life and mobility significantly. - MRI of the lumbar Spine was reviewed and revealed diffuse osseous metastatic disease to T12 vertebrae with post retropulsion effacing spinal cord.Pending work up results and recommendations. - During stay treated with Dexamethasone may provide palliative pain relief in a picture of metastatic cancer. - Radiation oncology following for possible radiation therapy to spine, patient is still undecided this am Abdominal pain with known Periaortic mass and New Mesenteric Mass - Mesenteric Mass measures 2.3x2.4 anterior lateral to ureter with implants of metastatic disease considered. - Continue to provide supportive symptomatic care Lung mass - S/P biopsy - Positive path for Rare atypical mucinous adenocarcinoma, primary is not definite if GI versus Lung. Further molecular tests to assist in identification of primary site - Based on path from lung, it is not clear if this is a primary lung versus GI cancer, although patient has decided to refuse further work-up and sign on with hospice care, which is resonable given his age, performance status and extent of disease. I do however feel radiation therapy may help provide some comfort and palliation to his spine. DIscussed with radiation oncology and Dr. Rivera will go talk to him prior to his final decision. Entorococcus UTI: - Antibiotics per Primary team - Discussed with Dr. Stokes PLan: - Hospice care - Add Fentanyl patch and intense bowel regimen (senna s and miralax) - Still considering Radiation
[2020-02-19] MEDS ORDERED: SENNOSIDES-DOCUSATE SODIUM 1 EACH TAB PO SCH (21:00)
[2020-02-20] MEDS ORDERED: POLYETHYLENE GLYCOL 3350 17 GM POWD.PACK PO SCH (09:00)
== END 2020-02-19 16:55 | disposition hospice, inpatient (51) | DRG 181 ==
LOC: EC 10:21 → 5NMEDONC 14:13
PROVIDERS: ADMIT Family Medicine; ATTEND Family Medicine
PROC: 0BDB8ZX Extraction of Left Lower Lobe Bronchus, Via Natural or Artificial Opening Endoscopic, Diagnostic (ICD-10-PCS; principal; 2020-02-13 09:15)
PROC: 0B9J8ZX Drainage of Left Lower Lung Lobe, Via Natural or Artificial Opening Endoscopic, Diagnostic (ICD-10-PCS; principal; 2020-02-13 09:15)
DX: C34.32 Malignant neoplasm of lower lobe, left bronchus or lung (principal); C79.51 Secondary malignant neoplasm of bone; C78.6 Secondary malignant neoplasm of retroperitoneum and peritoneum; N39.0 Urinary tract infection, site not specified; R18.8 Other ascites; M45.4 Ankylosing spondylitis of thoracic region; I71.2 Thoracic aortic aneurysm, without rupture; Z11.59 Encounter for screening for other viral diseases; Z66 Do not resuscitate; Z51.5 Encounter for palliative care; M41.56 Other secondary scoliosis, lumbar region; K76.0 Fatty (change of) liver, not elsewhere classified; B95.2 Enterococcus as the cause of diseases classified elsewhere; G89.3 Neoplasm related pain (acute) (chronic); M51.36 Other intervertebral disc degeneration, lumbar region; N20.0 Calculus of kidney; M43.16 Spondylolisthesis, lumbar region; M48.061 Spinal stenosis, lumbar region without neurogenic claudication; F32.9 Major depressive disorder, single episode, unspecified; K21.9 Gastro-esophageal reflux disease without esophagitis; I10 Essential (primary) hypertension; E78.5 Hyperlipidemia, unspecified; K44.9 Diaphragmatic hernia without obstruction or gangrene; K59.09 Other constipation; N40.1 Benign prostatic hyperplasia with lower urinary tract symptoms; R33.8 Other retention of urine; G43.909 Migraine, unspecified, not intractable, without status migrainosus; Z79.02 Long term (current) use of antithrombotics/antiplatelets; Z79.899 Other long term (current) drug therapy; Z85.828 Personal history of other malignant neoplasm of skin; Z98.890 Other specified postprocedural states; Z98.42 Cataract extraction status, left eye; Z82.49 Family history of ischemic heart disease and other diseases of the circulatory system; Z81.1 Family history of alcohol abuse and dependence; Z84.89 Family history of other specified conditions; Z87.19 Personal history of other diseases of the digestive system
CPT/HCPCS: 31623; 31624; 31625; 36415; 71045; 71250; 71260; 72158; 74021; 74177; 80048; 80053; 81001; 81003; 82150; 82378; 82607; 82746; 83605; 83615; 83690; 83883; 83921; 84165; 85025; 85027; 85045; 85610; 86301; 86334; 87077; 87086; 87186; 87635; 88104; 88108; 88305; 88341; 88342; 96374; 96376; 99285